=== PATIENT | female | born 1945 | race Caucasian/White ===

== ENCOUNTER 2017-02-17 15:33 | Inpatient (IN) | payer MEDICARE, BC ==
[2017-02-17 16:48] LABS: #Basophils 0.1 thou/uL (0.0-0.2); #Lymphocytes 1.2 thou/uL (1.20-3.40); #Monocytes 0.8 thou/uL (0.11-0.59); #Neutrophils 10.6 thou/uL (1.40-6.50); %Basophils 0.9 % (0.0-1.0); %Eosinophils 0.3 % (0.0-10.0); %Monocytes 6.4 % (0.0-10.0); %Neutrophils 83.4 % (42.0-75.0); Hemoglobin 13.5 g/dL (12.0-16.0); Mean Corpuscular Hemoglobin 29.1 pg (27.0-31.0); Mean Corpuscular Volume 85.5 fl (81.0-99.0); Mean Platelet Volume 7.3 fL (7.4-10.4); Platelet Count 263 thou/uL (130-400); RBC Distribution Width 12.1 % (11.5-14.5); Red Blood Cell (RBC) Count 4.65 mill/uL (4.20-5.40); White Blood Cell (WBC) Count 12.8 thou/uL (4.8-10.8)
[2017-02-17 16:54] LABS: PTT 23.7 SEC (22.9-36.1); Prothrombin Time 13.6 SEC (12.0-14.7)
[2017-02-17 17:04] LABS: AST (SGOT) 26 U/L (5-34); Albumin 3.7 g/dL (3.4-4.8); Anion Gap 17 mmol/L (10-20); Bilirubin, Total 0.6 mg/dL (0.2-1.2); Calc. Creatinine Clearance 0 mL/min (70-130); Calcium 8.8 mg/dL (7.8-10.44); Carbon Dioxide 19 mmol/L (23-31); Chloride 98 mmol/L (98-107); Estimated GFR-MDRD 75; Globulin 2.6 g/dL (2.4-3.5); Glucose 116 mg/dL (83-110); Magnesium 1.7 mg/dL (1.6-2.6); Protein, Total 6.3 g/dL (6.0-8.3); Sodium 132 mmol/L (136-145)
--- NOTE | 2017-02-17 17:13 | RAD ---
FRONTAL RADIOGRAPH CHEST 02/17/17 COMPARISON: 07/24/14 HISTORY: Failure to thrive, chronic generalized pain. FINDINGS: There is no pneumothorax or pleural fluid and no focal consolidation or alveolar edema. Heart and med iastinal contours are within normal limits. There are degenerative changes involving bilateral shoulders. IMPRESSION: Stable appearance of the chest - no acute findings. POS: [facility]
[2017-02-17 17:37] LABS: Bilirubin Negative (Negative); Blood, Urine Small (Negative); Glucose, Urine (Dipstick) Negative (Negative); Leukocyte Moderate (Negative); Nitrite Negative (Negative); Protein, Urine (Dipstick) 100 mg/dL (Neg-Trace); Specific Gravity, Urine 1.015 (1.005-1.030); Urobilinogen 0.2 mg/dL (0.2-1.0)
[2017-02-17 17:38] LABS: Clarity Hazy (Clear)
[2017-02-17 17:45] LABS: Bacteria/HPF 4+ HPF (None Seen)
[2017-02-17 18:04] LABS: CKMB 2.1 ng/mL (0-6.6); Troponin I 0.047 ng/mL (< 0.028)
[2017-02-17 18:05] LABS: ALT (SGPT) 29 U/L (8-55); Alkaline Phosphatase 75 U/L (40-150); BUN (Urea Nitrogen) 30 mg/dL (9.8-20.1); CK (CPK) 31 U/L (29-168)
[2017-02-17 18:07] LABS: Potassium 1.9 mmol/L (3.5-5.1)
[2017-02-17 18:23] LABS: Lipase 60 U/L (8-78)
[2017-02-17] MEDS ORDERED: NS 0.9% w/ 20 MEQ KCL 1,000 ML ONE (18:23)
[2017-02-17] MEDS ORDERED: Sodium Chloride 0.9% 100 ML ONE (19:05)
[2017-02-17] MEDS ORDERED: cefTRIAXone\\ROCEPHIN 1 GM VIAL ONE (19:05)
[2017-02-17] MEDS ORDERED: Magnesium Sulfate 2 GM/NS 0.9% 50 ML BAG ONE (19:44)
[2017-02-17 20:10] LABS: Troponin I 0.055 ng/mL (< 0.028)
[2017-02-17] MEDS ORDERED: Ondansetron ODT 4 MG TAB SL PRN (21:52)
[2017-02-17] MEDS ORDERED: Ondansetron HCl/PF 4 MG/2 ML Vial IVP PRN (21:52)
[2017-02-17] MEDS ORDERED: NS 0.9% w/ 20 MEQ KCL 1,000 ML IV SCH (21:52)
[2017-02-17] MEDS ORDERED: Potassium Chloride 40 MEQ in Sodium Chloride 0.9% 250 ML 250 ML IVPB SCH (22:30)
[2017-02-17 23:20] LABS: Troponin I 0.056 ng/mL (< 0.028)
[2017-02-18] MEDS ORDERED: Mag-Al 1200 mg/1200 mg/30 ML UDCUP PO PRN (00:55)
[2017-02-18] MEDS ORDERED: hydrALAZINE 20 MG/ML VIAL SLOW IVP PRN (00:55)
[2017-02-18] MEDS ORDERED: Ondansetron ODT 4 MG TAB PO PRN (00:55)
[2017-02-18] MEDS ORDERED: Acetaminophen 325 MG TAB PO PRN (00:55)
[2017-02-18] MEDS ORDERED: Ondansetron HCl/PF 4 MG/2 ML Vial IVP PRN (00:55)
[2017-02-18] MEDS: NS 0.9% w/ 40 MEQ KCL 1,000 ML IV SCH ×2 (01:57→15:21)
--- NOTE | 2017-02-18 02:02 | HP ---
PRIMARY CARE PHYSICIAN: Dr. Carlson CHIEF COMPLAINT: Altered mental status and failure to thrive. HISTORY OF PRESENT ILLNESS: Ms. Pastrana is a pleasant 71-year-old female who was brought to the hosp ital by her daughter. She says that she has not been eating well over the last few days. She has be en lethargic and in and out of being incoherent. She says she has been sleeping a lot. She says dequan t she has not been quite the same since being diagnosed with the flu back in January. She says that her mother has lost quite a bit of weight as well. She says that she typically gets this way when s he has a urinary tract infection. She was brought to the ER and evaluated and found to have urine wh ich is consistent with urinary tract infection with 4+ bacteria and moderate leukocytes. It was also found that she has potassium of 1.9 along with some EKG abnormalities which are consistent with hypo kalemia with prominent E waves in the lateral leads. The patient's daughter says that she is not kno wn to have any nausea or vomiting that her mother has experienced, no diarrhea. She did complain of some nausea in the car, but she attributes that to movement, otherwise no particular complaints. REVIEW OF SYSTEMS: Constitutional: There have been no fevers, no chills, no night sweats, no weight loss. HEENT: No h eadaches, no dizziness, no visual changes, no sore throat, rhinorrhea, neck pain, no adenopathy. Pul monary: No hemoptysis, no cough, no wheezing. Cardiovascular: She denies any chest pain, no shortn ess of breath, no PND, no orthopnea. Gastrointestinal: She has had some nausea, but no vomiting, no change in bowels. Genitourinary: No urinary frequency, hematuria, no hesitancy. Neurologic: No f ocal weakness, numbness, no seizures other than the lethargy. Skin/Integument: No skin changes. No rash. Psychiatric: No symptoms of anxiety or depression. PAST MEDICAL HISTORY: Significant for gastroesophageal reflux disease, systemic lupus, bursitis, fib romyalgia, osteoarthritis, osteoporosis, rheumatoid arthritis. PAST SURGICAL HISTORY: She has had esophageal surgery, surgery for peptic ulcer, hernia repair, hyst erectomy, and sinus surgery. ALLERGIES: To LYRICA which cause hallucinations and PLAQUENIL she had a very bad reaction to. SOCIAL HISTORY: She is . She is a nonsmoker, nondrinker. Her daughter is her medical power of workers compensation attorney and her code status is DNR. FAMILY HISTORY: Significant for arthritis and bursitis as well as heart disease. CURRENT MEDICATIONS: Include alprazolam 3 mg daily, Movantik 25 mg a day, Symbicort 80/4.5 two inhal ations twice a day, diltiazem extended release 30 mg daily, escitalopram 10 mg q.h.s., Lomotil p.r.n. , Flonase nasal spray as needed, methocarbamol 500 mg t.i.d., meclizine 25 mg q.i.d., ibuprofen 800 m g t.i.d., morphine immediate release 15 mg q.i.d., morphine extended release, MS Contin 60 mg t.i.d., pantoprazole 40 mg daily, and Keppra 750 mg twice a day. PHYSICAL EXAMINATION: GENERAL: She is alert and oriented. She appears somewhat lethargic and very sleepy. VITAL SIGNS: Blood pressure was 115/60, heart rate 57, respiratory rate of 16, temperature is 97.3. GENERAL: She does appear to be cachectic with some temporal muscle wasting. THROAT: She has got dry mucous membranes. NECK: There is no adenopathy, no bruits. LUNGS: Clear to auscultation. There is no wheezing, no rales. CARDIOVASCULAR: She has a normal S1, S2. I do not appreciate an S3 or S4. No murmurs, clicks or ru bs. ABDOMEN: Soft, it is nontender, nondistended. Positive for bowel sounds. No rebound or guarding. EXTREMITIES: The left leg is in a hard brace or cast. Right leg, there is no edema. She does have some bruising. NEUROLOGICALLY: The exam is nonfocal. SIGNIFICANT LABORATORY AND X-RAY FINDINGS: White blood cell count 12.8, hemoglobin 13.5, hematocrit is 39.8, platelet count is 263. INR is 1.0. Sodium 132, potassium 1.9, chloride is 98, CO2 is 19, B UN of 30, creatinine 0.76, glucose is 116. ASSESSMENT AND PLAN: 1. This is a 71-year-old female who presented to the emergency room with failure to thrive, poor margarita etite and severe hypokalemia. The potassium is likely due to decrease in oral intake. The decrease in oral intake and failure to thrive is likely from a urinary tract infection. She will be admitted to telemetry. The potassium will need to be replaced. Her magnesium was actually 1.7, is normal. 2. Urinary tract infection. She will be empirically started on Rocephin and Levaquin, pending cultu re results. She does have a history of ESBL Klebsiella in the past as well as ESBL Escherichia coli. Therefore, we will likely start her on meropenem, pending culture results. 3. She has a history of chronic pain from her diagnoses of rheumatoid arthritis and fibromyalgia and severe osteoporosis. She has been on chronic narcotic therapy for this and to avoid withdrawal, we will continue her home medications for this and place her on deep venous thrombosis as well as gastro intestinal prophylaxis.
[2017-02-18] MEDS: Meropenem 1 GM in Syringe 20 ML SLOW IVP SCH ×3 (05:18→21:54)
[2017-02-18] MEDS ORDERED: cefTRIAXone\\ROCEPHIN 1 GM in Syringe 10 ML SLOW IVP SCH (06:30)
[2017-02-18 06:36] LABS: #Eosinphils 0.1 thou/uL (0.0-0.7); #Lymphocytes 1.1 thou/uL (1.20-3.40); #Monocytes 0.6 thou/uL (0.11-0.59); #Neutrophils 5.1 thou/uL (1.40-6.50); %Basophils 0.1 % (0.0-1.0); %Eosinophils 0.8 % (0.0-10.0); %Lymphocytes 16.6 % (21.0-51.0); %Monocytes 8.2 % (0.0-10.0); %Neutrophils 74.4 % (42.0-75.0); Hemoglobin 12.3 g/dL (12.0-16.0); Mean Corpuscular HGB CONC 33.4 g/dL (32.0-36.0); Mean Corpuscular Hemoglobin 30.2 pg (27.0-31.0); Mean Corpuscular Volume 90.4 fl (81.0-99.0); Mean Platelet Volume 7.7 fL (7.4-10.4); Platelet Count 256 thou/uL (130-400); RBC Distribution Width 12.9 % (11.5-14.5); Red Blood Cell (RBC) Count 4.07 mill/uL (4.20-5.40); White Blood Cell (WBC) Count 6.9 thou/uL (4.8-10.8)
[2017-02-18 06:39] LABS: Anion Gap 14 mmol/L (10-20); BUN (Urea Nitrogen) 22 mg/dL (9.8-20.1); Calc. Creatinine Clearance 58 mL/min (70-130); Calcium 8.6 mg/dL (7.8-10.44); Carbon Dioxide 18 mmol/L (23-31); Chloride 107 mmol/L (98-107); Estimated GFR-MDRD 85; Glucose 104 mg/dL (83-110); Sodium 136 mmol/L (136-145)
[2017-02-18 06:43] LABS: Potassium 2.6 mmol/L (3.5-5.1)
[2017-02-18] MEDS ORDERED: Chloraseptic Spray 180 ml Bottle PO PRN (07:41)
[2017-02-18] MEDS ORDERED: Artificial Tears 18 DROP/0.9 ML EA EYE PRN (07:41)
[2017-02-18] MEDS ORDERED: Sodium Chloride 0.65% Nasal 44 ML BOT EA NARE PRN (07:41)
[2017-02-18] MEDS ORDERED: Diphenoxylate HCl/Atropine Tablet PO PRN (07:41)
[2017-02-18] MEDS ORDERED: Loratadine 10 MG TAB PO PRN (07:41)
[2017-02-18] MEDS ORDERED: Eucerin (Mineral Oil/Petrolatum,White) 30 gm Jar TOP PRN (07:41)
[2017-02-18] MEDS ORDERED: Milk Of Magnesia 30 ML UDCUP PO PRN (07:41)
[2017-02-18] MEDS ORDERED: Temazepam 15 MG CAP PO PRN (07:41)
[2017-02-18] MEDS ORDERED: Nitroglycerin 0.4 MG TAB (25 Tab Bottle) SL PRN (07:41)
[2017-02-18] MEDS ORDERED: Senokot 8.6 MG TAB PO PRN (07:41)
[2017-02-18] MEDS ORDERED: HYDROcodone/Acetaminophen 5/325 mg Tablet PO PRN (07:41)
[2017-02-18] MEDS ORDERED: Diabetic Tussin 200 MG/10 ML UDCUP PO PRN (07:41)
[2017-02-18] MEDS ORDERED: Meclizine HCl 25 MG TAB PO PRN (07:43)
[2017-02-18] MEDS ORDERED: Fluticasone Propionate Nasal Spray 16 gm Bottle NASAL PRN (08:00)
[2017-02-18] MEDS: Mometasone/Formoterol 120 PUFF INHALER INH SCH ×2 (08:35→20:00)
[2017-02-18] MEDS: Potassium Chloride 20 MEQ TAB PO SCH ×2 (08:47→18:19)
[2017-02-18] MEDS: Diltiazem HCl CD 300 mg Capsule PO SCH (08:54)
[2017-02-18] MEDS: Famotidine 20 MG TAB PO SCH ×2 (08:55→21:52)
[2017-02-18] MEDS: Enoxaparin Sodium 30 MG/0.3 ML SYRINGE SC SCH (08:55)
[2017-02-18] MEDS: levETIRAcetam 500 MG TAB PO SCH ×2 (08:55→21:49)
[2017-02-18] MEDS: Morphine IR Tab 15 MG TAB PO SCH ×5 (08:57→21:45)
[2017-02-18] MEDS: Methocarbamol 500 MG TAB PO SCH ×3 (08:57→21:49)
[2017-02-18] MEDS: Morphine ER 30 MG TAB PO SCH ×3 (08:58→21:50)
[2017-02-18] MEDS ORDERED: ALPRAZolam 1 MG TAB PO SCH ×3 (09:00→21:00)
[2017-02-18] MEDS ORDERED: BUDESONIDE FORMOTEROL INH SCH (09:00)
--- NOTE | 2017-02-18 11:11 | PQF ---
Date: 02-18-17 ATTN: DR. SHERRI DUMONT Please exercise your independent, professional judgment in responding to the clarification form. Clinical indicators are provided on the bottom of this form for your review Please check appropriate box(s): [ ] Protein Calorie Malnutrition: [ ] Mild [ ] Moderate [ ] Severe [ ] Other Malnutrition (please specify) __ [ ] Other diagnosis [ ] Unable to determine In addition, please specify: Present on Admission (POA): [ ] Yes [ ] No [ ] Unable to determine CLINICAL INDICATORS - SIGNS / SYMPTOMS / LABS BMI: 19.3 ER DOCUMENTATION: LOOKED REALLY SUNKEN AND EMACIATED CLINICAL LAB TECHNOLOGIST CONSULT 02-21-17: Prior to admit the pt was not eating well for a few days. Also noted to have had the flu in January and has lost a lot of wt. The pt took 75% breakfast today. H&P: HAS NOT BEEN EATING WELL OVER THE LAST FEW DAYS, SHE HAS BEEN LETHARGIC AND IN AND OUT OF BEING COHERENT. SHE SAYS THAT HER MOTHER HAS LOST QUITE A BIT FO WEIGHT WELL, 71 Y/O FEMALE WHO PRESENTED TO ER WITH FTT, POOR APPETITE AND SEVERE HYPOKALEMIA RISK FACTORS: ER DOCUMENTATION: HX OF FIBROMYALGIA, LUPUS, IN WITH FTT, HAS NOT BEEN EATING AND DRINKING DIETARY CONSULT 02-21-17: Stage 2 ulcer to sacrococcygeal area TREATMENT: DIETARY CONSULT 02-21-17: Ensure Enlive TID (This form is maintained as a part of the permanent medical record) 2014 [employer]. All Rights Reserved [email or web address] Office: [phone] [facility]
--- NOTE | 2017-02-18 11:16 | PDOC.PN ---
- Subjective Encounter Start Date: 02/18/17 Encounter Start Time: 07:10 -: old records requested/rev Patient seen and examined. No new complaints. No overnight events - Objective Resuscitation Status: Resuscitation Status DNR:Do Not Resuscitate MAR Reviewed: Yes Vital Signs & Weight: Vital Signs (12 hours) Temp Pulse Pulse Pulse Pulse Resp BP 02/18/17 09:05 66 69 02/18/17 08:54 69 133/59 L 02/18/17 08:35 69 14 02/18/17 08:00 98.9 F 69 20 02/18/17 07:47 67 66 65 02/18/17 03:55 98.6 F 62 16 02/17/17 23:45 97.3 F L 57 L 16 BP BP BP BP Pulse Ox 02/18/17 09:05 152/71 H 149/83 H 02/18/17 08:54 02/18/17 08:35 100 02/18/17 08:00 133/59 L 99 02/18/17 07:47 144/70 H 154/83 H 153/79 H 02/18/17 03:55 107/56 L 99 02/17/17 23:45 115/60 97 Weight Admit Weight 108 lb 11.2 oz Weight 108 lb 11.2 oz Result Diagrams: 02/18/17 04:31 02/18/17 04:31 EKG Reviewed by me: Yes Phys Exam - Physical Examination Constitutional: NAD HEENT: PERRLA, moist MMs, sclera anicteric Neck: no JVD, supple Respiratory: no wheezing, no rales, no rhonchi Cardiovascular: RRR, no significant murmur, no rub Gastrointestinal: soft, non-tender, no distention, positive bowel sounds right leg with brace Neurological: non-focal Lymphatic: no nodes Psychiatric: normal affect Skin: no rash, normal turgor Dx/Plan (1) Demand ischemia Code(s): I24.8 - OTHER FORMS OF ACUTE ISCHEMIC HEART DISEASE Status: Acute (2) Encephalopathy acute Code(s): G93.40 - ENCEPHALOPATHY, UNSPECIFIED Status: Acute (3) Failure to thrive in adult Status: Acute (4) Hypokalemia Code(s): E87.6 - HYPOKALEMIA Status: Acute (5) Protein-calorie malnutrition, moderate Code(s): E44.0 - MODERATE PROTEIN-CALORIE MALNUTRITION Status: Acute (6) UTI (urinary tract infection) Status: Acute (7) Weakness generalized Code(s): R53.1 - WEAKNESS Status: Acute (8) Anxiety and depression Code(s): F41.8 - OTHER SPECIFIED ANXIETY DISORDERS Status: Chronic (9) Chronic pain disorder Code(s): G89.4 - CHRONIC PAIN SYNDROME Status: Chronic (10) Fibromyalgia Status: Chronic (11) GERD (gastroesophageal reflux disease) Code(s): K21.9 - GASTRO-ESOPHAGEAL REFLUX DISEASE WITHOUT ESOPHAGITIS Status: Chronic (12) Osteoarthritis Code(s): M19.90 - UNSPECIFIED OSTEOARTHRITIS, UNSPECIFIED SITE Status: Chronic (13) Osteoporosis Code(s): M81.0 - AGE-RELATED OSTEOPOROSIS W/O CURRENT PATHOLOGICAL FRACTURE Status: Chronic - Plan cont current plan of care, plan discussed w/ family, continue antibiotics, PT/OT * follow urine culture * replace potassium * once K normal, will repeat EKG * medication reviewed as below * symptomatic treatment * continue meropenam * repeat labs tomorrow. Review of Systems - Review of Systems Eyes: negative: Pain, Vision Change, Conjunctivae Inflammation, Eyelid Inflammation, Redness, Other ENT: negative: Ear Pain, Ear Discharge, Nose Pain, Nose Discharge, Nose Congestion, Mouth Pain, Mouth Swelling, Throat Pain, Throat Swelling, Other Respiratory: negative: Cough, Dry, Shortness of Breath, Hemoptysis, SOB with Excertion, Pleuritic Pain, Sputum, Wheezing Cardiovascular: negative: chest pain, palpitations, orthopnea, paroxysmal nocturnal dyspnea, edema, light headedness, other Gastrointestinal: negative: Nausea, Vomiting, Abdominal Pain, Diarrhea, Constipation, Melena, Hematochezia, Other Genitourinary: negative: Dysuria, Frequency, Incontinence, Hematuria, Retention , Other Musculoskeletal: negative: Neck Pain, Shoulder Pain, Arm Pain, Back Pain, Hand Pain, Leg Pain, Foot Pain, Other - Medications/Allergies Allergies/Adverse Reactions: Allergies Allergy/AdvReac Type Severity Reaction Status Date / Time hydroxychloroquine Allergy Verified 08/26/15 23:34 [Hydroxychloroquine] hydroxychloroquine sulfate Allergy Verified 08/26/15 23:34 [From Plaquenil] pregabalin [From Lyrica] Allergy Verified 08/26/15 23:34 Medications: Current Medications Acetaminophen (Tylenol) 650 mg PO Q4H PRN PRN Reason: Headache/Fever or Pain Hydrocodone Bitart/Acetaminophen ([place] 5/325) 1 tab PO Q4H PRN PRN Reason: Moderate Pain (4-6) Al Hydroxide/Mg Hydroxide (Maalox) 30 ml PO Q6H PRN PRN Reason: Heartburn or Indigestion Alprazolam (Xanax) 3 mg PO HS [facility] Artificial Tears (Tears Naturale) 0 drop EA EYE PRN PRN PRN Reason: Dry Eyes Diltiazem HCl (Cardizem Cd) 300 mg PO DAILY [facility] Last Admin: 02/18/17 08:54 Dose: 300 mg Diphenoxylate HCl/Atropine (Lomotil) 1 tab PO QIDPRN PRN PRN Reason: Diarrhea/Loose Stools Enoxaparin Sodium (Lovenox) 30 mg SC 0900 [facility] Last Admin: 02/18/17 08:55 Dose: 30 mg Escitalopram Oxalate (Lexapro) 10 mg PO [facility] Famotidine (Pepcid) 20 mg PO BID [facility] Last Admin: 02/18/17 08:55 Dose: 20 mg Fluticasone Propionate (Flonase Nasal [place]) 0 gm NASAL DAILY PRN PRN Reason: Allergies Guaifenesin (Robitussin Sf) 200 mg PO Q4H PRN PRN Reason: Cough Hydralazine HCl (Apresoline) 10 mg SLOW IVP Q4H PRN PRN Reason: Systolic BP > 180 Meropenem 1 gm/ Syringe 20 mls @ 240 mls/hr SLOW IVP Q8HR [facility] Last Admin: 02/18/17 05:18 Dose: 20 mls Potassium Chloride/Sodium Chloride (Ns 0.9% W/ 40 Meq Kcl) 1,000 mls @ 100 mls/ hr IV .Q10H [facility] Last Admin: 02/18/17 01:57 Dose: 1,000 mls Levetiracetam (Keppra) 750 mg PO BID [facility] Last Admin: 02/18/17 08:55 Dose: 750 mg Loratadine (Claritin) 10 mg PO DAILYPRN PRN PRN Reason: Sinus Symptoms Magnesium Hydroxide (Milk Of Magnesium) 30 ml PO DAILYPRN PRN PRN Reason: Constipation Meclizine HCl (Antivert) 25 mg PO QID PRN PRN Reason: Dizziness Methocarbamol (Robaxin) 500 mg PO TID [facility] Last Admin: 02/18/17 08:57 Dose: 500 mg Mineral Oil/White Petrolatum (Eucerin Cream) 0 gm TOP BIDPRN PRN PRN Reason: Dry Skin Miscellaneous Medication (Movantik) 25 mg PO DAILY [facility] Last Admin: 02/18/17 11:06 Dose: 25 mg Mometasone Furoate/Formoterol Fumar (Dulera 100 Mcg/5 Mcg Inhaler) 2 puff INH BID-RT [facility] Last Admin: 02/18/17 08:35 Dose: 2 puff Morphine Sulfate (Ms Contin) 60 mg PO TID [facility] Last Admin: 02/18/17 08:58 Dose: 60 mg Morphine Sulfate (Morphine Ir Tab) 15 mg PO QID [facility] Last Admin: 02/18/17 08:57 Dose: 15 mg Nitroglycerin (Nitrostat) 0.4 mg SL Q5MIN PRN PRN Reason: Chest Pain Ondansetron HCl (Zofran Odt) 4 mg PO Q6H PRN PRN Reason: Nausea/Vomiting Ondansetron HCl (Zofran) 4 mg IVP Q6H PRN PRN Reason: Nausea/Vomiting Pantoprazole Sodium (Protonix) 40 mg PO DAILY [facility] Last Admin: 02/18/17 08:58 Dose: 40 mg Phenol (Chloraseptic [place] 180 Ml Bot) 0 ml PO PRN PRN PRN Reason: Sore Throat Potassium Chloride (K-Dur) 40 meq PO BID-WM [facility] Last Admin: 02/18/17 08:47 Dose: 40 meq Senna (Senokot) 2 tab PO HSPRN PRN PRN Reason: Constipation Sodium Chloride ([place] Nasal [place] 0.65%) 0 ml EA NARE QIDPRN PRN PRN Reason: Nasal Congestion Temazepam (Restoril) 15 mg PO HSPRN PRN PRN Reason: Insomnia
[2017-02-18] MEDS: Escitalopram Oxalate 10 mg Tablet PO SCH (21:49)
[2017-02-18] MEDS: ALPRAZolam 1 MG TAB PO PRN (21:52)
[2017-02-19] MEDS: NS 0.9% w/ 40 MEQ KCL 1,000 ML IV SCH ×3 (01:38→13:27)
[2017-02-19 05:30] LABS: #Eosinphils 0.1 thou/uL (0.0-0.7); #Lymphocytes 1.6 thou/uL (1.20-3.40); #Monocytes 0.6 thou/uL (0.11-0.59); #Neutrophils 3.8 thou/uL (1.40-6.50); %Basophils 0.8 % (0.0-1.0); %Eosinophils 1.7 % (0.0-10.0); %Lymphocytes 26.5 % (21.0-51.0); %Monocytes 9.3 % (0.0-10.0); %Neutrophils 61.8 % (42.0-75.0); Hemoglobin 10.9 g/dL (12.0-16.0); Mean Corpuscular Hemoglobin 30.1 pg (27.0-31.0); Mean Corpuscular Volume 91.4 fl (81.0-99.0); Mean Platelet Volume 7.1 fL (7.4-10.4); Platelet Count 228 thou/uL (130-400); RBC Distribution Width 13.1 % (11.5-14.5); Red Blood Cell (RBC) Count 3.61 mill/uL (4.20-5.40); White Blood Cell (WBC) Count 6.1 thou/uL (4.8-10.8)
[2017-02-19 05:45] LABS: ALT (SGPT) 17 U/L (8-55); AST (SGOT) 13 U/L (5-34); Albumin 2.7 g/dL (3.4-4.8); Alkaline Phosphatase 56 U/L (40-150); Anion Gap 11 mmol/L (10-20); BUN (Urea Nitrogen) 16 mg/dL (9.8-20.1); Bilirubin, Total 0.2 mg/dL (0.2-1.2); Calc. Creatinine Clearance 78 mL/min (70-130); Calcium 8.1 mg/dL (7.8-10.44); Carbon Dioxide 17 mmol/L (23-31); Chloride 114 mmol/L (98-107); Estimated GFR-MDRD Greater than 90; Globulin 1.8 g/dL (2.4-3.5); Glucose 87 mg/dL (83-110); Potassium 3.5 mmol/L (3.5-5.1); Protein, Total 4.5 g/dL (6.0-8.3); Sodium 138 mmol/L (136-145)
[2017-02-19] MEDS: Meropenem 1 GM in Syringe 20 ML SLOW IVP SCH ×3 (05:45→22:25)
[2017-02-19] MEDS ORDERED: K-Phos Neutral 250 MG TAB PO SCH (06:30)
[2017-02-19] MEDS: Potassium Chloride 20 MEQ TAB PO SCH ×2 (08:20→16:57)
[2017-02-19] MEDS: Morphine IR Tab 15 MG TAB PO SCH ×5 (08:22→21:26)
[2017-02-19] MEDS: Methocarbamol 500 MG TAB PO SCH ×3 (08:22→21:16)
[2017-02-19] MEDS: Enoxaparin Sodium 30 MG/0.3 ML SYRINGE SC SCH (08:22)
[2017-02-19] MEDS: Famotidine 20 MG TAB PO SCH ×2 (08:22→21:16)
[2017-02-19] MEDS: levETIRAcetam 500 MG TAB PO SCH ×2 (08:23→21:16)
[2017-02-19] MEDS: Morphine ER 30 MG TAB PO SCH ×3 (08:23→21:16)
[2017-02-19] MEDS: Mometasone/Formoterol 120 PUFF INHALER INH SCH ×2 (08:38→21:19)
[2017-02-19] MEDS: Diltiazem HCl CD 300 mg Capsule PO SCH (08:47)
--- NOTE | 2017-02-19 08:56 | PDOC.PN ---
- Subjective Encounter Start Date: 02/19/17 Encounter Start Time: 07:00 Patient seen and examined. No new complaints. No overnight events - Objective Resuscitation Status: Resuscitation Status DNR:Do Not Resuscitate MAR Reviewed: Yes Vital Signs & Weight: Vital Signs (12 hours) Temp Pulse Resp BP BP Pulse Ox 02/19/17 08:47 76 116/71 02/19/17 08:38 76 16 98 02/19/17 07:28 98.6 F 72 18 86/46 L 93 L 02/19/17 03:07 98.7 F 74 12 126/71 98 02/18/17 23:33 97.7 F 69 16 125/68 98 02/18/17 21:30 97.7 F 69 16 98 Weight Admit Weight 108 lb 11.2 oz Weight 124 lb 8 oz Result Diagrams: 02/19/17 04:56 02/19/17 04:56 EKG Reviewed by me: Yes Phys Exam - Physical Examination Constitutional: NAD HEENT: PERRLA, moist MMs, sclera anicteric, oral pharynx no lesions Neck: no JVD, supple Respiratory: no wheezing, no rales, no rhonchi Cardiovascular: RRR, no significant murmur, no rub Gastrointestinal: soft, non-tender, no distention, positive bowel sounds Musculoskeletal: no edema, pulses present Neurological: non-focal, normal sensation Lymphatic: no nodes Psychiatric: normal affect, A&O x 3 Skin: no rash, normal turgor Dx/Plan (1) Demand ischemia Code(s): I24.8 - OTHER FORMS OF ACUTE ISCHEMIC HEART DISEASE Status: Acute (2) Encephalopathy acute Code(s): G93.40 - ENCEPHALOPATHY, UNSPECIFIED Status: Acute (3) Failure to thrive in adult Status: Acute (4) Hypokalemia Code(s): E87.6 - HYPOKALEMIA Status: Acute (5) Protein-calorie malnutrition, moderate Code(s): E44.0 - MODERATE PROTEIN-CALORIE MALNUTRITION Status: Acute (6) UTI (urinary tract infection) Status: Acute (7) Weakness generalized Code(s): R53.1 - WEAKNESS Status: Acute (8) Anxiety and depression Code(s): F41.8 - OTHER SPECIFIED ANXIETY DISORDERS Status: Chronic (9) Chronic pain disorder Code(s): G89.4 - CHRONIC PAIN SYNDROME Status: Chronic (10) Fibromyalgia Status: Chronic (11) GERD (gastroesophageal reflux disease) Code(s): K21.9 - GASTRO-ESOPHAGEAL REFLUX DISEASE WITHOUT ESOPHAGITIS Status: Chronic (12) Osteoarthritis Code(s): M19.90 - UNSPECIFIED OSTEOARTHRITIS, UNSPECIFIED SITE Status: Chronic (13) Osteoporosis Code(s): M81.0 - AGE-RELATED OSTEOPOROSIS W/O CURRENT PATHOLOGICAL FRACTURE Status: Chronic - Plan cont current plan of care, plan discussed w/ family, continue antibiotics, PT/OT * medication reviewed as below * symptomatic treatment * will give KPhos * will repeat labs tomorrow * will get EKG today. Review of Systems - Review of Systems ENT: negative: Ear Pain, Ear Discharge, Nose Pain, Nose Discharge, Nose Congestion, Mouth Pain, Mouth Swelling, Throat Pain, Throat Swelling, Other Respiratory: negative: Cough, Dry, Shortness of Breath, Hemoptysis, SOB with Excertion, Pleuritic Pain, Sputum, Wheezing Cardiovascular: negative: chest pain, palpitations, orthopnea, paroxysmal nocturnal dyspnea, edema, light headedness, other Gastrointestinal: negative: Nausea, Vomiting, Abdominal Pain, Diarrhea, Constipation, Melena, Hematochezia, Other Genitourinary: negative: Dysuria, Frequency, Incontinence, Hematuria, Retention , Other Musculoskeletal: negative: Neck Pain, Shoulder Pain, Arm Pain, Back Pain, Hand Pain, Leg Pain, Foot Pain, Other Skin: negative: Rash, Lesions, Jaciel, Bruising, Other - Medications/Allergies Allergies/Adverse Reactions: Allergies Allergy/AdvReac Type Severity Reaction Status Date / Time hydroxychloroquine Allergy Verified 08/26/15 23:34 [Hydroxychloroquine] hydroxychloroquine sulfate Allergy Verified 08/26/15 23:34 [From Plaquenil] pregabalin [From Lyrica] Allergy Verified 08/26/15 23:34 Medications: Current Medications Acetaminophen (Tylenol) 650 mg PO Q4H PRN PRN Reason: Headache/Fever or Pain Hydrocodone Bitart/Acetaminophen ([place] 5/325) 1 tab PO Q4H PRN PRN Reason: Moderate Pain (4-6) Al Hydroxide/Mg Hydroxide (Maalox) 30 ml PO Q6H PRN PRN Reason: Heartburn or Indigestion Alprazolam (Xanax) 1 mg PO TIDPRN PRN PRN Reason: Anxiety Last Admin: 02/18/17 21:52 Dose: 1 mg Artificial Tears (Tears Naturale) 0 drop EA EYE PRN PRN PRN Reason: Dry Eyes Diltiazem HCl (Cardizem Cd) 300 mg PO DAILY [facility] Last Admin: 02/19/17 08:47 Dose: 300 mg Diphenoxylate HCl/Atropine (Lomotil) 1 tab PO QIDPRN PRN PRN Reason: Diarrhea/Loose Stools Enoxaparin Sodium (Lovenox) 30 mg SC 0900 [facility] Last Admin: 02/19/17 08:22 Dose: 30 mg Escitalopram Oxalate (Lexapro) 10 mg PO HS [facility] Last Admin: 02/18/17 21:49 Dose: 10 mg Famotidine (Pepcid) 20 mg PO BID [facility] Last Admin: 02/19/17 08:22 Dose: 20 mg Fluticasone Propionate (Flonase Nasal [place]) 0 gm NASAL DAILY PRN PRN Reason: Allergies Guaifenesin (Robitussin Sf) 200 mg PO Q4H PRN PRN Reason: Cough Hydralazine HCl (Apresoline) 10 mg SLOW IVP Q4H PRN PRN Reason: Systolic BP > 180 Meropenem 1 gm/ Syringe 20 mls @ 240 mls/hr SLOW IVP Q8HR [facility] Last Admin: 02/19/17 05:45 Dose: 20 mls Potassium Chloride/Sodium Chloride (Ns 0.9% W/ 40 Meq Kcl) 1,000 mls @ 100 mls/ hr IV .Q10H [facility] Last Admin: 02/19/17 01:38 Dose: 1,000 mls Levetiracetam (Keppra) 750 mg PO BID [facility] Last Admin: 02/19/17 08:23 Dose: 750 mg Loratadine (Claritin) 10 mg PO DAILYPRN PRN PRN Reason: Sinus Symptoms Magnesium Hydroxide (Milk Of Magnesium) 30 ml PO DAILYPRN PRN PRN Reason: Constipation Meclizine HCl (Antivert) 25 mg PO QID PRN PRN Reason: Dizziness Methocarbamol (Robaxin) 500 mg PO TID [facility] Last Admin: 02/19/17 08:22 Dose: 500 mg Mineral Oil/White Petrolatum (Eucerin Cream) 0 gm TOP BIDPRN PRN PRN Reason: Dry Skin Miscellaneous Medication (Movantik) 25 mg PO DAILY [facility] Last Admin: 02/18/17 11:06 Dose: 25 mg Mometasone Furoate/Formoterol Fumar (Dulera 100 Mcg/5 Mcg Inhaler) 2 puff INH BID-RT [facility] Last Admin: 02/19/17 08:38 Dose: 2 puff Morphine Sulfate (Ms Contin) 60 mg PO TID [facility] Last Admin: 02/19/17 08:23 Dose: 60 mg Morphine Sulfate (Morphine Ir Tab) 15 mg PO QID [facility] Last Admin: 02/19/17 08:45 Dose: Not Given Nitroglycerin (Nitrostat) 0.4 mg SL Q5MIN PRN PRN Reason: Chest Pain Ondansetron HCl (Zofran Odt) 4 mg PO Q6H PRN PRN Reason: Nausea/Vomiting Ondansetron HCl (Zofran) 4 mg IVP Q6H PRN PRN Reason: Nausea/Vomiting Pantoprazole Sodium (Protonix) 40 mg PO DAILY [facility] Last Admin: 02/19/17 08:24 Dose: 40 mg Phenol (Chloraseptic [place] 180 Ml Bot) 0 ml PO PRN PRN PRN Reason: Sore Throat Potassium Chloride (K-Dur) 40 meq PO BID-WM [facility] Last Admin: 02/19/17 08:20 Dose: 40 meq Senna (Senokot) 2 tab PO HSPRN PRN PRN Reason: Constipation Sodium Chloride ([place] Nasal [place] 0.65%) 0 ml EA NARE QIDPRN PRN PRN Reason: Nasal Congestion Sodium Chloride (Flush - Normal Saline) 10 ml IVF Q12HR [facility] Sodium Chloride (Flush - Normal Saline) 10 ml IVF PRN PRN PRN Reason: Saline Flush Temazepam (Restoril) 15 mg PO HSPRN PRN PRN Reason: Insomnia
[2017-02-19] MEDS: Escitalopram Oxalate 10 mg Tablet PO SCH (21:15)
[2017-02-19] MEDS: ALPRAZolam 1 MG TAB PO PRN (22:26)
[2017-02-20] MEDS: Meropenem 1 GM in Syringe 20 ML SLOW IVP SCH ×3 (05:32→22:44)
[2017-02-20 05:39] LABS: Anion Gap 8 mmol/L (10-20); BUN (Urea Nitrogen) 14 mg/dL (9.8-20.1); Calc. Creatinine Clearance 84 mL/min (70-130); Carbon Dioxide 19 mmol/L (23-31); Chloride 114 mmol/L (98-107); Estimated GFR-MDRD Greater than 90; Glucose 91 mg/dL (83-110); Phosphorus 3.4 mg/dL (2.3-4.7); Potassium 4.1 mmol/L (3.5-5.1); Sodium 137 mmol/L (136-145)
[2017-02-20] MEDS: Mometasone/Formoterol 120 PUFF INHALER INH SCH ×2 (08:17→19:58)
[2017-02-20] MEDS: Diltiazem HCl CD 300 mg Capsule PO SCH (10:38)
[2017-02-20] MEDS: Enoxaparin Sodium 30 MG/0.3 ML SYRINGE SC SCH (10:38)
[2017-02-20] MEDS: levETIRAcetam 500 MG TAB PO SCH ×2 (10:39→20:20)
[2017-02-20] MEDS: Famotidine 20 MG TAB PO SCH ×2 (10:39→20:19)
[2017-02-20] MEDS: Methocarbamol 500 MG TAB PO SCH ×3 (10:40→20:21)
[2017-02-20] MEDS: Morphine IR Tab 15 MG TAB PO SCH ×4 (10:41→20:17)
[2017-02-20] MEDS: Morphine ER 30 MG TAB PO SCH ×3 (10:41→20:19)
[2017-02-20] MEDS: Potassium Chloride 20 MEQ TAB PO SCH (10:50)
--- NOTE | 2017-02-20 11:19 | PDOC.PN ---
- Subjective Encounter Start Date: 02/20/17 Encounter Start Time: 11:15 Patient seen and examined, no new issues or complaints, all questions answered. - Objective Resuscitation Status: Resuscitation Status DNR:Do Not Resuscitate Vital Signs & Weight: Vital Signs (12 hours) Temp Pulse Resp BP BP BP Pulse Ox 02/20/17 10:38 65 100/59 L 02/20/17 08:17 65 16 95 02/20/17 07:35 97.7 F 58 L 18 100/59 L 99 02/20/17 04:30 97.6 F 61 18 126/72 94 L Weight Admit Weight 108 lb 11.2 oz Weight 124 lb 8 oz I&O: 02/19/17 02/20/17 02/21/17 06:59 06:59 06:59 Intake Total 2500 Balance 2500 Result Diagrams: 02/19/17 04:56 02/20/17 05:12 Phys Exam - Physical Examination Constitutional: NAD HEENT: PERRLA, moist MMs Neck: no nodes, no JVD Respiratory: no wheezing, no rales Cardiovascular: RRR, no significant murmur Gastrointestinal: soft, non-tender Musculoskeletal: pulses present, edema present (trace) Neurological: non-focal, normal sensation Psychiatric: normal affect, A&O x 3 Dx/Plan (1) Demand ischemia Code(s): I24.8 - OTHER FORMS OF ACUTE ISCHEMIC HEART DISEASE Status: Acute (2) Failure to thrive in adult Status: Acute (3) Protein-calorie malnutrition, moderate Code(s): E44.0 - MODERATE PROTEIN-CALORIE MALNUTRITION Status: Acute (4) Weakness generalized Code(s): R53.1 - WEAKNESS Status: Acute (5) Chronic pain disorder Code(s): G89.4 - CHRONIC PAIN SYNDROME Status: Chronic (6) Fibromyalgia Status: Chronic (7) GERD (gastroesophageal reflux disease) Code(s): K21.9 - GASTRO-ESOPHAGEAL REFLUX DISEASE WITHOUT ESOPHAGITIS Status: Chronic (8) Osteoarthritis Code(s): M19.90 - UNSPECIFIED OSTEOARTHRITIS, UNSPECIFIED SITE Status: Chronic - Plan * BP stable * Hypokalemia resolved * afebrile, tolerating diet * cont abx * continue current plan of care
[2017-02-20] MEDS: Escitalopram Oxalate 10 mg Tablet PO SCH (20:19)
[2017-02-20] MEDS: ALPRAZolam 1 MG TAB PO PRN (20:26)
[2017-02-21] MEDS: Meropenem 1 GM in Syringe 20 ML SLOW IVP SCH ×3 (05:25→21:59)
[2017-02-21] MEDS: Mometasone/Formoterol 120 PUFF INHALER INH SCH ×2 (06:03→19:20)
--- NOTE | 2017-02-21 08:33 | PDOC.PN ---
- Subjective Encounter Start Date: 02/21/17 Encounter Start Time: 09:30 Subjective: Patient feeling much better since admit. Energy level improved. More -: strength with moving to bedside commode. - Objective Resuscitation Status: Resuscitation Status DNR:Do Not Resuscitate MAR Reviewed: Yes Vital Signs & Weight: Vital Signs (12 hours) Temp Pulse Resp BP BP Pulse Ox 02/21/17 07:51 97.5 F L 62 16 112/67 99 02/21/17 06:03 63 14 96 02/21/17 04:00 97.2 F L 61 16 99/63 99 02/20/17 22:20 98.8 F 67 18 98/60 99 02/20/17 22:08 98.8 F 67 18 99 02/20/17 20:39 97.7 F 64 16 120/67 100 Weight Admit Weight 108 lb 11.2 oz Weight 124 lb 8 oz I&O: 02/20/17 02/21/17 02/22/17 06:59 06:59 06:59 Intake Total 2500 480 Balance 2500 480 Result Diagrams: 02/19/17 04:56 02/20/17 05:12 Phys Exam - Physical Examination Constitutional: NAD HEENT: moist MMs Respiratory: no wheezing, no rales, no rhonchi Cardiovascular: RRR, no significant murmur Gastrointestinal: soft, positive bowel sounds Neurological: non-focal Psychiatric: normal affect, A&O x 3 Dx/Plan (1) UTI (urinary tract infection) Status: Acute Comment: Multiresistant E.coli and K.pneumoniae. On Meropenem. Consult ID. (2) Failure to thrive in adult Status: Acute (3) Protein-calorie malnutrition, moderate Code(s): E44.0 - MODERATE PROTEIN-CALORIE MALNUTRITION Status: Chronic (4) Weakness generalized Code(s): R53.1 - WEAKNESS Status: Acute (5) Chronic pain disorder Code(s): G89.4 - CHRONIC PAIN SYNDROME Status: Chronic (6) Fibromyalgia Status: Chronic - Plan cont current plan of care, continue antibiotics, PT/OT, DVT proph w/lovenox, DVT proph w/SCDs * . - Discharge Day Encounter end time: 09:45
[2017-02-21] MEDS: Methocarbamol 500 MG TAB PO SCH ×3 (10:12→20:38)
[2017-02-21] MEDS: levETIRAcetam 500 MG TAB PO SCH ×2 (10:13→20:37)
[2017-02-21] MEDS: Enoxaparin Sodium 30 MG/0.3 ML SYRINGE SC SCH (10:14)
[2017-02-21] MEDS: ALPRAZolam 1 MG TAB PO PRN ×3 (10:14→21:58)
[2017-02-21] MEDS: Diltiazem HCl CD 300 mg Capsule PO SCH (10:14)
[2017-02-21] MEDS: Morphine ER 30 MG TAB PO SCH ×3 (10:14→20:35)
[2017-02-21] MEDS: Famotidine 20 MG TAB PO SCH ×2 (10:14→20:37)
[2017-02-21] MEDS: Morphine IR Tab 15 MG TAB PO SCH ×4 (10:16→20:38)
[2017-02-21] MEDS ORDERED: Aluminum & Magnesium Hydroxide 60 ML, diphenhydrAMINE 150 MG, Lidocaine 2% Viscous Solu... SSW PRN ×4 (11:34)
[2017-02-21 12:46] VITALS: BMI 22.0
--- NOTE | 2017-02-21 14:07 | CON ---
DATE OF CONSULTATION: 02/21/2017 REASON FOR CONSULTATION: Possible urinary tract infection with invasive features. HISTORY OF PRESENT ILLNESS: A 71-year-old known to us from prior visits, both in the hospital as wel l as in the clinic, who has a history of likely chronic rheumatoid arthritis, previously steroid depe ndent. The patient has been on corticosteroids for the past 3 years as well as chronic opioid depend ency syndrome associated with pain throughout her body and a nonunion fracture, left lower extremity which was managed with the splint. Patient has recently been started on peripheral opioid receptor a ntagonist, which is quite expensive and she cannot take it every day. She alternates with MiraLax. About two weeks ago, she was diagnosed with influenza, was not treated with antiviral compound becaus e it took a few days before she got to the doctor and was diagnosed. She developed quite prominent a norexia and never really got back to her baseline status. One day before admission, she became more disoriented and on last week about four days before this consultation, she was brought into the hospital with change in mental status. By that time, she had not reported any dysuria or fever o r abdominal pain. Had been no headaches, no cough or respiratory symptoms. No diarrhea. No change in her joint symptoms. Initial findings included patient was alert and oriented, although she was le thargic. BP 115/60, heart rate of 57, respiratory rate 16, temperature 97.3. There was some muscle wasting noted. Lungs were clear. Heart exam was normal. Abdomen, soft, nontender, distended. She had a brace in the left leg which is a chronic finding. Initial laboratory, urinalysis with 11-20 wb cs and white cell count 12.8, hemoglobin 13.5, platelets 263 with 82% neutrophils. INR 1.0. Sodium was 132, potassium was very low at 1.9 and creatinine 0.76. Liver profile normal. Troponin 0.047, a lbumin 3.7, globulin 2.6. Initial imaging studies included chest x-ray with stable appearance of neisha st with no acute findings. The patient has been given Tylenol, [place], Maalox, Cardizem, Lomotil, Diane enox, Pepcid, Flonase, Apresoline, Keppra, meropenem, Robaxin, mometasone, nitroglycerin, ondansetron . Currently, she is wide awake and oriented, fairly decent recollection. A 10-point review of keila lucas is as above. Again, no dysuria. No back pain. No fever before admission. No vomiting, no bleed ing. PAST MEDICAL HISTORY: Rheumatoid arthritis, prior episodes of invasive UTI, pyelonephritis at least once, although she has never been bacteremic, GERD, nonunion fracture, left leg, managed with a splin t, hypertension, and peptic ulcer disease. SOCIAL HISTORY: Lives with daughter in the area. ALLERGIES: PLAQUENIL and LYRICA. MEDICATION LIST: Has been reviewed above. PHYSICAL EXAMINATION: GENERAL: Appears chronically ill. VITAL SIGNS: T-max 98.8, blood pressure 123/79, pulse 62, respirations 18, O2 sat 99. SKIN: The patient has an area of stage I pressure damage to the skin in the presacral region. Perip heral IV access. No lymphadenopathy. HEENT: Ocular movements are conjugate. Oral cavity with still quite a few teeth in place with marke d decay and gum disease. The previously noted mouth ulcers have healed for the most part. NECK: Supple, no jugular venous distention. LUNGS: With symmetric clear breath sounds, a few scattered inspiratory crackles, no wheezing. S1, S 2, regular rate. No murmurs. ABDOMEN: Soft. Not distended or tender. No ascites. No bladder distention. EXTREMITIES: Quite a few deformities in the small joints of hands and feet. There is a valgus defor mity of the left knee and a splint. Cognitive function appears to be back to normal at this time, at least as I recall during her previous visits. LABORATORY AND X-RAY FINDINGS: Sodium is back to 137, potassium 4.1, creatinine 0.54 with normal rainer er profile, albumin 2.7. White cell count 6.1, hemoglobin 10.9, platelets 228 with normal differenti al. Microbiology with E. coli and Klebsiella pneumoniae in urine, the greater than 100,000 CFUs and E. coli with ESBL phenotype and Klebsiella pneumonia, also with ESBL phenotype. ASSESSMENT AND PLAN: 1. Rheumatoid arthritis with severe functional impairment. 2. Chronic nonunion fracture, left leg. 3. Prior urinary tract infections. 4. 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 5. Severe hypokalemia, change in mental status, volume depletion and recent episode of influenza. DISCUSSION: This time, it appears that the urinary tract findings are not the primary reason for the patient's clinical deterioration. I believe that we can stop the antimicrobials upon transfer to re habilitation and I do not think she needs protracted treatment, verify postvoid residual and we will repeat ultrasound to make sure she does not have any obstruction.
[2017-02-21] MEDS: Aluminum & Magnesium Hydroxide 60 ML, diphenhydrAMINE 150 MG, Lidocaine 2% Viscous Solu... SSP PRN ×8 (14:13→21:59)
--- NOTE | 2017-02-21 14:39 | ULT ---
BILATERAL RENAL SONOGRAM: Date: 02/21/17 HISTORY: Urinary tract infection. FINDINGS: The right kidney is 9.5 cm in length and the left is 9.8 cm. Each has a normal sonographic appearance without evidence of mass, stone, or hydronephrosis. Urinary bladder has a normal appearance with dav ateral ureteral jets visualized. IMPRESSION: Normal renal sonogram. POS: LISA
[2017-02-21] MEDS: Escitalopram Oxalate 10 mg Tablet PO SCH (20:38)
[2017-02-21] MEDS ORDERED: diphenhydrAMINE 25 MG CAP PO PRN (21:52)
[2017-02-22] MEDS: Meropenem 1 GM in Syringe 20 ML SLOW IVP SCH ×3 (05:23→22:55)
[2017-02-22] MEDS ORDERED: Morphine IR Tab 15 MG TAB PO PRN (05:36)
[2017-02-22] MEDS: Mometasone/Formoterol 120 PUFF INHALER INH SCH ×2 (05:53→18:46)
[2017-02-22 06:13] LABS: #Eosinphils 0.6 thou/uL (0.0-0.7); #Lymphocytes 1.6 thou/uL (1.20-3.40); #Monocytes 0.7 thou/uL (0.11-0.59); #Neutrophils 3.2 thou/uL (1.40-6.50); %Basophils 0.8 % (0.0-1.0); %Eosinophils 9.8 % (0.0-10.0); %Lymphocytes 26.8 % (21.0-51.0); %Monocytes 10.8 % (0.0-10.0); %Neutrophils 51.8 % (42.0-75.0); Hemoglobin 10.6 g/dL (12.0-16.0); Mean Corpuscular HGB CONC 32.2 g/dL (32.0-36.0); Mean Corpuscular Volume 93.1 fl (81.0-99.0); Mean Platelet Volume 6.4 fL (7.4-10.4); Platelet Count 206 thou/uL (130-400); RBC Distribution Width 13.4 % (11.5-14.5); Red Blood Cell (RBC) Count 3.53 mill/uL (4.20-5.40); White Blood Cell (WBC) Count 6.1 thou/uL (4.8-10.8)
[2017-02-22 06:32] LABS: ALT (SGPT) 15 U/L (8-55); AST (SGOT) 14 U/L (5-34); Albumin 2.6 g/dL (3.4-4.8); Alkaline Phosphatase 56 U/L (40-150); Anion Gap 9 mmol/L (10-20); BUN (Urea Nitrogen) 15 mg/dL (9.8-20.1); Bilirubin, Total 0.2 mg/dL (0.2-1.2); Calc. Creatinine Clearance 71 mL/min (70-130); Carbon Dioxide 22 mmol/L (23-31); Chloride 110 mmol/L (98-107); Estimated GFR-MDRD Greater than 90; Globulin 1.9 g/dL (2.4-3.5); Glucose 90 mg/dL (83-110); Magnesium 1.5 mg/dL (1.6-2.6); Phosphorus 2.9 mg/dL (2.3-4.7); Potassium 3.8 mmol/L (3.5-5.1); Protein, Total 4.5 g/dL (6.0-8.3); Sodium 137 mmol/L (136-145)
[2017-02-22] MEDS: Famotidine 20 MG TAB PO SCH ×2 (10:32→21:16)
[2017-02-22] MEDS: Morphine ER 30 MG TAB PO SCH ×3 (10:33→21:16)
[2017-02-22] MEDS: levETIRAcetam 500 MG TAB PO SCH ×2 (10:34→21:17)
[2017-02-22] MEDS: Enoxaparin Sodium 30 MG/0.3 ML SYRINGE SC SCH (10:40)
[2017-02-22] MEDS: Methocarbamol 500 MG TAB PO SCH ×3 (10:40→21:17)
[2017-02-22] MEDS: Diltiazem HCl CD 300 mg Capsule PO SCH (10:44)
[2017-02-22] MEDS ORDERED: Magnesium 2 GM/NS 0.9% 100 ML 2 GM in Premix Bag 1 BAG IVPB SCH (12:15)
--- NOTE | 2017-02-22 12:18 | PDOC.PN ---
- Subjective Encounter Start Date: 02/22/17 Encounter Start Time: 12:15 Patient seen and examined. No new complaints. No overnight events - Objective Resuscitation Status: Resuscitation Status DNR:Do Not Resuscitate MAR Reviewed: Yes Vital Signs & Weight: Vital Signs (12 hours) Temp Pulse Resp BP BP Pulse Ox 02/22/17 10:44 64 127/74 02/22/17 08:00 98.1 F 64 20 97/59 L 98 02/22/17 05:53 67 12 99 02/22/17 04:00 97.9 F 67 18 98/57 L 99 Weight Admit Weight 108 lb 11.2 oz Weight 124 lb 8 oz I&O: 02/21/17 02/22/17 02/23/17 06:59 06:59 06:59 Intake Total 480 800 Balance 480 800 Result Diagrams: 02/22/17 05:51 02/22/17 05:51 Phys Exam - Physical Examination Constitutional: NAD Respiratory: no wheezing, no rhonchi Cardiovascular: RRR, no rub Gastrointestinal: soft, non-tender, positive bowel sounds Musculoskeletal: no edema Neurological: non-focal, moves all 4 limbs Psychiatric: A&O x 3 Dx/Plan - Plan DVT proph w/lovenox, DVT proph w/SCDs IMPRESSION: 1. Generalized weakness/Toxic Metabolic Encephalopathy - improving 2. UTI - Ecoli/Klebsiella 3. Moderate PEM 4. Physical deconditioning 5. Electrolyte abn - hypokalemia/hypomagnesemia 6. RA/Chronic pain syndrome/SLE/Fibromyalgia/GERD/Oral ulcers PLAN: * Cont Meropenem * Await ID input * Replace Mg * AM labs * Cont current meds as below * Change Morphine IR to PRN * Cont PT * Await Inpt Rehab eval * Check Postvoid residuals * Change Magic Mouthwash to TID per patient request Review of Systems - Review of Systems Respiratory: negative: Cough, Dry, Shortness of Breath, Hemoptysis, SOB with Excertion, Pleuritic Pain, Sputum, Wheezing Cardiovascular: negative: chest pain, palpitations, orthopnea, paroxysmal nocturnal dyspnea, edema, light headedness - Medications/Allergies Allergies/Adverse Reactions: Allergies Allergy/AdvReac Type Severity Reaction Status Date / Time hydroxychloroquine Allergy Verified 08/26/15 23:34 [Hydroxychloroquine] hydroxychloroquine sulfate Allergy Verified 08/26/15 23:34 [From Plaquenil] pregabalin [From Lyrica] Allergy Verified 08/26/15 23:34 Medications: Current Medications Acetaminophen (Tylenol) 650 mg PO Q4H PRN PRN Reason: Headache/Fever or Pain Al Hydroxide/Mg Hydroxide (Maalox) 30 ml PO Q6H PRN PRN Reason: Heartburn or Indigestion Alprazolam (Xanax) 1 mg PO TIDPRN PRN PRN Reason: Anxiety Last Admin: 02/21/17 21:58 Dose: 1 mg Artificial Tears (Tears Naturale) 0 drop EA EYE PRN PRN PRN Reason: Dry Eyes Al Hydroxide/Mg Hydroxide 60 ml/ Diphenhydramine HCl 150 mg / Lidocaine HCl 60 ml/Nystatin 6,000,000 units 0 ml SSP BID PRN PRN Reason: MOUTH ULCERS Last Admin: 02/21/17 21:59 Dose: 10 ml Diltiazem HCl (Cardizem Cd) 300 mg PO DAILY [facility] Last Admin: 02/22/17 10:44 Dose: 300 mg Diphenhydramine HCl (Benadryl) 25 mg PO Q6H PRN PRN Reason: Itching Last Admin: 02/21/17 21:58 Dose: 25 mg Diphenoxylate HCl/Atropine (Lomotil) 1 tab PO QIDPRN PRN PRN Reason: Diarrhea/Loose Stools Enoxaparin Sodium (Lovenox) 30 mg SC 0900 [facility] Last Admin: 02/22/17 10:40 Dose: 30 mg Escitalopram Oxalate (Lexapro) 10 mg PO HS [facility] Last Admin: 02/21/17 20:38 Dose: 10 mg Famotidine (Pepcid) 20 mg PO BID [facility] Last Admin: 02/22/17 10:32 Dose: 20 mg Fluticasone Propionate (Flonase Nasal [place]) 0 gm NASAL DAILY PRN PRN Reason: Allergies Guaifenesin (Robitussin Sf) 200 mg PO Q4H PRN PRN Reason: Cough Hydralazine HCl (Apresoline) 10 mg SLOW IVP Q4H PRN PRN Reason: Systolic BP > 180 Meropenem 1 gm/ Syringe 20 mls @ 240 mls/hr SLOW IVP Q8HR [facility] Last Admin: 02/22/17 05:23 Dose: 20 mls Magnesium Sulfate 2 gm/ Sodium (Chloride) 104 mls @ 100 mls/hr IVPB ONE [facility] Levetiracetam (Keppra) 750 mg PO BID [facility] Last Admin: 02/22/17 10:34 Dose: 750 mg Loratadine (Claritin) 10 mg PO DAILYPRN PRN PRN Reason: Sinus Symptoms Magnesium Hydroxide (Milk Of Magnesium) 30 ml PO DAILYPRN PRN PRN Reason: Constipation Meclizine HCl (Antivert) 25 mg PO QID PRN PRN Reason: Dizziness Methocarbamol (Robaxin) 500 mg PO TID [facility] Last Admin: 02/22/17 10:40 Dose: Not Given Mineral Oil/White Petrolatum (Eucerin Cream) 0 gm TOP BIDPRN PRN PRN Reason: Dry Skin Miscellaneous Medication (Movantik) 25 mg PO DAILY [facility] Last Admin: 02/22/17 10:48 Dose: Not Given Mometasone Furoate/Formoterol Fumar (Dulera 100 Mcg/5 Mcg Inhaler) 2 puff INH BID-RT [facility] Last Admin: 02/22/17 05:53 Dose: 2 puff Morphine Sulfate (Ms Contin) 60 mg PO TID [facility] Last Admin: 02/22/17 10:33 Dose: 60 mg Morphine Sulfate (Morphine Ir Tab) 15 mg PO Q4H PRN PRN Reason: Severe Pain (7-10) Nitroglycerin (Nitrostat) 0.4 mg SL Q5MIN PRN PRN Reason: Chest Pain Ondansetron HCl (Zofran Odt) 4 mg PO Q6H PRN PRN Reason: Nausea/Vomiting Ondansetron HCl (Zofran) 4 mg IVP Q6H PRN PRN Reason: Nausea/Vomiting Pantoprazole Sodium (Protonix) 40 mg PO DAILY [facility] Last Admin: 02/22/17 10:39 Dose: 40 mg Phenol (Chloraseptic [place] 180 Ml Bot) 0 ml PO PRN PRN PRN Reason: Sore Throat Potassium Chloride (K-Dur) 20 meq PO BID-[facility] Senna (Senokot) 2 tab PO HSPRN PRN PRN Reason: Constipation Sodium Chloride ([place] Nasal [place] 0.65%) 0 ml EA NARE QIDPRN PRN PRN Reason: Nasal Congestion Sodium Chloride (Flush - Normal Saline) 10 ml IVF Q12HR [facility] Last Admin: 02/22/17 10:48 Dose: 10 ml Sodium Chloride (Flush - Normal Saline) 10 ml IVF PRN PRN PRN Reason: Saline Flush Last Admin: 02/21/17 14:33 Dose: 10 ml
[2017-02-22] MEDS: Aluminum & Magnesium Hydroxide 60 ML, diphenhydrAMINE 150 MG, Lidocaine 2% Viscous Solu... SSP PRN ×4 (14:15)
[2017-02-22] MEDS ORDERED: Potassium Chloride 20 MEQ TAB PO SCH ×2 (17:00)
[2017-02-22] MEDS: Aluminum & Magnesium Hydroxide 60 ML, diphenhydrAMINE 150 MG, Lidocaine 2% Viscous Solu... SSP SCH ×8 (17:43→21:18)
[2017-02-22] MEDS: Escitalopram Oxalate 10 mg Tablet PO SCH (21:16)
[2017-02-22] MEDS: ALPRAZolam 1 MG TAB PO PRN (21:56)
[2017-02-23 06:13] LABS: Albumin 2.9 g/dL (3.4-4.8); Anion Gap 9 mmol/L (10-20); BUN (Urea Nitrogen) 17 mg/dL (9.8-20.1); BUN/Creatinine Ratio 23.61; Calc. Creatinine Clearance 63 mL/min (70-130); Calcium 8.1 mg/dL (7.8-10.44); Carbon Dioxide 24 mmol/L (23-31); Chloride 109 mmol/L (98-107); Estimated GFR-MDRD 80; Glucose 106 mg/dL (83-110); Phosphorus 2.9 mg/dL (2.3-4.7); Potassium 4.2 mmol/L (3.5-5.1); Sodium 138 mmol/L (136-145)
[2017-02-23] MEDS: Mometasone/Formoterol 120 PUFF INHALER INH SCH (06:14)
[2017-02-23] MEDS: Meropenem 1 GM in Syringe 20 ML SLOW IVP SCH (06:31)
[2017-02-23] MEDS: Methocarbamol 500 MG TAB PO SCH ×2 (09:15→14:22)
[2017-02-23] MEDS: Enoxaparin Sodium 30 MG/0.3 ML SYRINGE SC SCH (09:17)
[2017-02-23] MEDS: Diltiazem HCl CD 300 mg Capsule PO SCH (09:17)
[2017-02-23] MEDS: Morphine ER 30 MG TAB PO SCH ×2 (09:36→15:21)
[2017-02-23] MEDS: Famotidine 20 MG TAB PO SCH (09:36)
[2017-02-23] MEDS: ALPRAZolam 1 MG TAB PO PRN (09:37)
[2017-02-23] MEDS: Aluminum & Magnesium Hydroxide 60 ML, diphenhydrAMINE 150 MG, Lidocaine 2% Viscous Solu... SSP SCH ×8 (09:37→15:21)
[2017-02-23] MEDS: levETIRAcetam 500 MG TAB PO SCH (11:34)
[2017-02-23] MEDS ORDERED: Meropenem 1 GM in Sodium Chloride 0.9% 100 ML IVPB SCH (14:45)
[2017-02-23] MEDS ORDERED: Meropenem 1 GM in Sterile Water 20 ML SLOW IVP SCH (14:45)
--- NOTE | 2017-02-23 15:25 | DIS ---
DATE OF DISCHARGE: 02/23/2017 DISCHARGE DISPOSITION: Inpatient Rehabilitation. Pending approval. The patient will be discharged later today or in a.m. depending on the bed availability. ALLERGIES: The patient is allergic to HYDROXYCHLOROQUINE and LYRICA. CODE STATUS: Do not resuscitate. The patient was seen and examined on the day of discharge. Denies any new complaints. No chest pain , shortness of breath, palpitations. Overall, feels much better. 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 Robles. DISCHARGE MEDICATIONS: 1. Symbicort 80/4.5 two spray inhalation b.i.d. 2. Cardizem extended release 300 mg daily. 3. Lomotil as needed. 4. Ibuprofen as needed. 5. Keppra 750 mg b.i.d. 6. MS Contin 60 mg 3 times a day. 7. Robaxin 500 mg 3 times a day. 8. Protonix 40 mg daily. 9. Potassium chloride 20 mEq b.i.d. 10. Xanax as needed. 11. Flonase as needed. 12. Meclizine as needed. 13. Morphine instant release as needed. BRIEF HOSPITAL COURSE: The patient is a 71-year-old female with chronic pain syndrome, rheumatoid ar thritis, systemic lupus erythematosus, fibromyalgia, and deconditioned, who presented to the emergenc y room with generalized weakness and confusion. Her workup was consistent with severe hypokalemia wi th potassium of 1.9 with UTI. Urinalysis showed 11-20 WBCs with 4+ bacteria, moderate leukocyte grant rase, nitrite negative. She was started on potassium supplementation. Blood cultures were negative. Urine culture showed E. coli and Klebsiella pneumoniae with multidrug resistant. She was treated w ith meropenem. The patient was seen by Infectious Disease, Dr. Robles. Renal ultrasound was performe d that was negative. A postvoid residual was 25 mL and [address] Robles, meropenem will be disc ontinued at discharge. Her potassium has normalized. It is 4.2 today. She will continue potassium supplementation. Repeat labs every 2-3 days is recommended. Primary care physician advised to ada orozco FINAL DIAGNOSES: 1. Generalized weakness with toxic metabolic encephalopathy multifactorial. 2. Urinary tract infection secondary to multidrug resistant E. coli and Klebsiella. Antibiotics neymar l be discontinued at discharge. 3. Leukocytosis secondary to urinary tract infection. 4. Moderate protein energy malnutrition. 5. Physical deconditioning. 6. Electrolyte abnormality with severe hypokalemia. The patient also had hypomagnesemia that has be en replaced. 7. Rheumatoid arthritis. 8. Chronic pain syndrome. 9. Systemic lupus erythematosus. 10. Fibromyalgia. 11. Gastroesophageal reflux disease. 12. Chronic oral ulcers. 13. Metabolic acidosis on admission, improved. 14. Indeterminate troponins, probably secondary to demand ischemia. 15. Hypophosphatemia, replaced. 16. Hyponatremia, corrected. 17. Dehydration on admission, improved. Plan of care was discussed with the patient and the family at the bedside. They stated understanding . Total time coordinating the discharge including several paper works for inpatient rehabilitation was 37 minutes.
[2017-02-23 15:45] VITALS: BP 101/59; TEMP 98.7
== END 2017-02-23 16:09 | DRG 640 ==
LOC: SCSER 15:33 → 2SE 18:45 → T4-A 02-20 22:07
PROVIDERS: ADMIT Internal Medicine; ATTEND Internal Medicine
DX: E87.6 Hypokalemia (principal); G92 Toxic encephalopathy; E86.0 Dehydration; E87.2 Acidosis; E44.0 Moderate protein-calorie malnutrition; I24.8 Other forms of acute ischemic heart disease; M32.9 Systemic lupus erythematosus, unspecified; N39.0 Urinary tract infection, site not specified; M84.4 Pathological fracture, not elsewhere classified; R41.82 Altered mental status, unspecified; E83.42 Hypomagnesemia; E83.39 Other disorders of phosphorus metabolism; E87.1 Hypo-osmolality and hyponatremia; M06.9 Rheumatoid arthritis, unspecified; R62.7 Adult failure to thrive; K21.9 Gastro-esophageal reflux disease without esophagitis; M71.9 Bursopathy, unspecified; M79.7 Fibromyalgia; M19.90 Unspecified osteoarthritis, unspecified site; M81.0 Age-related osteoporosis without current pathological fracture; Z88.8 Allergy status to other drugs, medicaments and biological substances; Z66 Do not resuscitate; Z79.891 Long term (current) use of opiate analgesic; B96.20 Unspecified Escherichia coli [E. coli] as the cause of diseases classified elsewhere; B96.1 Klebsiella pneumoniae [K. pneumoniae] as the cause of diseases classified elsewhere; Z16.35 Resistance to multiple antimicrobial drugs; Z68.22 Body mass index [BMI] 22.0-22.9, adult; G89.4 Chronic pain syndrome; Z79.52 Long term (current) use of systemic steroids; F41.9 Anxiety disorder, unspecified; F32.9 Major depressive disorder, single episode, unspecified
CPT/HCPCS: 36415; 51701; 71045; 76770; 80048; 80053; 80069; 81003; 81015; 82553; 83605; 83690; 83735; 84100; 84484; 85025; 85610; 85730; 87040; 87077; 87086; 87186; 93005; 93010; 96365; 96368; 96374; A4216; A4353; G8978-GP-CK; G8979-GP-CI; G8987-GO-CM; G8988-GO-CM; G8989-GO-CM; J0696; J1650; J2185; J3475; J3480; J7050

== ENCOUNTER 2017-06-27 15:15 | Outpatient (CLI) | payer MEDICARE, BC | END 2017-06-27 15:16 | disposition home or self-care (01) | LOC: BICMAMMO 15:15 | DX: M81.0 Age-related osteoporosis without current pathological fracture (principal); M20.11 Hallux valgus (acquired), right foot; Z87.81 Personal history of (healed) traumatic fracture ==

== ENCOUNTER 2017-11-22 06:04 | Day surgery (SDC) | payer MEDICARE, BC ==
[2017-11-21 13:00] VITALS: BMI 19.5
[2017-11-22] MEDS ORDERED: Fentanyl 100 MCG/2 ML VIAL ONE (06:31)
[2017-11-22] MEDS ORDERED: Lidocaine 2% PF Inj 2 ML VIAL ONE (07:00)
[2017-11-22] MEDS ORDERED: Bupivacaine HCl 0.5%/Epinephrine 1:200,000/PF 30 ml Vial ONE (07:00)
[2017-11-22] MEDS ORDERED: SUGAMMADEX SODIUM 500 MG/5 ML VIAL ONE (07:32)
--- NOTE | 2017-11-22 08:36 | OP ---
DATE OF PROCEDURE: 11/22/2017 PREOPERATIVE DIAGNOSIS: Soft tissue mass, left buttock greater than 4 cm. POSTOPERATIVE DIAGNOSIS: Soft tissue mass, left buttock greater than 4 cm. PROCEDURE: Excision of soft tissue mass left buttock greater than 4 cm. SURGEON: Stef Vera M.D. ANESTHESIA: General. ESTIMATED BLOOD LOSS: Minimal. COMPLICATIONS: None. SPECIMEN: None. FINDINGS: Soft tissue mass sent to path for final diagnosis. TECHNIQUE: The patient was taken to the operating room and placed supine on the table. After genera l anesthetic was obtained she was placed in right lateral decubitus position. Her buttock is prepped and draped in a sterile fashion. Transverse incision is made over the soft tissue mass, it is disse cted free from surrounding structures. It is removed. The subcutaneous tissues were irrigated. Loc al anesthetic was applied. The wound was closed using 3-0 Vicryl, 4-0 Monocryl, and Dermabond. The patient is en route to recovery in stable condition. All instrument counts, needle counts, lap count s are correct.
--- NOTE | 2017-11-22 09:43 | EKG ---
Test Reason : PREOP Blood Pressure : / mmHG Vent. Rate : 118 BPM Atrial Rate : 118 BPM P-R Int : 134 ms QRS Dur : 080 ms QT Int : 310 ms P-R-T Axes : 000 014 031 degrees QTc Int : 434 ms Sinus tachycardia Otherwise normal ECG When compared with ECG of 19-FEB-2017 09:14, (Unconfirmed) Vent. rate has increased BY [address] no longer depressed in Anterior leads T wave inversion no longer evident in Inferior leads T wave inversion no longer evident in Anterolateral leads Confirmed by BOAZ REEDER ([id number]) on 11/22/2017 9:42:50 AM Referred By: DEBORAH Confirmed By:BOAZ REEDER
[2017-11-22] MEDS ORDERED: PHENYLEPHRINE-NS 100 MCG/ML 10 ML SYRINGE ONE (16:54)
[2017-11-22] MEDS ORDERED: Lidocaine 1% PF 5 ML VIAL ONE (16:54)
[2017-11-22] MEDS ORDERED: Dexamethasone 20 MG/5 ML VIAL ONE (16:54)
[2017-11-22] MEDS ORDERED: Ondansetron HCl/PF 4 MG/2 ML Vial ONE (16:54)
[2017-11-22] MEDS ORDERED: PROPOFOL 200 MG/20 ML VIAL ONE (16:54)
== END 2017-11-22 09:40 | disposition home or self-care (01) ==
LOC: SDC 06:04
PROVIDERS: ATTEND Surgery
PROC: 0JB90ZZ Excision of Buttock Subcutaneous Tissue and Fascia, Open Approach (ICD-10-PCS; principal; 2017-11-22)
DX: M79.89 Other specified soft tissue disorders (principal); Z79.52 Long term (current) use of systemic steroids; Z79.891 Long term (current) use of opiate analgesic; Z79.899 Other long term (current) drug therapy; Z88.8 Allergy status to other drugs, medicaments and biological substances
CPT/HCPCS: 88304; 93005; 93010; J0670; J1100; J2001; J2405; J2704; J3010

== ENCOUNTER 2018-01-27 11:03 | Day surgery (SDC) | payer MEDICARE, BC ==
[2018-01-27] MEDS ORDERED: diphenhydrAMINE 25 MG CAP PO SCH (12:00)
[2018-01-27] MEDS ORDERED: Acetaminophen 500 MG TAB PO SCH (12:00)
[2018-01-27] MEDS ORDERED: Sodium Chloride 0.9% 40 ML ONE (12:06)
[2018-01-27 15:41] LABS: Hemoglobin 8.4 g/dL (12.0-16.0)
[2018-01-27 17:34] VITALS: BP 87/52; TEMP 98.3
== END 2018-01-27 17:40 | disposition home or self-care (01) ==
LOC: ONC/OP 11:03
PROVIDERS: ATTEND Nurse Practitioner Acute Care
PROC: 30233N1 Transfusion of Nonautologous Red Blood Cells into Peripheral Vein, Percutaneous Approach (ICD-10-PCS; principal; 2018-01-27)
DX: D64.9 Anemia, unspecified (principal); D69.6 Thrombocytopenia, unspecified
CPT/HCPCS: 36415; 36430; 82728; 85014; 85018; 85046; 86850; 86900; 86901; P9016

== ENCOUNTER 2018-02-04 16:24 | Inpatient (IN) | payer MEDICARE, BC ==
[2018-02-04 17:25] LABS: Hemoglobin 11.4 g/dL (12.0-16.0); Mean Corpuscular Hemoglobin 32.7 pg (27.0-31.0); Mean Corpuscular Volume 99.2 fL (78.0-98.0); Mean Platelet Volume 6.7 fL (7.4-10.4); Platelet Count 794 thou/uL (130-400); RBC Distribution Width 18.6 % (11.5-14.5); Red Blood Cell (RBC) Count 3.47 mill/uL (4.20-5.40)
[2018-02-04] MEDS ORDERED: Piperacillin/Tazobactam 4.5 GM VIAL ONE (17:36)
[2018-02-04] MEDS ORDERED: cefTRIAXone\\ROCEPHIN 2 GM VIAL ONE (17:36)
[2018-02-04 17:39] LABS: White Blood Cell (WBC) Count 26.4 thou/uL (4.8-10.8)
[2018-02-04 17:41] LABS: ALT (SGPT) 21 U/L (8-55); AST (SGOT) 46 U/L (5-34); Albumin 2.7 g/dL (3.4-4.8); Alkaline Phosphatase 100 U/L (40-150); Anion Gap 19 mmol/L (10-20); BUN (Urea Nitrogen) 63 mg/dL (9.8-20.1); Bilirubin, Total 0.4 mg/dL (0.2-1.2); Calc. Creatinine Clearance 0 mL/min (70-130); Calcium 7.9 mg/dL (7.8-10.44); Carbon Dioxide 22 mmol/L (23-31); Chloride 91 mmol/L (98-107); Estimated GFR-MDRD 17; Globulin 2.6 g/dL (2.4-3.5); Glucose 84 mg/dL (83-110); Magnesium 2.4 mg/dL (1.6-2.6); Potassium 6.4 mmol/L (3.5-5.1); Protein, Total 5.3 g/dL (6.0-8.3); Sodium 126 mmol/L (136-145)
[2018-02-04 17:42] LABS: Bilirubin Negative (Negative); Blood, Urine Negative (Negative); Clarity CLOUDY (Clear); Glucose, Urine (Dipstick) Negative (Negative); Leukocyte Large (Negative); Nitrite Negative (Negative); Protein, Urine (Dipstick) Trace mg/dL (Neg-Trace); Specific Gravity, Urine 1.017 (1.002-1.036); Urobilinogen 0.2 mg/dL (0.2-1.0); pH, Urine 5.5 (5.0-9.0)
[2018-02-04 17:44] LABS: Anisocytosis SLIGHT = 6-15 cells (100X) (0-5/hpf); Band 20 % (5-11); Burr Cells SLIGHT = 2-5 cells (100X) (0-1/hpf); Large Platelets SLIGHT; Lymphocytes 29 % (21-51); MDiff Complete? YES; Metamyelocyte 1 % (0-0); Monocytes 7 % (0-10); Myelocyte 1 % (0-0); Neutrophil 37 % (42-75); PLT Morphology Comment Appears Increased; Polychromasia MODERATE = 3-4 cells (100X) (0-2/hpf); Reactive Lymphocytes 4 % (0-10); Schistocytes SLIGHT = 2-5 cells (100X) (0-1/hpf); Tear Drops SLIGHT = 2-5 cells (100X) (0-1/hpf); Toxic Granulation SLIGHT; Vacuoles SLIGHT
[2018-02-04 17:45] LABS: RBC/HPF 0-3 HPF (0-3); Squamous Epithelial 0-3 HPF (0-3)
[2018-02-04 17:47] LABS: Pathc Cast-AUWi Flag 5.37 (0-2.49)
[2018-02-04] MEDS ORDERED: Sodium Bicarbonate 2.5 MEQ/5 ML VIAL ONE (17:50)
[2018-02-04] MEDS ORDERED: Calcium Chloride 1 GM/10 ML Abboject SYRINGE ONE (17:50)
[2018-02-04] MEDS ORDERED: Sodium Bicarb 50 MEQ/50 ML VIAL ONE ×2 (17:50→17:51)
[2018-02-04] MEDS ORDERED: Dextrose 50% Abboject 50 ML SYRINGE ONE (17:50)
[2018-02-04 18:01] LABS: Bacteria/HPF 4+ HPF (None Seen); Crystals/HPF 1+ CA OXALATE HPF (Negative); Hyaline Casts/LPF 0-3 HYALINE CAST LPF (0-3 Hyaline); Other Casts/LPF None Seen LPF (0-3 Hyaline)
[2018-02-04] MEDS ORDERED: Insulin Regular 300 UNITS/3 ML VIAL ONE (18:01)
[2018-02-04] MEDS ORDERED: Albuterol Sulfate 2.5 mg/3 ml Neb ONE (18:03)
[2018-02-04 18:07] LABS: CKMB 10.6 ng/mL (0-6.6)
--- NOTE | 2018-02-04 19:08 | RAD ---
CHEST ONE VIEW: 02/04/18 HISTORY: Altered mental status. COMPARISON: 02/17/17. FINDINGS: Normal cardiac silhouette. There are bilateral interstitial and alveolar infiltrates. Costophrenic an gles are clear. There is no pneumothorax. There are chronic changes in the right shoulder. Old right rib fracture is noted. IMPRESSION: Multilobar interstitial and alveolar infiltrates. POS: H
[2018-02-04] MEDS ORDERED: Ondansetron PF 4 MG/2 ML Vial IVP PRN (21:15)
[2018-02-04] MEDS ORDERED: Bisacodyl 5 MG TAB PO PRN (21:15)
[2018-02-04] MEDS ORDERED: Senokot S 8.6-50 MG TAB PO PRN (21:15)
[2018-02-04] MEDS ORDERED: Ondansetron ODT 4 MG TAB PO PRN (21:15)
[2018-02-04] MEDS ORDERED: Acetaminophen 325 MG TAB PO PRN (21:15)
--- NOTE | 2018-02-04 21:32 | RAD ---
ONE VIEW CHEST: 02/04/18 HISTORY: Status post line placement. COMPARISON: 02/04/18 at 5:54 p.m. FINDINGS: Redemonstration of bilateral multilobar interstitial and alveolar infiltrates. Interval placement of right sided internal jugular central venous catheter. No definite pneumothorax. IMPRESSION: No definite pneumothorax. POS: [facility]
[2018-02-04 21:40] LABS: Actual Bicarbonate (HCO3a) 22.1 mEq/L (22-28); Analyzer IN Cardio ER; Base Excess (BEa) -4.8 mEq/L (-2.0 to +3.0); CO2 Tension 48.8 mmHg (35.0-45.0); Calcium, Ionized 1.13 mmol/L (1.12-1.30); Carboxyhemoglobin (COHb) 1.6 gm% (0.0-3.0); Potassium - ABG Lab 5.07 mmol/L (3.70-5.30); pH, Arterial 7.27 (7.35-7.45)
[2018-02-04 21:48] LABS: O2 Tension (PaO2) 47.6 mmHg (> 70.0); Puncture Site RRA
--- NOTE | 2018-02-04 22:45 | CT ---
NONCONTRAST CT HEAD: 02/04/18 HISTORY: Weakness, lethargy, altered mental status. COMPARISON: 08/26/15. FINDINGS: Minimal scattered hypodensities are seen within the periventricular white matter likely related to mi ld chronic small vessel ischemic changes. Lacunar infarction at left lentiform nucleus is less percep tible on today's exam. There is no evidence of an acute cortical infarction, hemorrhage, mass effect or midline shift. Mild cerebral volume loss is present which has not progressed from the prior study. Ventricular system is normal in size, shape and position. The visualized paranasal sinuses and masto id air cells are clear. Calvarial structures are intact. IMPRESSION: No acute intracranial abnormality demonstrated. POS: [facility]
[2018-02-04 22:59] LABS: Anion Gap 18 mmol/L (10-20); BUN (Urea Nitrogen) 60 mg/dL (9.8-20.1); Calc. Creatinine Clearance 0 mL/min (70-130); Calcium 7.9 mg/dL (7.8-10.44); Carbon Dioxide 19 mmol/L (23-31); Chloride 97 mmol/L (98-107); Estimated GFR-MDRD 19; Glucose 64 mg/dL (83-110); Potassium 5.3 mmol/L (3.5-5.1); Sodium 129 mmol/L (136-145)
[2018-02-04] MEDS ORDERED: Meropenem 500 MG in Sodium Chloride 0.9% 100 ML IVPB SCH (23:59)
[2018-02-05] MEDS: Sodium Chloride 0.9% 1,000 ML IV SCH ×2 (01:10→08:43)
[2018-02-05 02:09] LABS: Osmolality, Urine 307 mOsm/kg (300-900)
[2018-02-05 02:18] LABS: Sodium, Urine Less than 20 mmol/L (Not Available)
[2018-02-05 02:19] LABS: Legionella Urinary Ag Negative (Negative); Strep pneumo Urine Ag NEGATIVE (NEGATIVE)
[2018-02-05] MEDS: Meropenem 500 MG in Sodium Chloride 0.9% 100 ML IVPB SCH ×2 (02:34→13:57)
[2018-02-05 05:57] LABS: Anion Gap 16 mmol/L (10-20); BUN (Urea Nitrogen) 64 mg/dL (9.8-20.1); Calc. Creatinine Clearance 17 mL/min (70-130); Calcium 7.6 mg/dL (7.8-10.44); Carbon Dioxide 22 mmol/L (23-31); Chloride 99 mmol/L (98-107); Estimated GFR-MDRD 18; Glucose 74 mg/dL (83-110); Potassium 5.6 mmol/L (3.5-5.1); Sodium 131 mmol/L (136-145)
[2018-02-05 06:22] LABS: Band 16 % (5-11); Elliptocytes SLIGHT = 2-5 cells (100X) (0-1/hpf); Eosinophils 1 % (0-10); Hemoglobin 9.6 g/dL (12.0-16.0); Hypochromia SLIGHT = 6-15 cells (100X) (0-5/hpf); Lymphocytes 40 % (21-51); MDiff Complete? YES; Mean Corpuscular HGB CONC 32.1 g/dL (32.0-36.0); Mean Corpuscular Hemoglobin 32.2 pg (27.0-31.0); Mean Platelet Volume 6.2 fL (7.4-10.4); Metamyelocyte 1 % (0-0); Monocytes 10 % (0-10); Myelocyte 2 % (0-0); Neutrophil 24 % (42-75); PLT Morphology Comment Appears Increased; Platelet Count 729 thou/uL (130-400); RBC Distribution Width 19.2 % (11.5-14.5); Reactive Lymphocytes 6 % (0-10); Red Blood Cell (RBC) Count 2.99 mill/uL (4.20-5.40); White Blood Cell (WBC) Count 22.7 thou/uL (4.8-10.8)
--- NOTE | 2018-02-05 07:25 | HP ---
CHIEF COMPLAINT: Confusion and alteration of awareness. HISTORY OF PRESENT ILLNESS: Ms. Pastrana is a 72-year-old female with past medical history of GERD, systemic lupus, bursitis, fibromyalgia, osteoarthritis, osteoporosis, and rheumatoid arthritis, presenting with alteration of awareness. Per patient's daughter, who knows the patient's history very well, the patient has been fatigued, confused, and has been having myalgias for the past 2 days. The patient has become increasingly confused, and she has not been at her baseline. This is very alarming to the patient; therefore, daughter decided to bring the patient in for further evaluation. At this point, the patient has been found to have fever, generalized weakness, and disoriented during conversations. The patient was recently seen in our hospital for left gluteal mass excision (lipoma removal in November 2017). In addition, the patient had similar symptoms of alteration of awareness in the past. On February 17, 2017, the patient came into the hospital with similar symptoms of alteration of awareness and at that time, the patient was found to have UTI. Urinalysis and culture showed E coli UTI. The patient was treated, and the patient got better and the patient was discharged from the hospital. REVIEW OF SYSTEMS: Unable to be obtained since the patient is altered. PAST MEDICAL HISTORY: GERD, systemic lupus, osteoarthritis, symptomatic anemia in the past, osteoporosis, fibromyalgia, and bursitis. FAMILY HISTORY: Reviewed and noncontributory to this visit. PAST SURGICAL HISTORY: The patient has a history of appendectomy, hernia repair, hysterectomy, and sinus reconstruction. PSYCHIATRIC HISTORY: Anxiety and depression. SOCIAL HISTORY: Denies alcohol. Denies any illicit drug use. Denies any smoking history. ALLERGIES: HYDROXYCHLOROQUINE AND PREGABALIN. CURRENT MEDICATIONS: The patient takes, 1. Buspirone . 2. Diphenoxylate 2.5 mg p.o. q.i.d. p.r.n. 3. Escitalopram 10 mg. 4. Famotidine 20 mg t.i.d. 5. Fluticasone propionate. 6. Folic acid 1 mg. 7. Gabapentin 300 mg t.i.d. 8. Ibuprofen 800 mg t.i.d. 9. Keppra 750 p.o. b.i.d. 10. Meclizine 25 mg q.i.d. 11. Methocarbamol 500 mg t.i.d. 12. Morphine 60 mg t.i.d. 13. Morphine IR mg p.o. t.i.d. 14. Naloxegol oxalate 25 mg p.o. daily. 15. Nitrofurantoin 100 p.o. daily. 16. Nystatin powder. 17. Pantoprazole 40 mg. 18. Potassium chloride. 19. Restasis. 20. Valacyclovir. PHYSICAL EXAMINATION: VITAL SIGNS: The patient's blood pressure is 106/39, pulse is 79, and respiratory rate of 16. GENERAL: The patient is currently lying in bed, does not appear to make any sense. The patient is alert and oriented x0. The patient is confused. HEENT: Normocephalic, atraumatic. Pupils are equally round and reactive to light. Extraocular movements are intact. No scleral icterus. No conjunctival pallor. Mucous membranes are dry. NECK: Trachea is midline. Full range of motion. No JVD is noted. Supple. LUNGS: Clear to auscultation bilaterally. No wheezing, no rales, no rhonchi appreciated. CARDIAC: Positive S1 and S2. Regular rate and rhythm. No murmurs, no gallops, no rubs appreciated. ABDOMEN: Soft, nontender, and nondistended. Positive bowel sounds in all quadrants. No masses. No peritoneal signs. EXTREMITIES: The patient has 5/5 upper extremity strength, and the patient is able to move her extremities spontaneously. For lower extremity; no edema. Left leg brace for old nonhealing tib-fib fracture, which daughter stated that occurred about 10 years ago. NEUROLOGIC: Cranial nerves 2 through 12 grossly intact. No neurologic deficits noted. The patient do have gait abnormalities due to left tib-fib fracture in the past. SKIN: The patient had left gluteal incision of approximately 4 cm with subcu undermining. No obvious cellulitis noted. No lesions noted. PSYCH: The patient is confused. DIAGNOSTIC DATA: EKG; sinus rhythm with a rate of 78. Chest film shows right upper lobe infiltrate. CT of the brain is negative for any acute intracranial pathology. Repeat chest x-ray showed re-demonstration of bilateral multilobar interstitial and alveolar infiltrates. Interval placement of right-sided internal jugular central venous catheter. No definite pneumothorax. LABORATORY DATA: WBC is 26.4, hemoglobin is 11.4, hematocrit is 34.4, MCV is 99.2, RDW is 18.6, and platelet count is 794. ABG showed pH of 7.27, pCO2 of 48.8, and pO2 of 76.5. Electrolytes; sodium is 126, potassium is 6.4, chloride is 91, carbon dioxide of 22, anion gap of 19, BUN is 63, creatinine is 2.76, glucose is 84, magnesium is 2.4, AST is 46, and ALT is 21. Troponin is 0.112. Urinalysis; large leukocyte esterase. Serologies negative for Legionella and Strep pneumonia. ASSESSMENT AND PLAN: This is a 72-year-old female being admitted for; 1. Hypercapnic and hypoxemic acute respiratory failure, likely due to multifocal pneumonia. At this point, we will start the patient on oxygenation. We will continue the patient on oxygenation. We will continue the patient on IV antibiotics. We give the patient DuoNeb treatments p.r.n. We will continue to monitor the patient closely. We would admit the patient to the [facility], and we will consult Pulmonology for further treatment. We will give the patient p.r.n. medications for fevers. 2. Sepsis secondary to multifocal pneumonia and urinary tract infection. At this point, the patient has a positive urinary tract infection, and the patient also has positive multifocal pneumonia confirmed on imaging. We are going to continue the patient on antibiotics. We will follow up morning labs. We will await for cultures, and we will tailor antibiotics to cultures and sensitivities. We will place a central line since the patient's blood pressure is currently running low in the 80 systolic. We will continue IV fluid, and we will complete the sepsis protocol. We will follow up on lactic acid. 3. Non-ST segment elevation myocardial infarction, likely due to demand. Currently, the patient's troponin is 0.112, which is indeterminate at this time. The patient's elevated troponin is likely due to demand ischemia due to sepsis. The patient's blood pressure has been running low. At this point, the patient is receiving fluids. We are going to treat the underlying cause. We will monitor the patient. 4. Hyponatremia, etiology unclear at this time, but most likely due to dehydration. The patient's sodium is currently 126. The patient do take medications that can decrease her sodium level and also the patient is currently severely dehydrated as well. So, we are most likely going to attribute the patient's hyponatremia to hypovolemia and medication. However, we are going to order serum osmolality and urine osmo including sodium in the urine to find out the cause of the patient's hyponatremia. 5. Hyperkalemia. The patient's potassium is 6.4 at this time. We will repeat labs to see if this is indeed accurate potassium levels. If the patient's potassium level continues to be elevated, we are going to give the patient Kayexalate, and we will follow up on labs. At this point, Nephrology has been consulted. We will follow up with Nephrology regarding any further treatment. 6. Acute kidney injury likely due to dehydration. We will rule out prerenal, intrinsic, or postrenal etiologies. At this point, the patient's creatinine is elevated at 2.76. We are going to insert a Ferreira at this time, and we have consulted Nephrology. We will follow up on further exams to find out the etiology of the patient's acute kidney injury. 7. Fibromyalgia. At this point, we are going to hold the patient's p.o. medications since the patient is very confused and lethargic. We will start the patient on her home medications of morphine to control her fibromyalgia appropriately when the patient is alert. 8. History of anxiety and depression. At this point, the patient's home medications are being held at this time since the patient is lethargic and confused. We will start the patient on her home medications once the patient is alert and can be able to tolerate p.o. medications. 9. Deep venous thrombosis/gastrointestinal prophylaxis. TIME SPENT: Critical Care time is greater than 70 minutes. Job ID: [id number]
[2018-02-05] MEDS: Famotidine/PF 20 mg/2ml Vial SLOW IVP SCH (08:43)
[2018-02-05] MEDS: Heparin 5,000 UNITS/ML VIAL SC SCH ×2 (08:43→21:07)
[2018-02-05] MEDS: Famotidine 20 MG TAB PO SCH (11:00)
[2018-02-05] MEDS: Sodium Bicarbonate 150 MEQ in Dextrose 5% in Water 1,000 ML IV SCH ×2 (13:23→23:46)
[2018-02-05] MEDS: Haloperidol Lactate 5 MG/ML VIAL IM PRN (13:23)
--- NOTE | 2018-02-05 16:23 | CON ---
DATE OF CONSULTATION: 02/05/2018 SERVICE: Pulmonary Medicine. REASON FOR CONSULTATION: ICU patient. HISTORY OF PRESENT ILLNESS: The patient is a 72-year-old white female with past medical history significant for rheumatoid arthritis, and severe osteoporosis with a chronic fracture in 1 of her legs that is nonoperable. She has very severe debility in her usual state of health. Whenever she gets sick, she tell us she develops increasing altered mentation. Her daughter brings her to the Emergency Department. She is currently obtunded, not able to provide any elements of the history. I am watching her sleep. She clearly has obstructive events. This has been suggested to her previously and under no circumstances that she previously want to pursue a polysomnogram. Either way, in the Emergency Department, she was discovered to have fevers, chills, and findings consistent with urinary tract infection. She was started on antibiotic therapy. Overnight, blood pressure is firmed up a little bit, but her mentation is still off. PAST MEDICAL HISTORY: 1. Gastroesophageal reflux disease. 2. Systemic lupus erythematosus. 3. Rheumatoid arthritis. 4. Fibromyalgia. 5. Osteoporosis. 6. Anemia. 7. Bursitis. 8. Recurrent urinary tract infection. 9. Cognitive impairment, likely. PAST SURGICAL HISTORY: 1. Appendectomy. 2. Herniorrhaphy. 3. Hysterectomy. 4. Sinus surgery. FAMILY HISTORY: Noncontributory. SOCIAL HISTORY: Negative for alcohol, tobacco, or illicit drug use. She has no exposure to chemicals, dust, asbestos, or tuberculosis. ALLERGIES: HYDROXYCHLOROQUINE AND PREGABALIN. MEDICATIONS: List of her inpatient medications was reviewed. No specific updates were made at this time. REVIEW OF SYSTEMS: General, head, ears, eyes, nose, throat, cardiovascular, respiratory, GI, , musculoskeletal, neurologic, and skin are negative except as mentioned is the HPI. PHYSICAL EXAMINATION: VITAL SIGNS: Afebrile, pulse 87, blood pressure 103/43, respirations 18, saturation 97% on 4 L nasal cannula. GENERAL: The patient is awake and alert, in no apparent distress. LUNGS: Decent air entry. Dependent crackles are minimal. No prolonged expiratory phase or wheezing is appreciated. HEART: Normal rate, regular. ABDOMEN: Soft, nontender, and nondistended. Bowel sounds are positive. MUSCULOSKELETAL: No cyanosis or clubbing. There is no pitting in the bilateral lower extremities. She actually has decent skin turgor. : Ferreira catheter in place. NEUROLOGIC: Grossly nonfocal. LABORATORY DATA: WBC downtrending to 22.7, hemoglobin 9.6, and platelets 729, 000. Neutrophil count is 24% on top of 16% bands, which are downtrending. A pH of 7.27, pCO2 of 48, and pO2 of 47. Creatinine 2.63 and roughly stable. Bicarb 22, potassium 5.6, and sodium 131. Liver function studies were previously unremarkable. Troponin is 0.11. Urinalysis is positive for significant amount of white blood cells and leukocyte esterase, but otherwise negative. Strep and Legionella urine antigens are unremarkable. Urine culture is growing Klebsiella/enterobacter. One of two blood cultures growing gram variable rods. Influenza A and B are negative. ASSESSMENT: 1. Severe sepsis. 2. Urinary tract infection. 3. Metabolic encephalopathy. 4. Acute kidney injury. 5. Systemic lupus erythematosus and rheumatoid arthritis, on immunosuppressive medications. 6. Obstructive sleep apnea, witnessed at bedside. DISCUSSION AND PLAN: I will give her a little bit a CPAP. This should help to get her a better night rest. We will continue on empiric antibiotics and bicarb drip. 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 As such, my suspicion is that she will clear the hyperkalemia, which we will follow through time. Pulmonary/Critical Care will continue to follow while she remains in this location. In the outpatient setting, she would be well served by undergoing a polysomnogram and getting her sleep apnea treated. That being said, we will have to leave this to a future discussion as the patient is currently obtunded. I will place a Palliative Care consultation to discuss end of life goals for this patient. 70 minutes have been devoted to this patient in various activities. I personally reviewed all imaging studies and laboratory data noted within this document. For fifty percent of this time, I was interacting with the patient at the bedside or coordinating care with the care team. For the remainder of the time I was immediately available to the patient in the hospital unit. Job ID: [id number] MTDD
[2018-02-05] MEDS: Vancomycin HCl 500 MG in Sodium Chloride 0.9% 100 ML IVPB SCH (18:22)
[2018-02-06] MEDS: Meropenem 500 MG in Sodium Chloride 0.9% 100 ML IVPB SCH ×2 (01:23→15:13)
[2018-02-06 04:53] LABS: Band 11 % (5-11); Eosinophils 6 % (0-10); Hemoglobin 9.7 g/dL (12.0-16.0); Lymphocytes 50 % (21-51); MDiff Complete? YES; Mean Corpuscular HGB CONC 32.9 g/dL (32.0-36.0); Monocytes 10 % (0-10); Neutrophil 20 % (42-75); PLT Morphology Comment Appears Increased; Platelet Count 644 thou/uL (130-400); Reactive Lymphocytes 3 % (0-10); Red Blood Cell (RBC) Count 2.93 mill/uL (4.20-5.40); White Blood Cell (WBC) Count 18.8 thou/uL (4.8-10.8)
[2018-02-06 05:07] LABS: Anion Gap 15 mmol/L (10-20); BUN (Urea Nitrogen) 63 mg/dL (9.8-20.1); BUN/Creatinine Ratio 24.32; Calc. Creatinine Clearance 17 mL/min (70-130); Calcium 6.9 mg/dL (7.8-10.44); Carbon Dioxide 26 mmol/L (23-31); Chloride 95 mmol/L (98-107); Estimated GFR-MDRD 18; Glucose 110 mg/dL (83-110); Iron 32 ug/dL (50-170); Iron Binding Capacity, Total 115 mcg/dL (265-497); Phosphorus 4.1 mg/dL (2.3-4.7); Potassium 4.5 mmol/L (3.5-5.1); Sodium 131 mmol/L (136-145)
[2018-02-06] MEDS: Heparin 5,000 UNITS/ML VIAL SC SCH ×2 (08:56→20:11)
[2018-02-06] MEDS: Famotidine/PF 20 mg/2ml Vial SLOW IVP SCH (08:56)
[2018-02-06] MEDS: Famotidine 20 MG TAB PO SCH (08:57)
--- NOTE | 2018-02-06 11:42 | PRG ---
DATE OF SERVICE: 02/06/2018 SUBJECTIVE: This patient is lethargic in bed. She has been intermittently using BiPAP. She will wake up, but is not very conversant. Her daughter and were at the bedside. OBJECTIVE: VITAL SIGNS: Temperature is 99.0, pulse 77, respirations 19, O2 saturation 94% on 4 L, and blood pressure 95/43. GENERAL: She appears to be chronically ill. HEENT: Remarkable for a beefy tongue. NECK: No JVD. LUNGS: Coarse breath sounds. CARDIAC: S1 and S2, regular. ABDOMEN: Soft and obese. EXTREMITIES: She has a brace over her left leg. LABORATORY DATA: Sodium 131, potassium 4.5, chloride 95, CO2 of 26, BUN 63, creatinine 2.6, glucose 110, and albumin 2.0. White blood cell count 18.8, hematocrit 29.4, and platelet count 644. Her cultures are growing out Klebsiella from the urine and also gram variable rods from blood culture. ASSESSMENT: 1. Urosepsis. 2. Encephalopathy. 3. Lupus. 4. Likely bilateral pneumonia. 5. Possible obstructive sleep apnea versus central sleep apnea. PLAN: The patient has a standing do not attempt resuscitation order in place. She is on a bicarbonate drip at the direction of Nephrology, that will probably either need to be reduced or stop today. She will continue broad-spectrum IV antibiotics. I will repeat her chest x-ray tomorrow. Her prognosis seems rather guarded at this point. Discussed with family at bedside. Job ID: [id number]
[2018-02-06] MEDS: Sodium Bicarbonate 150 MEQ in Dextrose 5% in Water 1,000 ML IV SCH (13:18)
[2018-02-06] MEDS: Dextrose 5 % And 0.9 % NaCl 1,000 ML IV SCH (13:20)
--- NOTE | 2018-02-06 13:28 | PRG ---
DATE OF SERVICE: 02/06/2018 SUBJECTIVE: The patient is seen and examined. OBJECTIVE: VITAL SIGNS: Noted with the following vital signs. Afebrile, temperature 99, pulse 77, respiratory rate of 19, O2 saturation of 94% on 4 L, blood pressure 95/43. HEENT: Remarkable for dry oral mucosa. NECK: Supple. CARDIOVASCULAR: First and second heart sounds were heard. RESPIRATORY: Revealed clear auscultatory findings anteriorly. DIGESTIVE: Revealed benign abdomen. EXTREMITIES: No significant peripheral edema. LABORATORY DATA: Showed hemoglobin 9.7. Chemistry showed a potassium of 4.5, BUN of 63, creatinine 2.59, and bicarb of 26. IMPRESSION: 1. Acute on chronic kidney disease, which seems to be improving in the context of sepsis. 2. Metabolic acidosis, resolved. 3. Hyperkalemia, resolved. 4. Sepsis in the context of bilateral pneumonia and urinary tract infection. PLAN: 1. Discontinue bicarb drip and de-escalate fluid resuscitation and switching this patient over to 5% dextrose saline. 2. Renally dose all medications avoid potentially nephrotoxic agents. 3. Further management will be dependent on the clinical course. Job ID: [id number]
--- NOTE | 2018-02-06 15:03 | CON ---
DATE OF CONSULTATION: REASON FOR CONSULTATION: IMPRESSION: 1. Acute kidney injury . 2. Combined metabolic respiratory acidosis. 3. Hyperkalemia secondary to renal dysfunction and continued potassium supplementation potassium in the context of acidosis. 4. Sepsis likely of urinary origin and pulmonary origin. PLAN: 1. Change current IV fluids to bicarb-based infusion. 2. Renally dose all medications and avoid potentially nephrotoxic agents. 3. There is no emergent indication for renal replacement therapy . HISTORY OF PRESENT ILLNESS: A 72-year-old female patient, who was brought with fever and chills urinary tract infection as well as possible multifocal pneumonitis. The patient noted with elevated potassium of 6.4 and elevated creatinine. The patient seems to be making a little bit more urine now, but not much. placed on IV fluids and due to the renal dysfunction PAST MEDICAL HISTORY: Gastroesophageal reflux disease, systemic lupus erythematosus, rheumatoid arthritis, fibromyalgia, osteoporosis, anemia, bursitis, and urinary tract infection. MEDICATIONS: Reviewed as documented on [place] which includes potassium supplementation FAMILY HISTORY: Not significantly related to present illness. SOCIAL HISTORY: Denies alcohol, tobacco, or illicit drug use. REVIEW OF SYSTEMS: PHYSICAL EXAMINATION: GENERAL: The patient is critically ill-looking. VITAL SIGNS: Noted with the following vital signs; afebrile HEENT: Remarkable for dry oral mucosa. NECK: Supple SUMMARY: A 72-year-old female patient who is possibly septic dysfunction as well as hyperkalemia. Thank you for this consultation. Job ID: [id number]
--- NOTE | 2018-02-06 17:16 | PDOC.PN ---
- Subjective Encounter Start Date: 02/06/18 Encounter Start Time: 12:15 She became a bit more awake when I was in the room with her. She is still confused a bit, but says she feels bad, although better than she did. No specific complaints. Says she feels a little hungry. - Objective Resuscitation Status - Order Detail: 02/05/18 00:32 Resuscitation Status Routine Resuscitation Status: DNAR: NO Resuscitation Discussed with: Patient's family Vital Signs & Weight: Vital Signs (12 hours) Temp Pulse Resp BP Pulse Ox 02/06/18 15:21 98.2 F 80 19 124/58 L 94 L 02/06/18 10:49 99.0 F 77 19 95/43 L 94 L 02/06/18 07:27 99.1 F 80 22 H 101/48 L 100 02/06/18 07:26 98 Weight Admit Weight 121 lb 9 oz Weight 121 lb 9 oz I&O: 02/05/18 02/06/18 02/07/18 06:59 06:59 06:59 Intake Total 617 2891 Output Total 310 525 Balance 307 2366 Result Diagrams: 02/06/18 04:31 02/06/18 04:31 Additional Labs: Accuchecks 02/06/18 02/06/18 02/06/18 16:26 10:22 05:32 POC Glucose 113 H 112 H 105 02/05/18 02/05/18 20:09 17:01 POC Glucose 126 H 123 H Phys Exam - Physical Examination Constitutional: NAD a little groggy. Taking sips of water without much trouble. Respiratory: no wheezing, no rales, no rhonchi, clear to auscultation bilateral Cardiovascular: RRR, no rub II/ M Gastrointestinal: soft, non-tender, no distention, positive bowel sounds Musculoskeletal: no edema Dx/Plan (1) Sepsis Code(s): A41.9 - SEPSIS, UNSPECIFIED ORGANISM Status: Acute (2) UTI due to Klebsiella species Code(s): N39.0 - URINARY TRACT INFECTION, SITE NOT SPECIFIED; B96.1 - KLEBSIELLA PNEUMONIAE THE CAUSE OF DISEASES CLASSD ELSWHR Status: Acute (3) Rheumatoid arthritis Code(s): M06.9 - RHEUMATOID ARTHRITIS, UNSPECIFIED Status: Acute (4) Encephalopathy acute Code(s): G93.40 - ENCEPHALOPATHY, UNSPECIFIED Status: Acute (5) Anxiety and depression Code(s): F41.8 - OTHER SPECIFIED ANXIETY DISORDERS Status: Chronic (6) Chronic pain disorder Code(s): G89.4 - CHRONIC PAIN SYNDROME Status: Chronic (7) Protein-calorie malnutrition, moderate Code(s): E44.0 - MODERATE PROTEIN-CALORIE MALNUTRITION Status: Chronic - Plan * Continue Vanc and Meropenem. Can likely stop the Vanc tomorrow. Looks like it is Klebsiella UTI causing bacteremia, sepsis and encephalopathy. * Continue fluids. * Eval swallow. * Diet when tolerated. * Resume home meds as soon as she can take po's. * Very concerned about the high dose of morphine she takes daily. Has been off for two days. Watch for signs of withdrawal. * Was taken off BZD's by her doctor earlier this year. Will try to stay away from those if possible. * BP will not tolerate much in the way of opioids right now.
[2018-02-06] MEDS: Vancomycin HCl 500 MG in Sodium Chloride 0.9% 100 ML IVPB SCH (17:50)
[2018-02-06 18:19] LABS: Vancomycin, Trough 13.6 ug/mL
[2018-02-06] MEDS ORDERED: Vancomycin HCl 250 MG in Sodium Chloride 0.9% 100 ML IVPB SCH (19:30)
[2018-02-07] MEDS: Meropenem 500 MG in Sodium Chloride 0.9% 100 ML IVPB SCH (01:34)
[2018-02-07] MEDS: Dextrose 5 % And 0.9 % NaCl 1,000 ML IV SCH ×2 (01:34→20:24)
[2018-02-07 05:25] LABS: Albumin 1.9 g/dL (3.4-4.8); Anion Gap 10 mmol/L (10-20); BUN (Urea Nitrogen) 60 mg/dL (9.8-20.1); BUN/Creatinine Ratio 26.79; Calc. Creatinine Clearance 19 mL/min (70-130); Calcium 6.6 mg/dL (7.8-10.44); Carbon Dioxide 27 mmol/L (23-31); Chloride 98 mmol/L (98-107); Estimated GFR-MDRD 21; Glucose 106 mg/dL (83-110); Phosphorus 4.4 mg/dL (2.3-4.7); Potassium 4.1 mmol/L (3.5-5.1); Sodium 131 mmol/L (136-145)
[2018-02-07] MEDS: Famotidine 20 MG TAB PO SCH (09:19)
[2018-02-07] MEDS: Heparin 5,000 UNITS/ML VIAL SC SCH ×2 (09:20→20:23)
[2018-02-07] MEDS: Famotidine/PF 20 mg/2ml Vial SLOW IVP SCH (09:25)
--- NOTE | 2018-02-07 10:22 | RAD ---
PORTABLE AP CHEST XRAY: DATE: 02/07/2018. History Pneumonia. COMPARISON: . FINDINGS: The right internal jugular vein central venous catheter has been withdrawn with tip now overlying the expected location of the SVC. Cardiac silhouette is magnified by projection but does appear mildly enlarged. There are increased perihilar interstitial opacities, much greater in the upper lung zones on the right, with alveolar opacities at the right hilar region probably at the left lung base. The re may be mild improvement in aeration within the left upper lung zone. Again noted is deformity and erosion of the medial aspect of the proximal right humerus. Bilateral glenohumeral osteoarthropathy is present. There is narrowing of the subacromial space on the left with superior displacement of t he humeral head likely related to chronic rotator cuff tear. A similar finding but to a lesser degre e is seen on the right. IMPRESSION: Persistent increased interstitial opacities bilaterally likely related to infectious process/pneumoni a. There is mild improvement in aeration on the left. Continued followup to resolution is recommend ed. POS: NOELLE
[2018-02-07] MEDS ORDERED: HYDROcodone/Acetaminophen 5/325 mg Tablet PO PRN (11:19)
--- NOTE | 2018-02-07 11:24 | PDOC.PN ---
- Subjective Encounter Start Date: 02/07/18 Encounter Start Time: 11:22 She indicates she does not feel well in general. Generalized aches and pains. She indicated she was not taking anything for her SLE, but and daughter confirmed that she was getting Symponi by her forensic dna analyst in [place]. She had been on MTX in past, but stopped for anemia. Had been on steroids in more distant past. Daughter indicates that Dr. Robles is familiar with her. - Objective Resuscitation Status - Order Detail: 02/05/18 00:32 Resuscitation Status Routine Resuscitation Status: DNAR: NO Resuscitation Discussed with: Patient's family Vital Signs & Weight: Vital Signs (12 hours) Temp Pulse Resp BP Pulse Ox 02/07/18 10:58 99.0 F 72 18 100/55 L 100 02/07/18 07:49 95 02/07/18 07:26 99.0 F 77 18 94/60 95 02/07/18 03:58 98.8 F 74 20 105/51 L 93 L 02/07/18 00:00 99.2 F 74 18 108/53 L 100 Weight Admit Weight 121 lb 9 oz Weight 121 lb 9 oz I&O: 02/06/18 02/07/18 02/08/18 06:59 06:59 06:59 Intake Total 2891 2200 Output Total 525 800 Balance 2366 1400 Result Diagrams: 02/06/18 04:31 02/07/18 04:59 Additional Labs: Accuchecks 02/07/18 02/07/18 02/06/18 10:29 05:34 20:00 POC Glucose 107 101 108 02/06/18 16:26 POC Glucose 113 H Radiology Reviewed by me: Yes Phys Exam - Physical Examination Constitutional: NAD More awake and conversant. Diffuse rales, more prominent than yesterday. Wet cough. Cardiovascular: RRR, no significant murmur, no rub Gastrointestinal: soft, non-tender, no distention, positive bowel sounds Musculoskeletal: no edema Rheumatoid arthropathy of hands. Still mildly encephalopathic. Skin: normal turgor Dx/Plan (1) Sepsis Code(s): A41.9 - SEPSIS, UNSPECIFIED ORGANISM Status: Acute Comment: Likely due to pneumonia and/or UTI. BP stabilizing. (2) Pneumonia Code(s): J18.9 - PNEUMONIA, UNSPECIFIED ORGANISM Status: Acute Comment: Bilateral. (3) UTI due to Klebsiella species Code(s): N39.0 - URINARY TRACT INFECTION, SITE NOT SPECIFIED; B96.1 - KLEBSIELLA PNEUMONIAE THE CAUSE OF DISEASES CLASSD ELSWHR Status: Acute (4) Rheumatoid arthritis Code(s): M06.9 - RHEUMATOID ARTHRITIS, UNSPECIFIED Status: Acute (5) Encephalopathy acute Code(s): G93.40 - ENCEPHALOPATHY, UNSPECIFIED Status: Acute (6) Anxiety and depression Code(s): F41.8 - OTHER SPECIFIED ANXIETY DISORDERS Status: Chronic Comment: Buspar, Escitalopram (7) Chronic pain disorder Code(s): G89.4 - CHRONIC PAIN SYNDROME Status: Chronic Comment: On MS Contin 60 mg tid and MSIR 15mg tid at home. Also on Gabapentin, Methocarbamol. (8) Protein-calorie malnutrition, moderate Code(s): E44.0 - MODERATE PROTEIN-CALORIE MALNUTRITION Status: Chronic (9) SLE (systemic lupus erythematosus) Code(s): M32.9 - SYSTEMIC LUPUS ERYTHEMATOSUS, UNSPECIFIED Status: Acute (10) Immunocompromised Code(s): D84.9 - IMMUNODEFICIENCY, UNSPECIFIED Status: Acute Comment: on Symponi for SLE. (11) Acute renal failure Status: Acute - Plan * Encephalopathy improving a little. Not at baseline yet. * Pneumonia not better on CXR. * Bacillus in BCx concerning as the potential source of pneumonia (likely cereus ) given her immunocompromised state. * Bacillus should be covered by Vanc. * Consult ID. * Continue meropenem for Klebsiella for now. Defer to ID. * Advance to clear liquid diet. * Start some low dose opioids (norco) as she is have some pain and she has been on large doses of opioids at home. * Resume other home meds as appropriate. * Renal function significantly worse than baseline. Very slightly better today. Nephrology following. * Remain in IMCU.
--- NOTE | 2018-02-07 12:16 | PRG ---
DATE OF SERVICE: SUBJECTIVE: This morning, she says she is better. She has had a cough, which is actually nonproductive. OBJECTIVE: VITAL SIGNS: Saturations are 100% on 4 L, respiratory rate 18, temperature 99, blood pressure 100/55. CHEST: Chest x-ray shows bibasilar infiltrates. She had no wheezing. CARDIAC: Normal S1 and S2. No gallops. ABDOMEN: No masses. LABORATORY DATA: Creatinine is 2, BUN is 60. Urine is growing Klebsiella, so far cultures are negative. IMPRESSION: 1. Bilateral bronchopneumonia. 2. Severe deconditioning. 3. Lupus. 4. Encephalopathy. Switched over to Maxipime. Started low-dose steroids. Neb treatments, supportive care. We will follow. Job ID: [id number]
[2018-02-07] MEDS: Gabapentin 300 MG CAP PO SCH ×2 (17:01→20:23)
[2018-02-07] MEDS ORDERED: Vancomycin HCl 750 MG in Sodium Chloride 0.9% 250 ML 250 ML IVPB SCH (18:00)
[2018-02-07] MEDS: levETIRAcetam 500 MG TAB PO SCH (20:22)
[2018-02-07] MEDS: Escitalopram Oxalate 10 mg Tablet PO SCH (20:23)
[2018-02-07] MEDS: Cefepime 1 GM in Sodium Chloride 0.9% 100 ML IVPB SCH (20:23)
[2018-02-07] MEDS ORDERED: LEVETIRACETAM 750 MG PO SCH (21:00)
[2018-02-07] MEDS: cycloSPORINE 0.05% Ophthalmic Droperette EA EYE SCH (22:06)
--- NOTE | 2018-02-07 22:55 | CON ---
DATE OF CONSULTATION: 02/07/2018 REASON FOR CONSULTATION: Pulmonary infiltrates, delirium, and urinary tract infection among other problems. HISTORY OF PRESENT ILLNESS: A 72-year-old, familiar to me from prior clinic and hospital visits, who has a history of systemic lupus erythematosus/rheumatoid arthritis with quite severe ankylosis of multiple joints and mobility impairment , was managed by solar sales assessor in [place] with Simponi, which is a TNF inhibitor , as well as previous treatment with methotrexate. Recently, methotrexate had to be discontinued because of detected anemia. She was evaluated by Dr. Conti for the anemia, it does not appear that she was having anemia secondary to blood loss, but it was probably due to multifactorial including chronic inflammatory process, some cofactor deficiency. She has a history of nonunion fracture of the left tibia, which persists with that status and I saw her for basically urinary tract infections with sepsis in the past. More recently, patient has been placed on nitrofurantoin I believe by her liquefaction supervisor and has been taking it for about a year. She also has a history of recurrent oral ulcers, which have not yet been properly explained. At this time, she developed worsening mental status. Since in the past, this has been associated with more aggressive episodes of urinary tract infection, the daughter decided to bring patient for evaluation. On arrival, she had a fever and was little disoriented. Initial BP 106/39, pulse 79, respirations are 16. She is totally completely disoriented, having hallucinations. She has some myoclonic movements or jerks in the appendicular structures. In the examination of the lungs, no abnormalities are reported and the heart evaluation was again not remarkable. Abdomen was not tender. The initial lab results, we had a white cell count of 26 ,000 with hemoglobin of 11, platelets 794 with 20% bands and chemistry with a sodium of 126 and creatinine of 2.76. AST 46, ALT 21, albumin 2.7. Her baseline creatinine was 0.56, August of 2017. Urinalysis on arrival showed greater than 50 wbc's, Legionella pneumophila, and Streptococcus pneumoniae antigen were negative. Microbiology showed Klebsiella pneumoniae retreat from urine culture, greater than 100,000 CFUs per mL. Susceptibility showed a mcgrath susceptibility. Currently, Ms. Pastrana has been transferred to the floor. She is completely awake and alert. She has intermittent headaches. No visual symptoms. She has noted a recurrence of the mouth ulcers. She denies any back pain. Mild dyspnea with coughing with no sputum production, the cough is mild to moderate. No abdominal pain, no vomiting, and she has an indwelling Ferreira catheter. PAST MEDICAL HISTORY: Includes rheumatoid arthritis/systemic lupus erythematosus; nonunion left tibia fracture, managed with a splint; hypertension; peptic ulcer disease with GI bleed in the past; recurrent UTIs with invasive features with Klebsiella pneumoniae with varying susceptibility profile. She had the ESBL organism in December 2013 and that was a very susceptible one. She never had positive blood cultures during those episodes of decompensation. SOCIAL HISTORY: She lives with daughter and a never smoker. FAMILY HISTORY: Diabetes. ALLERGIES: PLAQUENIL AND LYRICA. MEDICATIONS: Current medication list includes Simponi. She is also on hydrocodone, cefepime, cyclosporine, famotidine, gabapentin, Haldol, Keppra, Medrol. PHYSICAL EXAMINATION: VITAL SIGNS: Temperature 99.8, blood pressure 130/65, pulse 70, respirations are 16, and O2 saturation 100%. SKIN: With slit like about a 1.5 cm long incision from the recent surgery performed by Dr. Vera where a benign skin lesion was removed from the posterior thigh region, left side. She has a peripheral IV access in the left upper extremity, which has inflammatory changes surrounding the exit site suggestive of early IV site inflammatory process and she has a Ferreira catheter in place. There is a right internal jugular vein central venous catheter. The eye ocular movements are conjugate. Pupils are equal. Oral cavity, still quite a few teeth in place. I did not identify obvious mouth ulcers at this time. She might have a one that is healing at the mid lower lip. NECK: Supple without jugular venous distention. LUNGS: There are quite prominent inspiratory crackles in the right upper lung, particularly in the anterior segment. No wheezing. HEART: S1 and S2 with regular rate. No murmurs. No S3. ABDOMEN: Soft, not distended or tender. No ascites. No bladder distention. MUSCULOSKELETAL: She has multiple joint deformities with areas of ankylosis, particularly in hands and lower extremities and she has very limited mobility because of that. She is able to lift her hands and upper extremities from the bed, but has a lot of difficulty with lower extremities, probably from pain. Pulses are 1+ in dorsalis pedis. NEUROLOGIC: Her cognitive function is markedly improved. She is oriented, follows commands. She has a great sense of humor and memory improved markedly. LABORATORY DATA: White cell count is down to 18,000, hemoglobin 9.7, and platelets are 644, with 11% bands, 20% neutrophils. Lymphocyte percentage of 50 and sodium 131, creatinine 2.63, and the other findings as noted above. Repeat chest x-ray from today, which showed persistent increased interstitial opacities bilaterally. There is mild improvement in aeration on the left side. The previous x-ray for this admission was from February 2017 and it showed no infiltrates. ASSESSMENT: 1. Rheumatoid arthritis/Systemic lupus erythematosus, on Simponi. Previously on methotrexate. 2. Recurrent urinary tract infections in the past with invasive features. 3. Chronic suppression with nitrofurantoin. 4. Delirium associated with fever, neutrophilia with bandemia. 5. Pulmonary infiltrates. DISCUSSION: Differential diagnosis includes community-acquired pneumonia with usual pathogens versus invasive urinary tract infection recurrence with the lung findings resulting from this process. Nitrofurantoin induced interstitial pneumonitis is another possibility. Other possibilities would include an opportunistic infectious process which appears to be less likely since patient has responded to cefepime. At this point, we will repeat CT stone protocol in view of the recurrent UTIs and had a CT of chest in view of the possibility of nitrofurantoin induced interstitial pneumonitis and submit opportunistic infectious pathogen workup as well. Regarding the mouth ulcers, it would merit to do a sample when they are more overt to see if we can detect herpes simplex, the other possibility would be autoimmune mouth ulcers associated with lupus/rheumatoid arthritis. Job ID: [id number] [facility]
[2018-02-08] MEDS: Dextrose 5 % And 0.9 % NaCl 1,000 ML IV SCH (05:33)
[2018-02-08] MEDS: Cefepime 1 GM in Sodium Chloride 0.9% 100 ML IVPB SCH ×2 (08:37→20:18)
[2018-02-08] MEDS: Heparin 5,000 UNITS/ML VIAL SC SCH ×2 (08:38→20:19)
[2018-02-08] MEDS: Famotidine/PF 20 mg/2ml Vial SLOW IVP SCH (08:42)
[2018-02-08] MEDS: Haloperidol Lactate 5 MG/ML VIAL IM PRN (08:43)
[2018-02-08] MEDS: cycloSPORINE 0.05% Ophthalmic Droperette EA EYE SCH ×2 (08:48→22:28)
[2018-02-08 08:49] LABS: Hemoglobin 10.5 g/dL (12.0-16.0); Mean Corpuscular Hemoglobin 31.4 pg (27.0-31.0); Mean Corpuscular Volume 98.3 fL (78.0-98.0); Mean Platelet Volume 6.6 fL (7.4-10.4); Platelet Count 632 thou/uL (130-400); RBC Distribution Width 19.6 % (11.5-14.5); Red Blood Cell (RBC) Count 3.35 mill/uL (4.20-5.40)
[2018-02-08] MEDS: levETIRAcetam 500 MG TAB PO SCH ×2 (08:49→20:19)
[2018-02-08] MEDS: Gabapentin 300 MG CAP PO SCH ×3 (08:50→20:19)
[2018-02-08] MEDS: Folic Acid 1 MG TAB PO SCH (08:50)
[2018-02-08] MEDS: Escitalopram Oxalate 10 mg Tablet PO SCH ×2 (08:50→20:18)
[2018-02-08] MEDS: Famotidine 20 MG TAB PO SCH (08:50)
[2018-02-08 08:54] LABS: Albumin 1.8 g/dL (3.4-4.8); Anion Gap 14 mmol/L (10-20); BUN (Urea Nitrogen) 51 mg/dL (9.8-20.1); BUN/Creatinine Ratio 29.65; Calc. Creatinine Clearance 25 mL/min (70-130); Calcium 6.4 mg/dL (7.8-10.44); Carbon Dioxide 20 mmol/L (23-31); Chloride 98 mmol/L (98-107); Estimated GFR-MDRD 29; Glucose 171 mg/dL (83-110); Phosphorus 4.7 mg/dL (2.3-4.7); Potassium 4.5 mmol/L (3.5-5.1); Sodium 127 mmol/L (136-145)
[2018-02-08 08:55] LABS: Anion Gap 12 mmol/L (10-20); BUN (Urea Nitrogen) 51 mg/dL (9.8-20.1); Calc. Creatinine Clearance 26 mL/min (70-130); Calcium 6.3 mg/dL (7.8-10.44); Carbon Dioxide 23 mmol/L (23-31); Chloride 98 mmol/L (98-107); Estimated GFR-MDRD 30; Glucose 171 mg/dL (83-110); Potassium 4.5 mmol/L (3.5-5.1); Sodium 128 mmol/L (136-145)
[2018-02-08 09:23] LABS: Band 13 % (5-11); Lymphocytes 22 % (21-51); MDiff Complete? YES; Metamyelocyte 2 % (0-0); Monocytes 2 % (0-10); Neutrophil 61 % (42-75); PLT Morphology Comment Appears Increased; Polychromasia SLIGHT = 2-3 cells (100X) (0-2/hpf)
--- NOTE | 2018-02-08 10:59 | CT ---
NONCONTRAST ENHANCED CT IMAGES OF THE CHEST, ABDOMEN, AND PELVIS: History: Interstitial pneumonia, immunosuppressed, complaining of generalized abdominal pain. Technique: Multiple contiguous noncontrast CT axial images were obtained of the chest, abdomen, and p daniela obtained. FINDINGS: Images demonstrate a right jugular central line place. Small bilateral pleural effusions seen. Extensive upper lobe lung interstitial fibrotic and inflammatory changes seen. Old healed right sided rib fractures seen. No significant mediastinal abnormality seen. Coronary jose guadalupe ry calcifications seen. The liver and spleen are unremarkable. The gallbladder is distended. Some hyp erdense areas seen within the gallbladder lumen, compatible with likely gallstones. The small bowel and colon is difficult to assess due to lack of oral and IV contrast. A large amount of stool is seen in the colon. There is atrophy of the anterior abdominal wall musculature. Extensive lower thoracic and entire lumbar multilevel degenerative changes seen. The patient has a surgical staple seen in the sigmoid colon. Some edema is seen in the intraperitonea l and retroperitoneal fat as well as in the subcutaneous fat. IMPRESSION: 1. Bilateral pleural effusions and lung parenchymal scarring. 2. Extensively distended gallbladder with gallbladder numerous stones or sludge. 3. Extensive coronary artery calcifications. POS: H
[2018-02-08] MEDS ORDERED: Furosemide 20 MG TAB PO SCH (11:30)
--- NOTE | 2018-02-08 14:04 | PDOC.PN ---
- Subjective Encounter Start Date: 02/08/18 Encounter Start Time: 10:45 Doing better overall. Does not remember me from previous days. - Objective Resuscitation Status - Order Detail: 02/05/18 00:32 Resuscitation Status Routine Resuscitation Status: DNAR: NO Resuscitation Discussed with: Patient's family Vital Signs & Weight: Vital Signs (12 hours) Temp Pulse Resp BP Pulse Ox 02/08/18 11:33 97.6 F 74 18 146/71 H 97 02/08/18 07:36 100 02/08/18 07:32 98.2 F 72 16 136/75 100 02/08/18 04:00 97.5 F L 74 16 161/99 H 100 Weight Admit Weight 121 lb 9 oz Weight 121 lb 9 oz I&O: 02/07/18 02/08/18 02/09/18 06:59 06:59 06:59 Intake Total 2200 1413 Output Total 800 975 Balance 1400 438 Result Diagrams: 02/08/18 08:18 02/08/18 08:18 Additional Labs: Accuchecks 02/08/18 02/07/18 03:46 22:42 POC Glucose 166 H 202 H Radiology Reviewed by me: Yes Phys Exam - Physical Examination Constitutional: NAD Awake and alert. HEENT: PERRLA, oral pharynx no lesions Scattered rales. Cardiovascular: RRR, no significant murmur Gastrointestinal: soft, non-tender, no distention, positive bowel sounds Trace - 1+ edema extremities. Psychiatric: normal affect Dx/Plan (1) Sepsis Code(s): A41.9 - SEPSIS, UNSPECIFIED ORGANISM Status: Acute Comment: Likely due to pneumonia and/or UTI. BP stabilizing. (2) Pneumonia Code(s): J18.9 - PNEUMONIA, UNSPECIFIED ORGANISM Status: Acute Comment: Bilateral. (3) UTI due to Klebsiella species Code(s): N39.0 - URINARY TRACT INFECTION, SITE NOT SPECIFIED; B96.1 - KLEBSIELLA PNEUMONIAE THE CAUSE OF DISEASES CLASSD ELSWHR Status: Acute (4) Rheumatoid arthritis Code(s): M06.9 - RHEUMATOID ARTHRITIS, UNSPECIFIED Status: Acute (5) Encephalopathy acute Code(s): G93.40 - ENCEPHALOPATHY, UNSPECIFIED Status: Acute (6) Anxiety and depression Code(s): F41.8 - OTHER SPECIFIED ANXIETY DISORDERS Status: Chronic Comment: Buspar, Escitalopram (7) Chronic pain disorder Code(s): G89.4 - CHRONIC PAIN SYNDROME Status: Chronic Comment: On MS Contin 60 mg tid and MSIR 15mg tid at home. Also on Gabapentin, Methocarbamol. (8) Protein-calorie malnutrition, moderate Code(s): E44.0 - MODERATE PROTEIN-CALORIE MALNUTRITION Status: Chronic (9) SLE (systemic lupus erythematosus) Code(s): M32.9 - SYSTEMIC LUPUS ERYTHEMATOSUS, UNSPECIFIED Status: Acute (10) Immunocompromised Code(s): D84.9 - IMMUNODEFICIENCY, UNSPECIFIED Status: Acute Comment: on Symponi for SLE. (11) Acute renal failure Status: Acute (12) Pleural effusion Code(s): J90 - PLEURAL EFFUSION, NOT ELSEWHERE CLASSIFIED Status: Acute Comment: Bilateral - Plan * Continues to improve. More awake and alert. * Continue maxapime. * Can advance diet. * Patient has a hx of mouth ulcers. Unclear etiology. Plan was to consider biopsy at some point. She feels like she may be starting to develop some ulcers on the lower lip area. Discussed with Dr. Isaacs. He was recommending acyclovir. Would probably want to wait on the biopsy given her current medical condition. * Pulm following. * ID following. * Fluids stopped. Small dose of lasix given the edema and effusions.
[2018-02-08] MEDS ORDERED: valACYclovir 500 MG TAB PO SCH (16:45)
--- NOTE | 2018-02-08 16:48 | PRG ---
DATE OF SERVICE: 02/08/2018 SERVICE: Pulmonary Medicine. INTERVAL HISTORY: The patient is doing fine from respiratory standpoint. That being said, we are starting to have a little bit increasing puffiness in the bilateral upper and lower extremities. She did not have any shortness of breath. She is starting to cough a little bit and bringing up no sputum. She has complaints that she is about to have a mouth eruption of her fever blisters on the outside of her mouth. This happens from time to time whenever she is stressed out. She typically uses Magic Mouthwash at home and is requesting that. She is also hoping that we get real food. Otherwise, there has been no interval change to her condition. PHYSICAL EXAMINATION: VITAL SIGNS: Afebrile. Pulse 74, blood pressure 146/71, respirations 18, saturation 97% on 1 L nasal cannula. GENERAL: The patient is awake and alert, in no apparent distress. LUNGS: Decent air entry. Crackles are present in the bibasilar regions. HEART: Normal rate and regular. ABDOMEN: Soft, nontender, and nondistended. Bowel sounds are positive. MUSCULOSKELETAL: No cyanosis or clubbing. There is no pitting in the bilateral lower extremities. NEUROLOGIC: Grossly nonfocal. LABORATORY DATA: WBC 13.0, hemoglobin 10.5, platelets 632,000 and dropping. Creatinine 1.69 and stable. Sodium 128. Basic metabolic profile is otherwise unremarkable. Calcium 6.3, albumin 1.8. Urine culture is growing Klebsiella pneumoniae, which is a fairly sensitive organism. Blood culture is growing Bacillus cereus in 1/2. Influenza A and B are negative. IMAGING DATA: CT of the chest, abdomen, and pelvis demonstrates bilateral pleural effusions and lung parenchymal scarring. Extensively distended gallbladder with numerous stones and sludge present. Extensive coronary artery calcifications noted. ASSESSMENT: 1. Acute hypoxic respiratory failure. 2. Severe sepsis, improving. 3. Urinary tract infection secondary to Klebsiella pneumoniae. 4. Metabolic encephalopathy, resolved. 5. Acute kidney injury, improving. 6. Systemic lupus erythematosus and/or rheumatoid arthritis, on disease modifying immunosuppressive therapy. 7. Obstructive sleep apnea, severe. DISCUSSION AND PLAN: She previously did not tolerate the CPAP therapy and is not interested in pursuing a polysomnogram in the outpatient setting. We will continue supportive care including antibiotics. I will initiate acyclovir, and give her the Magic Mouthwash. We are going to interrupt IV fluids. If she has increasing work of breathing, dose of Lasix will be considered. We will also advance her diet. Pulmonary will continue to follow for the time being. Job ID: [id number]
--- NOTE | 2018-02-08 16:49 | PRG ---
DATE OF SERVICE: 02/08/2018 SUBJECTIVE: She is doing better today. No abdominal pain. No vomiting. No respiratory symptoms. OBJECTIVE: VITAL SIGNS: T-max 98.2, blood pressure 140/70, pulse 74, and respirations 18. GENERAL: Appears in no distress. Alert, not confused. LUNGS: Clear, previously noted inspiratory crackles in the right upper lung have resolved. HEART: S1 and S2. Regular rate. ABDOMEN: Not tender. LABORATORY DATA: White cell count is down to 13,000, hemoglobin 10.5, platelets 632. Sodium 128, creatinine 1.69 which is down from admission. Blood cultures with bacillus, which is likely contaminant of the sample. IMAGING STUDIES: CT of chest showed extensive upper lobe interstitial fibrosis and inflammatory changes. Liver and spleen unremarkable. Gallbladder distended. Some gallstones within the lumen. ASSESSMENT AND PLAN: 1. Rheumatoid arthritis, systemic lupus erythematosus, on Simponi. 2. Recurrent urinary tract infections with invasive features. 3. Chronic urinary tract infections, suppression with nitrofurantoin. 4. Delirium. 5. Pulmonary infiltrates. 6. Distended gallbladder. At this point, she does not have clinical evidence of acute cholecystitis, although she maybe at risk. I do not believe a HIDA scan is needed at this point. She does have pulmonary fibrosis, which could be related to her autoimmune syndrome or the effects of chronic nitrofurantoin. I would recommend discontinuing that agent. The more likely scenario is the invasive urinary tract infection with decompensation, which led to delirium. The patient has a quite susceptible strain of Klebsiella, and should be able to be transitioned to either quinolone or Bactrim. The duration of therapy will be around another 10 days approximately. After that, then consider suppressive therapy with single-strength Bactrim given at bedtime. Job ID: [id number] [facility]
--- NOTE | 2018-02-08 18:35 | PRG ---
DATE OF SERVICE: 02/08/2018 SUBJECTIVE: The patient is seen and examined, seems to be feeling better. Noted with the following vital signs. OBJECTIVE: VITAL SIGNS: Afebrile, temperature 97.4, pulse 74, respiratory rate of 18, O2 saturation 97% with blood pressure of 137/84. HEENT: Unremarkable. CARDIOVASCULAR SYSTEM: First and second heart sounds were heard. RESPIRATORY: Clear to auscultation. DIGESTIVE SYSTEM: Revealed a benign abdomen. Positive bowel sounds. EXTREMITIES: No peripheral edema. SKIN: No new gross rash. LYMPHATICS: No peripheral lymphadenopathy. LABORATORY INVESTIGATION: Showed a white count of 13,000, hemoglobin 10.5, and platelets of 632,000. Chemistry showed a creatinine down to 1.69 with BUN of 51 and sodium of 128. IMPRESSION: 1. Acute on chronic kidney disease, which seems to be improving. 2. Hyponatremia. 3. Urinary tract infection. 4. Sepsis in the context of urinary tract infection and pneumonitis. PLAN: 1. We will continue current renal supportive measures. 2. Renally dose all medications. 3. If the hyponatremia continues to worsen, we will likely evaluate this hyponatremia whether this being possibly SIADH. Job ID: [id number]
[2018-02-09 01:09] LABS: Mycoplasma pneumoniae IgG AB 1341 U/mL (0-99); Mycoplasma pneumoniae IgM AB Less than 770 U/mL (0-769)
[2018-02-09 06:09] LABS: Anion Gap 13 mmol/L (10-20); BUN (Urea Nitrogen) 51 mg/dL (9.8-20.1); Calc. Creatinine Clearance 29 mL/min (70-130); Calcium 6.8 mg/dL (7.8-10.44); Carbon Dioxide 23 mmol/L (23-31); Chloride 97 mmol/L (98-107); Estimated GFR-MDRD 34; Glucose 83 mg/dL (83-110); Potassium 3.8 mmol/L (3.5-5.1); Sodium 129 mmol/L (136-145)
[2018-02-09 06:19] LABS: Band 2 % (5-11); Hemoglobin 10.8 g/dL (12.0-16.0); Hypochromia SLIGHT = 6-15 cells (100X) (0-5/hpf); Lymphocytes 22 % (21-51); MDiff Complete? YES; Mean Corpuscular HGB CONC 32.5 g/dL (32.0-36.0); Mean Corpuscular Hemoglobin 31.8 pg (27.0-31.0); Mean Platelet Volume 6.2 fL (7.4-10.4); Monocytes 5 % (0-10); Neutrophil 63 % (42-75); PLT Morphology Comment Appears Increased; Platelet Count 557 thou/uL (130-400); RBC Distribution Width 19.5 % (11.5-14.5); Reactive Lymphocytes 8 % (0-10); Red Blood Cell (RBC) Count 3.39 mill/uL (4.20-5.40); White Blood Cell (WBC) Count 20.1 thou/uL (4.8-10.8)
[2018-02-09] MEDS: Cefepime 1 GM in Sodium Chloride 0.9% 100 ML IVPB SCH (08:29)
[2018-02-09] MEDS: Famotidine 20 MG TAB PO SCH (08:30)
[2018-02-09] MEDS: Gabapentin 300 MG CAP PO SCH ×3 (08:30→20:32)
[2018-02-09] MEDS: Escitalopram Oxalate 10 mg Tablet PO SCH ×2 (08:30→20:32)
[2018-02-09] MEDS: levETIRAcetam 500 MG TAB PO SCH ×2 (08:30→20:32)
[2018-02-09] MEDS: Heparin 5,000 UNITS/ML VIAL SC SCH ×2 (08:31→20:33)
[2018-02-09] MEDS: Folic Acid 1 MG TAB PO SCH (08:31)
[2018-02-09] MEDS: cycloSPORINE 0.05% Ophthalmic Droperette EA EYE SCH ×2 (08:31→20:37)
[2018-02-09] MEDS: valACYclovir 500 MG TAB PO SCH (08:47)
[2018-02-09] MEDS: Famotidine/PF 20 mg/2ml Vial SLOW IVP SCH (09:18)
[2018-02-09] MEDS ORDERED: Furosemide 20 MG TAB PO SCH (10:15)
[2018-02-09] MEDS: HYDROcodone/Acetaminophen 5/325 mg Tablet PO PRN ×2 (11:06→22:52)
[2018-02-09] MEDS: Aluminum & Magnesium Hydroxide 60 ML, diphenhydrAMINE 150 MG, Lidocaine 2% Viscous Solu... SSW PRN ×2 (12:15→22:51)
[2018-02-09] MEDS ORDERED: Furosemide 40 MG/4 ML VIAL SLOW IVP SCH (14:30)
[2018-02-09] MEDS ORDERED: Calcium Gluc 4.6 MEQ/10 ML (100 MG/ML) SLOW IVP SCH (14:30)
--- NOTE | 2018-02-09 14:58 | PRG ---
DATE OF SERVICE: 02/09/2018 SERVICE: Pulmonary Medicine. INTERVAL HISTORY: The patient is doing fine from respiratory standpoint. Denies any current chest pain, fevers, chills, nausea, vomiting, or diarrhea. She actually feels like her strength is improving, but she does not feel up for discharge from the hospital at this time. She is wondering whether or not she has interstitial lung disease. I told her that in CT of the chest that is so dramatically volume overloaded, that it is very difficult to clearly identify whether or not chronic interstitial lung changes are present. As such, we will have to re-evaluate in the outpatient setting when she is closer to euvolemia. Otherwise, there has been no interval change to her condition. PHYSICAL EXAMINATION: VITAL SIGNS: Afebrile, pulse 85 and regular interposed with tachycardia to 140 and regular. Blood pressure 145/99, respirations 18, and saturation 95% on room air. GENERAL: The patient is awake and alert, in no apparent distress. LUNGS: Excellent air entry. Crackles are present dependently. No prolonged expiratory phase or wheezing is appreciated. HEART: Normal rate and regular. ABDOMEN: Soft, nontender, and nondistended. Bowel sounds are positive. MUSCULOSKELETAL: No cyanosis or clubbing. There is trace 1+ pitting in the bilateral lower extremities. NEUROLOGIC: Grossly nonfocal. LABORATORY DATA: WBC 20.1, hemoglobin 10.8, platelets 63,000. Lymphocyte count is 22%, eosinophils are low. Creatinine continues to trend downward to 1.51 with a BUN is stable. Sodium 129. Basic metabolic profile is otherwise unremarkable. Calcium 6.8, albumin 1.8. Mycobacterial titers are abnormal, no antigens are also unremarkable. Urine culture is growing Klebsiella pneumoniae, which is pansensitive. Influenza A and B are unremarkable. Blood cultures x2 are negative. IMAGING STUDIES: CT of the chest demonstrates very large bilateral pleural effusions with atelectasis present. There are other extensive volume overload findings are also present. There are ground-glass opacification and interstitial fullness, limited to the right middle lobe, and lingula. This is not characteristic of typical inflammatory changes associated with Macrodantin. ASSESSMENT: 1. Acute hypoxic respiratory failure, resolved. 2. Severe sepsis, improving. 3. Urinary tract infection secondary to Klebsiella pneumoniae. 4. Acute kidney injury, resolving. 5. Obstructive sleep apnea, severe. 6. Systemic lupus erythematosus and rheumatoid arthritis, on disease modifying immunosuppressive therapy. 7. Metabolic encephalopathy, resolved. 8. Pleural effusions, bilateral in the setting of volume overloaded state. DISCUSSION AND PLAN: The interstitial fullness that we see, limited to the right middle lobe, and lingula is not characteristic of drug-induced interstitial lung disease. She has bilateral pleural effusions, which were noted. These other changes could be consistent with volume overload. She is actually significantly improved with nothing more than diuretics. We will continue diuresing the patient through time until she gets back to euvolemia. In the outpatient setting, we will have her undergo pulmonary function studies and repeat imaging to see whether or not these infiltrates persist. If they do, additional diagnostic studies like bronchoscopy and open lung biopsy will be entertained. I do not think the patient is strong enough to go directly home. As such, we will see whether or not there are any snf options for her for the next couple of weeks, so that she can regain some strength and transition home safely. Job ID: [id number] [facility]
[2018-02-09] MEDS ORDERED: Calcium Gluconate 4.6 MEQ in Sodium Chloride 0.9% 100 ML IVPB SCH (16:30)
--- NOTE | 2018-02-09 17:14 | PRG ---
DATE OF SERVICE: 02/09/2018 SUBJECTIVE: Ms. Pastrana is feeling better today, but little bit tachycardic, moderately tachycardic, having pain all over in her joints. No respiratory symptoms. Not much sore throat. No abdominal pain. No genitourinary symptoms. PHYSICAL EXAMINATION: VITAL SIGNS: T-max 98.1, blood pressure 140/70, pulse 85 to 124 appears regular. HEART: Showed S1, S2 with regular rate. Tachycardic. No murmurs. LUNGS: Symmetric. Clear breath sounds. ABDOMEN: Soft, not distended or tender, and she has an indwelling Ferreira catheter. LABORATORY DATA: Microbiology with bacillus, which is likely a contaminant. White cell count is up again to 20,000, hemoglobin 10, platelets 557. The CT again that showed bilateral pleural effusions, lung parenchymal scarring, extensively distended gallbladder with gallbladder stones and sludge. Gallbladder will have to continue to be monitored. She is at risk for developing cholecystitis. I think if she did, she probably would have to be managed with a cholecystostomy. We will have to continue monitoring this situation. Currently, she is being treated for the urinary tract infection with levofloxacin. Job ID: [id number]
--- NOTE | 2018-02-09 17:34 | PRG ---
DATE OF SERVICE: 02/09/2018 SUBJECTIVE: The patient is seen and examined, seems to be doing much better. Noted with the following vital signs. OBJECTIVE: VITAL SIGNS: Afebrile. Temperature 98.1, pulse 92, respiratory rate of 18, O2 saturation of 95%, and blood pressure 155/96. HEENT: Unremarkable. CARDIOVASCULAR: First and second heart sounds were heard. RESPIRATORY: Clear to auscultation. DIGESTIVE: Revealed a benign abdomen. EXTREMITIES: No peripheral edema. SKIN: No new gross rash. LYMPHATICS: No peripheral lymphadenopathy. IMPRESSION: 1. Acute on chronic kidney disease, which seems to be improving. 2. Sepsis. 3. Urinary tract infection as well as bilateral pneumonitis. PLAN: 1. We will continue with current renal supportive measures. 2. Renally dose all medications. 3. Further management to be dependent on the clinical course. Job ID: [id number]
--- NOTE | 2018-02-09 20:17 | PDOC.PN ---
- Subjective Encounter Start Date: 02/09/18 Encounter Start Time: 08:35 Reports that she continues to feel better. Ate well. Had a BM today for the first time since admission. - Objective Resuscitation Status - Order Detail: 02/05/18 00:32 Resuscitation Status Routine Resuscitation Status: DNAR: NO Resuscitation Discussed with: Patient's family Vital Signs & Weight: Vital Signs (12 hours) Temp Pulse Pulse Pulse Resp BP BP 02/09/18 16:00 98.1 F 92 18 02/09/18 11:42 124 H 134 H 144/78 H 142/82 H 02/09/18 11:18 124 H 02/09/18 08:27 85 BP Pulse Ox Pulse Ox 02/09/18 16:00 155/96 H 95 02/09/18 11:42 93 L 02/09/18 11:18 145/99 H 02/09/18 08:27 Weight Admit Weight 121 lb 9 oz Weight 121 lb 9 oz I&O: 02/08/18 02/09/18 02/10/18 06:59 06:59 06:59 Intake Total 1413 1500 970 Output Total 975 1775 2225 Balance 994 -860 -1439 Result Diagrams: 02/09/18 05:36 02/09/18 05:36 Phys Exam - Physical Examination Constitutional: NAD Fully awake and alert. Modest rales, but much improved overall. Cardiovascular: RRR II/ Gastrointestinal: soft, non-tender, no distention, positive bowel sounds 1+ edema. LLE with significant RA deformity. Psychiatric: normal affect, A&O x 3 Dx/Plan (1) Sepsis Code(s): A41.9 - SEPSIS, UNSPECIFIED ORGANISM Status: Resolved Comment: Likely due to UTI. BP stable. (2) Pneumonia Code(s): J18.9 - PNEUMONIA, UNSPECIFIED ORGANISM Status: Acute Comment: Difficult to ascertain if this is infectious or not. Could be related to auto- immune disease, possibly meds. (3) UTI due to Klebsiella species Code(s): N39.0 - URINARY TRACT INFECTION, SITE NOT SPECIFIED; B96.1 - KLEBSIELLA PNEUMONIAE THE CAUSE OF DISEASES CLASSD ELSWHR Status: Acute (4) Rheumatoid arthritis Code(s): M06.9 - RHEUMATOID ARTHRITIS, UNSPECIFIED Status: Acute (5) Encephalopathy acute Code(s): G93.40 - ENCEPHALOPATHY, UNSPECIFIED Status: Resolved (6) Anxiety and depression Code(s): F41.8 - OTHER SPECIFIED ANXIETY DISORDERS Status: Chronic Comment: Buspar, Escitalopram (7) Chronic pain disorder Code(s): G89.4 - CHRONIC PAIN SYNDROME Status: Chronic Comment: On MS Contin 60 mg tid and MSIR 15mg tid at home. Also on Gabapentin, Methocarbamol. (8) Protein-calorie malnutrition, moderate Code(s): E44.0 - MODERATE PROTEIN-CALORIE MALNUTRITION Status: Chronic (9) SLE (systemic lupus erythematosus) Code(s): M32.9 - SYSTEMIC LUPUS ERYTHEMATOSUS, UNSPECIFIED Status: Acute (10) Immunocompromised Code(s): D84.9 - IMMUNODEFICIENCY, UNSPECIFIED Status: Acute Comment: on Symponi for SLE. (11) Acute renal failure Status: Acute (12) Pleural effusion Code(s): J90 - PLEURAL EFFUSION, NOT ELSEWHERE CLASSIFIED Status: Acute Comment: Bilateral (13) Abnormal gall bladder diagnostic imaging Code(s): R93.2 - ABNORMAL FINDINGS ON DX IMAGING OF LIVER AND BILIARY TRACT Status: Acute Comment: Distended. Likely due to no po intake over several days. No evidence of active cholecystitis. - Plan * Long discussion with patient and her daughter. * Looks like the infiltrates may not be infectious. * The primary infection if the UTI with invasive features. * No findings on imaging to account for recurrent UTI's. * Needs to continue to diurese. * DC Ferreira after this dose of Lasix. * PT consult. * Patient cannot ambulate, but can tranfer herself from bed to bedside commode and to motorized chair. * Still very weak from this episode. * Will transition po Levaquin. * Will ultimately transition to oral Bactrim (SS). * Discussed possible amputation of LLE. It is not very helpful and makes it harder for her to transfer. * She understands the risk of that decision, but feels like she is close to that. * Not the time to consider that.
[2018-02-10] MEDS: HYDROcodone/Acetaminophen 5/325 mg Tablet PO PRN ×3 (06:27→22:03)
[2018-02-10] MEDS ORDERED: Furosemide 40 MG/4 ML VIAL SLOW IVP SCH (09:00)
[2018-02-10] MEDS: levETIRAcetam 500 MG TAB PO SCH ×2 (09:47→21:58)
[2018-02-10] MEDS: Famotidine 20 MG TAB PO SCH (09:47)
[2018-02-10] MEDS: valACYclovir 500 MG TAB PO SCH (09:48)
[2018-02-10] MEDS: Escitalopram Oxalate 10 mg Tablet PO SCH ×2 (09:48→22:02)
[2018-02-10] MEDS: Folic Acid 1 MG TAB PO SCH (09:48)
[2018-02-10] MEDS: predniSONE 20 MG TAB PO SCH (09:48)
[2018-02-10] MEDS: Gabapentin 300 MG CAP PO SCH ×3 (09:49→22:03)
[2018-02-10] MEDS: Heparin 5,000 UNITS/ML VIAL SC SCH ×2 (09:49→22:06)
[2018-02-10] MEDS: Famotidine/PF 20 mg/2ml Vial SLOW IVP SCH (09:49)
--- NOTE | 2018-02-10 09:50 | PRG ---
DATE OF SERVICE: 02/10/2018 SERVICE: Pulmonary Medicine. INTERVAL HISTORY: The patient is breathing very comfortably today. She has been weaned off oxygen. Her oxygen saturations continue to improve. She had a significant amount of urine output yesterday. She denies any current chest pain , fevers, chills, nausea, or vomiting. Otherwise, there has been no interval change to her condition. PHYSICAL EXAMINATION: VITAL SIGNS: Afebrile, pulse 97, blood pressure 144/96, respirations 18, and saturations 96% on room air. GENERAL: The patient is awake and alert, in no apparent distress. LUNGS: Excellent air entry. Dependent crackles are still present. HEART: Normal rate, regular. ABDOMEN: Soft, nontender, and nondistended. Bowel sounds are positive. MUSCULOSKELETAL: No cyanosis or clubbing. There is 1+ pitting in the bilateral lower extremities, which is dramatically improved. : No Ferreira today. NEUROLOGIC: Grossly nonfocal. LABORATORY DATA: WBC 20.1, hemoglobin 10.8, and platelets 557. That being said , the band count has dropped off very nicely. Creatinine 1.51. This was performed yesterday. Klebsiella pneumoniae is pansensitive. Influenza A and B, blood cultures are unremarkable in 1 out of 2. ASSESSMENT: 1. Acute hypoxic respiratory failure, resolved. 2. Severe sepsis, resolving. 3. Urinary tract infection secondary to Klebsiella pneumoniae. 4. Acute kidney injury, improving. 5. Obstructive sleep apnea, severe. 6. Systemic lupus erythematosus and rheumatoid arthritis, on disease modifying, immunosuppressive therapy. 7. Metabolic encephalopathy, resolved. 8. Intermittent sinus tachycardia. 9. Pleural effusions, bilateral, in the setting of a volume overloaded state. 10. Obstructive sleep apnea, suspected. DISCUSSION AND PLAN: I will escalate her diltiazem. We will switch her Lasix over to p.o. Because she had 5 L out yesterday, I will get a stat basic metabolic profile and magnesium to make certain there is nothing needs to be replaced. We will follow up her lab. She is being transition to the telemetry unit, which I think is reasonable. Cardiology consultation is also going to be obtained. Of note, she was previously on calcium channel maurizio a year ago, but this was interrupted because she had marginal blood pressures. She does not remember why she was originally put on it, but remembers having multiple hospital stays in which she had elevated heart rates that would come and go. Job ID: [id number] [facility]
[2018-02-10] MEDS: cycloSPORINE 0.05% Ophthalmic Droperette EA EYE SCH ×2 (09:56→21:54)
[2018-02-10 10:27] LABS: Anion Gap 15 mmol/L (10-20); BUN (Urea Nitrogen) 45 mg/dL (9.8-20.1); Calc. Creatinine Clearance 30 mL/min (70-130); Calcium 7.4 mg/dL (7.8-10.44); Carbon Dioxide 22 mmol/L (23-31); Chloride 94 mmol/L (98-107); Estimated GFR-MDRD 36; Glucose 120 mg/dL (83-110); Magnesium 1.5 mg/dL (1.6-2.6); Sodium 128 mmol/L (136-145)
[2018-02-10 10:40] LABS: Potassium 2.9 mmol/L (3.5-5.1)
--- NOTE | 2018-02-10 11:14 | PRG ---
DATE OF SERVICE: 02/10/2018 SUBJECTIVE: The patient is feeling better today. She is eating well. She tolerated having the Ferreira catheter out without much difficulty. She is voiding. She is doing well actually with the Barwick dosing and not being on the very large quantities of the morphine as she had been when she arrived. She continues to report that she feels anxious all the time. She was previously on benzodiazepines and her pain medicine physician took her off those "cold turkey." She has subsequently been on the escitalopram and BuSpar. She had the escitalopram resumed. She has not had the BuSpar resumed as of yet. PHYSICAL EXAMINATION: VITAL SIGNS: Temperature is 97.8, pulse 97 up to 135, BP 144/96, and O2 sat 96% on nasal cannula. GENERAL APPEARANCE: Age-appropriate female. She is in no distress. She is very frail. She has some temporalis muscle wasting. She is awake and alert, in no distress. HEART: Tachycardic, but variable. LUNGS: Clear to auscultation anteriorly. Decreased breath sounds at the bases, continuing improvement daily on exam. ABDOMEN: Soft, nontender, and nondistended. She had 1210 mL in and 5925 mL out for a combined loss of 4.7 L. EXTREMITIES: Continue to have some trace edema with severe changes related to the rheumatoid arthritis. LABORATORY DATA: Blood culture remains negative. IMPRESSION AND PLAN: 1. Sepsis seems to be resolved at this point, likely related to her urinary tract infection. 2. Urinary tract infection, growing a fairly pansensitive Klebsiella species. She is now on p.o. Levaquin, doing well. 3. Pneumonia. At this point, it is difficult to assess whether this is true infectious etiology or if it is related to her autoimmune disease or possibly nitrofurantoin, although that seems less likely now. She has significant pleural effusions and it is compromising the exam. She will have repeat imaging once the effusions have improved. 4. Rheumatoid arthritis/systemic lupus erythematosus. The patient is stable from this perspective. She has been on Simponi and methotrexate previously. 5. Encephalopathy, resolved, appears to be metabolic related to her sepsis. 6. Anxiety and depression. The patient was back on her escitalopram. We will resume her BuSpar dosing now. 7. Tachycardia. The patient has intermittent tachycardia. In the past, she was on diltiazem that was apparently discontinued while she was in rehab because she was having bradycardia and possibly hypotension as well that has been resumed. The patient will be transferred to the tele unit and will consult Cardiology. 8. Chronic pain syndrome. The patient reports she is doing well currently with the gabapentin and the Barwick that she is receiving. We will continue with that and hope not to have to put her back on the higher doses of morphine. I discussed this at length with the patient and her daughter and they certainly would prefer not to be on the morphine if possible. 9. Moderate protein-calorie nutrition. The patient seems to be eating relatively well now. 10. Immunocompromised state secondary to systemic lupus erythematosus, rheumatoid arthritis; Simponi, which she takes for these conditions. 11. Acute renal failure. Creatinine continues to improve. Further values are pending for today. 12. Bilateral pleural effusions, possibly related to fluid resuscitation that she received at her initial presentation for the sepsis. She has diuresed quite well over the last couple of days and her edema significantly improved. We will continue to monitor her exam. Her lung exam is certainly improving daily. 13. Distended gallbladder, on imaging. She has no evidence of cholecystitis. She likely had some distention simply from not eating for several days. No further aggressive intervention indicated at this time. 14. Disposition. We will transfer the patient to the telemetry floor. I anticipate will need a couple of days to workup, assess, and treat her intermittent tachycardia. Job ID: [id number]
[2018-02-10] MEDS ORDERED: Potassium Chloride 20 MEQ TAB PO SCH (11:15)
[2018-02-10] MEDS ORDERED: Potassium Chloride 40 MEQ in Premix Bag 1 BAG IVPB SCH (11:30)
[2018-02-10] MEDS ORDERED: Magnesium Sulfate 4 GM in Sodium Chloride 0.9% 250 ML 250 ML IVPB SCH (12:00)
[2018-02-10] MEDS ORDERED: busPIRone HCl 10 MG TAB PO SCH (15:00)
[2018-02-10] MEDS: Aluminum & Magnesium Hydroxide 60 ML, diphenhydrAMINE 150 MG, Lidocaine 2% Viscous Solu... SSW PRN (15:28)
[2018-02-10] MEDS: Potassium Chloride 20 MEQ TAB PO SCH ×2 (17:22→21:55)
--- NOTE | 2018-02-10 19:58 | PRG ---
DATE OF SERVICE: 02/10/2018 SUBJECTIVE: The patient is seen and examined. Noted with the following vital signs. OBJECTIVE: VITAL SIGNS: Afebrile. Temperature 97.9, pulse 99, respiratory rate of 18, O2 saturation 98%, and blood pressure 147/75. HEENT: Unremarkable. Moist oral mucosa. NECK: Supple. No conjunctival injection or icterus. CARDIOVASCULAR SYSTEM: First and second heart sounds were heard. RESPIRATORY SYSTEM: Clear to auscultation. DIGESTIVE SYSTEM: Revealed benign abdomen. EXTREMITIES: No peripheral edema. SKIN: No new gross rash. LABORATORY INVESTIGATION: Showed a sodium of 128, potassium 2.9, creatinine down to 1.44 with BUN of 45, calcium of 7.4, and magnesium 1.5. IMPRESSION: 1. Hyponatremia. 2. Acute on chronic kidney disease, which seems to be improving. 3. Hypomagnesemia. 4. Hypokalemia. PLAN: 1. Replete the potassium. 2. We will evaluate this hyponatremia to identify what kind of hyponatremia this patient does have. 3. Replete the magnesium. 4. Further management to be dependent on the clinical course. Job ID: [id number]
[2018-02-10] MEDS: Metoprolol Tartrate 25 MG TAB PO SCH (22:01)
[2018-02-10] MEDS: busPIRone HCl 10 MG TAB PO SCH (22:02)
[2018-02-11 05:45] LABS: Anion Gap 9 mmol/L (10-20); BUN (Urea Nitrogen) 45 mg/dL (9.8-20.1); Calc. Creatinine Clearance 31 mL/min (70-130); Calcium 7.7 mg/dL (7.8-10.44); Carbon Dioxide 30 mmol/L (23-31); Chloride 95 mmol/L (98-107); Estimated GFR-MDRD 37; Glucose 118 mg/dL (83-110); Sodium 129 mmol/L (136-145)
[2018-02-11 07:08] LABS: Osmolality, Urine 296 mOsm/kg (300-900)
[2018-02-11 07:13] LABS: Sodium, Urine 73 mmol/L (Not Available)
[2018-02-11 07:50] LABS: Band 10 % (5-11); Hemoglobin 10.6 g/dL (12.0-16.0); Lymphocytes 22 % (21-51); MDiff Complete? YES; Mean Corpuscular HGB CONC 32.5 g/dL (32.0-36.0); Mean Corpuscular Hemoglobin 31.6 pg (27.0-31.0); Mean Corpuscular Volume 97.2 fL (78.0-98.0); Mean Platelet Volume 6.6 fL (7.4-10.4); Metamyelocyte 4 % (0-0); Monocytes 4 % (0-10); Neutrophil 60 % (42-75); Platelet Count 369 thou/uL (130-400); RBC Distribution Width 20.3 % (11.5-14.5); Red Blood Cell (RBC) Count 3.36 mill/uL (4.20-5.40); White Blood Cell (WBC) Count 15.9 thou/uL (4.8-10.8)
[2018-02-11] MEDS: busPIRone HCl 10 MG TAB PO SCH ×4 (09:36→21:13)
[2018-02-11] MEDS: Metoprolol Tartrate 25 MG TAB PO SCH ×2 (09:38→21:15)
[2018-02-11] MEDS: Gabapentin 300 MG CAP PO SCH ×3 (09:38→21:12)
[2018-02-11] MEDS: Famotidine 20 MG TAB PO SCH (09:38)
[2018-02-11] MEDS: levETIRAcetam 500 MG TAB PO SCH ×2 (09:39→21:15)
[2018-02-11] MEDS: Folic Acid 1 MG TAB PO SCH (09:40)
[2018-02-11] MEDS: Escitalopram Oxalate 10 mg Tablet PO SCH ×2 (09:41→21:16)
[2018-02-11] MEDS: Furosemide 40 MG TAB PO SCH (09:41)
[2018-02-11] MEDS: predniSONE 20 MG TAB PO SCH (09:41)
[2018-02-11] MEDS: Famotidine/PF 20 mg/2ml Vial SLOW IVP SCH (09:42)
[2018-02-11] MEDS: Heparin 5,000 UNITS/ML VIAL SC SCH ×2 (09:49→21:08)
[2018-02-11] MEDS: HYDROcodone/Acetaminophen 5/325 mg Tablet PO PRN ×2 (11:11→21:12)
[2018-02-11] MEDS: Aluminum & Magnesium Hydroxide 60 ML, diphenhydrAMINE 150 MG, Lidocaine 2% Viscous Solu... SSW PRN ×2 (11:12→21:06)
[2018-02-11] MEDS: valACYclovir 500 MG TAB PO SCH (11:14)
[2018-02-11] MEDS: cycloSPORINE 0.05% Ophthalmic Droperette EA EYE SCH ×2 (11:15→21:06)
--- NOTE | 2018-02-11 13:19 | PDOC.PN ---
- Subjective Encounter Start Date: 02/11/18 Encounter Start Time: 09:05 Continues to improve daily. Eating very well today. No new complaints. Wants to consider IPR. - Objective Resuscitation Status - Order Detail: 02/05/18 00:32 Resuscitation Status Routine Resuscitation Status: DNAR: NO Resuscitation Discussed with: Patient's family Vital Signs & Weight: Vital Signs (12 hours) Temp Pulse Resp BP Pulse Ox 02/11/18 11:12 61 18 129/58 L 97 02/11/18 07:40 98.9 F 59 L 18 129/62 94 L 02/11/18 03:36 97.5 F L 67 18 137/67 96 02/11/18 03:28 97 Weight Admit Weight 121 lb 9 oz Weight 129 lb 4.8 oz I&O: 02/10/18 02/11/18 02/12/18 06:59 06:59 06:59 Intake Total 1210 1447 Output Total 5925 1200 Balance -4715 247 Result Diagrams: 02/11/18 05:15 02/11/18 05:15 Phys Exam - Physical Examination Constitutional: NAD Respiratory: no wheezing, no rales, no rhonchi, clear to auscultation bilateral Cardiovascular: RRR, no significant murmur Gastrointestinal: soft, non-tender, no distention, positive bowel sounds 1+ edema at ankles. Neurological: non-focal Psychiatric: normal affect, A&O x 3 Dx/Plan (1) Sepsis Code(s): A41.9 - SEPSIS, UNSPECIFIED ORGANISM Status: Resolved Comment: Likely due to UTI. BP stable. (2) Pneumonia Code(s): J18.9 - PNEUMONIA, UNSPECIFIED ORGANISM Status: Acute Comment: Difficult to ascertain if this is infectious or not. Could be related to auto- immune disease, possibly meds. (3) UTI due to Klebsiella species Code(s): N39.0 - URINARY TRACT INFECTION, SITE NOT SPECIFIED; B96.1 - KLEBSIELLA PNEUMONIAE THE CAUSE OF DISEASES CLASSD ELSWHR Status: Acute Comment: On po Levaquin. (4) Rheumatoid arthritis Code(s): M06.9 - RHEUMATOID ARTHRITIS, UNSPECIFIED Status: Acute (5) Encephalopathy acute Code(s): G93.40 - ENCEPHALOPATHY, UNSPECIFIED Status: Resolved (6) Anxiety and depression Code(s): F41.8 - OTHER SPECIFIED ANXIETY DISORDERS Status: Chronic Comment: Buspar, Escitalopram (7) Chronic pain disorder Code(s): G89.4 - CHRONIC PAIN SYNDROME Status: Chronic Comment: Doing well on Fletcher. Was on MS Contin 60 mg tid and MSIR 15mg tid at home. Also on Gabapentin, Methocarbamol. (8) Protein-calorie malnutrition, moderate Code(s): E44.0 - MODERATE PROTEIN-CALORIE MALNUTRITION Status: Chronic (9) SLE (systemic lupus erythematosus) Code(s): M32.9 - SYSTEMIC LUPUS ERYTHEMATOSUS, UNSPECIFIED Status: Acute (10) Immunocompromised Code(s): D84.9 - IMMUNODEFICIENCY, UNSPECIFIED Status: Acute Comment: on Symponi for SLE. (11) Acute renal failure Status: Acute Comment: Neph consult. Improving daily. (12) Pleural effusion Code(s): J90 - PLEURAL EFFUSION, NOT ELSEWHERE CLASSIFIED Status: Acute Comment: Bilateral. Diuresis. (13) Abnormal gall bladder diagnostic imaging Code(s): R93.2 - ABNORMAL FINDINGS ON DX IMAGING OF LIVER AND BILIARY TRACT Status: Acute Comment: Distended. Likely due to no po intake over several days. No evidence of active cholecystitis. (14) Tachycardia Code(s): R00.0 - TACHYCARDIA, UNSPECIFIED Status: Acute Comment: Card consult pending. Echo looks good. Has some diastolic dysfunction. Improved after CCB re-introduced. - Plan * Continuing to improve daily. * Cards to assess tachycardia. * Anticipate transition to rehab on Tuesday. * Diuresis as needed.
[2018-02-11] MEDS: Fluticasone Propionate Nasal Spray 16 gm Bottle NASAL SCH (13:47)
--- NOTE | 2018-02-11 14:55 | CON ---
DATE OF CONSULTATION: 02/10/2018 TYPE OF CONSULTATION: Cardiology INDICATION FOR CONSULTATION: A 72-year-old female with tachycardia. HISTORY OF PRESENT ILLNESS: This very unfortunate 72-year-old female, who has a long history of systemic lupus erythematosus and rheumatoid arthritis and also has severe ankylosis of multiple joints and impairment that is unable to walk. She is able to transfer from the bed to a wheelchair. She has been noted to have increased heart rate. She did tell me that she has had increased heart rates in the past and been on high doses of diltiazem. This was then discontinued sometime back when she went to rehab after some other problems and then had not been reinstated. At this time, she is back on diltiazem at a lower dose, but has been having episodes of heart rate up to the 120s to 140s and then at that times heart rates within the 80s and blood pressure has remained relatively stable. She denied any chest pain. She does have some shortness of breath and wheezing over the last several weeks. She has noticed lower extremity edema. Her cardiac enzymes were indeterminate. She had a CPK MB of 10.6 with a troponin I of 0.112 on admission. This has not been repeated. She had an echocardiogram which was performed today and has still not been read; however, we will evaluate that in the near future. Otherwise, she appears to be comfortable at this time from a cardiac standpoint except she has lower extremity edema still. She has been having significant diuresis after she was given IV Lasix. Today, she had a urinary output of over 4 L. Her daughter says she does drink a significant amount of fluid during the day and also during the night and she has water by the bedside. She did have stress test many years ago and was told that it was okay, but she does not remember exactly when that was and she has not had any other workup since that time. She also had a recent urinary tract infection and fevers and also believes she became disoriented, this was one of the reason that she was admitted to the hospital. She may have also had some pneumonias due to some coughing and some dyspnea, but this seems to have improved. She has been on IV antibiotics. PAST MEDICAL HISTORY: Significant for lupus as noted above as well as she has had a left tibia-fibula fracture and she wears a brace at this time. She is unable to put weight on it very much. She has history of hypertension. She has had a history of GI bleed in the past due to peptic ulcers. She has had chronic urinary tract infections. She has chronic anemia. She recently required a blood transfusion. SOCIAL HISTORY: She lives with a daughter and has no alcohol or tobacco abuse. FAMILY HISTORY: Positive for diabetes. ALLERGIES: SHE IS ALLERGIC TO LYRICA AND PLAQUENIL. MEDICATIONS: She is on BuSpar and diltiazem 60 mg q.p.m. She is on escitalopram, Pepcid, folic acid, Lasix 40 mg a day, Neurontin, heparin subcu b.i.d. 5000 units, Keppra, Levaquin, potassium replacement, prednisone, Restasis, Valtrex, other p.r.n. medications, as well as hydrocodone. REVIEW OF SYSTEMS: Essentially, 12-point review of systems is relatively unremarkable. It was noted in the history of present illness. She had no significant GI or complaints. She does have musculoskeletal complaints due to her rheumatoid arthritis and has lower extremity edema and had a recent cough and has had some confusion according to the daughter, but she appears to be intact today. PHYSICAL EXAMINATION: GENERAL: Reveals an elderly female, who is in no acute distress at this time. VITAL SIGNS: Her blood pressure is 147/75, heart rate is 99 to 130s, respiratory rate is 18, O2 saturation 98%, blood pressure 147/75, temperature was 98.8. HEENT: Reveals head to be normocephalic and atraumatic. I did not hear any bruits at this time. CHEST: Actually appears to be clear to auscultation. I did not hear any significant rales, rhonchi, or wheezing. CARDIOVASCULAR: Exam at this time reveals a regular rate and rhythm. There were no significant murmurs, heaves, thrills, bruits, or rubs. ABDOMEN: Soft and nontender. Positive bowel sounds are present. EXTREMITIES: Significant deformities of the hands, feet, and legs due to her rheumatoid arthritis. She has overall generalized weakness. Lower extremity showed 1 to 2+ lower extremity edema. NEUROLOGIC: She appears to be intact. She is very pleasant. She is oriented to time, place, and person. LABORATORY DATA: Laboratory data shows sodium of 131, potassium was 5.6, chloride was 99, carbon dioxide is 22, CK-MB was 10.6 on admission with a troponin I of 0.112 . Potassium most recently checked was 2.9. Sodium was 128 and creatinine is 1.44. She had 4+ bacteria in the urine. WBC was 20.1 yesterday, hemoglobin was 10.8, and her platelet count was 557, 000. IMAGING STUDIES: EKG shows what appears to be in atrial tachycardia at times that does not appear to be atrial fibrillation. IMPRESSION: 1. Tachycardia, which most likely is atrial tachycardia. We will start her on low-dose of beta blockers if she is able to tolerate in addition to the diltiazem. We may eventually stop the diltiazem as this may actually lead to some of her lower extremity edema. We will follow up after further recommendations after we reviewed the echocardiogram. 2. Hypokalemia. She may need potassium replacements, the potassium is very low today. We will also just volume restrict her or fluid restrict her with sodium of 128. She has had significant output and has lost electrolytes in addition to the fluid. We will fluid restrict to 12 to 1500 mL a day and hopefully the sodium will improve. 3. Rheumatoid arthritis. This will be dealt with by the bicycle i assembler or primary care service for her other medical problems with her neuropathy and chronic pain. This will be dealt with also by the primary care service. We will be more than happy to continue to follow the patient with you. Further recommendations will depend on the echocardiogram. If this is abnormal, she may need to undergo stress testing. No evidence of underlying coronary artery disease. It would appear that the edema is due to volume overload for whatever reason, which may be cardiomyopathy or other etiologies such as reactions to medications. Job ID: [id number] MTDD
--- NOTE | 2018-02-11 15:39 | PRG ---
DATE OF SERVICE: SUBJECTIVE: Feeling better, ate breakfast and lunch. Less shortness of breath. No abdominal pain. Sometimes, she has a sensation that she is retaining urine, which is a chronic old problem. Ferreira catheter has been removed. OBJECTIVE: VITAL SIGNS: Showed a T-max of 99. Other vital signs were not particularly remarkable. GENERAL: Awake, alert, oriented, in no distress. LUNGS: Clear. HEART: S1, S2. Regular rate. ABDOMEN: Soft. Question of bladder distention. LABORATORY DATA: White cell count is at 15.9, hemoglobin 10.6, platelets 369, which is improved. Creatinine is at 1.39. Mycoplasma antibody titers to IgG which probably reflect older process, not related to current clinical presentation. Strep pneumoniae and Legionella antigens negative. We have the Klebsiella from the original urine culture on admission. ASSESSMENT AND DISCUSSION: 1. Rheumatoid arthritis/systemic lupus erythematosus, on Simponi. 2. Recurrent urinary tract infections with previous reported urinary retention, recent one year completion of nitrofurantoin suppressive therapy. 3. Delirium. 4. Pulmonary infiltrates. 5. Distended gallbladder. Again, it is possible that the urinary tract findings were not the precipitating event that led to the clinical symptoms on admission. The pulmonary findings, volume overload, possible role of interstitial pneumonitis are to be also taken into account. We will re-evaluate her postvoid residual and the duration of antimicrobial therapy will be the usual for complicated cystitis not more than 10 to 14 days. We will have to continue keeping an eye on her gallbladder since she is at risk for future complications. Job ID: [id number]
--- NOTE | 2018-02-11 23:38 | PDOC.CTH ---
Cardiology Progress Note - Subjective The pt seen and examined. No overnight events. No cardiac complaints. - Objective Vital Signs Temp 02/11/18 13:45 99.0 F Admit Weight 121 lb 9 oz Weight 129 lb 4.8 oz 02/10/18 02/11/18 02/12/18 06:59 06:59 06:59 Intake Total 1210 1447 Output Total 5925 1200 Balance -4715 247 - Physical Examination General/Neuro: alert & oriented x3 Neck: no JVD present Lungs: CTA (dimainished at bases) Heart: RRR Abdomen: soft Extremities: other: (2-3+ pitting BLE with dressing) - Telemetry Telemetry Rhythm: SR 60s - Labs Result Diagrams: 02/11/18 05:15 02/11/18 05:15 Troponin/CKMB CK-MB (CK-2) 10.6 ng/mL (0-6.6) H* 02/04/18 17:04 Troponin I 0.112 ng/mL (< 0.028) H 02/04/18 17:04 - Assessment/Plan 1. Tachycardia - HR well controlled with current medication. 2. UTI 2/2 klebsiella - on IV abx 3. PNA - on IV abx 4. PENELOPE - improving 5. Pleural effusion - stable 6. SLE - stable 7. Hyponatremia - slightly improving. MAR reviewed Review of Systems - Review of Systems Constitutional: reports: no symptoms reported EENTM: reports: no symptoms reported Respiratory: reports: no symptoms reported Cardiac (ROS): reports: no symptoms reported ABD/GI: reports: no symptoms reported : reports: no symptoms reported Musculoskeletal: reports: no symptoms reported
[2018-02-12] MEDS: HYDROcodone/Acetaminophen 5/325 mg Tablet PO PRN ×3 (03:49→21:53)
[2018-02-12 07:04] LABS: Anion Gap 11 mmol/L (10-20); BUN (Urea Nitrogen) 49 mg/dL (9.8-20.1); Calc. Creatinine Clearance 37 mL/min (70-130); Calcium 7.6 mg/dL (7.8-10.44); Carbon Dioxide 26 mmol/L (23-31); Chloride 94 mmol/L (98-107); Estimated GFR-MDRD 43; Glucose 107 mg/dL (83-110); Magnesium 1.7 mg/dL (1.6-2.6); Potassium 4.2 mmol/L (3.5-5.1); Sodium 127 mmol/L (136-145)
[2018-02-12 08:26] LABS: Band 1 % (5-11); Hemoglobin 9.1 g/dL (12.0-16.0); Lymphocytes 34 % (21-51); MDiff Complete? YES; Mean Corpuscular HGB CONC 32.6 g/dL (32.0-36.0); Mean Corpuscular Hemoglobin 31.3 pg (27.0-31.0); Mean Corpuscular Volume 96.2 fL (78.0-98.0); Mean Platelet Volume 7.5 fL (7.4-10.4); Metamyelocyte 1 % (0-0); Monocytes 9 % (0-10); Neutrophil 55 % (42-75); Platelet Count 321 thou/uL (130-400); RBC Distribution Width 20.2 % (11.5-14.5); Red Blood Cell (RBC) Count 2.92 mill/uL (4.20-5.40); White Blood Cell (WBC) Count 24.9 thou/uL (4.8-10.8)
[2018-02-12] MEDS: Metoprolol Tartrate 25 MG TAB PO SCH ×2 (09:13→21:39)
[2018-02-12] MEDS: Furosemide 40 MG TAB PO SCH (09:21)
[2018-02-12] MEDS: predniSONE 20 MG TAB PO SCH (09:21)
[2018-02-12] MEDS: busPIRone HCl 10 MG TAB PO SCH ×4 (09:21→21:38)
[2018-02-12] MEDS: Fluticasone Propionate Nasal Spray 16 gm Bottle NASAL SCH (09:23)
[2018-02-12] MEDS: Famotidine 20 MG TAB PO SCH (09:23)
[2018-02-12] MEDS: Escitalopram Oxalate 10 mg Tablet PO SCH ×2 (09:23→21:39)
[2018-02-12] MEDS: Famotidine/PF 20 mg/2ml Vial SLOW IVP SCH (09:23)
[2018-02-12] MEDS: Folic Acid 1 MG TAB PO SCH ×3 (09:24→21:40)
[2018-02-12] MEDS: levETIRAcetam 500 MG TAB PO SCH ×2 (09:24→21:39)
[2018-02-12] MEDS: Gabapentin 300 MG CAP PO SCH ×3 (09:24→21:38)
[2018-02-12] MEDS: Heparin 5,000 UNITS/ML VIAL SC SCH ×2 (09:24→21:41)
[2018-02-12] MEDS: cycloSPORINE 0.05% Ophthalmic Droperette EA EYE SCH ×2 (09:25→21:40)
[2018-02-12] MEDS ORDERED: predniSONE 20 MG TAB PO SCH ×2 (10:44→11:15)
[2018-02-12] MEDS ORDERED: Meclizine HCl 25 MG TAB PO PRN (10:51)
[2018-02-12] MEDS: valACYclovir 500 MG TAB PO SCH (11:59)
[2018-02-12] MEDS ORDERED: Metoprolol Tartrate 25 MG TAB PO SCH (12:15)
--- NOTE | 2018-02-12 15:56 | PDOC.CTH ---
Cardiology Progress Note - Subjective The pt seen and examined. No overnight events. No cardiac complaints. - Objective Vital Signs Temp Pulse Resp BP Pulse Ox 02/12/18 11:55 97.9 F 58 L 16 143/64 H 99 02/12/18 07:48 97.9 F 51 L 16 137/65 97 Admit Weight 121 lb 9 oz Weight 126 lb 02/11/18 02/12/18 02/13/18 06:59 06:59 06:59 Intake Total 1447 450 Output Total 1200 2200 Balance 247 -1750 - Physical Examination General/Neuro: alert & oriented x3 Neck: no JVD present Lungs: CTA Heart: RRR Abdomen: soft Extremities: other: (1-2+ pitting BLE edema) - Telemetry Telemetry Rhythm: SR 50-60s - Labs Result Diagrams: 02/13/18 06:45 02/13/18 06:45 Troponin/CKMB CK-MB (CK-2) 10.6 ng/mL (0-6.6) H* 02/04/18 17:04 Troponin I 0.112 ng/mL (< 0.028) H 02/04/18 17:04 - Assessment/Plan 1. Tachycardia - HR well controlled with current medication. 2. UTI 2/2 klebsiella - on IV abx 3. PNA - on IV abx 4. PENELOPE - improving 5. Pleural effusion - stable 6. SLE - stable 7. Hyponatremia - slightly improving. MAR reviewed * The pt will tx to rehab tomorrow Pt. seen and eval. by me. I agree with the A/P by the POT TENDER. Chest clear. RRR, No edema. Review of Systems - Review of Systems Constitutional: reports: no symptoms reported EENTM: reports: no symptoms reported Respiratory: reports: no symptoms reported Cardiac (ROS): reports: no symptoms reported ABD/GI: reports: no symptoms reported : reports: no symptoms reported Musculoskeletal: reports: no symptoms reported
[2018-02-12] MEDS: Aluminum & Magnesium Hydroxide 60 ML, diphenhydrAMINE 150 MG, Lidocaine 2% Viscous Solu... SSW PRN (15:57)
--- NOTE | 2018-02-12 16:30 | PRG ---
DATE OF SERVICE: 02/12/2018 SUBJECTIVE: The patient continues to feel better daily today. She feels like her legs feel a bit heavy like she may have some additional edema, although she cannot necessarily see that she has any additional edema and states she just feels this way symptoms. She also had several questions regarding her medications in her home regimen and getting back on some of the usual doses of her medicines. Otherwise, she is generally feeling well. OBJECTIVE: VITAL SIGNS: Temperature 97.9, pulse 58, respirations 16, O2 saturation 99% on room air, and BP 143/64. GENERAL APPEARANCE: Age-appropriate female. She is awake, alert, pleasant, and interactive. HEENT: PERRL. No open lesions. NECK: Supple and symmetric. HEART: Regular rate and rhythm without murmurs. LUNGS: Clear bilaterally. All rales have resolved. She appears to have some significant resolution of the pleural effusions based on her exam as well. She has pretty good air exchange throughout. ABDOMEN: Soft, nontender, and nondistended. Positive bowel sounds. No masses. No organomegaly. EXTREMITIES: Severe rheumatoid osteoarthropathy throughout her left lower leg has significant lateral rotation below the knee. She has some trace edema around the ankle on the right. NEUROLOGIC: The patient is intact, appropriate, has no deficits. PSYCH: She has normal affect and normal behavior. LABORATORY DATA: White count is 24.9, hemoglobin 9.1, and platelets 321. Sodium 127, potassium 4.2, chloride 94, CO2 of 26, BUN 49, and creatinine 1.22. IMPRESSION AND PLAN: 1. Sepsis likely secondary to urinary tract infection, appears to be resolved fully. 2. Pneumonia. Again, the patient is initially thought to have some pneumonia, although she now appears to have some localized areas of some more chronic type issues within the lungs. Pulmonology following. Recommends repeat CT scan at some point in the future once her pleural effusions have resolved. 3. Urinary tract infection secondary to Klebsiella. Continue with a full course of Levaquin, likely a minimum of 10 days and maximum of 14 days. 4. Recurrent urinary tract infections, was previously on nitrofurantoin. There was some concern that could be contributing to her pulmonary findings. Therefore, the recommendation will be that she will be on single-strength Bactrim once she is off the therapeutic regimen of the Levaquin. 5. Rheumatoid arthritis. The patient is on Simponi and methotrexate, although the methotrexate is currently being held because of anemia. The patient was on folic acid t.i.d. We will go ahead and increase her dose back to that amount, although it is not clear that she really needs it now that the methotrexate is being held. 6. Lupus. Again treated with the Simponi and methotrexate. 7. Acute encephalopathy secondary to sepsis and infection, resolved. 8. History of anxiety and depression. The patient had previously been on benzodiazepines, but her pain physician discontinued those. She is now on BuSpar and escitalopram. We will continue those. 9. Chronic pain syndrome. The patient was on massive doses of morphine previously with MS Contin 60 t.i.d., MS-IR t.i.d. The patient is currently on Atkins and states she is doing well with that. There is no intention of trying to go back up on those if we can avoid it and she is very happy with that plan. 10. Protein calorie malnutrition. Currently, the patient is eating really well. I do not believe there is any specific intervention we can do other than continue with that for the time being. 11. Immunocompromised state. 12. Acute renal failure. The patient's creatinine continues to improve. She is followed by Nephrology. She is starting to get a little bit prerenal with the diuresis and may need to start backing off on some of her daily Lasix doses. 13. Pleural effusions partly complication of aggressive hydration that on initial admission due to the sepsis and possibly due to some diastolic dysfunction. She is diuresing well, appears to be much improved. 14. Distended gallbladder on imaging. The patient has had no symptoms of cholecystitis that needs to be continually monitored. 15. Tachycardia. The patient had atrial tachycardia with heart rate up to 140. She was placed on Cardizem by Dr. Isaacs and she was seen in consultation by Cardiology, who started metoprolol. This morning, her heart rate was down to upper 40s and low 50s. Both Cardizem and metoprolol were held. I did subsequently give a single dose of 12.5 of metoprolol. Discontinue the Cardizem as was the plan as that may be contributing to some of her peripheral edema. Going forward, we will plan on using the metoprolol 25 mg p.o. b.i.d. 16. Diastolic dysfunction on echocardiogram. The patient has a preserved ejection fraction, but does have the diastolic dysfunction, should improve with the beta maurizio and regular diuresis. 17. Disposition. The patient apparently has been accepted into rehab if we can make sure that she does well with the metoprolol alone regarding her heart rate, she should be able to discharge to the rehab as early as tomorrow. I am going to go ahead and resume her oral pantoprazole on her regular dose of meclizine. Her daughter also will need a work to justify her being out of work through Tuesday. Job ID: [id number]
[2018-02-13] MEDS: HYDROcodone/Acetaminophen 5/325 mg Tablet PO PRN ×4 (01:35→20:43)
[2018-02-13] MEDS ORDERED: Diltiazem HCl 125 MG, Admixture Fee 1 EACH in Sodium Chloride 0.9% 100 ML IVPB SCH (04:15)
[2018-02-13 06:54] LABS: Hemoglobin 8.3 g/dL (12.0-16.0); Mean Corpuscular HGB CONC 32.5 g/dL (32.0-36.0); Mean Corpuscular Volume 95.5 fL (78.0-98.0); Mean Platelet Volume 7.1 fL (7.4-10.4); Platelet Count 281 thou/uL (130-400); RBC Distribution Width 20.2 % (11.5-14.5); Red Blood Cell (RBC) Count 2.67 mill/uL (4.20-5.40); White Blood Cell (WBC) Count 26.5 thou/uL (4.8-10.8)
[2018-02-13 07:10] LABS: Anion Gap 10 mmol/L (10-20); BUN (Urea Nitrogen) 47 mg/dL (9.8-20.1); Calc. Creatinine Clearance 43 mL/min (70-130); Calcium 7.1 mg/dL (7.8-10.44); Carbon Dioxide 26 mmol/L (23-31); Chloride 98 mmol/L (98-107); Estimated GFR-MDRD 51; Glucose 88 mg/dL (83-110); Potassium 3.3 mmol/L (3.5-5.1); Sodium 131 mmol/L (136-145)
[2018-02-13] MEDS: busPIRone HCl 10 MG TAB PO SCH ×4 (08:32→20:31)
[2018-02-13] MEDS: Gabapentin 300 MG CAP PO SCH ×3 (08:33→20:31)
[2018-02-13] MEDS: levETIRAcetam 500 MG TAB PO SCH ×2 (08:36→20:32)
[2018-02-13] MEDS: predniSONE 20 MG TAB PO SCH (08:36)
[2018-02-13] MEDS: Furosemide 40 MG TAB PO SCH (08:37)
[2018-02-13] MEDS: Metoprolol Tartrate 25 MG TAB PO SCH ×2 (08:37→20:32)
[2018-02-13] MEDS: Escitalopram Oxalate 10 mg Tablet PO SCH ×2 (08:37→20:32)
[2018-02-13] MEDS: Heparin 5,000 UNITS/ML VIAL SC SCH ×2 (08:37→20:33)
[2018-02-13] MEDS: Folic Acid 1 MG TAB PO SCH ×3 (08:37→20:32)
[2018-02-13] MEDS: Fluticasone Propionate Nasal Spray 16 gm Bottle NASAL SCH (08:38)
[2018-02-13] MEDS: valACYclovir 500 MG TAB PO SCH (08:38)
[2018-02-13] MEDS: cycloSPORINE 0.05% Ophthalmic Droperette EA EYE SCH ×2 (08:40→20:41)
[2018-02-13 08:48] LABS: Anisocytosis MODERATE=16-30 cells (100X) (0-5/hpf); Band 5 % (5-11); Hypochromia SLIGHT = 6-15 cells (100X) (0-5/hpf); Lymphocytes 30 % (21-51); MDiff Complete? YES; Metamyelocyte 2 % (0-0); Monocytes 13 % (0-10); Myelocyte 1 % (0-0); Neutrophil 47 % (42-75); PLT Morphology Comment Appears Adequate; Polychromasia SLIGHT = 2-3 cells (100X) (0-2/hpf); Reactive Lymphocytes 2 % (0-10)
--- NOTE | 2018-02-13 08:53 | PDOC.PN ---
- Subjective Encounter Start Date: 02/13/18 Encounter Start Time: 08:51 Subjective: no chest pain, palpatations , etc - Objective Resuscitation Status - Order Detail: 02/05/18 00:32 Resuscitation Status Routine Resuscitation Status: DNAR: NO Resuscitation Discussed with: Patient's family Vital Signs & Weight: Vital Signs (12 hours) Temp Pulse Resp BP BP Pulse Ox 02/13/18 08:00 96.3 F L 73 18 169/81 H 97 02/13/18 03:26 97.9 F 80 16 165/90 H 96 Weight Admit Weight 121 lb 9 oz Weight 126 lb 4.8 oz I&O: 02/12/18 02/13/18 02/14/18 06:59 06:59 06:59 Intake Total 450 900 Output Total 2200 800 Balance -1750 100 Result Diagrams: 02/13/18 06:45 02/13/18 06:45 Phys Exam - Physical Examination Neck: no JVD Respiratory: clear to auscultation bilateral Cardiovascular: RRR, no significant murmur Gastrointestinal: soft, positive bowel sounds Musculoskeletal: no edema Dx/Plan (1) Atrial fibrillation and flutter Code(s): I48.91 - UNSPECIFIED ATRIAL FIBRILLATION; I48.92 - UNSPECIFIED ATRIAL FLUTTER Status: Acute (2) Abnormal gall bladder diagnostic imaging Code(s): R93.2 - ABNORMAL FINDINGS ON DX IMAGING OF LIVER AND BILIARY TRACT Status: Chronic Comment: Distended. Likely due to no po intake over several days. No evidence of active cholecystitis. (3) Immunocompromised Code(s): D84.9 - IMMUNODEFICIENCY, UNSPECIFIED Status: Chronic Comment: on Symponi for SLE. (4) Pleural effusion Code(s): J90 - PLEURAL EFFUSION, NOT ELSEWHERE CLASSIFIED Status: Acute Comment: Bilateral. Diuresis. (5) Pneumonia Code(s): J18.9 - PNEUMONIA, UNSPECIFIED ORGANISM Status: Acute Comment: Difficult to ascertain if this is infectious or not. Could be related to auto- immune disease, possibly meds. (6) Rheumatoid arthritis Code(s): M06.9 - RHEUMATOID ARTHRITIS, UNSPECIFIED Status: Chronic Qualifiers: Rheumatoid arthritis location: unspecified site (7) SLE (systemic lupus erythematosus) Code(s): M32.9 - SYSTEMIC LUPUS ERYTHEMATOSUS, UNSPECIFIED Status: Chronic Qualifiers: Systemic lupus erythematosus type: unspecified Systemic lupus erythematosus organ involvement: unspecified Qualified Code(s): M32.9 - Systemic lupus erythematosus, unspecified (8) Tachycardia Code(s): R00.0 - TACHYCARDIA, UNSPECIFIED Status: Acute Comment: Card consult pending. Echo looks good. Has some diastolic dysfunction. Improved after CCB re-introduced. (9) Anxiety and depression Code(s): F41.8 - OTHER SPECIFIED ANXIETY DISORDERS Status: Chronic Comment: Buspar, Escitalopram (10) Chronic pain disorder Code(s): G89.4 - CHRONIC PAIN SYNDROME Status: Chronic Comment: Doing well on [place]. Was on MS Contin 60 mg tid and MSIR 15mg tid at home. Also on Gabapentin, Methocarbamol. (11) GERD (gastroesophageal reflux disease) Code(s): K21.9 - GASTRO-ESOPHAGEAL REFLUX DISEASE WITHOUT ESOPHAGITIS Status: Chronic (12) Protein-calorie malnutrition, moderate Code(s): E44.0 - MODERATE PROTEIN-CALORIE MALNUTRITION Status: Chronic - Plan episode of atrial fib/flutter overnite, asymptomatic- on iv diltiazem -: discuss with Cardiology -: other issues appear to be stable, cont metoprolol, prednisone, levaquin * .
--- NOTE | 2018-02-13 17:09 | EKG ---
Test Reason : RHYTHM CHANGE Blood Pressure : / mmHG Vent. Rate : 076 BPM Atrial Rate : 076 BPM P-R Int : 154 ms QRS Dur : 090 ms QT Int : 362 ms P-R-T Axes : 048 011 -08 degrees QTc Int : 407 ms Poor data quality, interpretation may be adversely affected Normal sinus rhythm T wave abnormality, consider anterior ischemia Abnormal ECG When compared with ECG of 08-FEB-2018 21:18, (Unconfirmed) Vent. rate has decreased BY 58 BPM T wave inversion now evident in Anterior leads Nonspecific T wave abnormality no longer evident in Lateral leads Confirmed by DR. Arianna CEBALLOS ([id number]) on 02/13/2018 5:08:33 PM Referred By: ANMOL Confirmed By:DR. Arianna CEBALLOS
--- NOTE | 2018-02-13 17:44 | PDOC.CTH ---
Cardiology Progress Note - Subjective The pt seen and examined. No overnight events. No cardiac complaints. - Objective Vital Signs Temp Pulse Resp BP Pulse Ox 02/13/18 16:00 99.5 F 65 17 131/63 98 02/13/18 12:00 98.2 F 63 17 140/64 97 02/13/18 08:00 96.3 F L 73 18 169/81 H 97 Admit Weight 121 lb 9 oz Weight 126 lb 4.8 oz 02/12/18 02/13/18 02/14/18 06:59 06:59 06:59 Intake Total 450 900 660 Output Total 2200 800 2100 Balance -1750 100 -1440 - Physical Examination General/Neuro: alert & oriented x3 Neck: no JVD present Lungs: CTA (diminished at bases) Heart: other: (intermittent irregular) Abdomen: soft Extremities: other: (no edema) - Telemetry Telemetry Rhythm: SR and AFib - Labs Result Diagrams: 02/13/18 06:45 02/13/18 06:45 Troponin/CKMB CK-MB (CK-2) 10.6 ng/mL (0-6.6) H* 02/04/18 17:04 Troponin I 0.112 ng/mL (< 0.028) H 02/04/18 17:04 - Assessment/Plan 1. Afib/Aflutter with RVR - intermittent Afib with Cardizem 5mg/h; Start Digoxin IV. Stress test tomorrow 2. Hx of NSVTs - Stress test tomorrow 2. UTI 2/2 klebsiella - on IV abx 3. PNA - on IV abx 4. PENELOPE - improving 5. Pleural effusion - stable 6. SLE - stable 7. Hyponatremia - slightly improving. 8. Possible SA - she stopped breathing at least 15 sec during sleep. LIZABETH reviewed Pt. seen and eval. by me. I agree with the A/P by the ARCHITECTURAL RENDERER. I will ask the EP to see the pt. regarding her intermittent Afib. If the stress test is abnormal this may need further eval. Decr. BS at the bases. RRR at this time. Review of Systems - Review of Systems Constitutional: reports: no symptoms reported EENTM: reports: no symptoms reported Respiratory: reports: no symptoms reported Cardiac (ROS): reports: no symptoms reported ABD/GI: reports: no symptoms reported : reports: no symptoms reported Musculoskeletal: reports: no symptoms reported
[2018-02-13] MEDS: Aluminum & Magnesium Hydroxide 60 ML, diphenhydrAMINE 150 MG, Lidocaine 2% Viscous Solu... SSW PRN (20:39)
[2018-02-13] MEDS ORDERED: Potassium Chloride 20 MEQ TAB PO SCH (21:00)
--- NOTE | 2018-02-14 00:23 | PRG ---
DATE OF SERVICE: 02/13/2018 SUBJECTIVE: The patient is seen and examined. Noted with the following vital signs. OBJECTIVE: VITAL SIGNS: Afebrile. Temperature 99.5, pulse 65, respiratory rate of 17, O2 saturation of 98% with blood pressure 131/63. HEENT: Unremarkable. Moist oral mucosa. NECK: Supple. CARDIOVASCULAR SYSTEM: First and second heart sounds were heard. RESPIRATORY SYSTEM: Clear to auscultation. DIGESTIVE SYSTEM: Revealed a benign abdomen. Positive bowel sounds. EXTREMITIES: No peripheral edema. SKIN: No new gross rash. LABORATORY INVESTIGATION: [place] [address], hemoglobin 8.3. Chemistry showed a potassium of 3.3, sodium improved to 131. IMPRESSION: 1. Hyponatremia, improving. 2. Mild hypokalemia. 3. Acute on chronic kidney disease, which seems to have improved. PLAN: 1. We will continue current renal supportive measures. 2. Further management to be dependent on the clinical course. Job ID: [id number]
[2018-02-14] MEDS: HYDROcodone/Acetaminophen 5/325 mg Tablet PO PRN ×5 (00:30→21:28)
[2018-02-14] MEDS: busPIRone HCl 10 MG TAB PO SCH ×4 (05:33→21:26)
[2018-02-14] MEDS: predniSONE 20 MG TAB PO SCH (05:34)
[2018-02-14] MEDS: valACYclovir 500 MG TAB PO SCH (05:34)
[2018-02-14] MEDS: Folic Acid 1 MG TAB PO SCH ×3 (05:34→21:28)
[2018-02-14] MEDS: Gabapentin 300 MG CAP PO SCH ×3 (05:34→21:28)
[2018-02-14] MEDS: levETIRAcetam 500 MG TAB PO SCH ×2 (05:35→21:27)
[2018-02-14] MEDS: Furosemide 40 MG TAB PO SCH (05:36)
[2018-02-14] MEDS: Escitalopram Oxalate 10 mg Tablet PO SCH ×2 (05:36→21:28)
[2018-02-14] MEDS: cycloSPORINE 0.05% Ophthalmic Droperette EA EYE SCH ×2 (05:36→21:29)
[2018-02-14] MEDS: Fluticasone Propionate Nasal Spray 16 gm Bottle NASAL SCH (05:37)
[2018-02-14] MEDS: Heparin 5,000 UNITS/ML VIAL SC SCH ×2 (05:37→21:30)
[2018-02-14 06:23] LABS: Hemoglobin 8.7 g/dL (12.0-16.0); Lymphocytes 42 % (21-51); MDiff Complete? YES; Mean Corpuscular HGB CONC 31.8 g/dL (32.0-36.0); Mean Corpuscular Hemoglobin 30.5 pg (27.0-31.0); Mean Corpuscular Volume 96.1 fL (78.0-98.0); Mean Platelet Volume 7.2 fL (7.4-10.4); Metamyelocyte 1 % (0-0); Monocytes 11 % (0-10); Myelocyte 1 % (0-0); Neutrophil 44 % (42-75); Platelet Count 305 thou/uL (130-400); RBC Distribution Width 20.3 % (11.5-14.5); Reactive Lymphocytes 1 % (0-10); Red Blood Cell (RBC) Count 2.84 mill/uL (4.20-5.40); White Blood Cell (WBC) Count 26.8 thou/uL (4.8-10.8)
[2018-02-14 06:25] LABS: Anion Gap 10 mmol/L (10-20); BUN (Urea Nitrogen) 48 mg/dL (9.8-20.1); Calc. Creatinine Clearance 39 mL/min (70-130); Calcium 7.7 mg/dL (7.8-10.44); Carbon Dioxide 28 mmol/L (23-31); Chloride 97 mmol/L (98-107); Estimated GFR-MDRD 46; Glucose 85 mg/dL (83-110); Magnesium 1.1 mg/dL (1.6-2.6); Potassium 3.8 mmol/L (3.5-5.1); Sodium 131 mmol/L (136-145)
[2018-02-14] MEDS: Aluminum & Magnesium Hydroxide 60 ML, diphenhydrAMINE 150 MG, Lidocaine 2% Viscous Solu... SSW PRN ×2 (09:05→21:29)
[2018-02-14] MEDS ORDERED: ADENOSINE 60 MG/20 ML VIAL ONE (09:53)
--- NOTE | 2018-02-14 09:53 | PDOC.PN ---
- Subjective Encounter Start Date: 02/14/18 Encounter Start Time: 09:50 Subjective: no fever, chest pain, etc - Objective Resuscitation Status - Order Detail: 02/05/18 00:32 Resuscitation Status Routine Resuscitation Status: DNAR: NO Resuscitation Discussed with: Patient's family MAR Reviewed: Yes Vital Signs & Weight: Vital Signs (12 hours) Temp Pulse Resp BP BP Pulse Ox 02/14/18 08:06 67 18 149/70 H 96 02/14/18 04:00 98 F 66 16 142/67 H 96 02/14/18 00:15 66 20 134/63 Weight Admit Weight 121 lb 9 oz Weight 121 lb 9.6 oz I&O: 02/13/18 02/14/18 02/15/18 06:59 06:59 06:59 Intake Total 900 750 Output Total 800 2225 Balance 100 -1475 Result Diagrams: 02/14/18 05:55 02/14/18 05:55 Phys Exam - Physical Examination Neck: no JVD Respiratory: clear to auscultation bilateral Cardiovascular: RRR, no significant murmur Gastrointestinal: soft, positive bowel sounds Musculoskeletal: no edema Dx/Plan (1) Atrial fibrillation and flutter Code(s): I48.91 - UNSPECIFIED ATRIAL FIBRILLATION; I48.92 - UNSPECIFIED ATRIAL FLUTTER Status: Acute (2) Abnormal gall bladder diagnostic imaging Code(s): R93.2 - ABNORMAL FINDINGS ON DX IMAGING OF LIVER AND BILIARY TRACT Status: Chronic Comment: Distended. Likely due to no po intake over several days. No evidence of active cholecystitis. (3) Immunocompromised Code(s): D84.9 - IMMUNODEFICIENCY, UNSPECIFIED Status: Chronic Comment: on Symponi for SLE. (4) Pleural effusion Code(s): J90 - PLEURAL EFFUSION, NOT ELSEWHERE CLASSIFIED Status: Acute Comment: Bilateral. Diuresis. (5) Pneumonia Code(s): J18.9 - PNEUMONIA, UNSPECIFIED ORGANISM Status: Acute Comment: Difficult to ascertain if this is infectious or not. Could be related to auto- immune disease, possibly meds. (6) Rheumatoid arthritis Code(s): M06.9 - RHEUMATOID ARTHRITIS, UNSPECIFIED Status: Chronic Qualifiers: Rheumatoid arthritis location: unspecified site (7) SLE (systemic lupus erythematosus) Code(s): M32.9 - SYSTEMIC LUPUS ERYTHEMATOSUS, UNSPECIFIED Status: Chronic Qualifiers: Systemic lupus erythematosus type: unspecified Systemic lupus erythematosus organ involvement: unspecified Qualified Code(s): M32.9 - Systemic lupus erythematosus, unspecified (8) Tachycardia Code(s): R00.0 - TACHYCARDIA, UNSPECIFIED Status: Acute Comment: Card consult pending. Echo looks good. Has some diastolic dysfunction. Improved after CCB re-introduced. (9) Anxiety and depression Code(s): F41.8 - OTHER SPECIFIED ANXIETY DISORDERS Status: Chronic Comment: Buspar, Escitalopram (10) Chronic pain disorder Code(s): G89.4 - CHRONIC PAIN SYNDROME Status: Chronic Comment: Doing well on [place]. Was on MS Contin 60 mg tid and MSIR 15mg tid at home. Also on Gabapentin, Methocarbamol. (11) GERD (gastroesophageal reflux disease) Code(s): K21.9 - GASTRO-ESOPHAGEAL REFLUX DISEASE WITHOUT ESOPHAGITIS Status: Chronic (12) Protein-calorie malnutrition, moderate Code(s): E44.0 - MODERATE PROTEIN-CALORIE MALNUTRITION Status: Chronic - Plan cont current plan of care stress test today- then discuss with cardiology -: cont leukocytosis is confusing- no fever, etc- 10mg prednisone not likely -: to cause this elevation * .
[2018-02-14] MEDS ORDERED: Diltiazem HCl 125 MG, Admixture Fee 1 EACH in Sodium Chloride 0.9% 100 ML IVPB SCH (13:45)
--- NOTE | 2018-02-14 13:48 | PDOC.CTH ---
Cardiology Progress Note - Subjective The pt seen and examined. No overnight events. No cardiac complaints. - Objective Vital Signs Temp Pulse Resp BP BP Pulse Ox 02/14/18 11:27 98.1 F 62 18 150/63 H 96 02/14/18 08:30 96 02/14/18 08:06 67 18 149/70 H 96 02/14/18 04:00 98 F 66 16 142/67 H 96 Admit Weight 121 lb 9 oz Weight 121 lb 9.6 oz 02/13/18 02/14/18 02/15/18 06:59 06:59 06:59 Intake Total 900 750 Output Total 800 2225 Balance 100 -1475 - Physical Examination General/Neuro: alert & oriented x3 Neck: no JVD present Lungs: CTA Heart: RRR Abdomen: soft Extremities: other: (1+ pitting BLE edema) - Telemetry Telemetry Rhythm: SR - Labs Result Diagrams: 02/14/18 05:55 02/14/18 05:55 Troponin/CKMB CK-MB (CK-2) 10.6 ng/mL (0-6.6) H* 02/04/18 17:04 Troponin I 0.112 ng/mL (< 0.028) H 02/04/18 17:04 - Assessment/Plan . 1. Afib/Aflutter with RVR - Converted back to SR last night with Cardizem 5mg/h ; Start Digoxin IV. Stress test today. Cardizem will be changed to 240mg qd. EP consult. 2. Hx of NSVTs - Stress test tomorrow 2. UTI 2/2 klebsiella - on IV abx 3. PNA - on IV abx 4. PENELOPE - improving 5. Pleural effusion - stable 6. SLE - stable 7. Hyponatremia - slightly improving. 8. Possible SA - she stopped breathing at least 15 sec during sleep. MAR reviewed * If the stress test is abnormal this may need further eval. Decr. BS at the bases. RRR at this time. Review of Systems - Review of Systems Constitutional: reports: no symptoms reported EENTM: reports: no symptoms reported Respiratory: reports: no symptoms reported Cardiac (ROS): reports: no symptoms reported ABD/GI: reports: no symptoms reported : reports: no symptoms reported
[2018-02-14] MEDS ORDERED: Potassium Chloride 20 MEQ TAB PO SCH (14:45)
[2018-02-14] MEDS ORDERED: Magnesium Sulfate 4 GM in Sodium Chloride 0.9% 250 ML 250 ML IVPB SCH (15:00)
[2018-02-14] MEDS: Metoprolol Tartrate 25 MG TAB PO SCH ×2 (15:07→21:28)
--- NOTE | 2018-02-14 19:24 | NM ---
MYOCARDIAL PERFUSION SCAN: 02/14/18 PROVIDED CLINICAL HISTORY: Chest pain. RADIOPHARMACEUTICAL: 28.8 millicuries technetium 99m labeled Sestamibi IV stress. 9 millicuries technetium 99m labeled Sestamibi IV rest. FINDINGS: There is normal, homogeneous distribution of the radiotracer throughout the left ventricular myocardi um at both stress and rest. Gated data demonstrates impaired wall motion and thickening at the inferi or wall. Calculated LVEF is 54%. IMPRESSION: 1. No scintigraphic evidence for ischemia. 2. Inferior wall hypokinesis with LVEF of 54%. POS: LISA
--- NOTE | 2018-02-14 19:54 | PRG ---
DATE OF SERVICE: 02/14/2018 SUBJECTIVE: The patient noted with the following vital signs. OBJECTIVE: VITAL SIGNS: Afebrile, temperature 98.1, pulse is 62, respiratory rate of 18, blood pressure 149/70, and O2 saturation of 96%. HEENT: Unremarkable. CARDIOVASCULAR SYSTEM: First and second heart sounds were heard. RESPIRATORY SYSTEM: Clear to auscultation. DIGESTIVE SYSTEM: Revealed a benign abdomen. EXTREMITIES: No peripheral edema. SKIN: No new gross rash. LYMPHATICS: No peripheral lymphadenopathy. LABORATORY INVESTIGATION: Showed a creatinine of 1.15. IMPRESSION: Acute on chronic kidney disease, which is much improved. PLAN: 1. Continue renal supportive measures. 2. Further management to be dependent on the clinical course. Job ID: [id number]
[2018-02-15] MEDS: HYDROcodone/Acetaminophen 5/325 mg Tablet PO PRN ×4 (02:55→21:27)
[2018-02-15 07:06] LABS: Hemoglobin 7.7 g/dL (12.0-16.0); Mean Corpuscular HGB CONC 32.4 g/dL (32.0-36.0); Mean Corpuscular Hemoglobin 31.1 pg (27.0-31.0); Mean Corpuscular Volume 95.9 fL (78.0-98.0); Mean Platelet Volume 7.3 fL (7.4-10.4); Platelet Count 339 thou/uL (130-400); RBC Distribution Width 20.8 % (11.5-14.5); Red Blood Cell (RBC) Count 2.48 mill/uL (4.20-5.40); White Blood Cell (WBC) Count 27.5 thou/uL (4.8-10.8)
[2018-02-15 07:45] LABS: Anisocytosis SLIGHT = 6-15 cells (100X) (0-5/hpf); Band 1 % (5-11); Lymphocytes 37 % (21-51); MDiff Complete? YES; Monocytes 9 % (0-10); Neutrophil 47 % (42-75); PLT Morphology Comment Appears Adequate; Polychromasia MODERATE = 3-4 cells (100X) (0-2/hpf); Reactive Lymphocytes 6 % (0-10); Stomatocytes SLIGHT = 2-5 cells (100X) (0-1/hpf)
[2018-02-15] MEDS: Furosemide 40 MG TAB PO SCH (09:00)
[2018-02-15] MEDS: predniSONE 20 MG TAB PO SCH (09:01)
[2018-02-15] MEDS: busPIRone HCl 10 MG TAB PO SCH ×4 (09:01→21:21)
[2018-02-15] MEDS: Escitalopram Oxalate 10 mg Tablet PO SCH ×2 (09:02→21:19)
[2018-02-15] MEDS: valACYclovir 500 MG TAB PO SCH (09:02)
[2018-02-15] MEDS: Metoprolol Tartrate 25 MG TAB PO SCH ×2 (09:02→21:22)
[2018-02-15] MEDS: levETIRAcetam 500 MG TAB PO SCH ×2 (09:02→21:19)
[2018-02-15] MEDS: Gabapentin 300 MG CAP PO SCH ×3 (09:03→21:20)
[2018-02-15] MEDS: Folic Acid 1 MG TAB PO SCH ×3 (09:03→21:19)
[2018-02-15] MEDS: Fluticasone Propionate Nasal Spray 16 gm Bottle NASAL SCH ×2 (09:03→21:25)
[2018-02-15] MEDS: Heparin 5,000 UNITS/ML VIAL SC SCH ×2 (09:11→21:23)
[2018-02-15 09:40] VITALS: BMI 22.1
--- NOTE | 2018-02-15 10:10 | PDOC.PN ---
- Subjective Encounter Start Date: 02/15/18 Encounter Start Time: 10:10 Subjective: no specific complaints, doing well - Objective Resuscitation Status - Order Detail: 02/05/18 00:32 Resuscitation Status Routine Resuscitation Status: DNAR: NO Resuscitation Discussed with: Patient's family MAR Reviewed: Yes Vital Signs & Weight: Vital Signs (12 hours) Temp Pulse Resp BP Pulse Ox 02/15/18 09:02 63 02/15/18 08:56 98.1 F 63 18 153/65 H 100 02/15/18 08:22 99 02/15/18 04:00 98.1 F 68 18 120/58 L 99 Weight Admit Weight 121 lb 9 oz Weight 124 lb 11.2 oz I&O: 02/14/18 02/15/18 02/16/18 06:59 06:59 06:59 Intake Total 750 1560 Output Total 2225 2900 Balance -1475 -1340 Result Diagrams: 02/15/18 05:00 02/14/18 05:55 Phys Exam - Physical Examination Neck: no JVD Respiratory: clear to auscultation bilateral Cardiovascular: RRR, no significant murmur Gastrointestinal: soft, positive bowel sounds Musculoskeletal: no edema Dx/Plan (1) Atrial fibrillation and flutter Code(s): I48.91 - UNSPECIFIED ATRIAL FIBRILLATION; I48.92 - UNSPECIFIED ATRIAL FLUTTER Status: Acute (2) Abnormal gall bladder diagnostic imaging Code(s): R93.2 - ABNORMAL FINDINGS ON DX IMAGING OF LIVER AND BILIARY TRACT Status: Chronic Comment: Distended. Likely due to no po intake over several days. No evidence of active cholecystitis. (3) Immunocompromised Code(s): D84.9 - IMMUNODEFICIENCY, UNSPECIFIED Status: Chronic Comment: on Symponi for SLE. (4) Pleural effusion Code(s): J90 - PLEURAL EFFUSION, NOT ELSEWHERE CLASSIFIED Status: Acute Comment: Bilateral. Diuresis. (5) Pneumonia Code(s): J18.9 - PNEUMONIA, UNSPECIFIED ORGANISM Status: Acute Comment: Difficult to ascertain if this is infectious or not. Could be related to auto- immune disease, possibly meds. (6) Rheumatoid arthritis Code(s): M06.9 - RHEUMATOID ARTHRITIS, UNSPECIFIED Status: Chronic Qualifiers: Rheumatoid arthritis location: unspecified site (7) SLE (systemic lupus erythematosus) Code(s): M32.9 - SYSTEMIC LUPUS ERYTHEMATOSUS, UNSPECIFIED Status: Chronic Qualifiers: Systemic lupus erythematosus type: unspecified Systemic lupus erythematosus organ involvement: unspecified Qualified Code(s): M32.9 - Systemic lupus erythematosus, unspecified (8) Tachycardia Code(s): R00.0 - TACHYCARDIA, UNSPECIFIED Status: Acute Comment: Card consult pending. Echo looks good. Has some diastolic dysfunction. Improved after CCB re-introduced. (9) Anxiety and depression Code(s): F41.8 - OTHER SPECIFIED ANXIETY DISORDERS Status: Chronic Comment: Buspar, Escitalopram (10) Chronic pain disorder Code(s): G89.4 - CHRONIC PAIN SYNDROME Status: Chronic Comment: Doing well on [place]. Was on MS Contin 60 mg tid and MSIR 15mg tid at home. Also on Gabapentin, Methocarbamol. (11) GERD (gastroesophageal reflux disease) Code(s): K21.9 - GASTRO-ESOPHAGEAL REFLUX DISEASE WITHOUT ESOPHAGITIS Status: Chronic (12) Protein-calorie malnutrition, moderate Code(s): E44.0 - MODERATE PROTEIN-CALORIE MALNUTRITION Status: Chronic (13) Leukocytosis Code(s): D72.829 - ELEVATED WHITE BLOOD CELL COUNT, UNSPECIFIED Status: Acute Qualifiers: Leukocytosis type: unspecified Qualified Code(s): D72.829 - Elevated white blood cell count, unspecified (14) Anemia Code(s): D64.9 - ANEMIA, UNSPECIFIED Status: Acute Qualifiers: Anemia type: unspecified type Qualified Code(s): D64.9 - Anemia, unspecified - Plan waiting card recommendations -: unexplained, anemia- RAYA- Consult Heme * .
--- NOTE | 2018-02-15 10:40 | CON ---
DATE OF CONSULTATION: 02/14/2018 ELECTROPHYSIOLOGY CONSULTATION REFERRING PHYSICIAN: Dr. Hester. REASON FOR CONSULTATION: Atrial arrhythmias. HISTORY OF PRESENT ILLNESS: Ms. Pastrana is a 72-year-old woman with a history of lupus and rheumatoid arthritis and also severe ankylosis of multiple joints, leaving her unable to walk and bound to bed and wheelchair. She had been noticing some increased heart rates and some heart racing, and was previously on diltiazem. She reports not tolerating higher doses of diltiazem, which was eventually discontinued and unfortunately cannot be more specific on what she did not tolerate well about this medication. She is since back on diltiazem at lower doses, but occasionally having heart racing episodes with ventricular rates between 120 and 140 beats per minute. She does have shortness of breath and wheezing that have been present over the past couple of weeks with some lower extremity edema. She presented to the emergency room for further evaluation. Cardiac enzymes were indeterminate. She had an echocardiogram performed on 02/11/2018, revealing ejection fraction that is preserved at 55% to 60% with only mild valvular disease. On telemetry, she was noticed to have a brief episode of atrial tachycardia. There was some concern for atrial fibrillation or atrial flutter as well, prompting the EP consultation. Since being admitted to the hospital, she has been diagnosed with pneumonia and also recently had a urinary tract infection with fevers, which also resulted in disorientation prompting her presenting to the hospital. REVIEW OF SYSTEMS: Denies heart racing, palpitations, chest pain, pressure, syncope, near syncope, stroke, or stroke-like symptoms. Otherwise, a 12-point review of systems is conducted, it is negative except that listed above in the HPI. PAST MEDICAL HISTORY: 1. Systemic lupus erythematosus. 2. Rheumatoid arthritis. 3. Severe ankylosis of multiple joints. 4. Hypertension. 5. GI bleed secondary to peptic ulcers. 6. Chronic urinary tract infections. 7. Chronic anemia. SOCIAL HISTORY: Lives with the daughter. Negative for alcohol, tobacco, or illicit drug use. FAMILY HISTORY: Positive for diabetes. Negative for sudden cardiac or early-onset coronary artery disease. ALLERGIES: LYRICA AND PLAQUENIL. HOME MEDICATIONS: Include: 1. Buspirone 15 mg p.o. q.i.d. 2. Valacyclovir 1 tablet p.o. daily. 3. Levetiracetam 750 mg p.o. b.i.d. 4. Restasis 1 drop per eye b.i.d. 5. Potassium chloride 20 mEq b.i.d. 6. Pantoprazole 40 mg daily. 7. Nystatin 5 mg p.o. daily. 8. Nitrofurantoin 100 mg p.o. daily. 9. Naloxegol oxalate 25 mg p.o. daily. 10. Morphine IR 15 mg t.i.d. 11. Morphine ER 60 mg p.o. t.i.d. 12. Methocarbamol 500 mg p.o. t.i.d. 13. Meclizine 25 mg p.o. q.i.d. 14. Motrin 800 mg as needed. 15. Gabapentin 300 mg p.o. t.i.d. 16. Folic acid daily. 17. Flonase 2 sprays as needed. 18. Famotidine 20 mg p.o. t.i.d. 19. Escitalopram 10 mg p.o. b.i.d. 20. Lomotil as needed. PHYSICAL EXAMINATION: VITAL SIGNS: Most recent vital signs; temperature 99.5, pulse 65, blood pressure 131/63, and oxygen is 98% on 2 L via nasal cannula. GENERAL: This is an elderly woman, who appears much older than her stated age. She recently returned from cardiac stress test. She is normocephalic and atraumatic. She is alert and oriented. Her affect is appropriate. Her speech is clear. NECK: Supple without jugular venous distention. Thyroid is nonpalpable. PULMONARY: Clear to auscultation bilaterally. CARDIOVASCULAR: Heart rate is with crisp S1 and S2. No significant murmurs, rubs, or gallops appreciated. ABDOMEN: Soft and nontender without palpable masses. Positive bowel sounds throughout. EXTREMITIES: Warm and dry to touch without clubbing or cyanosis. Bilateral lower extremities exhibit 1+ lower extremity edema. Positive for significant deformities due to her extensive rheumatoid arthritis. NEUROLOGIC: Grossly intact and nonfocal. DATABASE: WBC 26.5, hemoglobin 8.3, platelet count is 281. Chemistry; potassium 3.3 and creatinine 1.05. IMAGING STUDIES: Echocardiogram on 02/11/2018; EF 55% to 60%, mild valvular disease. Telemetry and EKG were all personally reviewed, which largely reflect sinus rhythm. Brief episodes of atrial tachycardia with ventricular rate of approximately 110 to 120 beats per minute, but does not appear to be atrial fibrillation. Cannot rule out atrial flutter, but appears to be atrial tachycardia. IMPRESSION: 1. Paroxysmal atrial tachycardia. 2. Hypokalemia. 3. Rheumatoid arthritis. RECOMMENDATIONS: At this point, she appears to just have focal atrial tachycardia that will occasionally cause her heart to race between 110 and 120 beats per minute. For this, we recommend the rate control with AV lidia blocking agents with either metoprolol or diltiazem as tolerated. If this is ineffective or the patient becomes symptomatic with her paroxysmal atrial tachycardia, then Multaq is recommended for arrhythmia suppression. The atrial tachycardia is slightly concerning for an atrial flutter, but this cannot be ruled out, but it does appear to just be in atrial tachycardia at this time. For now, we would hold off on any novel oral anticoagulation. Thank you for allowing us to participate in the care of this patient. Job ID: [id number]
[2018-02-15] MEDS: cycloSPORINE 0.05% Ophthalmic Droperette EA EYE SCH ×2 (10:58→21:19)
[2018-02-15] MEDS: Aluminum & Magnesium Hydroxide 60 ML, diphenhydrAMINE 150 MG, Lidocaine 2% Viscous Solu... SSW PRN ×2 (11:00→21:22)
--- NOTE | 2018-02-15 12:03 | PDOC.CTH ---
Cardiology Progress Note - Subjective EP PROGRESS NOTE:02/15/18 Seen as follow up for atrial tachycardia. No new cardiac concerns or complaints overnight. - Objective Vital Signs Temp Pulse Resp BP Pulse Ox 02/15/18 09:02 63 02/15/18 08:56 98.1 F 63 18 153/65 H 100 02/15/18 08:55 100 02/15/18 08:22 99 02/15/18 04:00 98.1 F 68 18 120/58 L 99 Admit Weight 121 lb 9 oz Weight 124 lb 11.2 oz 02/14/18 02/15/18 02/16/18 06:59 06:59 06:59 Intake Total 750 1560 Output Total 2225 2900 Balance -1475 -1340 - Physical Examination General/Neuro: alert & oriented x3, NAD Neck: carotid US brisk, no JVD present Lungs: CTA, unlabored respirations Heart: PMI normal, RRR Abdomen: NT/ND, soft - Telemetry Telemetry Rhythm: SR - Labs Result Diagrams: 02/15/18 05:00 02/14/18 05:55 Troponin/CKMB CK-MB (CK-2) 10.6 ng/mL (0-6.6) H* 02/04/18 17:04 Troponin I 0.112 ng/mL (< 0.028) H 02/04/18 17:04 - Assessment/Plan 1. Paroxysmal atrial tachycardia - rate control with diltiazem 240mg QD and metoprolol succinate 25mg QD - no additional episodes overnight - cannot rule out atrial flutter but more likely ATach. - no need for anticoagulation at this time - if becomes symptomatic or does not tolerate rate control agents, recommend trying multaq for arrythmia suppression 2. Pneumonia 3. SLE 4. Rheumatoid arthritis 5. Anemia -etiology unknown
--- NOTE | 2018-02-15 13:45 | PDOC.CTH ---
Cardiology Progress Note - Subjective The pt seen and examined. No overnight events. No cardiac complaints. - Objective Vital Signs Temp Pulse Resp BP Pulse Ox 02/15/18 11:45 98.2 F 63 18 120/55 L 100 02/15/18 09:02 63 02/15/18 08:56 98.1 F 63 18 153/65 H 100 02/15/18 08:55 100 02/15/18 08:22 99 02/15/18 04:00 98.1 F 68 18 120/58 L 99 Admit Weight 121 lb 9 oz Weight 124 lb 11.2 oz 02/14/18 02/15/18 02/16/18 06:59 06:59 06:59 Intake Total 750 1560 Output Total 2225 2900 Balance -1475 -1340 - Physical Examination General/Neuro: alert & oriented x3 Neck: no JVD present Lungs: CTA Heart: RRR Abdomen: soft Extremities: other: (no edema) - Telemetry Telemetry Rhythm: SR - Labs Result Diagrams: 02/15/18 05:00 02/14/18 05:55 Troponin/CKMB CK-MB (CK-2) 10.6 ng/mL (0-6.6) H* 02/04/18 17:04 Troponin I 0.112 ng/mL (< 0.028) H 02/04/18 17:04 - Assessment/Plan 1. Afib/Aflutter with RVR - Remains in SR with Digoxin and Cardizem 240mg qd. Appreciate EP input. 2. Hx of NSVTs - Stress test on 02/14/2018 showed no ischemia with inferior wall hypokinesis with EF 54%. 2. UTI 2/2 klebsiella - on IV abx 3. PNA - on IV abx 4. PENELOPE - improving 5. Pleural effusion - stable 6. SLE - stable 7. Hyponatremia - slightly improving. 8. Possible SA - she stopped breathing at least 15 sec during sleep. 5. Anemia? - etiology unknown; occult stool. MAR reviewed Pt. seen and eval. by me. I agree with the A/P by the HEALTH PHYSICS TECHNICIAN.H/H decreased today. No obvious source but likely GI. Stress test -no ischemia.Maintaining NSR. Review of Systems - Review of Systems Constitutional: reports: no symptoms reported EENTM: reports: no symptoms reported Respiratory: reports: no symptoms reported Cardiac (ROS): reports: no symptoms reported ABD/GI: reports: no symptoms reported : reports: no symptoms reported Musculoskeletal: reports: no symptoms reported
--- NOTE | 2018-02-15 15:00 | PDOC.EVN ---
Event Note - Event Note Event Note: Hg dropped from 11.4 to 7.8. transfuse 1 unit PRBC
[2018-02-15] MEDS ORDERED: Sterile Water 10 ML VIAL IVP SCH (16:05)
[2018-02-15] MEDS ORDERED: Activase 2 MG VIAL CATH SCH (16:05)
--- NOTE | 2018-02-15 17:19 | CON ---
DATE OF CONSULTATION: REASON FOR CONSULTATION: Anemia and leukocytosis. HISTORY OF PRESENT ILLNESS: Ms. Pastrana is a 72-year-old female with a complicated medical history including rheumatoid arthritis and lupus, chronic immunosuppression with recurrent UTIs, anemia of chronic disease, and fibromyalgia. She presented to the emergency room on the with altered mental status. She was diagnosed with pneumonia, UTI, pleural effusion, and atrial fibrillation. On admission; her WBC was 26.4, hemoglobin was 11.4, and platelet count was 794,000. Over the course of the next 4 days; her white count improved to 13,000 with 61% neutrophils and 13% bands. She was started on prednisone with recurrence of leukocytosis to a current value of 27.5. Her hemoglobin has trended downward during this hospitalization from 11.4 to current 7.7. She denies any bleeding, although she does have a history of ulcers and hemicolectomy in 2007. She had chest, abdomen and pelvis CT, which demonstrated upper lobe lung, interstitial fibrotic and inflammatory changes. There are bilateral pleural effusions. There was an extensively distended gallbladder. No lymphadenopathy noted. The patient denies any fever or chills. She does have occasional night sweats. No rash or pruritus. Denies chest pain or shortness of breath. PAST MEDICAL HISTORY: 1. Anemia of chronic disease. 2. Autoimmune disease including lupus and rheumatoid arthritis. 3. Anxiety and depression. 4. Acid reflex. 5. History of peptic ulcers. 6. History of oral ulcers. 7. History of recurrent urinary tract infection. PAST SURGICAL HISTORY: 1. Appendectomy. 2. Hysterectomy. 3. Sinus surgery. 4. Cataract surgery. 5. Surgery for small bowel obstruction in 2013. 6. Prolapsed colon in 2003. 7. Tib-fib fracture in 2008. 8. Last colonoscopy in 2003. ALLERGIES: LYRICA AND PLAQUENIL. HOME MEDICATIONS: Extensive list noted in the [facility]. FAMILY HISTORY: Noncontributory. SOCIAL HISTORY: , has 2 children. Lives with her daughter. No alcohol, tobacco, or illicit drug use. REVIEW OF SYSTEMS: Ten-point review of systems is negative except for noted in HPI. PHYSICAL EXAMINATION: VITAL SIGNS: Temperature 98.1, pulse 63, respiratory rate 18, blood pressure is 153/65, and she is 100% on room air. GENERAL: Chronically ill-appearing female, in no acute distress. HEENT: Normocephalic and atraumatic. Pupils equal and reactive to light. NECK: Supple. CV: rate and rhythm. LUNGS: Clear throughout. ABDOMEN: Soft, nontender. No splenomegaly. EXTREMITIES: Left lower extremity misaligned related to fractures. SKIN: There is no rash. HEMATOLOGIC: There are no petechiae or purpura. NEUROLOGIC: Nonfocal. PSYCH: The patient is alert, oriented, and appropriate. PERTINENT LABORATORY DATA AND X-RAYS: Current WBC is 27.5, hemoglobin 7.7, hematocrit 23.8, platelet count is 339, 47% neutrophils, 1% bands, 37% lymphocytes, 6% reactive lymphocytes, 1% metamyelocytes and myelocytes. Sodium 131, potassium 3.8, chloride 97, CO2 is 28, BUN is 48, creatinine 1.15, calcium 7.7, magnesium 1.1. Iron is 32, TIBC is 115, iron saturation 28. Urine had 4+ bacteria on admission. ASSESSMENT: 1. Anemia of chronic disease. 2. Leukocytosis with myelocytes and metamyelocytes. 3. Autoimmune disease with rheumatoid arthritis and lupus. 4. Chronic immunosuppression. 5. Recurrent urinary tract infection. 6. Pneumonia. DISCUSSION: The patient's white blood cells decreased from admission count of 26.4 to 13 after treatment with antibiotics. At that time, the prednisone was then started. Her white count may be reactive to the prednisone. However, she does have immature cells in her circulating blood. We will check a flow cytometry to rule out lymphoma. Recommend she stop steroids. Her hemoglobin is likely trending downward due to hospitalization, blood draws, and hemodilution. She does have a history of bleeding ulcers. Recommend checking a guaiac of her stool x3. This was all discussed with the patient and the family. There is no indication for a bone marrow at this time. She is going to rehab in the next day or so, and she will follow up in the outpatient setting for results of the flow cytometry. We will monitor her CBC and transfuse if her platelets are less than 7. Thank you for the consult. Job ID: [id number]
[2018-02-15 18:36] LABS: CRP (Inflammatory) 1.11 mg/dL (= or < 0.5)
--- NOTE | 2018-02-15 19:44 | PRG ---
DATE OF SERVICE: 02/15/2018 SUBJECTIVE: The patient is seen and examined, seems to be doing much better. Noted with the following vital signs. OBJECTIVE: VITAL SIGNS: Afebrile. Temperature 97.9, pulse 63, respiratory rate of 18, O2 saturation are 99% with blood pressure of 115/56. HEENT: Unremarkable. Moist oral mucosa. NECK: Supple. No conjunctival injection or icterus. CARDIOVASCULAR SYSTEM: First and second heart sounds were heard. RESPIRATORY SYSTEM: Clear to auscultation. DIGESTIVE SYSTEM: Revealed a benign abdomen with positive bowel sounds. EXTREMITIES: No peripheral edema. SKIN: No new gross rash. LYMPHATICS: No peripheral lymphadenopathy. LABORATORY INVESTIGATION: Creatinine down to 1.15. IMPRESSION: Acute on chronic kidney disease, which is much improved. PLAN: 1. Continue renal supportive measures. 2. Further management to be dependent on the clinical course. Job ID: [id number]
[2018-02-16] MEDS: HYDROcodone/Acetaminophen 5/325 mg Tablet PO PRN ×3 (01:13→09:15)
[2018-02-16 06:17] LABS: Eosinophils 1 % (0-10); Hemoglobin 9.8 g/dL (12.0-16.0); Lymphocytes 36 % (21-51); MDiff Complete? YES; Mean Corpuscular HGB CONC 32.6 g/dL (32.0-36.0); Mean Corpuscular Hemoglobin 31.5 pg (27.0-31.0); Mean Corpuscular Volume 96.7 fL (78.0-98.0); Monocytes 10 % (0-10); Neutrophil 52 % (42-75); Platelet Count 361 thou/uL (130-400); RBC Distribution Width 18.9 % (11.5-14.5); Reactive Lymphocytes 1 % (0-10); White Blood Cell (WBC) Count 22.1 thou/uL (4.8-10.8)
[2018-02-16] MEDS: Gabapentin 300 MG CAP PO SCH (08:44)
[2018-02-16] MEDS: Folic Acid 1 MG TAB PO SCH (08:44)
[2018-02-16] MEDS: Escitalopram Oxalate 10 mg Tablet PO SCH (08:44)
[2018-02-16] MEDS: Heparin 5,000 UNITS/ML VIAL SC SCH (08:44)
[2018-02-16] MEDS: levETIRAcetam 500 MG TAB PO SCH (08:44)
[2018-02-16] MEDS: busPIRone HCl 10 MG TAB PO SCH ×2 (08:44→12:54)
[2018-02-16] MEDS: Furosemide 40 MG TAB PO SCH (08:44)
[2018-02-16] MEDS: Metoprolol Tartrate 25 MG TAB PO SCH (08:45)
[2018-02-16] MEDS: valACYclovir 500 MG TAB PO SCH (08:45)
[2018-02-16] MEDS: Fluticasone Propionate Nasal Spray 16 gm Bottle NASAL SCH (08:46)
[2018-02-16] MEDS: Aluminum & Magnesium Hydroxide 60 ML, diphenhydrAMINE 150 MG, Lidocaine 2% Viscous Solu... SSW PRN (08:55)
--- NOTE | 2018-02-16 10:47 | PDOC.CTH ---
Cardiology Progress Note - Subjective The pt seen and examined. No overnight events. No cardiac complaints. - Objective Vital Signs Temp Pulse Resp BP Pulse Ox 02/16/18 07:56 97 02/16/18 07:54 98.1 F 83 18 175/74 H 97 02/16/18 07:33 98 02/16/18 03:45 98.1 F 80 16 165/68 H 98 Admit Weight 121 lb 9 oz Weight 124 lb 11.2 oz 02/15/18 02/16/18 02/17/18 06:59 06:59 06:59 Intake Total 1560 940 Output Total 2900 1600 Balance -1340 -660 - Physical Examination Neck: no JVD present Lungs: CTA Heart: RRR Abdomen: soft Extremities: other: (2+ pitting to RLE.) - Telemetry Telemetry Rhythm: SR - Labs Result Diagrams: 02/16/18 05:12 02/14/18 05:55 Troponin/CKMB CK-MB (CK-2) 10.6 ng/mL (0-6.6) H* 02/04/18 17:04 Troponin I 0.112 ng/mL (< 0.028) H 02/04/18 17:04 - Assessment/Plan 1. Afib/Aflutter with RVR - Remains in SR with Digoxin and Cardizem 240mg qd. Appreciate EP input. 2. Hx of NSVTs - Stress test on 02/14/2018 showed no ischemia with inferior wall hypokinesis with EF 54%. 2. UTI 2/2 klebsiella - on IV abx 3. PNA - on IV abx 4. PENELOPE - improving 5. Pleural effusion - stable 6. SLE - stable 7. Hyponatremia - slightly improving. 8. Possible SA - she stopped breathing at least 15 sec during sleep. 5. Anemia - s/p 1 unit PRBC tx last night. Negative occult stool. MAR reviewed * Stress test -no ischemia.Maintaining NSR. * From Cardiac standpoint, the pt is table to tx to rehab. Review of Systems - Review of Systems Constitutional: reports: no symptoms reported EENTM: reports: no symptoms reported Respiratory: reports: no symptoms reported Cardiac (ROS): reports: no symptoms reported ABD/GI: reports: no symptoms reported : reports: no symptoms reported Musculoskeletal: reports: no symptoms reported Skin: reports: no symptoms reported
--- NOTE | 2018-02-16 12:18 | DIS ---
DATE OF ADMISSION: 02/04/2018 DATE OF DISCHARGE: 02/16/2018 TRANSFER OF CARE: PRIMARY CARE PROVIDER: Dariel Carlson MD FINAL DIAGNOSES: 1. Sepsis syndrome. 2. Pneumonia. 3. Urinary tract infection. 4. Systemic lupus erythematosus. 5. Immunodeficiency state. 6. Cholelithiasis. 7. Pleural effusion. 8. Rheumatoid arthritis. 9. Gastroesophageal reflux disease. 10. Persistent leukocytosis. 11. Anemia. 12. Nonsustained ventricular tachycardia. 13. Atrial fibrillation. 14. Acute combined respiratory failure. DISCHARGE MEDICATIONS: 1. BuSpar 15 mg q.i.d. 2. Valacyclovir one tablet daily. 3. Levetiracetam 750 mg twice a day. 4. Meclizine 25 mg p.o. q.i.d. p.r.n. 5. Gabapentin 300 mg p.o. t.i.d. 6. Folic acid 1 mg a day. 7. Lexapro 10 mg twice a day. 8. Protonix 40 mg a day. 9. Zofran oral dissolving tablet, 4 mg q.6 hours p.r.n. 10. Metoprolol 25 mg p.o. b.i.d. 11. . 12. Hydrocodone 5/325 one every 4 hours as needed for pain. 13. Lasix 40 mg a day. 14. Cardizem CD 240 one a day. ALLERGIES: LYRICA AND PLAQUENIL. DIET: Heart healthy. PENDING AT THE TIME OF DISCHARGE: Nothing. CODE STATUS: Do not resuscitate. DISPOSITION: The patient is being discharged to rehab. HOSPITAL COURSE: This patient initially admitted to the hospital to [facility] Emergency Department with diagnosis of pneumonia, treated with IV antibiotics, DuoNebs, and O2. The patient was found considered septic due to pneumonia and urinary tract infection. The patient was noted to have elevated troponins consistent with demand ischemia. PERTINENT LAB ON ADMISSION: White count 26.4, hemoglobin 11.4, and platelet count 794,000. Admitting chemistries; sodium 126, potassium 6.4, creatinine 2.76, and CO2 of 22. Troponin was elevated at 0.112. The patient was also noted to have acute renal failure at the time of admission. CONSULTATIONS OBTAINED: 1. Pulmonology, Dr. Srikanth Isaacs. 2. Nephrology, Dr. Dafne Ortiz. 3. Dr. Jeremiah Robles, Infectious Disease. 4. Subsequently, Dr. Balta Hester, Cardiology. Chest x-ray on admission consistent with right upper lobe pneumonia. Cultures; urine culture grew Klebsiella species, pansensitive except for nitrofurantoin. Blood cultures one grew a Bacillus species that was considered a contaminant. The patient improved steadily. First few days of her hospital status, her white count came down. She was treated with IV fluids. Her creatinine eventually came down to 1.05. Sodium remained in the 130+/- range. On 02/06/2018, the patient was improved. At that time, the patient was on vancomycin and meropenem. The patient had been on oral morphine as an outpatient that was stopped. She showed no signs of withdrawal. On 2018, the patient was doing well. Renal function was slowly improving. Urine output was adequate. On IV antibiotics, IV fluids. On 02/11/2018, an echocardiogram was done, EF of 55% to 60% with some suggestion of diastolic dysfunction. On 02/08/2018, a CT abdomen and pelvis was done. The patient had a distended gallbladder with stones. She was seen by Cardiology, started on low-dose beta-maurizio. On 02/13/2018, she had been taken off Cardizem, had developed atrial fibrillation with rapid ventricular response during the night, placed on IV diltiazem. This was changed to oral. She was subsequently seen by Dr. Chris Hampton, EP. The patient had had episodes of SVT and atrial fibrillation. Eventually, the patient had a nuclear medicine cardiac stress test which revealed no evidence of ischemia. Dr. Hester and Dr. Hampton decided no further evaluation or change in therapy was required. The patient has now been in sinus rhythm for several days. She is actually doing quite well, alert, bright. Chest, clear. Heart, regular rate and rhythm. Her blood counts did remain abnormal. Alona Fierro for Hematology/ Oncology saw her. On 02/15, her hemoglobin was 7.8. She required a transfusion. Hemoglobin came up to 9.8. Hematology recommended a flow cytometry which will be available in several days. She is being discharged to rehab for PT and OT. She will need a followup CBC at least once a week. Followup Chem profile once a week. She has had adequate antibiotics for both her pneumonia and her urinary tract infection. She is no longer be on antibiotics. No procedures were done during her hospital stay. She will need to follow up with Dr. Carlson post rehab. 40 minutes spent preparing this discharge. Job ID: [id number] SHADE
--- NOTE | 2018-02-16 12:25 | PDOC.CTH ---
Cardiology Progress Note - Subjective She seem to be doing better. No new arrhythmia symptoms. - Objective Vital Signs Temp Pulse Resp BP Pulse Ox 02/16/18 07:56 97 02/16/18 07:54 98.1 F 83 18 175/74 H 97 02/16/18 07:33 98 02/16/18 03:45 98.1 F 80 16 165/68 H 98 Admit Weight 121 lb 9 oz Weight 124 lb 11.2 oz 02/15/18 02/16/18 02/17/18 06:59 06:59 06:59 Intake Total 1560 940 Output Total 2900 1600 Balance -1340 -660 - Physical Examination General/Neuro: alert & oriented x3 Neck: no JVD present Lungs: CTA Heart: RRR Abdomen: no HSM - Telemetry Telemetry Rhythm: SR., NO SVT/afib - Labs Result Diagrams: 02/16/18 05:12 02/14/18 05:55 Troponin/CKMB CK-MB (CK-2) 10.6 ng/mL (0-6.6) H* 02/04/18 17:04 Troponin I 0.112 ng/mL (< 0.028) H 02/04/18 17:04 - Assessment/Plan - Assessment/Plan 1. Paroxysmal atrial tachycardia - rate control with diltiazem 240mg QD and metoprolol succinate 25mg QD - no additional episodes overnight - cannot rule out atrial flutter but more likely ATach. - no need for anticoagulation at this time - if becomes symptomatic or does not tolerate rate control agents, recommend trying multaq for arrythmia suppression 2. Pneumonia 3. SLE 4. Rheumatoid arthritis 5. Anemia -etiology unknown
[2018-02-16 12:54] VITALS: BP 131/85; TEMP 98.3
[2018-02-16] MEDS: cycloSPORINE 0.05% Ophthalmic Droperette EA EYE SCH (12:58)
--- NOTE | 2018-02-16 18:58 | EKG ---
Test Reason : STAT Blood Pressure : / mmHG Vent. Rate : 134 BPM Atrial Rate : 134 BPM P-R Int : 000 ms QRS Dur : 078 ms QT Int : 250 ms P-R-T Axes : 000 016 222 degrees QTc Int : 373 ms Supraventricular tachycardia Low voltage QRS Nonspecific ST and T wave abnormality Abnormal ECG Confirmed by YON DOMINIQUE ([id number]) on 02/16/2018 6:57:45 PM Referred By: ANMOL Confirmed By:YON DOMINIQUE
== END 2018-02-16 13:55 | DRG 871 ==
LOC: ERS 16:24 → IMCU/EMU 19:42 → T4-B 02-07 14:01 → 2NO 02-10 12:46
PROVIDERS: ADMIT Internal Medicine; ATTEND Internal Medicine
PROC: 30233N1 Transfusion of Nonautologous Red Blood Cells into Peripheral Vein, Percutaneous Approach (ICD-10-PCS; principal; 2018-02-15)
DX: A41.9 Sepsis, unspecified organism (principal); J18.9 Pneumonia, unspecified organism; J96.01 Acute respiratory failure with hypoxia; J96.02 Acute respiratory failure with hypercapnia; G93.41 Metabolic encephalopathy; N39.0 Urinary tract infection, site not specified; I24.8 Other forms of acute ischemic heart disease; E87.1 Hypo-osmolality and hyponatremia; N17.9 Acute kidney failure, unspecified; E44.0 Moderate protein-calorie malnutrition; D84.9 Immunodeficiency, unspecified; J90 Pleural effusion, not elsewhere classified; I48.92 Unspecified atrial flutter; E87.2 Acidosis; K21.9 Gastro-esophageal reflux disease without esophagitis; M32.9 Systemic lupus erythematosus, unspecified; M79.7 Fibromyalgia; M19.90 Unspecified osteoarthritis, unspecified site; M81.0 Age-related osteoporosis without current pathological fracture; M06.9 Rheumatoid arthritis, unspecified; F41.9 Anxiety disorder, unspecified; F32.9 Major depressive disorder, single episode, unspecified; E86.0 Dehydration; E87.5 Hyperkalemia; B96.1 Klebsiella pneumoniae [K. pneumoniae] as the cause of diseases classified elsewhere; G89.4 Chronic pain syndrome; Z68.22 Body mass index [BMI] 22.0-22.9, adult; R93.2 Abnormal findings on diagnostic imaging of liver and biliary tract; R00.0 Tachycardia, unspecified; Z66 Do not resuscitate; I48.91 Unspecified atrial fibrillation; R65.20 Severe sepsis without septic shock; G47.33 Obstructive sleep apnea (adult) (pediatric); D63.8 Anemia in other chronic diseases classified elsewhere; N18.9 Chronic kidney disease, unspecified; Z87.11 Personal history of peptic ulcer disease
CPT/HCPCS: 36415; 36416; 36430; 36556; 51701; 70450; 71045; 71250; 74177; 78452; 80048; 80053; 80069; 80202; 81003; 81015; 82274; 82533; 82553; 82728; 82805; 83540; 83550; 83735; 83930; 83935; 84300; 84484; 85025; 85652; 86140; 86850; 86900; 86901; 87040; 87077; 87086; 87186; 87804; 87899; 88184; 93005; 93010; 93017; 93306; 94640; 94660; 96365; 96366; 96375; A4353; A9500; J0153; J0692; J0696; J1630; J1644; J1815; J1940; J2185; J2543; J2920; J2997; J3370; J3475; J3480; J7050; J7070; J7506; J7611; P9016; S0028

== ENCOUNTER 2018-03-30 14:54 | Outpatient (CLI) | payer MEDICARE, BC ==
--- NOTE | 2018-03-30 15:28 | RAD ---
2 VIEWS CHEST: Date: 03/30/18 COMPARISON: 02/04/18. HISTORY: Dyspnea. FINDINGS: Two views of the chest show normal sized cardiomediastinal silhouette. There is no evidence of consol idation, mass, or pleural effusion. Degenerative changes are seen in the spine. IMPRESSION: No evidence of acute cardiopulmonary disease. POS: [facility]
== END 2018-03-30 14:55 | disposition home or self-care (01) ==
LOC: RAD 14:54
PROVIDERS: ATTEND Internal Medicine
DX: R06.00 Dyspnea, unspecified (principal)
CPT/HCPCS: 71046

== ENCOUNTER 2018-04-20 08:51 | Inpatient (IN) | payer MEDICARE, BC ==
[2018-04-20] MEDS ORDERED: Naloxone HCl 0.4 mg/ml Vial ONE ×4 (08:55→20:13)
[2018-04-20 09:25] LABS: #Eosinphils 0.1 thou/uL (0.0-0.7); #Lymphocytes 0.8 thou/uL (1.20-3.40); #Monocytes 0.6 thou/uL (0.11-0.59); #Neutrophils 6.1 thou/uL (1.40-6.50); %Basophils 0.5 % (0.0-1.0); %Eosinophils 0.7 % (0.0-10.0); %Lymphocytes 10.5 % (21.0-51.0); %Monocytes 8.4 % (0.0-10.0); %Neutrophils 79.9 % (42.0-75.0); Hemoglobin 8.3 g/dL (12.0-16.0); Mean Corpuscular HGB CONC 32.4 g/dL (32.0-36.0); Mean Corpuscular Volume 98.7 fL (78.0-98.0); Mean Platelet Volume 7.8 fL (7.4-10.4); Platelet Count 144 thou/uL (130-400); RBC Distribution Width 14.3 % (11.5-14.5); Red Blood Cell (RBC) Count 2.59 mill/uL (4.20-5.40); White Blood Cell (WBC) Count 7.7 thou/uL (4.8-10.8)
[2018-04-20 09:30] LABS: Bilirubin Negative (Negative); Blood, Urine Small (Negative); Clarity TURBID (Clear); Glucose, Urine (Dipstick) Negative (Negative); Leukocyte Large (Negative); Nitrite Negative (Negative); Protein, Urine (Dipstick) 100 mg/dL (Neg-Trace); Specific Gravity, Urine 1.019 (1.002-1.036); Urobilinogen 0.2 mg/dL (0.2-1.0); pH, Urine 5.5 (5.0-9.0)
[2018-04-20 09:33] LABS: Bacteria/HPF 4+ HPF (None Seen); Hyaline Casts/LPF 7-10 HYALINE CAST LPF (0-3 Hyaline); Pathc Cast-AUWi Flag 2.47 (0-2.49); Squamous Epithelial None Seen HPF (0-3)
[2018-04-20 09:44] LABS: ALT (SGPT) 9 U/L (8-55); AST (SGOT) 12 U/L (5-34); Acetaminophen Less than 6.0 mcg/mL (10.0-30.0); Albumin 2.7 g/dL (3.4-4.8); Alcohol Less than 10 mg/dL (Less than 10); Alkaline Phosphatase 79 U/L (40-150); Anion Gap 15 mmol/L (10-20); BUN (Urea Nitrogen) 46 mg/dL (9.8-20.1); Bilirubin, Total 0.2 mg/dL (0.2-1.2); CK (CPK) 159 U/L (29-168); Calc. Creatinine Clearance 0 mL/min (70-130); Calcium 7.1 mg/dL (7.8-10.44); Carbon Dioxide 14 mmol/L (23-31); Chloride 113 mmol/L (98-107); Estimated GFR-MDRD 35; Glucose 114 mg/dL (83-110); Potassium 3.8 mmol/L (3.5-5.1); Protein, Total 4.7 g/dL (6.0-8.3); Salicylate Less than 8.0 mg/dL (15.0-30.0); Sodium 138 mmol/L (136-145)
[2018-04-20 09:47] LABS: Medtox Reader # READER 4
[2018-04-20 09:48] LABS: Amphetamine Not Detected (NotDetected); Barbiturates Screen Not Detected (NotDetected); Benzodiazepine Screen Not Detected (NotDetected); Cocaine Metabolite Screen Not Detected (NotDetected); Medtox Control Line Valid? VALID (VALID); Methadone Not Detected (NotDetected); Methamphetamine Not Detected (NotDetected); Opiate Screen Detected (NotDetected); Oxycodone Screen Detected (NotDetected); Phencyclidine (PCP) Not Detected (NotDetected); THC/Cannabinoid Screen Not Detected (NotDetected); Tricyclic Screen Not Detected (NotDetected)
[2018-04-20] MEDS ORDERED: cefTRIAXone\\ROCEPHIN 2 GM VIAL ONE ×2 (09:51→17:27)
--- NOTE | 2018-04-20 10:07 | RAD ---
PORTABLE CHEST: Date: 04/20/18 HISTORY: Dyspnea. COMPARISON: 02/07/18. FINDINGS: Heart size is enlarged. There are atherosclerotic changes of aorta. Lungs are clear of infiltrates. T here are no signs of failure. There is elevation to the right hemidiaphragm. IMPRESSION: Cardiomegaly. No acute process. POS: [facility]
--- NOTE | 2018-04-20 10:12 | CT ---
HEAD CT NONCONTRAST: INDICATION: Emergency exam for sepsis, altered consciousness. FINDINGS: There is parenchymal volume loss with mild compensatory dilatation of the ventricular system. Mild c hronic ischemic disease is present within the cerebral white matter. No intracranial hemorrhage, mas s effect, or midline shift. There is mild scattered paranasal mucosal thickening. IMPRESSION: No acute intracranial hemorrhage or mass effect. POS: [facility]
--- NOTE | 2018-04-20 10:15 | CT ---
CT ABDOMEN AND PELVIS WITH CONTRAST: HISTORY: Patient with sepsis. History of recurrent UTIs. Also, history of stomach surgery, appendectomy, and umbilical hernia repair, as well as hysterectomy. COMPARISON: Exam from 02/08/2018. FINDINGS: ABDOMEN: The lung bases show atelectatic change. The liver and spleen are within normal limits in size. The pancreas is atrophic. The gallbladder is distended, similar to the prior study. There is some increased attenuation within the fundus region , which could represent sludge or possibly small stones. Ultrasound would be helpful in assessment. There is no intrahepatic ductal dilatation. The extrahepatic duct is mildly prominent. The right and left adrenal glands are normal in appearance. There is a small hypodensity involving t he upper pole of the right kidney, statistically most likely a small cyst, and a small mid pole hypod ensity on the left, also statistically most likely a cyst. There is no significant periaortic adenop athy. There is a moderate amount of stool present within the colon. Surgical clips are seen in the region of the GE junction. PELVIS: There is an anastomotic suture line involving the rectosigmoid colon region. There is a mod erate amount of stool present. There is no significant adenopathy or mass. There is a fat-containin g left inguinal hernia and actually a small portion of the bladder protrudes into the inguinal canal. The bladder itself is mildly distended. There are arthritic changes of the spine and hips. IMPRESSION: 1. Moderate gallbladder distention. There is some increased attenuation within the gallbladder fund us region. This could represent small stones or sludge. Further evaluation with ultrasound would be suggested. 2. Moderate amount of stool within the colon, suggesting constipation. 3. Postoperative changes of the rectosigmoid colon. 4. Other incidental findings as noted above. POS: [facility]
--- NOTE | 2018-04-20 11:19 | ULT ---
GALLBLADDER ULTRASOUND: Date; 04/20/18 HISTORY: Abdominal pain, possible stones noted on recent CT. COMPARISON: CT examination done earlier today. FINDINGS: Real-time imaging of the right upper quadrant shows a distended gallbladder. There is some echogenic nonshadowing density seen in the fundus region, which has the appearance of sludge. Gallbladder wall appears in the 3-4 mm range with some questionable edema change in the fundus region. The visualized liver parenchyma is heterogeneous, but shows no focal abnormalities. Liver measures 14.0 cm. Technolo gist reports a negative ultrasound Barajas's sign. Right kidney is normal in size and not obstructed. Pancreas is completely obscured. IMPRESSION: 1. Distended gallbladder with nonshadowing echogenic density within the lumen suggestive of sludge. No definite stones are seen. Common duct is in the 6.0 mm range. The gallbladder wall shows slightly unusual bilaminar appearance. It could indicate edema, although slightly more uniform than typically seen with edema. The technologist reports that there is a negative ultrasound Barajas's sign present. 2. Incidental note is made of a small, subcentimeter, right renal cyst. POS: [facility]
[2018-04-20] MEDS ORDERED: ISOVUE-370 76%-LOCM 1 ML ONE (12:02)
--- NOTE | 2018-04-20 14:56 | HP ---
PRIMARY CARE PROVIDER: Dariel Carlson MD. CHIEF COMPLAINT: Altered mental status. HISTORY OF PRESENT ILLNESS: This is a 72-year-old female, who presents to [facility] Emergency Department after family members and home health staff noted the patient with altered mental status and confusion. The patient with a long-standing complicated medical history with recent admission to [facility] in February 2018 for sepsis syndrome due to pneumonia and suspected urinary tract infection. The patient was placed on antibiotic therapy for discharge and went to inpatient rehabilitation due to severe deconditioning. The patient has been compliant with her chronic medication regimen according to the patient's , but does receive ongoing care at home through home health services through [facility]. The patient was apparently noted with waxing and waning consciousness in the ordnance engineer hours by her who notified EMS personnel. EMS evaluation showed hypotension with initial blood pressure note of 76/38. The patient received IV normal saline x1 L with mild improvement. The patient was also given oxygen supplementation and initially noted to be alert, oriented x2. The patient with a minimal mobility status due to chronic left lower extremity fracture requiring long-term bracing. denies any recent change to her chronic medication regimen, travel history, or new exposures. In the emergency room, the patient underwent general evaluation including metabolic survey showing evidence of suspected urinary tract infection. The patient was also noted with mild acute kidney injury. The patient received IV fluids as stated previously in addition to IV Rocephin, gentamicin, and vancomycin. The patient underwent general sepsis protocol and received IV fluid resuscitation per clinical guidelines. PAST MEDICAL HISTORY: 1. History of sepsis secondary to pneumonia and urinary tract infection. 2. Recurrent urinary tract infections. 3. Systemic lupus erythematosus. 4. Chronic immunodeficiency state. 5. Rheumatoid arthritis. 6. Gastroesophageal reflux disease. 7. Chronic macrocytic anemia. 8. History of atrial fibrillation. 9. History of respiratory failure. 10. Deconditioning. 11. Chronic kidney disease stage 3. 12. Chronic narcotic therapy. PAST SURGICAL HISTORY: 1. Status post esophageal repair. 2. Status post hernia repair. 3. Status post hysterectomy. 4. Status post sinus surgery. CURRENT MEDICATIONS: Based on recent admission in February 2018: 1. BuSpar 15 mg p.o. q.i.d. 2. Lexapro 10 mg p.o. b.i.d. 3. Folic acid 1 mg p.o. daily. 4. Gabapentin 300 mg p.o. t.i.d. 5. Keppra 750 mg p.o. b.i.d. 6. Meclizine 25 mg p.o. q.6 hours p.r.n. 7. Valacyclovir 500 mg 1 tablet p.o. daily. 8. Diltiazem CD 240 mg p.o. daily. 9. Fluticasone one spray in each naris daily. 10. Lasix 40 mg p.o. daily. 11. Harvest 5/325 mg 1 tablet p.o. q.4 hours p.r.n. pain. 12. Metoprolol tartrate 25 mg p.o. b.i.d. 13. Protonix 40 mg p.o. daily. ALLERGIES: TO PREGABALIN AND HYDROXYCHLOROQUINE. FAMILY HISTORY: Positive for arthritis and bursitis. SOCIAL HISTORY: The patient is , accompanied by her in the emergency room. Receives care through [facility]. No alcohol, tobacco, or illicit drug use. CODE STATUS: Do not attempt resuscitation. REVIEW OF SYSTEMS: CONSTITUTIONAL: Negative for weight loss or gain, ability to conduct usual activities. SKIN: Negative for rash, itching. EYES: Negative for double vision, pain. ENT/MOUTH: Negative for nose bleeding, neck stiffness, pain, tenderness. CARDIOVASCULAR: Negative for palpitations, dyspnea on exertion, orthopnea. RESPIRATORY: Negative for shortness of breath, wheezing, cough, hemoptysis, fever or night sweats. GASTROINTESTINAL: Negative for poor appetite, abdominal pain, heartburn, nausea, vomiting, constipation, or diarrhea. GENITOURINARY: Negative for urgency, frequency, dysuria, nocturia. MUSCULOSKELETAL: Negative for pain, swelling. NEUROLOGIC/PSYCHIATRIC: Negative for anxiety, depression. ALLERGY/IMMUNOLOGIC: Negative for skin rash, bleeding tendency. Otherwise, negative except as stated per HPI. PHYSICAL EXAMINATION: VITAL SIGNS: Currently, blood pressure 105/50, pulse 108, respiratory rate 21, temperature 99.2 degrees Fahrenheit, O2 saturation 99% on 3 L/minute by nasal cannula. GENERAL APPEARANCE: This is a 72-year-old female, mumbling, agitated, disoriented, in mild to moderate distress. HEENT: Pupils are equal, round, reactive to light and accommodation. Extraocular muscles are intact. No scleral icterus. No conjunctival injection. Nares patent. OP is clear. Oral mucosa dry appearing. NECK: Supple. No cervical adenopathy. No thyromegaly. No carotid bruits. No JVD appreciated. Cervical spine with full active and passive range of motion. No meningeal signs noted. CHEST: Diminished breath sounds in the bases bilaterally. CARDIOVASCULAR: S1 and S2 with tachycardia, 1 to 2/6 systolic ejection murmur in the left upper sternal border. ABDOMEN: Rounded, soft with mild tenderness to palpation. No rebound or guarding noted. Bowel sounds are positive in all 4 quadrants. EXTREMITIES: Global muscular atrophy noted. Left lower extremity brace from the proximal thigh to the ankle. Deformity of the lower extremity and foot noted. Pulses palpable distally at the dorsalis pedis and posterior tibial arteries. NEUROLOGIC: Alert and oriented x1 to person. Agitated. Mumbles words incoherently. Does not track. Moves upper extremities spontaneously. Spontaneous respirations noted. PERTINENT LABORATORY AND X-RAY FINDINGS: Sodium 138, potassium 3.8, chloride 113, CO2 of 14, anion gap of 15, BUN 46, creatinine 1.48, estimated GFR 35, glucose 114, lactic acid level 0.6. LFTs within normal limits. Albumin 2.7. CBC showed a white blood cell count of 7.7, hemoglobin 8.3, hematocrit 26, MCV 99, platelet count 144 with 80% neutrophilia. Urinalysis positive for large leukocyte esterase with 7-10 rbc's per high-power field and greater than 50 to [id number] wbc's per high-power field. Urine drug screen dated 04/20/2018, positive for opiates. Plasma alcohol level less than 10. Influenza A and B antigen dated 04/20/2018, negative. Portable chest x-ray dated 04/20/2018 showed cardiomegaly without an acute process. CT of the abdomen and pelvis dated 04/20/2018 showed moderate gallbladder distention without identified cholelithiasis. Moderate stool in the colon. Chronic changes noted. CT of the brain dated 04/20/2018 showed no acute intracranial process. Abdominal ultrasound dated 04/20/2018 showed distended gallbladder with non-shadowing echogenic density suggestive of sludge. Common bile duct 6 mm. ASSESSMENT AND PLAN: 1. Sepsis secondary to urinary tract infection. The patient will be admitted to the telemetry unit. We will continue therapy directed at a suspected urinary source. Continue vancomycin 1 g IV q.12 hours with additional Rocephin 2 g IV q.24 hours. Blood and urine cultures pending. Continue general sepsis protocol. Continue IV fluids with normal saline at 100 mL/hr. 2. Hypotension. Improved after fluid resuscitation. We will continue IV fluids, then hold all antihypertensive medications. Serial blood pressure monitoring. 3. Acute kidney injury. Suspect secondary to volume depletion and sepsis. We will continue IV fluids as outlined previously. Avoid nephrotoxic agents and limit contrast exposure. Repeat creatinine in the a.m. 4. Acute metabolic encephalopathy. Suspect secondary to urinary tract infection. We will continue general supportive management. Sitter for one-on-one if family not present. 5. Chronic macrocytic anemia. We will continue serial hemoglobin monitoring. No current evidence to suggest acute blood loss. Repeat CBC in the a.m. 6. Chronic narcotic therapy. We will hold home regimen pending improvement and overall encephalopathy. 7. Prophylaxis. SCDs while in bed. Pepcid 20 mg p.o. b.i.d. 8. Code status. Do not attempt resuscitation, confirmed with family members. Medical power of qa manager is the patient's . Job ID: [id number]
[2018-04-20] MEDS ORDERED: Acetaminophen 325 MG TAB ONE (15:35)
[2018-04-20] MEDS ORDERED: Acetaminophen 500 MG TAB PO PRN (17:07)
[2018-04-20] MEDS ORDERED: Ondansetron ODT 4 MG TAB PO PRN (17:07)
[2018-04-20] MEDS ORDERED: Sodium Chloride 0.9% 100 ML ONE (17:27)
[2018-04-20] MEDS ORDERED: Vancomycin HCl 1 GM in Premix Bag 1 BAG IVPB SCH (21:00)
[2018-04-20] MEDS: Famotidine 20 MG TAB PO SCH (22:02)
[2018-04-20] MEDS: Sodium Chloride 0.9% 1,000 ML IV SCH (22:02)
[2018-04-21] MEDS: Sodium Chloride 0.9% 1,000 ML IV SCH (05:29)
[2018-04-21 05:45] LABS: ALT (SGPT) 8 U/L (8-55); AST (SGOT) 11 U/L (5-34); Albumin 2.7 g/dL (3.4-4.8); Alkaline Phosphatase 73 U/L (40-150); Anion Gap 10 mmol/L (10-20); BUN (Urea Nitrogen) 41 mg/dL (9.8-20.1); Bilirubin, Total Less than 0.2 mg/dL (0.2-1.2); Calc. Creatinine Clearance 31 mL/min (70-130); Calcium 7.2 mg/dL (7.8-10.44); Carbon Dioxide 16 mmol/L (23-31); Chloride 111 mmol/L (98-107); Estimated GFR-MDRD 40; Globulin 2.2 g/dL (2.4-3.5); Glucose 91 mg/dL (83-110); Protein, Total 4.9 g/dL (6.0-8.3); Sodium 134 mmol/L (136-145)
[2018-04-21 05:58] LABS: Band 9 % (5-11); Eosinophils 2 % (0-10); Hemoglobin 8.2 g/dL (12.0-16.0); Lymphocytes 12 % (21-51); MDiff Complete? YES; Mean Corpuscular HGB CONC 32.8 g/dL (32.0-36.0); Mean Corpuscular Hemoglobin 32.6 pg (27.0-31.0); Mean Corpuscular Volume 99.5 fL (78.0-98.0); Mean Platelet Volume 7.6 fL (7.4-10.4); Monocytes 8 % (0-10); Myelocyte 1 % (0-0); Neutrophil 68 % (42-75); Platelet Count 145 thou/uL (130-400); RBC Distribution Width 14.3 % (11.5-14.5); Red Blood Cell (RBC) Count 2.51 mill/uL (4.20-5.40); White Blood Cell (WBC) Count 7.3 thou/uL (4.8-10.8)
[2018-04-21] MEDS ORDERED: Acetaminophen 325 MG TAB PO PRN (07:47)
[2018-04-21] MEDS ORDERED: Meclizine HCl 25 MG TAB PO PRN (07:47)
[2018-04-21] MEDS ORDERED: Ondansetron ODT 4 MG TAB PO PRN (07:47)
[2018-04-21] MEDS ORDERED: Bisacodyl 5 MG TAB PO PRN (07:47)
[2018-04-21] MEDS: Fluticasone Propionate Nasal Spray 16 gm Bottle NASAL SCH (08:54)
[2018-04-21] MEDS: Escitalopram Oxalate 10 mg Tablet PO SCH ×2 (08:54→20:45)
[2018-04-21] MEDS: cycloSPORINE 0.05% Ophthalmic Droperette EA EYE SCH ×2 (08:54→20:45)
[2018-04-21] MEDS: levETIRAcetam 500 mg/5 ml Oral Solution PO SCH ×2 (08:55→20:44)
[2018-04-21] MEDS: Cyanocobalamin (Vitamin B-12) 1,000 MCG TAB PO SCH (08:55)
[2018-04-21] MEDS: Multivitamin W/ Minerals 1 TAB PO SCH (08:55)
[2018-04-21] MEDS: Folic Acid 1 MG TAB PO SCH ×3 (08:56→20:45)
[2018-04-21] MEDS: Famotidine 20 MG TAB PO SCH ×2 (08:56→20:45)
[2018-04-21] MEDS: Gabapentin 300 MG CAP PO SCH ×3 (08:56→20:45)
[2018-04-21] MEDS: busPIRone HCl 5 MG TAB PO SCH ×4 (09:07→20:45)
[2018-04-21] MEDS: valACYclovir 500 MG TAB PO SCH (09:07)
[2018-04-21] MEDS: 1/2 NS w/KCL 20 mEq 1,000 ML IV SCH ×2 (09:51→19:15)
[2018-04-21] MEDS ORDERED: Vancomycin HCl 500 MG in Sodium Chloride 0.9% 100 ML IVPB SCH (10:00)
[2018-04-21] MEDS: cefTRIAXone\\ROCEPHIN 2 GM in Sodium Chloride 0.9% 100 ML IVPB SCH (11:59)
[2018-04-21] MEDS: HYDROcodone/Acetaminophen 5/325 mg Tablet PO PRN ×2 (12:00→23:05)
--- NOTE | 2018-04-21 14:18 | PDOC.PN ---
- Subjective Encounter Start Date: 04/21/18 Encounter Start Time: 07:45 -: old records requested/rev Patient seen and examined. No new complaints. No overnight events - Objective Resuscitation Status - Order Detail: 04/20/18 22:23 Resuscitation Status Routine Co-Sign Provider: Resuscitation Status: FULL: Full Resuscitation Additional comments: Patient's nurse, Porfirio, called to say patient changed her mind about DNAR status. MAR Reviewed: Yes Vital Signs & Weight: Vital Signs (12 hours) Temp Pulse Resp BP Pulse Ox 04/21/18 12:04 91 18 110/51 L 96 04/21/18 09:03 95 04/21/18 07:27 97.5 F L 92 14 90/45 L 95 04/21/18 05:25 107/53 L 04/21/18 03:01 96.7 F L 86 16 98 Weight Admit Weight 112 lb Weight 112 lb I&O: 04/20/18 04/21/18 04/22/18 06:59 06:59 06:59 Intake Total 800 Output Total 1000 Balance -200 Result Diagrams: 04/21/18 04:35 04/21/18 04:35 EKG Reviewed by me: Yes Phys Exam - Physical Examination Constitutional: NAD HEENT: PERRLA, moist MMs, sclera anicteric Neck: no JVD, supple Respiratory: no wheezing, no rales, no rhonchi Cardiovascular: RRR, no significant murmur, no rub Gastrointestinal: soft, non-tender, no distention, positive bowel sounds left leg in cast Neurological: non-focal Lymphatic: no nodes Psychiatric: normal affect, A&O x 3 Skin: no rash, normal turgor Dx/Plan (1) Acute metabolic encephalopathy Code(s): G93.41 - METABOLIC ENCEPHALOPATHY Status: Acute (2) Acute renal failure Status: Acute Comment: (3) Acute urinary retention Code(s): R33.8 - OTHER RETENTION OF URINE Status: Acute (4) Hypokalemia Code(s): E87.6 - HYPOKALEMIA Status: Acute (5) Sepsis with acute organ dysfunction Code(s): A41.9 - SEPSIS, UNSPECIFIED ORGANISM; R65.20 - SEVERE SEPSIS WITHOUT SEPTIC SHOCK Status: Acute (6) UTI (urinary tract infection) Status: Acute Comment: (7) Anxiety and depression Code(s): F41.8 - OTHER SPECIFIED ANXIETY DISORDERS Status: Chronic Comment: (8) Atrial fibrillation and flutter Code(s): I48.91 - UNSPECIFIED ATRIAL FIBRILLATION; I48.92 - UNSPECIFIED ATRIAL FLUTTER Status: Chronic (9) Chronic pain disorder Code(s): G89.4 - CHRONIC PAIN SYNDROME Status: Chronic Comment: (10) Fibromyalgia Status: Chronic (11) GERD (gastroesophageal reflux disease) Code(s): K21.9 - GASTRO-ESOPHAGEAL REFLUX DISEASE WITHOUT ESOPHAGITIS Status: Chronic (12) Immunocompromised Code(s): D84.9 - IMMUNODEFICIENCY, UNSPECIFIED Status: Chronic Comment: on Symponi for SLE. (13) Osteoarthritis Code(s): M19.90 - UNSPECIFIED OSTEOARTHRITIS, UNSPECIFIED SITE Status: Chronic (14) Osteoporosis Code(s): M81.0 - AGE-RELATED OSTEOPOROSIS W/O CURRENT PATHOLOGICAL FRACTURE Status: Chronic (15) Protein-calorie malnutrition, moderate Code(s): E44.0 - MODERATE PROTEIN-CALORIE MALNUTRITION Status: Chronic (16) Rheumatoid arthritis Code(s): M06.9 - RHEUMATOID ARTHRITIS, UNSPECIFIED Status: Chronic (17) SLE (systemic lupus erythematosus) Code(s): M32.9 - SYSTEMIC LUPUS ERYTHEMATOSUS, UNSPECIFIED Status: Chronic Qualifiers: (18) Seizure disorder Code(s): G40.909 - EPILEPSY, UNSP, NOT INTRACTABLE, WITHOUT STATUS EPILEPTICUS Status: Chronic - Plan cont current plan of care, plan discussed w/ family, continue antibiotics * continue IVF * replace potassium with IVF * transfer to medical * medication reviewed as below * symptomatic treatment * discussed with son * continue rocephin * follow culture. Review of Systems - Review of Systems ENT: negative: Ear Pain, Ear Discharge, Nose Pain, Nose Discharge, Nose Congestion, Mouth Pain, Mouth Swelling, Throat Pain, Throat Swelling, Other Respiratory: negative: Cough, Dry, Shortness of Breath, Hemoptysis, SOB with Excertion, Pleuritic Pain, Sputum, Wheezing Cardiovascular: negative: chest pain, palpitations, orthopnea, paroxysmal nocturnal dyspnea, edema, light headedness, other Gastrointestinal: negative: Nausea, Vomiting, Abdominal Pain, Diarrhea, Constipation, Melena, Hematochezia, Other Genitourinary: negative: Dysuria, Frequency, Incontinence, Hematuria, Retention , Other Musculoskeletal: Hand Pain, Leg Pain. negative: Neck Pain, Shoulder Pain, Arm Pain, Back Pain, Foot Pain, Other - Medications/Allergies Allergies/Adverse Reactions: Allergies Allergy/AdvReac Type Severity Reaction Status Date / Time pregabalin [From Lyrica] Allergy Intermediate Verified 02/05/18 01:37 hydroxychloroquine Allergy Verified 02/05/18 01:37 [Hydroxychloroquine] hydroxychloroquine sulfate Allergy Verified 02/05/18 01:37 [From Plaquenil] Medications: Current Medications Acetaminophen (Tylenol) 650 mg PO Q4H PRN PRN Reason: Headache/Fever/Mild Pain (1-3) Hydrocodone Bitart/Acetaminophen ([place] 5/325) 1 tab PO Q4H PRN PRN Reason: Mild-Moderate Pain (1-5) Last Admin: 04/21/18 12:00 Dose: 1 tab Bisacodyl (Dulcolax) 10 mg PO DAILYPRN PRN PRN Reason: Constipation Buspirone HCl (Buspar) 15 mg PO QID [facility] Last Admin: 04/21/18 12:00 Dose: 15 mg Cyanocobalamin (Vitamin B-12) 1,000 mcg PO DAILY [facility] Last Admin: 04/21/18 08:55 Dose: 1,000 mcg Cyclosporine (Restasis) 0 ml EA EYE BID [facility] Last Admin: 04/21/18 08:54 Dose: 0.4 ml Escitalopram Oxalate (Lexapro) 10 mg PO BID [facility] Last Admin: 04/21/18 08:54 Dose: 10 mg Famotidine (Pepcid) 20 mg PO BID [facility] Last Admin: 04/21/18 08:56 Dose: 20 mg Fluticasone Propionate (Flonase Nasal [place]) 0 gm NASAL DAILY [facility] Last Admin: 04/21/18 08:54 Dose: 2 spr Folic Acid (Folvite) 1 mg PO TID [facility] Last Admin: 04/21/18 08:56 Dose: 1 mg Gabapentin (Neurontin) 300 mg PO TID [facility] Last Admin: 04/21/18 08:56 Dose: 300 mg Ceftriaxone Sodium 2 gm/ (Sodium Chloride) 100 mls @ 200 mls/hr IVPB Q24HR [facility] Last Admin: 04/21/18 11:59 Dose: 100 mls Vancomycin HCl 500 mg/ Sodium (Chloride) 100 mls @ 100 mls/hr IVPB 1000 [facility] Last Admin: 04/21/18 09:51 Dose: 100 mls Potassium Chloride/Sodium Chloride (1/2 Ns W/Kcl 20 Meq) 1,000 mls @ 100 mls/ hr IV .Q10H [facility] Last Admin: 04/21/18 09:51 Dose: 1,000 mls Iron/Minerals/Multivitamins (Theragran M) 1 tab PO DAILY [facility] Last Admin: 04/21/18 08:55 Dose: 1 tab Levetiracetam (Keppra Oral Solution) 750 mg PO BID [facility] Last Admin: 04/21/18 08:55 Dose: 750 mg Meclizine HCl (Antivert) 25 mg PO QID PRN PRN Reason: Dizziness Miscellaneous Medication (Pharmacy To Dose) 1 each IVPB ONE PRN PRN Reason: DOSING Stop: 05/20/18 21:39 Ondansetron HCl (Zofran) 4 mg IVP Q6H PRN PRN Reason: Nausea/Vomiting Ondansetron HCl (Zofran Odt) 4 mg PO Q6H PRN PRN Reason: Nausea/Vomiting Pantoprazole Sodium (Protonix) 40 mg PO DAILY [facility] Last Admin: 04/21/18 08:55 Dose: 40 mg Trazodone HCl (Desyrel) 50 mg PO PRN PRN PRN Reason: Insomnia Valacyclovir HCl (Valtrex) 500 mg PO DAILY [facility] Last Admin: 04/21/18 09:07 Dose: 500 mg
[2018-04-21] MEDS: Ondansetron PF 4 MG/2 ML Vial IVP PRN (23:06)
[2018-04-21] MEDS ORDERED: Heparin 5,000 UNITS/ML VIAL SC SCH (23:59)
[2018-04-22] MEDS ORDERED: Metoprolol Tartrate 5 MG/5 ML VIAL IVP SCH (01:15)
[2018-04-22] MEDS: 1/2 NS w/KCL 20 mEq 1,000 ML IV SCH ×2 (04:03→16:32)
[2018-04-22 05:12] LABS: #Eosinphils 0.1 thou/uL (0.0-0.7); #Lymphocytes 1.4 thou/uL (1.20-3.40); #Monocytes 0.8 thou/uL (0.11-0.59); #Neutrophils 7.1 thou/uL (1.40-6.50); %Basophils 0.4 % (0.0-1.0); %Eosinophils 0.8 % (0.0-10.0); %Lymphocytes 15.1 % (21.0-51.0); %Monocytes 8.4 % (0.0-10.0); %Neutrophils 75.3 % (42.0-75.0); Hemoglobin 9.6 g/dL (12.0-16.0); Mean Corpuscular HGB CONC 33.6 g/dL (32.0-36.0); Mean Corpuscular Hemoglobin 32.7 pg (27.0-31.0); Mean Corpuscular Volume 97.4 fL (78.0-98.0); Mean Platelet Volume 7.6 fL (7.4-10.4); Platelet Count 182 thou/uL (130-400); RBC Distribution Width 14.2 % (11.5-14.5); Red Blood Cell (RBC) Count 2.93 mill/uL (4.20-5.40); White Blood Cell (WBC) Count 9.4 thou/uL (4.8-10.8)
[2018-04-22 05:34] LABS: ALT (SGPT) 9 U/L (8-55); AST (SGOT) 13 U/L (5-34); Albumin 2.9 g/dL (3.4-4.8); Alkaline Phosphatase 84 U/L (40-150); Anion Gap 10 mmol/L (10-20); BUN (Urea Nitrogen) 33 mg/dL (9.8-20.1); Bilirubin, Total Less than 0.2 mg/dL (0.2-1.2); Calc. Creatinine Clearance 40 mL/min (70-130); Calcium 7.8 mg/dL (7.8-10.44); Carbon Dioxide 14 mmol/L (23-31); Chloride 111 mmol/L (98-107); Estimated GFR-MDRD 54; Globulin 2.6 g/dL (2.4-3.5); Glucose 91 mg/dL (83-110); Potassium 3.1 mmol/L (3.5-5.1); Protein, Total 5.5 g/dL (6.0-8.3); Sodium 132 mmol/L (136-145)
[2018-04-22] MEDS ORDERED: Potassium Chloride 20 MEQ TAB PO SCH (07:00)
[2018-04-22 07:32] LABS: Magnesium 1.2 mg/dL (1.6-2.6)
[2018-04-22] MEDS ORDERED: Magnesium Sulfate 4 GM in Sodium Chloride 0.9% 250 ML 250 ML IVPB SCH (08:30)
[2018-04-22] MEDS: Ferrous Sulfate 325 MG TAB PO SCH (08:52)
[2018-04-22] MEDS: Cyanocobalamin (Vitamin B-12) 1,000 MCG TAB PO SCH (08:53)
[2018-04-22] MEDS: Escitalopram Oxalate 10 mg Tablet PO SCH ×2 (08:53→21:16)
[2018-04-22] MEDS: Famotidine 20 MG TAB PO SCH ×2 (08:53→21:17)
[2018-04-22] MEDS: Fluticasone Propionate Nasal Spray 16 gm Bottle NASAL SCH (08:54)
[2018-04-22] MEDS: Multivitamin W/ Minerals 1 TAB PO SCH (08:54)
[2018-04-22] MEDS: Folic Acid 1 MG TAB PO SCH ×3 (08:54→21:16)
[2018-04-22] MEDS: Gabapentin 300 MG CAP PO SCH ×3 (08:54→21:16)
[2018-04-22] MEDS: Saccharomyces boulardii 250 MG CAP PO SCH (08:55)
[2018-04-22] MEDS: busPIRone HCl 5 MG TAB PO SCH ×4 (08:55→21:16)
[2018-04-22] MEDS: cycloSPORINE 0.05% Ophthalmic Droperette EA EYE SCH ×2 (08:55→21:16)
[2018-04-22] MEDS: levETIRAcetam 500 mg/5 ml Oral Solution PO SCH ×2 (08:56→21:16)
[2018-04-22] MEDS: valACYclovir 500 MG TAB PO SCH (08:58)
[2018-04-22] MEDS: Ondansetron PF 4 MG/2 ML Vial IVP PRN (09:16)
--- NOTE | 2018-04-22 09:54 | PDOC.PN ---
- Subjective Encounter Start Date: 04/22/18 Encounter Start Time: 07:10 pt is weak, she had vomiting one time last night, no fever - Objective Resuscitation Status - Order Detail: 04/20/18 22:23 Resuscitation Status Routine Co-Sign Provider: Resuscitation Status: FULL: Full Resuscitation Additional comments: Patient's nurse, Porfirio, called to say patient changed her mind about DNAR status. MAR Reviewed: Yes Vital Signs & Weight: Vital Signs (12 hours) Temp Pulse Resp BP Pulse Ox 04/22/18 07:31 98.1 F 76 14 144/67 H 96 04/22/18 03:25 97 F L 76 20 109/61 95 04/21/18 22:59 122 H Weight Admit Weight 112 lb Weight 114 lb I&O: 04/21/18 04/22/18 04/23/18 06:59 06:59 06:59 Intake Total 800 1400 Output Total 1000 1400 Balance -200 0 Result Diagrams: 04/22/18 03:58 04/22/18 03:58 EKG Reviewed by me: Yes Phys Exam - Physical Examination Constitutional: NAD HEENT: PERRLA, moist MMs, sclera anicteric Neck: no JVD, supple Respiratory: no wheezing, no rales, no rhonchi Cardiovascular: RRR, no significant murmur, no rub Gastrointestinal: soft, non-tender, no distention, positive bowel sounds Musculoskeletal: no edema, pulses present left leg with brace Neurological: non-focal, normal sensation Lymphatic: no nodes Psychiatric: normal affect, A&O x 3 Skin: no rash, normal turgor Dx/Plan (1) Acute metabolic encephalopathy Code(s): G93.41 - METABOLIC ENCEPHALOPATHY Status: Resolved (2) Acute renal failure Status: Resolved Comment: (3) Acute urinary retention Code(s): R33.8 - OTHER RETENTION OF URINE Status: Resolved (4) Hypokalemia Code(s): E87.6 - HYPOKALEMIA Status: Acute (5) Sepsis with acute organ dysfunction Code(s): A41.9 - SEPSIS, UNSPECIFIED ORGANISM; R65.20 - SEVERE SEPSIS WITHOUT SEPTIC SHOCK Status: Acute (6) UTI (urinary tract infection) Status: Acute Comment: (7) Anxiety and depression Code(s): F41.8 - OTHER SPECIFIED ANXIETY DISORDERS Status: Chronic Comment: (8) Atrial fibrillation and flutter Code(s): I48.91 - UNSPECIFIED ATRIAL FIBRILLATION; I48.92 - UNSPECIFIED ATRIAL FLUTTER Status: Chronic (9) Chronic pain disorder Code(s): G89.4 - CHRONIC PAIN SYNDROME Status: Chronic Comment: (10) Fibromyalgia Status: Chronic (11) GERD (gastroesophageal reflux disease) Code(s): K21.9 - GASTRO-ESOPHAGEAL REFLUX DISEASE WITHOUT ESOPHAGITIS Status: Chronic (12) Immunocompromised Code(s): D84.9 - IMMUNODEFICIENCY, UNSPECIFIED Status: Chronic Comment: (13) Osteoarthritis Code(s): M19.90 - UNSPECIFIED OSTEOARTHRITIS, UNSPECIFIED SITE Status: Chronic (14) Osteoporosis Code(s): M81.0 - AGE-RELATED OSTEOPOROSIS W/O CURRENT PATHOLOGICAL FRACTURE Status: Chronic (15) Protein-calorie malnutrition, moderate Code(s): E44.0 - MODERATE PROTEIN-CALORIE MALNUTRITION Status: Chronic (16) Rheumatoid arthritis Code(s): M06.9 - RHEUMATOID ARTHRITIS, UNSPECIFIED Status: Chronic (17) SLE (systemic lupus erythematosus) Code(s): M32.9 - SYSTEMIC LUPUS ERYTHEMATOSUS, UNSPECIFIED Status: Chronic Qualifiers: (18) Seizure disorder Code(s): G40.909 - EPILEPSY, UNSP, NOT INTRACTABLE, WITHOUT STATUS EPILEPTICUS Status: Chronic - Plan cont current plan of care, plan discussed w/ family, continue antibiotics * DC vancomcyin * continue rocephin * continue IVF * replace potassium and magnesium * medication reviewed as below * symptomatic treatment * discussed with son bedside. Review of Systems - Review of Systems ENT: negative: Ear Pain, Ear Discharge, Nose Pain, Nose Discharge, Nose Congestion, Mouth Pain, Mouth Swelling, Throat Pain, Throat Swelling, Other Respiratory: negative: Cough, Dry, Shortness of Breath, Hemoptysis, SOB with Excertion, Pleuritic Pain, Sputum, Wheezing Cardiovascular: negative: chest pain, palpitations, orthopnea, paroxysmal nocturnal dyspnea, edema, light headedness, other Gastrointestinal: negative: Nausea, Vomiting, Abdominal Pain, Diarrhea, Constipation, Melena, Hematochezia, Other Genitourinary: negative: Dysuria, Frequency, Incontinence, Hematuria, Retention , Other Musculoskeletal: negative: Neck Pain, Shoulder Pain, Arm Pain, Back Pain, Hand Pain, Leg Pain, Foot Pain, Other - Medications/Allergies Allergies/Adverse Reactions: Allergies Allergy/AdvReac Type Severity Reaction Status Date / Time pregabalin [From Lyrica] Allergy Intermediate Verified 02/05/18 01:37 hydroxychloroquine Allergy Verified 02/05/18 01:37 [Hydroxychloroquine] hydroxychloroquine sulfate Allergy Verified 02/05/18 01:37 [From Plaquenil] Medications: Current Medications Acetaminophen (Tylenol) 650 mg PO Q4H PRN PRN Reason: Headache/Fever/Mild Pain (1-3) Hydrocodone Bitart/Acetaminophen ([place] 5/325) 1 tab PO Q4H PRN PRN Reason: Mild-Moderate Pain (1-5) Last Admin: 04/21/18 23:05 Dose: 1 tab Bisacodyl (Dulcolax) 10 mg PO DAILYPRN PRN PRN Reason: Constipation Buspirone HCl (Buspar) 15 mg PO QID [facility] Last Admin: 04/22/18 08:55 Dose: 15 mg Cyanocobalamin (Vitamin B-12) 1,000 mcg PO DAILY [facility] Last Admin: 04/22/18 08:53 Dose: 1,000 mcg Cyclosporine (Restasis) 0 ml EA EYE BID [facility] Last Admin: 04/22/18 08:55 Dose: 0.4 ml Escitalopram Oxalate (Lexapro) 10 mg PO BID [facility] Last Admin: 04/22/18 08:53 Dose: 10 mg Famotidine (Pepcid) 20 mg PO BID [facility] Last Admin: 04/22/18 08:53 Dose: 20 mg Ferrous Sulfate (Feosol) 325 mg PO QAM[facility] Last Admin: 04/22/18 08:52 Dose: 325 mg Fluticasone Propionate (Flonase Nasal [place]) 0 gm NASAL DAILY [facility] Last Admin: 04/22/18 08:54 Dose: 2 spr Folic Acid (Folvite) 1 mg PO TID [facility] Last Admin: 04/22/18 08:54 Dose: 1 mg Gabapentin (Neurontin) 300 mg PO TID [facility] Last Admin: 04/22/18 08:54 Dose: 300 mg Ceftriaxone Sodium 2 gm/ (Sodium Chloride) 100 mls @ 200 mls/hr IVPB Q24HR [facility] Last Admin: 04/21/18 11:59 Dose: 100 mls Potassium Chloride/Sodium Chloride (1/2 Ns W/Kcl 20 Meq) 1,000 mls @ 100 mls/ hr IV .Q10H [facility] Last Admin: 04/22/18 04:03 Dose: 1,000 mls Magnesium Sulfate 4 gm/ Sodium (Chloride) 258 mls @ 86 mls/hr IVPB NOW [facility] Stop: 04/22/18 11:29 Last Admin: 04/22/18 08:53 Dose: 258 mls Iron/Minerals/Multivitamins (Theragran M) 1 tab PO DAILY [facility] Last Admin: 04/22/18 08:54 Dose: 1 tab Levetiracetam (Keppra Oral Solution) 750 mg PO BID [facility] Last Admin: 04/22/18 08:56 Dose: 750 mg Meclizine HCl (Antivert) 25 mg PO QID PRN PRN Reason: Dizziness Ondansetron HCl (Zofran) 4 mg IVP Q6H PRN PRN Reason: Nausea/Vomiting Last Admin: 04/22/18 09:16 Dose: 4 mg Ondansetron HCl (Zofran Odt) 4 mg PO Q6H PRN PRN Reason: Nausea/Vomiting Pantoprazole Sodium (Protonix) 40 mg PO DAILY [facility] Last Admin: 04/22/18 08:54 Dose: 40 mg Saccharomyces Boulardii (Florastor) 250 mg PO DAILY [facility] Last Admin: 04/22/18 08:55 Dose: 250 mg Trazodone HCl (Desyrel) 50 mg PO PRN PRN PRN Reason: Insomnia Valacyclovir HCl (Valtrex) 500 mg PO DAILY [facility] Last Admin: 04/22/18 08:58 Dose: 500 mg
[2018-04-22] MEDS: cefTRIAXone\\ROCEPHIN 2 GM in Sodium Chloride 0.9% 100 ML IVPB SCH (12:35)
--- NOTE | 2018-04-22 16:35 | EKG ---
Test Reason : Blood Pressure : / mmHG Vent. Rate : 090 BPM Atrial Rate : 090 BPM P-R Int : 166 ms QRS Dur : 092 ms QT Int : 358 ms P-R-T Axes : 063 -02 064 degrees QTc Int : 437 ms Normal sinus rhythm Low voltage QRS Cannot rule out Anterior infarct , age undetermined Abnormal ECG Confirmed by RADHA SOLARES DO ([id number]), editorial clerk SHAKIRA SANCHEZ ([id number]) on 04/22/2018 4:34:31 PM Referred By: Confirmed By:ARDHA SOLARES DO
[2018-04-23] MEDS: 1/2 NS w/KCL 20 mEq 1,000 ML IV SCH (01:40)
[2018-04-23 05:26] LABS: #Basophils 0.1 thou/uL (0.0-0.2); #Eosinphils 0.3 thou/uL (0.0-0.7); #Monocytes 0.9 thou/uL (0.11-0.59); #Neutrophils 4.4 thou/uL (1.40-6.50); %Eosinophils 3.7 % (0.0-10.0); %Lymphocytes 26.2 % (21.0-51.0); %Neutrophils 57.1 % (42.0-75.0); Hemoglobin 9.2 g/dL (12.0-16.0); Mean Corpuscular HGB CONC 33.7 g/dL (32.0-36.0); Mean Corpuscular Hemoglobin 33.2 pg (27.0-31.0); Mean Corpuscular Volume 98.4 fL (78.0-98.0); Mean Platelet Volume 7.1 fL (7.4-10.4); Platelet Count 215 thou/uL (130-400); RBC Distribution Width 14.2 % (11.5-14.5); Red Blood Cell (RBC) Count 2.77 mill/uL (4.20-5.40); White Blood Cell (WBC) Count 7.7 thou/uL (4.8-10.8)
[2018-04-23 05:54] LABS: Anion Gap 11 mmol/L (10-20); BUN (Urea Nitrogen) 29 mg/dL (9.8-20.1); Calc. Creatinine Clearance 43 mL/min (70-130); Calcium 8.3 mg/dL (7.8-10.44); Carbon Dioxide 14 mmol/L (23-31); Chloride 114 mmol/L (98-107); Estimated GFR-MDRD 58; Glucose 96 mg/dL (83-110); Potassium 3.2 mmol/L (3.5-5.1); Sodium 136 mmol/L (136-145)
[2018-04-23] MEDS ORDERED: Potassium Chloride 20 MEQ TAB PO SCH (07:30)
[2018-04-23] MEDS: Fluticasone Propionate Nasal Spray 16 gm Bottle NASAL SCH (08:47)
[2018-04-23] MEDS: Famotidine 20 MG TAB PO SCH ×2 (08:48→20:00)
[2018-04-23] MEDS: Ferrous Sulfate 325 MG TAB PO SCH (08:48)
[2018-04-23] MEDS: Escitalopram Oxalate 10 mg Tablet PO SCH ×2 (08:48→19:59)
[2018-04-23] MEDS: Cyanocobalamin (Vitamin B-12) 1,000 MCG TAB PO SCH (08:48)
[2018-04-23] MEDS: Multivitamin W/ Minerals 1 TAB PO SCH (08:49)
[2018-04-23] MEDS: Folic Acid 1 MG TAB PO SCH ×3 (08:49→19:58)
[2018-04-23] MEDS: levETIRAcetam 500 mg/5 ml Oral Solution PO SCH (08:49)
[2018-04-23] MEDS: Gabapentin 300 MG CAP PO SCH ×3 (08:49→19:59)
[2018-04-23] MEDS: Saccharomyces boulardii 250 MG CAP PO SCH (08:49)
[2018-04-23] MEDS: busPIRone HCl 5 MG TAB PO SCH ×4 (08:49→19:58)
[2018-04-23] MEDS: cycloSPORINE 0.05% Ophthalmic Droperette EA EYE SCH ×2 (08:50→20:16)
[2018-04-23] MEDS: valACYclovir 500 MG TAB PO SCH (08:51)
[2018-04-23] MEDS: Metoprolol Tartrate 25 MG TAB PO SCH ×2 (09:13→19:59)
--- NOTE | 2018-04-23 09:53 | PDOC.PN ---
- Subjective Encounter Start Date: 04/23/18 Encounter Start Time: 08:50 Patient seen and examined. No new complaints. No overnight events - Objective Resuscitation Status - Order Detail: 04/20/18 22:23 Resuscitation Status Routine Co-Sign Provider: Resuscitation Status: FULL: Full Resuscitation Additional comments: Patient's nurse, Porfirio, called to say patient changed her mind about DNAR status. MAR Reviewed: Yes Vital Signs & Weight: Vital Signs (12 hours) Temp Pulse Resp BP Pulse Ox 04/23/18 08:45 73 158/70 H 04/23/18 08:18 97.6 F 75 13 178/84 H 98 04/23/18 03:30 98.4 F 73 20 132/61 99 Weight Admit Weight 112 lb Weight 114 lb 3 oz I&O: 04/22/18 04/23/18 04/24/18 06:59 06:59 06:59 Intake Total 1400 3480 Output Total 1400 4721 Balance 0 -1241 Result Diagrams: 04/23/18 04:35 04/23/18 04:35 EKG Reviewed by me: Yes Phys Exam - Physical Examination Constitutional: NAD HEENT: PERRLA, moist MMs, sclera anicteric Neck: no JVD, supple Respiratory: no wheezing, no rales, no rhonchi Cardiovascular: RRR, no significant murmur, no rub Gastrointestinal: soft, non-tender, no distention, positive bowel sounds Musculoskeletal: no edema cast in left leg Neurological: non-focal, normal sensation Lymphatic: no nodes Psychiatric: normal affect Skin: no rash, normal turgor Dx/Plan (1) Acute metabolic encephalopathy Code(s): G93.41 - METABOLIC ENCEPHALOPATHY Status: Resolved (2) Acute renal failure Status: Resolved Comment: (3) Acute urinary retention Code(s): R33.8 - OTHER RETENTION OF URINE Status: Resolved (4) Hypokalemia Code(s): E87.6 - HYPOKALEMIA Status: Acute (5) Sepsis with acute organ dysfunction Code(s): A41.9 - SEPSIS, UNSPECIFIED ORGANISM; R65.20 - SEVERE SEPSIS WITHOUT SEPTIC SHOCK Status: Acute (6) UTI (urinary tract infection) Status: Acute Comment: (7) Anxiety and depression Code(s): F41.8 - OTHER SPECIFIED ANXIETY DISORDERS Status: Chronic Comment: (8) Atrial fibrillation and flutter Code(s): I48.91 - UNSPECIFIED ATRIAL FIBRILLATION; I48.92 - UNSPECIFIED ATRIAL FLUTTER Status: Chronic (9) Chronic pain disorder Code(s): G89.4 - CHRONIC PAIN SYNDROME Status: Chronic Comment: (10) Fibromyalgia Status: Chronic (11) GERD (gastroesophageal reflux disease) Code(s): K21.9 - GASTRO-ESOPHAGEAL REFLUX DISEASE WITHOUT ESOPHAGITIS Status: Chronic (12) Immunocompromised Code(s): D84.9 - IMMUNODEFICIENCY, UNSPECIFIED Status: Chronic Comment: (13) Osteoarthritis Code(s): M19.90 - UNSPECIFIED OSTEOARTHRITIS, UNSPECIFIED SITE Status: Chronic (14) Osteoporosis Code(s): M81.0 - AGE-RELATED OSTEOPOROSIS W/O CURRENT PATHOLOGICAL FRACTURE Status: Chronic (15) Protein-calorie malnutrition, moderate Code(s): E44.0 - MODERATE PROTEIN-CALORIE MALNUTRITION Status: Chronic (16) Rheumatoid arthritis Code(s): M06.9 - RHEUMATOID ARTHRITIS, UNSPECIFIED Status: Chronic (17) SLE (systemic lupus erythematosus) Code(s): M32.9 - SYSTEMIC LUPUS ERYTHEMATOSUS, UNSPECIFIED Status: Chronic Qualifiers: (18) Seizure disorder Code(s): G40.909 - EPILEPSY, UNSP, NOT INTRACTABLE, WITHOUT STATUS EPILEPTICUS Status: Chronic - Plan cont current plan of care, plan discussed w/ family, continue antibiotics * DC IVF * replace potassium * transfer to medical * will restart her ho me BP meds * continue rocephin * will plan for discharge tomorrow * medication reviewed as below * symptomatic treatment. Review of Systems - Review of Systems ENT: negative: Ear Pain, Ear Discharge, Nose Pain, Nose Discharge, Nose Congestion, Mouth Pain, Mouth Swelling, Throat Pain, Throat Swelling, Other Respiratory: negative: Cough, Dry, Shortness of Breath, Hemoptysis, SOB with Excertion, Pleuritic Pain, Sputum, Wheezing Cardiovascular: negative: chest pain, palpitations, orthopnea, paroxysmal nocturnal dyspnea, edema, light headedness, other Gastrointestinal: negative: Nausea, Vomiting, Abdominal Pain, Diarrhea, Constipation, Melena, Hematochezia, Other Genitourinary: negative: Dysuria, Frequency, Incontinence, Hematuria, Retention , Other Musculoskeletal: negative: Neck Pain, Shoulder Pain, Arm Pain, Back Pain, Hand Pain, Leg Pain, Foot Pain, Other - Medications/Allergies Allergies/Adverse Reactions: Allergies Allergy/AdvReac Type Severity Reaction Status Date / Time pregabalin [From Lyrica] Allergy Intermediate Verified 02/05/18 01:37 hydroxychloroquine Allergy Verified 02/05/18 01:37 [Hydroxychloroquine] hydroxychloroquine sulfate Allergy Verified 02/05/18 01:37 [From Plaquenil] Medications: Current Medications Acetaminophen (Tylenol) 650 mg PO Q4H PRN PRN Reason: Headache/Fever/Mild Pain (1-3) Hydrocodone Bitart/Acetaminophen ([place] 5/325) 1 tab PO Q4H PRN PRN Reason: Mild-Moderate Pain (1-5) Last Admin: 04/21/18 23:05 Dose: 1 tab Bisacodyl (Dulcolax) 10 mg PO DAILYPRN PRN PRN Reason: Constipation Buspirone HCl (Buspar) 15 mg PO QID [facility] Last Admin: 04/23/18 08:49 Dose: 15 mg Cyanocobalamin (Vitamin B-12) 1,000 mcg PO DAILY [facility] Last Admin: 04/23/18 08:48 Dose: 1,000 mcg Cyclosporine (Restasis) 0 ml EA EYE BID [facility] Last Admin: 04/23/18 08:50 Dose: 0.4 ml Diltiazem HCl (Cardizem Cd) 240 mg PO DAILY [facility] Last Admin: 04/23/18 09:14 Dose: 240 mg Escitalopram Oxalate (Lexapro) 10 mg PO BID [facility] Last Admin: 04/23/18 08:48 Dose: 10 mg Famotidine (Pepcid) 20 mg PO BID [facility] Last Admin: 04/23/18 08:48 Dose: 20 mg Ferrous Sulfate (Feosol) 325 mg PO QAM[facility] Last Admin: 04/23/18 08:48 Dose: 325 mg Fluticasone Propionate (Flonase Nasal [place]) 0 gm NASAL DAILY [facility] Last Admin: 04/23/18 08:47 Dose: 2 spr Folic Acid (Folvite) 1 mg PO TID [facility] Last Admin: 04/23/18 08:49 Dose: 1 mg Furosemide (Lasix) 40 mg PO DAILY[facility] Gabapentin (Neurontin) 300 mg PO TID [facility] Last Admin: 04/23/18 08:49 Dose: 300 mg Ceftriaxone Sodium 2 gm/ (Sodium Chloride) 100 mls @ 200 mls/hr IVPB Q24HR [facility] Last Admin: 04/22/18 12:35 Dose: 100 mls Iron/Minerals/Multivitamins (Theragran M) 1 tab PO DAILY [facility] Last Admin: 04/23/18 08:49 Dose: 1 tab Levetiracetam (Keppra Oral Solution) 750 mg PO BID [facility] Last Admin: 04/23/18 08:49 Dose: 750 mg Meclizine HCl (Antivert) 25 mg PO QID PRN PRN Reason: Dizziness Metoprolol Tartrate (Lopressor) 12.5 mg PO BID [facility] Last Admin: 04/23/18 09:13 Dose: 12.5 mg Ondansetron HCl (Zofran) 4 mg IVP Q6H PRN PRN Reason: Nausea/Vomiting Last Admin: 04/22/18 09:16 Dose: 4 mg Ondansetron HCl (Zofran Odt) 4 mg PO Q6H PRN PRN Reason: Nausea/Vomiting Pantoprazole Sodium (Protonix) 40 mg PO DAILY [facility] Last Admin: 04/23/18 08:49 Dose: 40 mg Saccharomyces Boulardii (Florastor) 250 mg PO DAILY [facility] Last Admin: 04/23/18 08:49 Dose: 250 mg Trazodone HCl (Desyrel) 50 mg PO PRN PRN PRN Reason: Insomnia Valacyclovir HCl (Valtrex) 500 mg PO DAILY [facility] Last Admin: 04/23/18 08:51 Dose: 500 mg
[2018-04-23] MEDS: cefTRIAXone\\ROCEPHIN 2 GM in Sodium Chloride 0.9% 100 ML IVPB SCH (12:24)
[2018-04-23] MEDS: HYDROcodone/Acetaminophen 5/325 mg Tablet PO PRN (19:59)
[2018-04-23] MEDS: levETIRAcetam 500 MG TAB PO SCH (20:16)
[2018-04-24] MEDS: HYDROcodone/Acetaminophen 5/325 mg Tablet PO PRN ×6 (00:22→21:46)
[2018-04-24] MEDS: Furosemide 40 MG TAB PO SCH (07:34)
[2018-04-24] MEDS: Ferrous Sulfate 325 MG TAB PO SCH (07:35)
[2018-04-24] MEDS: busPIRone HCl 5 MG TAB PO SCH ×4 (09:23→21:22)
[2018-04-24] MEDS: Cyanocobalamin (Vitamin B-12) 1,000 MCG TAB PO SCH (09:23)
[2018-04-24] MEDS: Metoprolol Tartrate 25 MG TAB PO SCH ×2 (09:24→21:22)
[2018-04-24] MEDS: Escitalopram Oxalate 10 mg Tablet PO SCH ×2 (09:25→21:22)
[2018-04-24] MEDS: Folic Acid 1 MG TAB PO SCH ×3 (09:29→21:22)
[2018-04-24] MEDS: levETIRAcetam 500 MG TAB PO SCH ×2 (09:29→21:21)
[2018-04-24] MEDS: Gabapentin 300 MG CAP PO SCH ×3 (09:29→21:22)
[2018-04-24] MEDS: Multivitamin W/ Minerals 1 TAB PO SCH (09:30)
[2018-04-24] MEDS: valACYclovir 500 MG TAB PO SCH (09:31)
[2018-04-24] MEDS: Saccharomyces boulardii 250 MG CAP PO SCH (09:31)
[2018-04-24] MEDS: Fluticasone Propionate Nasal Spray 16 gm Bottle NASAL SCH (09:34)
[2018-04-24] MEDS: Famotidine 20 MG TAB PO SCH ×2 (09:34→21:23)
[2018-04-24] MEDS: cycloSPORINE 0.05% Ophthalmic Droperette EA EYE SCH ×2 (09:35→21:24)
[2018-04-24] MEDS ORDERED: hydrALAZINE 20 MG/ML VIAL SLOW IVP PRN (10:55)
--- NOTE | 2018-04-24 10:58 | PDOC.PN ---
- Subjective Encounter Start Date: 04/24/18 Encounter Start Time: 07:40 Patient seen and examined. No new complaints. No overnight events - Objective Resuscitation Status - Order Detail: 04/20/18 22:23 Resuscitation Status Routine Co-Sign Provider: Resuscitation Status: FULL: Full Resuscitation Additional comments: Patient's nurse, Porfirio, called to say patient changed her mind about DNAR status. MAR Reviewed: Yes Vital Signs & Weight: Vital Signs (12 hours) Temp Pulse Resp BP BP Pulse Ox 04/24/18 10:14 153/66 H 04/24/18 09:24 62 203/93 H 04/24/18 08:00 97.7 F 62 18 203/93 H 94 L 04/24/18 04:12 98 04/24/18 03:31 97.3 F L 56 L 16 151/57 H 98 04/24/18 00:00 97.7 F 59 L 16 149/65 H 99 Weight Admit Weight 112 lb Weight 114 lb 3 oz I&O: 04/23/18 04/24/18 04/25/18 06:59 06:59 06:59 Intake Total 3480 840 Output Total 4721 Balance -1241 840 Result Diagrams: 04/23/18 04:35 04/23/18 04:35 Phys Exam - Physical Examination Constitutional: NAD HEENT: PERRLA, moist MMs, sclera anicteric Neck: no JVD, supple Respiratory: no wheezing, no rales, no rhonchi Cardiovascular: RRR, no significant murmur, no rub Gastrointestinal: soft, non-tender, no distention, positive bowel sounds Musculoskeletal: no edema, pulses present left leg with brace Neurological: non-focal, normal sensation Lymphatic: no nodes Psychiatric: normal affect Skin: no rash, normal turgor Dx/Plan (1) Acute metabolic encephalopathy Code(s): G93.41 - METABOLIC ENCEPHALOPATHY Status: Resolved (2) Acute renal failure Status: Resolved Comment: (3) Acute urinary retention Code(s): R33.8 - OTHER RETENTION OF URINE Status: Resolved (4) Hypokalemia Code(s): E87.6 - HYPOKALEMIA Status: Acute (5) Sepsis with acute organ dysfunction Code(s): A41.9 - SEPSIS, UNSPECIFIED ORGANISM; R65.20 - SEVERE SEPSIS WITHOUT SEPTIC SHOCK Status: Acute (6) UTI (urinary tract infection) Status: Acute Comment: (7) Anxiety and depression Code(s): F41.8 - OTHER SPECIFIED ANXIETY DISORDERS Status: Chronic Comment: (8) Atrial fibrillation and flutter Code(s): I48.91 - UNSPECIFIED ATRIAL FIBRILLATION; I48.92 - UNSPECIFIED ATRIAL FLUTTER Status: Chronic (9) Chronic pain disorder Code(s): G89.4 - CHRONIC PAIN SYNDROME Status: Chronic Comment: (10) Fibromyalgia Status: Chronic (11) GERD (gastroesophageal reflux disease) Code(s): K21.9 - GASTRO-ESOPHAGEAL REFLUX DISEASE WITHOUT ESOPHAGITIS Status: Chronic (12) Immunocompromised Code(s): D84.9 - IMMUNODEFICIENCY, UNSPECIFIED Status: Chronic Comment: (13) Osteoarthritis Code(s): M19.90 - UNSPECIFIED OSTEOARTHRITIS, UNSPECIFIED SITE Status: Chronic (14) Osteoporosis Code(s): M81.0 - AGE-RELATED OSTEOPOROSIS W/O CURRENT PATHOLOGICAL FRACTURE Status: Chronic (15) Protein-calorie malnutrition, moderate Code(s): E44.0 - MODERATE PROTEIN-CALORIE MALNUTRITION Status: Chronic (16) Rheumatoid arthritis Code(s): M06.9 - RHEUMATOID ARTHRITIS, UNSPECIFIED Status: Chronic (17) SLE (systemic lupus erythematosus) Code(s): M32.9 - SYSTEMIC LUPUS ERYTHEMATOSUS, UNSPECIFIED Status: Chronic Qualifiers: (18) Seizure disorder Code(s): G40.909 - EPILEPSY, UNSP, NOT INTRACTABLE, WITHOUT STATUS EPILEPTICUS Status: Chronic - Plan cont current plan of care, plan discussed w/ family, continue antibiotics, PT/OT , medical social worker * today family to decide about SNU vs home with home health, based on my discussion they incline towards snu placement * medication reviewed as below * symptomatic treatment * correctional counselor/case manager notified * medically stable otherwise. Review of Systems - Review of Systems ENT: negative: Ear Pain, Ear Discharge, Nose Pain, Nose Discharge, Nose Congestion, Mouth Pain, Mouth Swelling, Throat Pain, Throat Swelling, Other Respiratory: negative: Cough, Dry, Shortness of Breath, Hemoptysis, SOB with Excertion, Pleuritic Pain, Sputum, Wheezing Cardiovascular: negative: chest pain, palpitations, orthopnea, paroxysmal nocturnal dyspnea, edema, light headedness, other Gastrointestinal: negative: Nausea, Vomiting, Abdominal Pain, Diarrhea, Constipation, Melena, Hematochezia, Other Genitourinary: negative: Dysuria, Frequency, Incontinence, Hematuria, Retention , Other Musculoskeletal: negative: Neck Pain, Shoulder Pain, Arm Pain, Back Pain, Hand Pain, Leg Pain, Foot Pain, Other - Medications/Allergies Allergies/Adverse Reactions: Allergies Allergy/AdvReac Type Severity Reaction Status Date / Time pregabalin [From Lyrica] Allergy Intermediate Verified 02/05/18 01:37 hydroxychloroquine Allergy Verified 02/05/18 01:37 [Hydroxychloroquine] hydroxychloroquine sulfate Allergy Verified 02/05/18 01:37 [From Plaquenil] Medications: Current Medications Acetaminophen (Tylenol) 650 mg PO Q4H PRN PRN Reason: Headache/Fever/Mild Pain (1-3) Hydrocodone Bitart/Acetaminophen ([place] 5/325) 1 tab PO Q4H PRN PRN Reason: Mild-Moderate Pain (1-5) Last Admin: 04/24/18 09:33 Dose: 1 tab Bisacodyl (Dulcolax) 10 mg PO DAILYPRN PRN PRN Reason: Constipation Buspirone HCl (Buspar) 15 mg PO QID [facility] Last Admin: 04/24/18 09:23 Dose: 15 mg Cyanocobalamin (Vitamin B-12) 1,000 mcg PO DAILY [facility] Last Admin: 04/24/18 09:23 Dose: 1,000 mcg Cyclosporine (Restasis) 0 ml EA EYE BID [facility] Last Admin: 04/24/18 09:35 Dose: 0.4 ml Diltiazem HCl (Cardizem Cd) 240 mg PO DAILY [facility] Last Admin: 04/24/18 09:24 Dose: 240 mg Escitalopram Oxalate (Lexapro) 10 mg PO BID [facility] Last Admin: 04/24/18 09:25 Dose: 10 mg Famotidine (Pepcid) 20 mg PO BID [facility] Last Admin: 04/24/18 09:34 Dose: 20 mg Ferrous Sulfate (Feosol) 325 mg PO QA-[facility] Last Admin: 04/24/18 07:35 Dose: 325 mg Fluticasone Propionate (Flonase Nasal [place]) 0 gm NASAL DAILY [facility] Last Admin: 04/24/18 09:34 Dose: 2 spr Folic Acid (Folvite) 1 mg PO TID [facility] Last Admin: 04/24/18 09:29 Dose: 1 mg Furosemide (Lasix) 40 mg PO DAILY-AC [facility] Last Admin: 04/24/18 07:34 Dose: 40 mg Gabapentin (Neurontin) 300 mg PO TID [facility] Last Admin: 04/24/18 09:29 Dose: 300 mg Hydralazine HCl (Apresoline) 10 mg SLOW IVP Q4H PRN PRN Reason: SBP GREATER THAN 160 Ceftriaxone Sodium 2 gm/ (Sodium Chloride) 100 mls @ 200 mls/hr IVPB Q24HR [facility] Last Admin: 04/23/18 12:24 Dose: 100 mls Iron/Minerals/Multivitamins (Theragran M) 1 tab PO DAILY [facility] Last Admin: 04/24/18 09:30 Dose: 1 tab Levetiracetam (Keppra) 750 mg PO BID [facility] Last Admin: 04/24/18 09:29 Dose: 750 mg Meclizine HCl (Antivert) 25 mg PO QID PRN PRN Reason: Dizziness Metoprolol Tartrate (Lopressor) 12.5 mg PO BID [facility] Last Admin: 04/24/18 09:24 Dose: 12.5 mg Ondansetron HCl (Zofran) 4 mg IVP Q6H PRN PRN Reason: Nausea/Vomiting Last Admin: 04/22/18 09:16 Dose: 4 mg Ondansetron HCl (Zofran Odt) 4 mg PO Q6H PRN PRN Reason: Nausea/Vomiting Pantoprazole Sodium (Protonix) 40 mg PO DAILY [facility] Last Admin: 04/24/18 09:29 Dose: 40 mg Saccharomyces Boulardii (Florastor) 250 mg PO DAILY [facility] Last Admin: 04/24/18 09:31 Dose: 250 mg Trazodone HCl (Desyrel) 50 mg PO PRN PRN PRN Reason: Insomnia Valacyclovir HCl (Valtrex) 500 mg PO DAILY [facility] Last Admin: 04/24/18 09:31 Dose: 500 mg
[2018-04-24] MEDS: cefTRIAXone\\ROCEPHIN 2 GM in Sodium Chloride 0.9% 100 ML IVPB SCH (11:07)
[2018-04-24 12:47] VITALS: BMI 20.2
--- NOTE | 2018-04-24 15:30 | PQF ---
KEVIN TEAGUE, LIBBY MAGAÑA MD [id number] [facility]251 [id number] CLINICAL DOCUMENTATION IMPROVEMENT CLARIFICATION FORM: ICD-10 Updated PLEASE DO AN ADDENDUM TO THE PROGRESS NOTE WITH ANY DOCUMENTATION UPDATES OR ADDITIONS AND CARRY THROUGH TO DC SUMMARY. THANK YOU. DATE: 04/24/2018 ATTN: DR. ROTHMAN Please exercise your independent, professional judgment in responding to the clarification form. Clinical indicators are provided on the bottom of this form for your review Please check appropriate box(s): [ ] Acute Respiratory Failure: [ ] with Hypoxia[ ] with Hypercapnia [ ] Acute On Chronic Respiratory Failure: [ ] with Hypoxia [ ] with Hypercapnia [ x ] Other diagnosis __no respi failure detected [ ] Unable to determine In addition, please specify: Present on Admission (POA): [ ] Yes [ x ] No [ ] Unable to determine For continuity of documentation, please document condition throughout progress notes and discharge summary. Thank You. CLINICAL INDICATORS - SIGNS / SYMPTOMS / LABS: 04/20-ER-RN: DESAT TO 88% ON 2L. MAINTAINING ABOVE 92% ON 3L. BREATH SOUNDS DIMINISHED TO BILATERAL LOWER LOBES. PER VS RECORD, WAS ABLE TO WEAN TO ROOM AIR WITH SATS >92. 04/20-ER: GOING IN AND OUT OF CONSCIOUSNESS SINCE THIS AM. NO MENTION OF HOME O2 USE ON NURSING ASSESSMENTS RISK FACTORS: Sepsis Cast on left lower extremity Multiple wounds on sacrum and buttocks Hx SLE, RA, Fibromyalgia Hx multiple lower extremity fractures TREATMENTS: Oxygen Monitoring of oxygenation status Respiratory treatments Antibiotics IV Thank you, Daria (This form is maintained as a part of the permanent medical record) 2014 [employer]. All Rights Reserved Daria Ward RN, CDIS [email or web address] [phone] [facility]
--- NOTE | 2018-04-24 15:47 | PQF ---
KEVIN TEAGUE SALIM NOORJIBHAI MD [id number] [facility]-251 [id number] CLINICAL DOCUMENTATION IMPROVEMENT CLARIFICATION FORM: ICD-10 Updated PLEASE DO AN ADDENDUM TO THE PROGRESS NOTE WITH ANY DOCUMENTATION UPDATES OR ADDITIONS AND CARRY THROUGH TO DC SUMMARY. THANK YOU. DATE: 04/24/2018 ATTN: DR. ROTHMAN Please exercise your independent, professional judgment in responding to the clarification form. Clinical indicators are provided on the bottom of this form for your review Please check appropriate box(s): [ x ] I (concur) with the Wound Care findings as stated below..... [ ] Pressure Ulcer; Sacrum. Treating likely deep tissue injury. AND [ ] Pressure Ulcer; Left Ischium, Stage III. --- OR --- [ ] No pressure ulcer diagnosis [ ] Other diagnosis [ ] Unable to determine IMPORTANT In addition, please specify: Present on Admission (POA): [ x ] Yes [ ] No [ ] Unable to determine For continuity of documentation, please document condition throughout progress notes and discharge summary. Thank You. CLINICAL INDICATORS - SIGNS / SYMPTOMS / LABS: 04/20-ER-RN: SKIN EXAM: PRESSURE ULCER TO THE SACRUM. MULTIPLE (3) UNSTAGEABLE WOUNDS ON SACRUM AND BUTTOCKS. 04/21--ASMT: 1. SACRUM PRESSURE ULCER-SUSPECTED DEEP TISSUE INJURY. DARK PURPLE AREA OVER SACRUM CONSISTENT WITH DTI WITH SUPERFICIAL LAYER 1X1X0.1cm TO CENTER OF SITE PEELING. 2. LEFT ISCHIUM-HELING STAGE III, FULL-THICKNESS. RISK FACTORS: LEFT LOWER EXTREMITY CAST PRESSURE ULCERS/WOUNDS HX OF SLE, RA, FIBROMYALGIA HX MANY LOWER EXTREMITY FRACTURES TREATMENTS: Wound care consult and daily therapy Specialty mattress (Stage I: Erythema; Stage II: Partial thickness; Stage III: Full thickness; Stage IV: Necrosis to muscle/bone) (Stage 1) Pre-ulcer skin changes limited to persistent focal edema (Stage 2) Abrasion, blister, partial thickness skin loss involving epidermis and/or dermis (Stage 3) Full thickness skin loss involving damage or necrosis of SQ tissue. (Stage 4) Necrosis of soft tissue through to underlying muscle, tendon, or bone. Purple or maroon discolored skin or blood filled blister Thank you, Daria (This form is maintained as a part of the permanent medical record) 2015 [employer] All Rights Reserved Daria Ward RN, CDIS [email or web address] [phone] [email or web address]
[2018-04-25] MEDS: HYDROcodone/Acetaminophen 5/325 mg Tablet PO PRN ×5 (06:42→23:00)
[2018-04-25] MEDS: levETIRAcetam 500 MG TAB PO SCH ×2 (08:40→21:23)
[2018-04-25] MEDS: Gabapentin 300 MG CAP PO SCH ×3 (08:42→21:22)
[2018-04-25] MEDS: Furosemide 40 MG TAB PO SCH (08:42)
[2018-04-25] MEDS: Cyanocobalamin (Vitamin B-12) 1,000 MCG TAB PO SCH (08:42)
[2018-04-25] MEDS: Folic Acid 1 MG TAB PO SCH ×3 (08:45→21:22)
[2018-04-25] MEDS: Saccharomyces boulardii 250 MG CAP PO SCH (08:45)
[2018-04-25] MEDS: Multivitamin W/ Minerals 1 TAB PO SCH (08:45)
[2018-04-25] MEDS: Ferrous Sulfate 325 MG TAB PO SCH (08:45)
[2018-04-25] MEDS: busPIRone HCl 5 MG TAB PO SCH ×4 (08:45→21:21)
[2018-04-25] MEDS: Metoprolol Tartrate 25 MG TAB PO SCH ×2 (08:46→21:23)
[2018-04-25] MEDS: valACYclovir 500 MG TAB PO SCH (08:46)
[2018-04-25] MEDS: Fluticasone Propionate Nasal Spray 16 gm Bottle NASAL SCH (08:47)
[2018-04-25] MEDS: Escitalopram Oxalate 10 mg Tablet PO SCH ×2 (08:47→21:22)
[2018-04-25] MEDS: cycloSPORINE 0.05% Ophthalmic Droperette EA EYE SCH ×2 (09:26→21:25)
[2018-04-25] MEDS: Famotidine 20 MG TAB PO SCH ×2 (09:26→21:22)
[2018-04-25] MEDS: cefTRIAXone\\ROCEPHIN 2 GM in Sodium Chloride 0.9% 100 ML IVPB SCH (10:43)
--- NOTE | 2018-04-25 11:54 | PDOC.PN ---
- Subjective Encounter Start Date: 04/25/18 Encounter Start Time: 07:20 Patient seen and examined. No new complaints. No overnight events - Objective Resuscitation Status - Order Detail: 04/20/18 22:23 Resuscitation Status Routine Co-Sign Provider: Resuscitation Status: FULL: Full Resuscitation Additional comments: Patient's nurse, Porfirio, called to say patient changed her mind about DNAR status. MAR Reviewed: Yes Vital Signs & Weight: Vital Signs (12 hours) Temp Pulse Resp BP BP Pulse Ox 04/25/18 08:42 62 167/74 H 04/25/18 08:00 97.4 F L 62 16 167/74 H 98 Weight Admit Weight 112 lb Weight 114 lb 3 oz I&O: 04/24/18 04/25/18 04/26/18 06:59 06:59 06:59 Intake Total 840 1330 480 Balance 840 1330 480 Result Diagrams: 04/23/18 04:35 04/23/18 04:35 Phys Exam - Physical Examination Constitutional: NAD HEENT: PERRLA, moist MMs, sclera anicteric Neck: no JVD, supple Respiratory: no wheezing, no rales, no rhonchi Cardiovascular: RRR, no significant murmur, no rub Gastrointestinal: soft, non-tender, no distention, positive bowel sounds Musculoskeletal: no edema, pulses present left leg with brace Neurological: non-focal, normal sensation Lymphatic: no nodes Psychiatric: normal affect, A&O x 3 Skin: no rash, normal turgor Dx/Plan (1) Acute metabolic encephalopathy Code(s): G93.41 - METABOLIC ENCEPHALOPATHY Status: Resolved (2) Acute renal failure Status: Resolved Comment: (3) Acute urinary retention Code(s): R33.8 - OTHER RETENTION OF URINE Status: Resolved (4) Hypokalemia Code(s): E87.6 - HYPOKALEMIA Status: Acute (5) Sepsis with acute organ dysfunction Code(s): A41.9 - SEPSIS, UNSPECIFIED ORGANISM; R65.20 - SEVERE SEPSIS WITHOUT SEPTIC SHOCK Status: Acute (6) UTI (urinary tract infection) Status: Acute Comment: (7) Anxiety and depression Code(s): F41.8 - OTHER SPECIFIED ANXIETY DISORDERS Status: Chronic Comment: (8) Atrial fibrillation and flutter Code(s): I48.91 - UNSPECIFIED ATRIAL FIBRILLATION; I48.92 - UNSPECIFIED ATRIAL FLUTTER Status: Chronic (9) Chronic pain disorder Code(s): G89.4 - CHRONIC PAIN SYNDROME Status: Chronic Comment: (10) Fibromyalgia Status: Chronic (11) GERD (gastroesophageal reflux disease) Code(s): K21.9 - GASTRO-ESOPHAGEAL REFLUX DISEASE WITHOUT ESOPHAGITIS Status: Chronic (12) Immunocompromised Code(s): D84.9 - IMMUNODEFICIENCY, UNSPECIFIED Status: Chronic Comment: (13) Osteoarthritis Code(s): M19.90 - UNSPECIFIED OSTEOARTHRITIS, UNSPECIFIED SITE Status: Chronic (14) Osteoporosis Code(s): M81.0 - AGE-RELATED OSTEOPOROSIS W/O CURRENT PATHOLOGICAL FRACTURE Status: Chronic (15) Protein-calorie malnutrition, moderate Code(s): E44.0 - MODERATE PROTEIN-CALORIE MALNUTRITION Status: Chronic (16) Rheumatoid arthritis Code(s): M06.9 - RHEUMATOID ARTHRITIS, UNSPECIFIED Status: Chronic (17) SLE (systemic lupus erythematosus) Code(s): M32.9 - SYSTEMIC LUPUS ERYTHEMATOSUS, UNSPECIFIED Status: Chronic Qualifiers: (18) Seizure disorder Code(s): G40.909 - EPILEPSY, UNSP, NOT INTRACTABLE, WITHOUT STATUS EPILEPTICUS Status: Chronic - Plan cont current plan of care, continue antibiotics, PT/OT, social worker * continue rocephin * await rehab decision and placement * medication reviewed as below * symptomatic treatment. Review of Systems - Review of Systems ENT: negative: Ear Pain, Ear Discharge, Nose Pain, Nose Discharge, Nose Congestion, Mouth Pain, Mouth Swelling, Throat Pain, Throat Swelling, Other Respiratory: negative: Cough, Dry, Shortness of Breath, Hemoptysis, SOB with Excertion, Pleuritic Pain, Sputum, Wheezing Cardiovascular: negative: chest pain, palpitations, orthopnea, paroxysmal nocturnal dyspnea, edema, light headedness, other Gastrointestinal: negative: Nausea, Vomiting, Abdominal Pain, Diarrhea, Constipation, Melena, Hematochezia, Other Genitourinary: negative: Dysuria, Frequency, Incontinence, Hematuria, Retention , Other Musculoskeletal: negative: Neck Pain, Shoulder Pain, Arm Pain, Back Pain, Hand Pain, Leg Pain, Foot Pain, Other - Medications/Allergies Allergies/Adverse Reactions: Allergies Allergy/AdvReac Type Severity Reaction Status Date / Time pregabalin [From Lyrica] Allergy Intermediate Verified 02/05/18 01:37 hydroxychloroquine Allergy Verified 02/05/18 01:37 [Hydroxychloroquine] hydroxychloroquine sulfate Allergy Verified 02/05/18 01:37 [From Plaquenil] Medications: Current Medications Acetaminophen (Tylenol) 650 mg PO Q4H PRN PRN Reason: Headache/Fever/Mild Pain (1-3) Hydrocodone Bitart/Acetaminophen ([place] 5/325) 1 tab PO Q4H PRN PRN Reason: Mild-Moderate Pain (1-5) Last Admin: 04/25/18 10:43 Dose: 1 tab Bisacodyl (Dulcolax) 10 mg PO DAILYPRN PRN PRN Reason: Constipation Buspirone HCl (Buspar) 15 mg PO QID [facility] Last Admin: 04/25/18 08:45 Dose: 15 mg Cyanocobalamin (Vitamin B-12) 1,000 mcg PO DAILY [facility] Last Admin: 04/25/18 08:42 Dose: 1,000 mcg Cyclosporine (Restasis) 0 ml EA EYE BID [facility] Last Admin: 04/25/18 09:26 Dose: 0.4 ml Diltiazem HCl (Cardizem Cd) 240 mg PO DAILY [facility] Last Admin: 04/25/18 08:42 Dose: 240 mg Escitalopram Oxalate (Lexapro) 10 mg PO BID [facility] Last Admin: 04/25/18 08:47 Dose: 10 mg Famotidine (Pepcid) 20 mg PO BID [facility] Last Admin: 04/25/18 09:26 Dose: 20 mg Ferrous Sulfate (Feosol) 325 mg PO QAM-WM [facility] Last Admin: 04/25/18 08:45 Dose: 325 mg Fluticasone Propionate (Flonase Nasal [place]) 0 gm NASAL DAILY [facility] Last Admin: 04/25/18 08:47 Dose: 2 spr Folic Acid (Folvite) 1 mg PO TID [facility] Last Admin: 04/25/18 08:45 Dose: 1 mg Furosemide (Lasix) 40 mg PO DAILY-AC [facility] Last Admin: 04/25/18 08:42 Dose: 40 mg Gabapentin (Neurontin) 300 mg PO TID [facility] Last Admin: 04/25/18 08:42 Dose: 300 mg Hydralazine HCl (Apresoline) 10 mg SLOW IVP Q4H PRN PRN Reason: SBP GREATER THAN 160 Ceftriaxone Sodium 2 gm/ (Sodium Chloride) 100 mls @ 200 mls/hr IVPB Q24HR [facility] Last Admin: 04/25/18 10:43 Dose: 100 mls Iron/Minerals/Multivitamins (Theragran M) 1 tab PO DAILY [facility] Last Admin: 04/25/18 08:45 Dose: 1 tab Levetiracetam (Keppra) 750 mg PO BID [facility] Last Admin: 04/25/18 08:40 Dose: 750 mg Meclizine HCl (Antivert) 25 mg PO QID PRN PRN Reason: Dizziness Metoprolol Tartrate (Lopressor) 12.5 mg PO BID [facility] Last Admin: 04/25/18 08:46 Dose: 12.5 mg Ondansetron HCl (Zofran) 4 mg IVP Q6H PRN PRN Reason: Nausea/Vomiting Last Admin: 04/22/18 09:16 Dose: 4 mg Ondansetron HCl (Zofran Odt) 4 mg PO Q6H PRN PRN Reason: Nausea/Vomiting Pantoprazole Sodium (Protonix) 40 mg PO DAILY [facility] Last Admin: 04/25/18 08:46 Dose: 40 mg Saccharomyces Boulardii (Florastor) 250 mg PO DAILY [facility] Last Admin: 04/25/18 08:45 Dose: 250 mg Trazodone HCl (Desyrel) 50 mg PO PRN PRN PRN Reason: Insomnia Valacyclovir HCl (Valtrex) 500 mg PO DAILY [facility] Last Admin: 04/25/18 08:46 Dose: 500 mg
[2018-04-25] MEDS: traZODone HCl 50 MG TAB PO PRN (23:00)
[2018-04-26] MEDS: HYDROcodone/Acetaminophen 5/325 mg Tablet PO PRN ×5 (02:57→23:18)
[2018-04-26] MEDS: busPIRone HCl 5 MG TAB PO SCH ×4 (10:12→20:28)
[2018-04-26] MEDS: Ferrous Sulfate 325 MG TAB PO SCH (10:12)
[2018-04-26] MEDS: Multivitamin W/ Minerals 1 TAB PO SCH (10:12)
[2018-04-26] MEDS: valACYclovir 500 MG TAB PO SCH (10:13)
[2018-04-26] MEDS: Saccharomyces boulardii 250 MG CAP PO SCH (10:13)
[2018-04-26] MEDS: Cyanocobalamin (Vitamin B-12) 1,000 MCG TAB PO SCH (10:13)
[2018-04-26] MEDS: Furosemide 40 MG TAB PO SCH (10:13)
[2018-04-26] MEDS: levETIRAcetam 500 MG TAB PO SCH ×2 (10:13→20:30)
[2018-04-26] MEDS: Famotidine 20 MG TAB PO SCH ×2 (10:14→20:29)
[2018-04-26] MEDS: Metoprolol Tartrate 25 MG TAB PO SCH ×2 (10:14→20:31)
[2018-04-26] MEDS: Escitalopram Oxalate 10 mg Tablet PO SCH ×2 (10:14→20:29)
[2018-04-26] MEDS: Gabapentin 300 MG CAP PO SCH ×3 (10:14→20:30)
[2018-04-26] MEDS: Folic Acid 1 MG TAB PO SCH ×3 (10:14→20:29)
[2018-04-26] MEDS: Fluticasone Propionate Nasal Spray 16 gm Bottle NASAL SCH (10:19)
[2018-04-26] MEDS: cefTRIAXone\\ROCEPHIN 2 GM in Sodium Chloride 0.9% 100 ML IVPB SCH (10:19)
--- NOTE | 2018-04-26 10:47 | PDOC.PN ---
- Subjective Encounter Start Date: 04/26/18 Encounter Start Time: 07:40 Patient seen and examined. No new complaints. No overnight events - Objective Resuscitation Status - Order Detail: 04/20/18 22:23 Resuscitation Status Routine Co-Sign Provider: Resuscitation Status: FULL: Full Resuscitation Additional comments: Patient's nurse, Porfirio, called to say patient changed her mind about DNAR status. MAR Reviewed: Yes Vital Signs & Weight: Vital Signs (12 hours) Temp Pulse Resp BP Pulse Ox 04/26/18 10:12 72 04/26/18 08:00 98.7 F 72 18 159/82 H 97 04/25/18 23:14 98 Weight Admit Weight 112 lb Weight 114 lb 3 oz I&O: 04/25/18 04/26/18 04/27/18 06:59 06:59 06:59 Intake Total 1330 2560 Output Total 1 Balance 1330 2559 Result Diagrams: 04/23/18 04:35 04/23/18 04:35 Phys Exam - Physical Examination Constitutional: NAD HEENT: PERRLA, moist MMs, sclera anicteric Neck: no JVD, supple Respiratory: no wheezing, no rales, no rhonchi Cardiovascular: RRR, no significant murmur, no rub Gastrointestinal: soft, non-tender, no distention, positive bowel sounds Musculoskeletal: no edema, pulses present Neurological: non-focal, normal sensation Lymphatic: no nodes Psychiatric: normal affect, A&O x 3 Skin: no rash, normal turgor Dx/Plan (1) Acute metabolic encephalopathy Code(s): G93.41 - METABOLIC ENCEPHALOPATHY Status: Resolved (2) Acute renal failure Status: Resolved Comment: (3) Acute urinary retention Code(s): R33.8 - OTHER RETENTION OF URINE Status: Resolved (4) Hypokalemia Code(s): E87.6 - HYPOKALEMIA Status: Acute (5) Sepsis with acute organ dysfunction Code(s): A41.9 - SEPSIS, UNSPECIFIED ORGANISM; R65.20 - SEVERE SEPSIS WITHOUT SEPTIC SHOCK Status: Acute (6) UTI (urinary tract infection) Status: Acute Comment: (7) Anxiety and depression Code(s): F41.8 - OTHER SPECIFIED ANXIETY DISORDERS Status: Chronic Comment: (8) Atrial fibrillation and flutter Code(s): I48.91 - UNSPECIFIED ATRIAL FIBRILLATION; I48.92 - UNSPECIFIED ATRIAL FLUTTER Status: Chronic (9) Chronic pain disorder Code(s): G89.4 - CHRONIC PAIN SYNDROME Status: Chronic Comment: (10) Fibromyalgia Status: Chronic (11) GERD (gastroesophageal reflux disease) Code(s): K21.9 - GASTRO-ESOPHAGEAL REFLUX DISEASE WITHOUT ESOPHAGITIS Status: Chronic (12) Immunocompromised Code(s): D84.9 - IMMUNODEFICIENCY, UNSPECIFIED Status: Chronic Comment: (13) Osteoarthritis Code(s): M19.90 - UNSPECIFIED OSTEOARTHRITIS, UNSPECIFIED SITE Status: Chronic (14) Osteoporosis Code(s): M81.0 - AGE-RELATED OSTEOPOROSIS W/O CURRENT PATHOLOGICAL FRACTURE Status: Chronic (15) Protein-calorie malnutrition, moderate Code(s): E44.0 - MODERATE PROTEIN-CALORIE MALNUTRITION Status: Chronic (16) Rheumatoid arthritis Code(s): M06.9 - RHEUMATOID ARTHRITIS, UNSPECIFIED Status: Chronic (17) SLE (systemic lupus erythematosus) Code(s): M32.9 - SYSTEMIC LUPUS ERYTHEMATOSUS, UNSPECIFIED Status: Chronic Qualifiers: (18) Seizure disorder Code(s): G40.909 - EPILEPSY, UNSP, NOT INTRACTABLE, WITHOUT STATUS EPILEPTICUS Status: Chronic - Plan cont current plan of care, PT/OT * medication reviewed as below * symptomatic treatment * change rocephin to po cipro * await rehab placement. Review of Systems - Review of Systems ENT: negative: Ear Pain, Ear Discharge, Nose Pain, Nose Discharge, Nose Congestion, Mouth Pain, Mouth Swelling, Throat Pain, Throat Swelling, Other Respiratory: negative: Cough, Dry, Shortness of Breath, Hemoptysis, SOB with Excertion, Pleuritic Pain, Sputum, Wheezing Cardiovascular: negative: chest pain, palpitations, orthopnea, paroxysmal nocturnal dyspnea, edema, light headedness, other Gastrointestinal: negative: Nausea, Vomiting, Abdominal Pain, Diarrhea, Constipation, Melena, Hematochezia, Other Genitourinary: negative: Dysuria, Frequency, Incontinence, Hematuria, Retention , Other Musculoskeletal: negative: Neck Pain, Shoulder Pain, Arm Pain, Back Pain, Hand Pain, Leg Pain, Foot Pain, Other - Medications/Allergies Allergies/Adverse Reactions: Allergies Allergy/AdvReac Type Severity Reaction Status Date / Time pregabalin [From Lyrica] Allergy Intermediate Verified 02/05/18 01:37 hydroxychloroquine Allergy Verified 02/05/18 01:37 [Hydroxychloroquine] hydroxychloroquine sulfate Allergy Verified 02/05/18 01:37 [From Plaquenil] Medications: Current Medications Acetaminophen (Tylenol) 650 mg PO Q4H PRN PRN Reason: Headache/Fever/Mild Pain (1-3) Hydrocodone Bitart/Acetaminophen ([place] 5/325) 1 tab PO Q4H PRN PRN Reason: Mild-Moderate Pain (1-5) Last Admin: 04/26/18 10:22 Dose: 1 tab Bisacodyl (Dulcolax) 10 mg PO DAILYPRN PRN PRN Reason: Constipation Buspirone HCl (Buspar) 15 mg PO QID [facility] Last Admin: 04/26/18 10:12 Dose: 15 mg Ciprofloxacin (Cipro) 500 mg PO BID@0600,2000 [facility] Cyanocobalamin (Vitamin B-12) 1,000 mcg PO DAILY [facility] Last Admin: 04/26/18 10:13 Dose: 1,000 mcg Cyclosporine (Restasis) 0 ml EA EYE BID [facility] Last Admin: 04/25/18 21:25 Dose: 0.4 ml Diltiazem HCl (Cardizem Cd) 240 mg PO DAILY [facility] Last Admin: 04/26/18 10:12 Dose: 240 mg Escitalopram Oxalate (Lexapro) 10 mg PO BID [facility] Last Admin: 04/26/18 10:14 Dose: 10 mg Famotidine (Pepcid) 20 mg PO BID [facility] Last Admin: 04/26/18 10:14 Dose: 20 mg Ferrous Sulfate (Feosol) 325 mg PO QAM-WM [facility] Last Admin: 04/26/18 10:12 Dose: 325 mg Fluticasone Propionate (Flonase Nasal [place]) 0 gm NASAL DAILY [facility] Last Admin: 04/26/18 10:19 Dose: 2 spr Folic Acid (Folvite) 1 mg PO TID [facility] Last Admin: 04/26/18 10:14 Dose: 1 mg Furosemide (Lasix) 40 mg PO DAILY-AC [facility] Last Admin: 04/26/18 10:13 Dose: 40 mg Gabapentin (Neurontin) 300 mg PO TID [facility] Last Admin: 04/26/18 10:14 Dose: 300 mg Hydralazine HCl (Apresoline) 10 mg SLOW IVP Q4H PRN PRN Reason: SBP GREATER THAN 160 Iron/Minerals/Multivitamins (Theragran M) 1 tab PO DAILY [facility] Last Admin: 04/26/18 10:12 Dose: 1 tab Levetiracetam (Keppra) 750 mg PO BID [facility] Last Admin: 04/26/18 10:13 Dose: 750 mg Meclizine HCl (Antivert) 25 mg PO QID PRN PRN Reason: Dizziness Metoprolol Tartrate (Lopressor) 12.5 mg PO BID [facility] Last Admin: 04/26/18 10:14 Dose: 12.5 mg Ondansetron HCl (Zofran) 4 mg IVP Q6H PRN PRN Reason: Nausea/Vomiting Last Admin: 04/22/18 09:16 Dose: 4 mg Ondansetron HCl (Zofran Odt) 4 mg PO Q6H PRN PRN Reason: Nausea/Vomiting Pantoprazole Sodium (Protonix) 40 mg PO DAILY [facility] Last Admin: 04/26/18 10:14 Dose: 40 mg Saccharomyces Boulardii (Florastor) 250 mg PO DAILY [facility] Last Admin: 04/26/18 10:13 Dose: 250 mg Trazodone HCl (Desyrel) 50 mg PO PRN PRN PRN Reason: Insomnia Last Admin: 04/25/18 23:00 Dose: 50 mg Valacyclovir HCl (Valtrex) 500 mg PO DAILY [facility] Last Admin: 04/26/18 10:13 Dose: 500 mg
[2018-04-26] MEDS: cycloSPORINE 0.05% Ophthalmic Droperette EA EYE SCH ×2 (12:42→20:33)
[2018-04-26] MEDS: Ciprofloxacin 500 MG TAB PO SCH (19:36)
[2018-04-26] MEDS: traZODone HCl 50 MG TAB PO PRN (23:18)
[2018-04-27] MEDS: Ciprofloxacin 500 MG TAB PO SCH ×2 (05:55→20:04)
[2018-04-27] MEDS: HYDROcodone/Acetaminophen 5/325 mg Tablet PO PRN ×4 (05:55→20:04)
[2018-04-27] MEDS: levETIRAcetam 500 MG TAB PO SCH ×2 (08:32→20:03)
[2018-04-27] MEDS: Cyanocobalamin (Vitamin B-12) 1,000 MCG TAB PO SCH (08:32)
[2018-04-27] MEDS: Escitalopram Oxalate 10 mg Tablet PO SCH ×2 (08:32→20:03)
[2018-04-27] MEDS: valACYclovir 500 MG TAB PO SCH (08:33)
[2018-04-27] MEDS: Saccharomyces boulardii 250 MG CAP PO SCH (08:33)
[2018-04-27] MEDS: Metoprolol Tartrate 25 MG TAB PO SCH ×2 (08:34→20:05)
[2018-04-27] MEDS: Ferrous Sulfate 325 MG TAB PO SCH (08:34)
[2018-04-27] MEDS: Gabapentin 300 MG CAP PO SCH ×3 (08:34→20:04)
[2018-04-27] MEDS: Multivitamin W/ Minerals 1 TAB PO SCH (08:34)
[2018-04-27] MEDS: Folic Acid 1 MG TAB PO SCH ×3 (08:36→20:04)
[2018-04-27] MEDS: busPIRone HCl 5 MG TAB PO SCH ×4 (08:36→20:03)
[2018-04-27] MEDS: Famotidine 20 MG TAB PO SCH ×2 (08:36→20:03)
[2018-04-27] MEDS: Furosemide 40 MG TAB PO SCH (08:37)
[2018-04-27] MEDS: Fluticasone Propionate Nasal Spray 16 gm Bottle NASAL SCH (08:38)
--- NOTE | 2018-04-27 09:45 | PDOC.PN ---
- Subjective Encounter Start Date: 04/27/18 Encounter Start Time: 07:40 Patient seen and examined. No new complaints. No overnight events - Objective Resuscitation Status - Order Detail: 04/20/18 22:23 Resuscitation Status Routine Co-Sign Provider: Resuscitation Status: FULL: Full Resuscitation Additional comments: Patient's nurse, Porfirio, called to say patient changed her mind about DNAR status. MAR Reviewed: Yes Vital Signs & Weight: Vital Signs (12 hours) Pulse Resp BP 04/27/18 08:32 57 L 04/26/18 23:40 57 L 16 134/63 Weight Admit Weight 112 lb Weight 114 lb 3 oz I&O: 04/26/18 04/27/18 04/28/18 06:59 06:59 06:59 Intake Total 2560 1500 Output Total 1 Balance 2559 1500 Result Diagrams: 04/23/18 04:35 04/23/18 04:35 Phys Exam - Physical Examination Constitutional: NAD HEENT: PERRLA, moist MMs, sclera anicteric Neck: no JVD, supple Respiratory: no wheezing, no rales, no rhonchi Cardiovascular: RRR, no significant murmur, no rub Gastrointestinal: soft, non-tender, no distention, positive bowel sounds Musculoskeletal: no edema, pulses present Neurological: non-focal Lymphatic: no nodes Psychiatric: normal affect Skin: no rash, normal turgor Dx/Plan (1) Acute metabolic encephalopathy Code(s): G93.41 - METABOLIC ENCEPHALOPATHY Status: Resolved (2) Acute renal failure Status: Resolved Comment: (3) Acute urinary retention Code(s): R33.8 - OTHER RETENTION OF URINE Status: Resolved (4) Hypokalemia Code(s): E87.6 - HYPOKALEMIA Status: Acute (5) Sepsis with acute organ dysfunction Code(s): A41.9 - SEPSIS, UNSPECIFIED ORGANISM; R65.20 - SEVERE SEPSIS WITHOUT SEPTIC SHOCK Status: Acute (6) UTI (urinary tract infection) Status: Acute Comment: (7) Anxiety and depression Code(s): F41.8 - OTHER SPECIFIED ANXIETY DISORDERS Status: Chronic Comment: (8) Atrial fibrillation and flutter Code(s): I48.91 - UNSPECIFIED ATRIAL FIBRILLATION; I48.92 - UNSPECIFIED ATRIAL FLUTTER Status: Chronic (9) Chronic pain disorder Code(s): G89.4 - CHRONIC PAIN SYNDROME Status: Chronic Comment: (10) Fibromyalgia Status: Chronic (11) GERD (gastroesophageal reflux disease) Code(s): K21.9 - GASTRO-ESOPHAGEAL REFLUX DISEASE WITHOUT ESOPHAGITIS Status: Chronic (12) Immunocompromised Code(s): D84.9 - IMMUNODEFICIENCY, UNSPECIFIED Status: Chronic Comment: (13) Osteoarthritis Code(s): M19.90 - UNSPECIFIED OSTEOARTHRITIS, UNSPECIFIED SITE Status: Chronic (14) Osteoporosis Code(s): M81.0 - AGE-RELATED OSTEOPOROSIS W/O CURRENT PATHOLOGICAL FRACTURE Status: Chronic (15) Protein-calorie malnutrition, moderate Code(s): E44.0 - MODERATE PROTEIN-CALORIE MALNUTRITION Status: Chronic (16) Rheumatoid arthritis Code(s): M06.9 - RHEUMATOID ARTHRITIS, UNSPECIFIED Status: Chronic (17) SLE (systemic lupus erythematosus) Code(s): M32.9 - SYSTEMIC LUPUS ERYTHEMATOSUS, UNSPECIFIED Status: Chronic Qualifiers: (18) Seizure disorder Code(s): G40.909 - EPILEPSY, UNSP, NOT INTRACTABLE, WITHOUT STATUS EPILEPTICUS Status: Chronic - Plan cont current plan of care, continue antibiotics, 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 Review of Systems - Review of Systems ENT: negative: Ear Pain, Ear Discharge, Nose Pain, Nose Discharge, Nose Congestion, Mouth Pain, Mouth Swelling, Throat Pain, Throat Swelling, Other Respiratory: negative: Cough, Dry, Shortness of Breath, Hemoptysis, SOB with Excertion, Pleuritic Pain, Sputum, Wheezing Cardiovascular: negative: chest pain, palpitations, orthopnea, paroxysmal nocturnal dyspnea, edema, light headedness, other Gastrointestinal: negative: Nausea, Vomiting, Abdominal Pain, Diarrhea, Constipation, Melena, Hematochezia, Other Genitourinary: negative: Dysuria, Frequency, Incontinence, Hematuria, Retention , Other Musculoskeletal: negative: Neck Pain, Shoulder Pain, Arm Pain, Back Pain, Hand Pain, Leg Pain, Foot Pain, Other - Medications/Allergies Allergies/Adverse Reactions: Allergies Allergy/AdvReac Type Severity Reaction Status Date / Time pregabalin [From Lyrica] Allergy Intermediate Verified 02/05/18 01:37 hydroxychloroquine Allergy Verified 02/05/18 01:37 [Hydroxychloroquine] hydroxychloroquine sulfate Allergy Verified 02/05/18 01:37 [From Plaquenil] Medications: Current Medications Acetaminophen (Tylenol) 650 mg PO Q4H PRN PRN Reason: Headache/Fever/Mild Pain (1-3) Hydrocodone Bitart/Acetaminophen ([place] 5/325) 1 tab PO Q4H PRN PRN Reason: Mild-Moderate Pain (1-5) Last Admin: 04/27/18 05:55 Dose: 1 tab Bisacodyl (Dulcolax) 10 mg PO DAILYPRN PRN PRN Reason: Constipation Buspirone HCl (Buspar) 15 mg PO QID [facility] Last Admin: 04/27/18 08:36 Dose: 15 mg Ciprofloxacin (Cipro) 500 mg PO 599,1999 [facility] Last Admin: 04/27/18 05:55 Dose: 500 mg Cyanocobalamin (Vitamin B-12) 1,000 mcg PO DAILY [facility] Last Admin: 04/27/18 08:32 Dose: 1,000 mcg Cyclosporine (Restasis) 0 ml EA EYE BID [facility] Last Admin: 04/26/18 20:33 Dose: 0.4 ml Diltiazem HCl (Cardizem Cd) 240 mg PO DAILY [facility] Last Admin: 04/27/18 08:32 Dose: 240 mg Escitalopram Oxalate (Lexapro) 10 mg PO BID [facility] Last Admin: 04/27/18 08:32 Dose: 10 mg Famotidine (Pepcid) 20 mg PO BID [facility] Last Admin: 04/27/18 08:36 Dose: 20 mg Ferrous Sulfate (Feosol) 325 mg PO QAM-WM [facility] Last Admin: 04/27/18 08:34 Dose: 325 mg Fluticasone Propionate (Flonase Nasal [place]) 0 gm NASAL DAILY [facility] Last Admin: 04/27/18 08:38 Dose: 1 spr Folic Acid (Folvite) 1 mg PO TID [facility] Last Admin: 04/27/18 08:36 Dose: 1 mg Furosemide (Lasix) 40 mg PO DAILY-AC [facility] Last Admin: 04/27/18 08:37 Dose: 40 mg Gabapentin (Neurontin) 300 mg PO TID [facility] Last Admin: 04/27/18 08:34 Dose: 300 mg Hydralazine HCl (Apresoline) 10 mg SLOW IVP Q4H PRN PRN Reason: SBP GREATER THAN 160 Iron/Minerals/Multivitamins (Theragran M) 1 tab PO DAILY [facility] Last Admin: 04/27/18 08:34 Dose: 1 tab Levetiracetam (Keppra) 750 mg PO BID [facility] Last Admin: 04/27/18 08:32 Dose: 750 mg Meclizine HCl (Antivert) 25 mg PO QID PRN PRN Reason: Dizziness Metoprolol Tartrate (Lopressor) 12.5 mg PO BID [facility] Last Admin: 04/27/18 08:34 Dose: 12.5 mg Ondansetron HCl (Zofran) 4 mg IVP Q6H PRN PRN Reason: Nausea/Vomiting Last Admin: 04/22/18 09:16 Dose: 4 mg Ondansetron HCl (Zofran Odt) 4 mg PO Q6H PRN PRN Reason: Nausea/Vomiting Pantoprazole Sodium (Protonix) 40 mg PO DAILY [facility] Last Admin: 04/27/18 08:36 Dose: 40 mg Saccharomyces Boulardii (Florastor) 250 mg PO DAILY [facility] Last Admin: 04/27/18 08:33 Dose: 250 mg Sodium Chloride (Flush - Normal Saline) 10 ml IVF Q12HR [facility] Last Admin: 04/27/18 08:40 Dose: 10 ml Sodium Chloride (Flush - Normal Saline) 10 ml IVF PRN PRN PRN Reason: Saline Flush Trazodone HCl (Desyrel) 50 mg PO PRN PRN PRN Reason: Insomnia Last Admin: 04/26/18 23:18 Dose: 50 mg Valacyclovir HCl (Valtrex) 500 mg PO DAILY [facility] Last Admin: 04/27/18 08:33 Dose: 500 mg
[2018-04-27] MEDS ORDERED: Sodium Chloride 0.9% 500 ML IV SCH (11:45)
[2018-04-27] MEDS: cycloSPORINE 0.05% Ophthalmic Droperette EA EYE SCH ×2 (12:00→21:00)
[2018-04-27] MEDS: Sodium Chloride 0.9% 1,000 ML IV SCH ×2 (13:24→16:30)
[2018-04-28] MEDS: traZODone HCl 50 MG TAB PO PRN (00:05)
[2018-04-28] MEDS: HYDROcodone/Acetaminophen 5/325 mg Tablet PO PRN ×4 (00:05→16:26)
[2018-04-28] MEDS: Sodium Chloride 0.9% 1,000 ML IV SCH (01:34)
[2018-04-28] MEDS: Ciprofloxacin 500 MG TAB PO SCH (06:58)
[2018-04-28 08:23] VITALS: TEMP 97.9
--- NOTE | 2018-04-28 09:52 | PDOC.PN ---
- Subjective Encounter Start Date: 04/28/18 Encounter Start Time: 07:00 Patient seen and examined. No new complaints. No overnight events - Objective Resuscitation Status - Order Detail: 04/20/18 22:23 Resuscitation Status Routine Co-Sign Provider: Resuscitation Status: FULL: Full Resuscitation Additional comments: Patient's nurse, Porfirio, called to say patient changed her mind about DNAR status. MAR Reviewed: Yes Vital Signs & Weight: Vital Signs (12 hours) Temp Pulse Resp BP Pulse Ox 04/28/18 08:00 97.9 F 71 16 128/58 L 99 04/28/18 04:41 99.2 F 79 16 98/49 L 98 04/28/18 00:35 98.9 F 68 18 136/65 99 Weight Admit Weight 112 lb Weight 114 lb 3 oz I&O: 04/27/18 04/28/18 04/29/18 06:59 06:59 06:59 Intake Total 1500 3520 Balance 1500 3520 Result Diagrams: 04/23/18 04:35 04/23/18 04:35 Phys Exam - Physical Examination Constitutional: NAD HEENT: PERRLA, moist MMs, sclera anicteric Neck: no JVD, supple Respiratory: no wheezing, no rales, no rhonchi Cardiovascular: RRR, no significant murmur, no rub Gastrointestinal: soft, non-tender, no distention, positive bowel sounds Musculoskeletal: no edema, pulses present Neurological: non-focal, normal sensation Lymphatic: no nodes Psychiatric: normal affect, A&O x 3 Skin: no rash, normal turgor Dx/Plan (1) Acute metabolic encephalopathy Code(s): G93.41 - METABOLIC ENCEPHALOPATHY Status: Resolved (2) Acute renal failure Status: Resolved Comment: (3) Acute urinary retention Code(s): R33.8 - OTHER RETENTION OF URINE Status: Resolved (4) Hypokalemia Code(s): E87.6 - HYPOKALEMIA Status: Acute (5) Sepsis with acute organ dysfunction Code(s): A41.9 - SEPSIS, UNSPECIFIED ORGANISM; R65.20 - SEVERE SEPSIS WITHOUT SEPTIC SHOCK Status: Acute (6) UTI (urinary tract infection) Status: Acute Comment: (7) Anxiety and depression Code(s): F41.8 - OTHER SPECIFIED ANXIETY DISORDERS Status: Chronic Comment: (8) Atrial fibrillation and flutter Code(s): I48.91 - UNSPECIFIED ATRIAL FIBRILLATION; I48.92 - UNSPECIFIED ATRIAL FLUTTER Status: Chronic (9) Chronic pain disorder Code(s): G89.4 - CHRONIC PAIN SYNDROME Status: Chronic Comment: (10) Fibromyalgia Status: Chronic (11) GERD (gastroesophageal reflux disease) Code(s): K21.9 - GASTRO-ESOPHAGEAL REFLUX DISEASE WITHOUT ESOPHAGITIS Status: Chronic (12) Immunocompromised Code(s): D84.9 - IMMUNODEFICIENCY, UNSPECIFIED Status: Chronic Comment: (13) Osteoarthritis Code(s): M19.90 - UNSPECIFIED OSTEOARTHRITIS, UNSPECIFIED SITE Status: Chronic (14) Osteoporosis Code(s): M81.0 - AGE-RELATED OSTEOPOROSIS W/O CURRENT PATHOLOGICAL FRACTURE Status: Chronic (15) Protein-calorie malnutrition, moderate Code(s): E44.0 - MODERATE PROTEIN-CALORIE MALNUTRITION Status: Chronic (16) Rheumatoid arthritis Code(s): M06.9 - RHEUMATOID ARTHRITIS, UNSPECIFIED Status: Chronic (17) SLE (systemic lupus erythematosus) Code(s): M32.9 - SYSTEMIC LUPUS ERYTHEMATOSUS, UNSPECIFIED Status: Chronic Qualifiers: (18) Seizure disorder Code(s): G40.909 - EPILEPSY, UNSP, NOT INTRACTABLE, WITHOUT STATUS EPILEPTICUS Status: Chronic - Plan cont 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 * see discharge summery Review of Systems - Review of Systems ENT: negative: Ear Pain, Ear Discharge, Nose Pain, Nose Discharge, Nose Congestion, Mouth Pain, Mouth Swelling, Throat Pain, Throat Swelling, Other Respiratory: negative: Cough, Dry, Shortness of Breath, Hemoptysis, SOB with Excertion, Pleuritic Pain, Sputum, Wheezing Cardiovascular: negative: chest pain, palpitations, orthopnea, paroxysmal nocturnal dyspnea, edema, light headedness, other Gastrointestinal: negative: Nausea, Vomiting, Abdominal Pain, Diarrhea, Constipation, Melena, Hematochezia, Other Genitourinary: negative: Dysuria, Frequency, Incontinence, Hematuria, Retention , Other Musculoskeletal: negative: Neck Pain, Shoulder Pain, Arm Pain, Back Pain, Hand Pain, Leg Pain, Foot Pain, Other - Medications/Allergies Allergies/Adverse Reactions: Allergies Allergy/AdvReac Type Severity Reaction Status Date / Time pregabalin [From Lyrica] Allergy Intermediate Verified 02/05/18 01:37 hydroxychloroquine Allergy Verified 02/05/18 01:37 [Hydroxychloroquine] hydroxychloroquine sulfate Allergy Verified 02/05/18 01:37 [From Plaquenil] Medications: Current Medications Acetaminophen (Tylenol) 650 mg PO Q4H PRN PRN Reason: Headache/Fever/Mild Pain (1-3) Hydrocodone Bitart/Acetaminophen ([place] 5/325) 1 tab PO Q4H PRN PRN Reason: Mild-Moderate Pain (1-5) Last Admin: 04/28/18 07:20 Dose: 1 tab Bisacodyl (Dulcolax) 10 mg PO DAILYPRN PRN PRN Reason: Constipation Buspirone HCl (Buspar) 15 mg PO QID [facility] Last Admin: 04/27/18 20:03 Dose: 15 mg Ciprofloxacin (Cipro) 500 mg PO 0600,1999 [facility] Last Admin: 04/28/18 06:58 Dose: 500 mg Cyanocobalamin (Vitamin B-12) 1,000 mcg PO DAILY [facility] Last Admin: 04/27/18 08:32 Dose: 1,000 mcg Cyclosporine (Restasis) 0 ml EA EYE BID [facility] Last Admin: 04/27/18 21:00 Dose: Not Given Diltiazem HCl (Cardizem Cd) 240 mg PO DAILY [facility] Last Admin: 04/27/18 08:32 Dose: 240 mg Escitalopram Oxalate (Lexapro) 10 mg PO BID [facility] Last Admin: 04/27/18 20:03 Dose: 10 mg Famotidine (Pepcid) 20 mg PO BID [facility] Last Admin: 04/27/18 20:03 Dose: 20 mg Ferrous Sulfate (Feosol) 325 mg PO QAM-WM [facility] Last Admin: 04/27/18 08:34 Dose: 325 mg Fluticasone Propionate (Flonase Nasal [place]) 0 gm NASAL DAILY [facility] Last Admin: 04/27/18 08:38 Dose: 1 spr Folic Acid (Folvite) 1 mg PO TID [facility] Last Admin: 04/27/18 20:04 Dose: 1 mg Furosemide (Lasix) 40 mg PO DAILY-AC [facility] Last Admin: 04/27/18 08:37 Dose: 40 mg Gabapentin (Neurontin) 300 mg PO TID [facility] Last Admin: 03/21/19 20:04 Dose: 300 mg Hydralazine HCl (Apresoline) 10 mg SLOW IVP Q4H PRN PRN Reason: SBP GREATER THAN 160 Sodium Chloride (Normal Saline 0.9%) 1,000 mls @ 100 mls/hr IV .Q10H [facility] Last Admin: 04/28/18 01:34 Dose: 1,000 mls Iron/Minerals/Multivitamins (Theragran M) 1 tab PO DAILY [facility] Last Admin: 04/27/18 08:34 Dose: 1 tab Levetiracetam (Keppra) 750 mg PO BID [facility] Last Admin: 04/27/18 20:03 Dose: 750 mg Meclizine HCl (Antivert) 25 mg PO QID PRN PRN Reason: Dizziness Metoprolol Tartrate (Lopressor) 12.5 mg PO BID [facility] Last Admin: 04/27/18 20:05 Dose: Not Given Ondansetron HCl (Zofran) 4 mg IVP Q6H PRN PRN Reason: Nausea/Vomiting Last Admin: 04/22/18 09:16 Dose: 4 mg Ondansetron HCl (Zofran Odt) 4 mg PO Q6H PRN PRN Reason: Nausea/Vomiting Pantoprazole Sodium (Protonix) 40 mg PO DAILY [facility] Last Admin: 04/27/18 08:36 Dose: 40 mg Saccharomyces Boulardii (Florastor) 250 mg PO DAILY [facility] Last Admin: 04/27/18 08:33 Dose: 250 mg Sodium Chloride (Flush - Normal Saline) 10 ml IVF Q12HR [facility] Last Admin: 04/27/18 20:03 Dose: 10 ml Sodium Chloride (Flush - Normal Saline) 10 ml IVF PRN PRN PRN Reason: Saline Flush Trazodone HCl (Desyrel) 50 mg PO PRN PRN PRN Reason: Insomnia Last Admin: 04/28/18 00:05 Dose: 50 mg Valacyclovir HCl (Valtrex) 500 mg PO DAILY [facility] Last Admin: 04/27/18 08:33 Dose: 500 mg
[2018-04-28] MEDS: Furosemide 40 MG TAB PO SCH (10:11)
[2018-04-28] MEDS: busPIRone HCl 5 MG TAB PO SCH ×3 (10:12→16:26)
[2018-04-28] MEDS: Multivitamin W/ Minerals 1 TAB PO SCH (10:12)
[2018-04-28] MEDS: Escitalopram Oxalate 10 mg Tablet PO SCH (10:12)
[2018-04-28] MEDS: levETIRAcetam 500 MG TAB PO SCH (10:13)
[2018-04-28] MEDS: Gabapentin 300 MG CAP PO SCH ×2 (10:14→15:23)
[2018-04-28] MEDS: Saccharomyces boulardii 250 MG CAP PO SCH (10:14)
[2018-04-28] MEDS: valACYclovir 500 MG TAB PO SCH (10:14)
[2018-04-28] MEDS: Famotidine 20 MG TAB PO SCH (10:14)
[2018-04-28] MEDS: Folic Acid 1 MG TAB PO SCH ×2 (10:14→15:23)
[2018-04-28] MEDS: Cyanocobalamin (Vitamin B-12) 1,000 MCG TAB PO SCH (10:15)
[2018-04-28] MEDS: Metoprolol Tartrate 25 MG TAB PO SCH ×2 (10:15→12:40)
[2018-04-28] MEDS: Ferrous Sulfate 325 MG TAB PO SCH (10:16)
[2018-04-28] MEDS: Fluticasone Propionate Nasal Spray 16 gm Bottle NASAL SCH (10:25)
[2018-04-28] MEDS: cycloSPORINE 0.05% Ophthalmic Droperette EA EYE SCH (10:34)
--- NOTE | 2018-04-28 10:53 | DIS ---
DATE OF ADMISSION: 04/20/2018 DATE OF DISCHARGE: 04/28/2018 PRIMARY CARE PHYSICIAN: Dariel Carlson MD. DISCHARGE DISPOSITION: Rehab. PRIMARY DISCHARGE DIAGNOSES: 1. Sepsis with acute organ dysfunction. 2. Hypokalemia. 3. Hypomagnesemia. 4. Urinary tract infection. 5. Acute kidney failure. 6. Acute urinary retention. 7. Acute metabolic encephalopathy. SECONDARY DISCHARGE DIAGNOSES: 1. Systemic lupus erythematosus. 2. Seizure disorder. 3. Rheumatoid arthritis. 4. Protein-calorie malnutrition. 5. Moderate osteoporosis. 6. Osteoarthritis. 7. Immunosuppression. 8. Atrial fibrillation. 9. Chronic pain disorder. 10. Anxiety and depression. 11. Fibromyalgia. 12. Gastroesophageal reflux disease. PRIMARY PROCEDURE/OPERATION: None. RADIOLOGICAL INVESTIGATION: Abdomen and pelvis CT scan, chest x-ray, CT brain, and abdomen ultrasound. SIGNIFICANT LABORATORY DATA: WBC 7.7, hemoglobin 9.2, and platelet 215. Sodium 136, creatinine 0.95. Urinalysis suggestive of UTI. Urine culture grew Klebsiella. Blood culture negative. Influenza negative. DISCHARGE MEDICATIONS: 1. Buspirone 15 mg p.o. q.i.d. p.r.n. 2. Lexapro 10 mg b.i.d. 3. Flonase nasal spray daily. 4. Folic acid 1 mg t.i.d. 5. Gabapentin 300 mg t.i.d. 6. Keppra 750 mg b.i.d. 7. Antivert 25 mg q.i.d. p.r.n. 8. Trazodone 50 mg p.o. at bedtime p.r.n. 9. Valacyclovir 500 mg daily. 10. Cipro 500 mg b.i.d. for 5 days. 11. Tylenol 650 mg q.4 hourly p.r.n. 12. Dulcolax 10 mg daily p.r.n. 13. Cardizem CD 240 mg p.o. daily. 14. [place] 5 one tablet q.4 hourly p.r.n. 15. Zofran 4 mg q.6 hourly p.r.n. 16. Protonix 40 mg p.o. daily. CONTRAINDICATION: None. CODE STATUS: Full code. INPATIENT NET FISHER: None. LABORATORY DATA: Lyrica, hydroxychloroquine. DISCHARGE PLAN: Posthospital, the patient is planned for discharge to rehab. Subsequently, the patient will follow up with primary care physician. HOSPITAL COURSE: A 72-year-old female with above-mentioned medical problem, who was admitted by Dr. Valencia on April 20, 2018. Please see his H and P for further details. The patient was brought to emergency room for altered mental status. The patient was having acute kidney failure. She was found with urinary tract infection. She was meeting sepsis criteria. The patient's altered mental status was attributed to be due to metabolic as well as septic etiology. Her CT brain was negative. Her CT abdomen and pelvis were unremarkable. She was relatively hypotensive and that is why she required IV fluid. Her blood pressure improved and the patient was admitted to telemetry floor. Subsequently, she was transferred to medical floor. Her urine culture grew Klebsiella. The patient was empirically treated with broad-spectrum antibiotic therapy. Based on culture and sensitivity result, the patient was given Cipro upon discharge. This patient has physical deconditioning and that is why family member and patient wanted to go to rehab facility. With help of case preparer and liner, we arranged rehab for this patient. At this point, the patient is medically stable for discharge. The patient is seen and examined at the bedside today. Please see my progress note from today for further detail. Paperwork for discharge done and discharge medication reconciliation done. TIME SPENT: Total time spent on discharge day, 31 minutes. Job ID: [id number]
[2018-04-28 12:42] VITALS: BP 132/62
== END 2018-04-28 17:00 | DRG 871 ==
LOC: ERS 08:51 → ERHOLD 10:48 → 2NO 21:03 → ONC 04-23 07:25
PROVIDERS: ADMIT Family Medicine; ATTEND Family Medicine
DX: A41.9 Sepsis, unspecified organism (principal); G93.41 Metabolic encephalopathy; N17.9 Acute kidney failure, unspecified; D84.9 Immunodeficiency, unspecified; N39.0 Urinary tract infection, site not specified; I48.92 Unspecified atrial flutter; E44.0 Moderate protein-calorie malnutrition; R65.20 Severe sepsis without septic shock; Z66 Do not resuscitate; Z86.19 Personal history of other infectious and parasitic diseases; M32.9 Systemic lupus erythematosus, unspecified; M06.9 Rheumatoid arthritis, unspecified; K21.9 Gastro-esophageal reflux disease without esophagitis; D50.9 Iron deficiency anemia, unspecified; I48.91 Unspecified atrial fibrillation; Z79.891 Long term (current) use of opiate analgesic; Z79.899 Other long term (current) drug therapy; Z90.710 Acquired absence of both cervix and uterus; N18.3 Chronic kidney disease, stage 3 (moderate); Z79.51 Long term (current) use of inhaled steroids; R33.8 Other retention of urine; E87.6 Hypokalemia; F41.9 Anxiety disorder, unspecified; F32.9 Major depressive disorder, single episode, unspecified; G89.29 Other chronic pain; M79.7 Fibromyalgia; M81.0 Age-related osteoporosis without current pathological fracture; G40.909 Epilepsy, unspecified, not intractable, without status epilepticus; Z68.20 Body mass index [BMI] 20.0-20.9, adult; E83.42 Hypomagnesemia; B96.1 Klebsiella pneumoniae [K. pneumoniae] as the cause of diseases classified elsewhere
CPT/HCPCS: 36415; 36416; 51701; 70450; 71045; 74177; 76705; 80048; 80053; 80306; 80307; 81003; 81015; 82550; 83605; 83735; 84100; 84484; 85007; 85025; 85027; 87040; 87077; 87086; 87186; 87804; 93005; 96361; 96365; 96367; 96375; 96376; A4353; J0696; J1580; J1644; J2310; J2405; J3370; J3475; J3480; J7050; Q9966

== ENCOUNTER 2018-06-21 15:54 | Emergency (ER) | payer MEDICARE, BC ==
[2018-06-21] MEDS ORDERED: Ondansetron PF 4 MG/2 ML Vial ONE (15:59)
--- NOTE | 2018-06-21 16:44 | RAD ---
EXAM: CHEST ONE VIEW HISTORY: Dyspnea COMPARISON: 04/20/2018 FINDINGS: Cardiac silhouette remains enlarged. The pulmonary vasculature is within normal limits. A calcified g ranuloma is again seen overlying the left upper lung zone. No consolidation or pleural fluid is seen. There is mild nonspecific prominence of interstitial markings in the left perihilar region prob ably within normal limits for the portable technique. Degenerative changes are again seen in the spine with bilateral glenohumeral osteoarthropathy and suggestion of high riding humeral heads bilate rally likely attributable to chronic rotator cuff tears. Osteopenia is present. Chest is overall stable compared to prior study. IMPRESSION: 1. Stable cardiomegaly without overt CHF. 2. Mild nonspecific interstitial densities left perihilar region probably within normal limits for th e portable technique. No consolidation is seen.
[2018-06-21 16:48] LABS: #Eosinphils 0.2 thou/uL (0.0-0.7); #Lymphocytes 1.2 thou/uL (1.20-3.40); #Monocytes 0.8 thou/uL (0.11-0.59); #Neutrophils 5.2 thou/uL (1.40-6.50); %Basophils 0.3 % (0.0-1.0); %Eosinophils 2.6 % (0.0-10.0); %Lymphocytes 16.1 % (21.0-51.0); %Monocytes 11.2 % (0.0-10.0); %Neutrophils 69.8 % (42.0-75.0); Hemoglobin 9.1 g/dL (12.0-16.0); Mean Corpuscular HGB CONC 33.5 g/dL (32.0-36.0); Mean Corpuscular Hemoglobin 32.8 pg (27.0-31.0); Mean Corpuscular Volume 97.8 fL (78.0-98.0); Mean Platelet Volume 7.1 fL (7.4-10.4); Platelet Count 224 thou/uL (130-400); Red Blood Cell (RBC) Count 2.78 mill/uL (4.20-5.40); White Blood Cell (WBC) Count 7.4 thou/uL (4.8-10.8)
[2018-06-21 17:17] LABS: ALT (SGPT) 11 U/L (8-55); AST (SGOT) 15 U/L (5-34); Albumin 3.5 g/dL (3.4-4.8); Alkaline Phosphatase 96 U/L (40-150); Anion Gap 15 mmol/L (10-20); BUN (Urea Nitrogen) 47 mg/dL (9.8-20.1); Bilirubin, Total 0.2 mg/dL (0.2-1.2); CK (CPK) 45 U/L (29-168); Calc. Creatinine Clearance 0 mL/min (70-130); Carbon Dioxide 14 mmol/L (23-31); Chloride 111 mmol/L (98-107); Estimated GFR-MDRD 29; Globulin 2.6 g/dL (2.4-3.5); Glucose 93 mg/dL (83-110); Potassium 4.8 mmol/L (3.5-5.1); Protein, Total 6.1 g/dL (6.0-8.3); Sodium 135 mmol/L (136-145)
[2018-06-21 17:54] LABS: Clarity CLEAR (Clear); Specific Gravity, Urine 1.015 (1.005-1.030)
[2018-06-21 17:55] LABS: Bilirubin Negative (Negative); Blood, Urine Negative (Negative); Glucose, Urine (Dipstick) Negative (Negative); Leukocyte Moderate (Negative); Nitrite Negative (Negative); Protein, Urine (Dipstick) 100 mg/dL (Neg-Trace); Urobilinogen 0.2 mg/dL (0.2-1.0)
[2018-06-21 18:04] LABS: Bacteria/HPF None Seen HPF (None Seen); Hyaline Casts/LPF NONE SEEN LPF (0-3 Hyaline); RBC/HPF None Seen HPF (0-3); Renal Epithelial None Seen HPF (0-3); Squamous Epithelial 0-3 HPF (0-3)
--- NOTE | 2018-06-24 15:11 | EKG ---
Test Reason : BRADYCARDIA Blood Pressure : / mmHG Vent. Rate : 070 BPM Atrial Rate : 070 BPM P-R Int : 166 ms QRS Dur : 096 ms QT Int : 370 ms P-R-T Axes : 028 -12 022 degrees QTc Int : 399 ms Normal sinus rhythm Normal ECG Confirmed by HUBER DALTON, JAGDISH Moura ([id number]), mapping editor SHAKIRA SANCHEZ ([id number]) on 06/24/2018 3:11:26 PM Referred By: Confirmed By:JAGDISH NGO MD
== END 2018-06-21 19:34 | disposition home or self-care (01) ==
LOC: ERS 15:54
DX: T40.601A Poisoning by unspecified narcotics, accidental (unintentional), initial encounter (principal); D64.9 Anemia, unspecified; M81.0 Age-related osteoporosis without current pathological fracture; K21.9 Gastro-esophageal reflux disease without esophagitis; I48.91 Unspecified atrial fibrillation; F41.9 Anxiety disorder, unspecified; F32.9 Major depressive disorder, single episode, unspecified; Z79.899 Other long term (current) drug therapy
CPT/HCPCS: 36415; 71045; 80053; 81003; 81015; 82550; 83605; 83880; 84484; 85025; 87040; 87086; 93005; 96361; 96374; J2405

== ENCOUNTER 2018-07-26 20:30 | Outpatient (CLI) | payer MEDICARE, BC | END 2018-07-26 20:31 | disposition home or self-care (01) | LOC: SLEEPLAB 20:30 | PROVIDERS: ATTEND Internal Medicine | DX: G47.33 Obstructive sleep apnea (adult) (pediatric) (principal); K21.9 Gastro-esophageal reflux disease without esophagitis; I10 Essential (primary) hypertension; R09.89 Other specified symptoms and signs involving the circulatory and respiratory systems; R35.1 Nocturia; R51 Headache; R06.83 Snoring | CPT/HCPCS: 95811 ==

== ENCOUNTER 2018-10-16 06:51 | Observation (INO) | payer MEDICARE, BC ==
[2018-10-16 08:14] LABS: #Basophils 0.1 thou/uL (0.0-0.2); #Eosinphils 0.2 thou/uL (0.0-0.7); #Lymphocytes 1.4 thou/uL (1.20-3.40); #Monocytes 0.5 thou/uL (0.11-0.59); #Neutrophils 3.7 thou/uL (1.40-6.50); %Eosinophils 3.9 % (0.0-10.0); %Lymphocytes 23.4 % (21.0-51.0); %Monocytes 7.8 % (0.0-10.0); %Neutrophils 63.9 % (42.0-75.0); Hemoglobin 9.5 g/dL (12.0-16.0); Mean Corpuscular HGB CONC 34.8 g/dL (32.0-36.0); Mean Corpuscular Hemoglobin 35.7 pg (27.0-31.0); Mean Platelet Volume 7.5 fL (7.4-10.4); Platelet Count 174 thou/uL (130-400); RBC Distribution Width 12.7 % (11.5-14.5); Red Blood Cell (RBC) Count 2.65 mill/uL (4.20-5.40); White Blood Cell (WBC) Count 5.8 thou/uL (4.8-10.8)
[2018-10-16 08:34] LABS: ALT (SGPT) 19 U/L (8-55); AST (SGOT) 19 U/L (5-34); Alkaline Phosphatase 57 U/L (40-150); Anion Gap 15 mmol/L (10-20); BUN (Urea Nitrogen) 43 mg/dL (9.8-20.1); Bilirubin, Total 0.3 mg/dL (0.2-1.2); Calc. Creatinine Clearance 0 mL/min (70-130); Calcium 9.6 mg/dL (7.8-10.44); Carbon Dioxide 18 mmol/L (23-31); Chloride 107 mmol/L (98-107); Estimated GFR-MDRD 21; Globulin 2.9 g/dL (2.4-3.5); Glucose 121 mg/dL (83-110); Potassium 4.5 mmol/L (3.5-5.1); Protein, Total 6.9 g/dL (6.0-8.3); Sodium 135 mmol/L (136-145)
[2018-10-16 08:50] LABS: Bilirubin Negative (Negative); Blood, Urine Negative (Negative); Clarity Turbid (Clear); Glucose, Urine (Dipstick) Normal (Negative); Leukocyte 500 Leu/uL (Negative); Nitrite Negative (Negative); Protein, Urine (Dipstick) Negative (Neg-Trace); RBC/HPF 0-3 HPF (0-3); Squamous Epithelial None Seen HPF (0-3); Urobilinogen Normal mg/dL (Less than 2); WBC/HPF 21-50 HPF (0-3)
[2018-10-16 08:59] LABS: Bacteria/HPF 4+ HPF (None Seen)
[2018-10-16] MEDS ORDERED: cefTRIAXone\\ROCEPHIN 2 GM VIAL ONE (09:28)
[2018-10-16] MEDS ORDERED: Senokot S 8.6-50 MG TAB PO PRN (11:47)
[2018-10-16] MEDS ORDERED: Acetaminophen 325 MG TAB PO PRN (11:47)
[2018-10-16] MEDS: Sodium Chloride 0.9% 1,000 ML IV SCH (13:21)
[2018-10-16] MEDS ORDERED: Ondansetron ODT 4 MG TAB PO PRN (13:51)
[2018-10-16] MEDS ORDERED: Ondansetron PF 4 MG/2 ML Vial IVP PRN (13:51)
[2018-10-16 15:13] VITALS: BMI 19.8
[2018-10-16] MEDS ORDERED: Furosemide 20 MG TAB PO PRN (15:22)
[2018-10-16] MEDS ORDERED: Fluticasone Propionate Nasal Spray 16 gm Bottle NASAL PRN (15:22)
[2018-10-16] MEDS ORDERED: traZODone HCl 50 MG TAB PO PRN (15:22)
[2018-10-16] MEDS ORDERED: tiZANidine HCl 4 MG TAB PO PRN (15:22)
[2018-10-16] MEDS ORDERED: Meclizine HCl 25 MG TAB PO PRN (15:22)
[2018-10-16] MEDS ORDERED: Famotidine 20 MG TAB PO PRN (15:22)
[2018-10-16] MEDS ORDERED: Metoprolol Tartrate 25 MG TAB PO SCH (17:00)
[2018-10-16] MEDS ORDERED: Calcitriol 0.25 MCG CAP PO SCH (17:00)
--- NOTE | 2018-10-16 17:04 | HP ---
PRIMARY CARE PHYSICIAN: Dr. Carlson. CHIEF COMPLAINT: Weakness, nausea, fatigue, and tremor. HISTORY OF PRESENT ILLNESS: Ms. Pastrana is a 72-year-old female with a pertinent past medical history of anemia, lupus, bursitis, fibromyalgia, osteoarthritis, osteoporosis, rheumatoid arthritis, Raynaud, multiple ankle fractures, diverticulitis, frequent UTIs, recurrent electrolyte imbalances, atrial fibrillation, atrial flutter, has had a GI bleed in the past, aspiration pneumonia requiring intubation, generalized seizure disorder. The patient was brought to the emergency room after daughter noticed that she has been a little more somnolent. Reports that early this morning, she woke her up and told her that she was not feeling well, was having trouble finding her words and having nausea when she ate. Daughter reports that she has had recurrent UTIs and sepsis and early symptoms are reminiscent of the ones that she is complaining of today. The patient has chronic anemia and has had iron transfusion within the last 2 weeks and had a recent diagnosis of sleep apnea and just had the CPAP delivered on Tuesday, but has not started it yet. The patient was found today to have a bump in her creatinine. The last time it was checked in our system was 09/07/2018 and it was 1.58 and today it was 2.25. GFR has gone from 32 to 21 and BUN has actually decreased, it was 52 on 09/07/2018 and today, it is 43. Hemoglobin today is 9.5, which appears stable and glucose at 121. Urine positive for leukocyte esterase, white blood cells, and 4+ bacteria, this has been sent off for culture. The patient was given 2 g of Rocephin, 1 L of fluid, and the patient reports that she feels a little bit better and then was admitted to the hospitalist service for further management. PAST MEDICAL HISTORY: As above. Chronic anemia, multiple fractures, lupus, bursitis, fibromyalgia, osteoarthritis, osteoporosis, rheumatoid arthritis, GERD, Raynaud, multiple ankle fractures to both legs, wears a left custom brace for fractures, spastic colon, hernias, diverticulitis, frequent UTIs, recurring electrolyte imbalances, atrial fibrillation, atrial flutter, GI bleeds in the past, aspiration pneumonia in the past requiring intubation, psoriasis, generalized seizures, PUD, and chronic kidney disease stage 3. PAST SURGICAL HISTORY: Appendectomy, hernia repair, surgical history of hysterectomy, and sinus surgery. PSYCHIATRIC HISTORY: Includes anxiety and depression. SOCIAL HISTORY: No smoking history. Denies any alcohol or drug use. The patient is a full code. Daughter is surrogate decision maker. FAMILY HISTORY: Positive for arthritis and bursitis. REVIEW OF SYSTEMS: The patient reports fatigue. Reports weakness. Reports some nausea. Denies any vomiting. Denies any constipation or diarrhea. Reports tremors. Reports altered mental status. Reports trouble word finding. Generally feeling unwell. All other systems reviewed and are negative unless mentioned in the HPI. PHYSICAL EXAMINATION: VITAL SIGNS: Blood pressure 172/79, pulse is 71, respirations are 14, temperature is 98.6, and pO2 sats are 97% on room air. CONSTITUTIONAL: She is alert and oriented to person, place, and time. She appears generally weak, chronically ill, and tremulous. HEENT: Head is atraumatic and normocephalic. Eyes; eyelids are normal to inspection. Pupils are equally round and reactive to light. Extraocular muscles are intact. ENT, mouth exam is normal. Mucous membranes are dry. NECK: Normal range of motion. Trachea is midline. RESPIRATORY AND CHEST: Breath sounds are clear. Chest expansion is equal. CARDIOVASCULAR: Regular rate and rhythm. Heart sounds are normal. ABDOMEN: No tenderness. No peritoneal signs. Bowel sounds are heard. BACK: Normal range of motion. No CVA tenderness. EXTREMITIES: Upper extremity, normal inspection, normal range of motion. Radial pulses are equal bilaterally. Lower extremities, normal inspection. Braces on bilateral legs with muscle atrophy. Pedal pulses are equal bilaterally. NEUROLOGIC: The patient is alert and oriented to person, place, and time. Speech is normal. There is no focal motor or sensory deficits. SKIN: Warm, dry, normal in color. PSYCH: The patient has a normal affect. DIAGNOSTIC DATA: EKG in the ER shows normal sinus rhythm, beats per minute 72, no ectopics, T-waves, ST segments normal, axis is normal. PLAN AND ASSESSMENT: 1. Dehydration, acute kidney injury, urinary tract infection. We will continue the Rocephin. Normal saline at 70 mL/h. We will ask OT/PT to evaluate. Recheck kidney function in a.m. 2. Chronic macrocytic anemia, which appears stable. 3. Hypertension. We will trend. Restart home medications. 4. Seizure disorder, appears stable. We will continue home medications. 5. Depression. We will restart home medications. 6. Gastroesophageal reflux disease. We will restart home medications. 7. Chronic pain. We will restart home medications once verified. 8. The patient is already on gastrointestinal prophylaxis, so we will continue this. Deep venous thrombosis prophylaxis with SCDs. The patient discussed with Dr. Galvan who agrees to plan. 9. Hospital course is dependent on clinical findings. Job ID: [id number]
--- NOTE | 2018-10-16 17:49 | HP ---
PRIMARY CARE PHYSICIAN: Dr. Carlson. Referred to [facility] by [place] [facility] department. OTHER PHYSICIANS: 1. Dr. Conti for anemia. 2. Dr. Leos for chronic kidney disease. 3. Dr. Hester for Cardiology. 4. Dr. Isaacs for obstructive sleep apnea. HISTORY OF PRESENT ILLNESS: The patient states she was told in the ER she had a urinary tract infection. She came in for some poor memory, difficult mentation, and sleepiness. She denies any fever or chills. PAST MEDICAL HISTORY: Pertinent for systemic lupus erythematosus, rheumatoid arthritis, and immunodeficiency state among other things. Her history is pertinent for recurrent urinary tract infections. REVIEW OF SYSTEMS: GENERAL: She has occasional dizziness. No fainting. CARDIAC: No chest pain, orthopnea, or paroxysmal nocturnal dyspnea. RESPIRATORY: No cough, wheezing, or asthma. GASTROINTESTINAL: No nausea, vomiting, diarrhea, or constipation. GENITOURINARY: No dysuria or hematuria. PHYSICAL EXAMINATION: GENERAL: She is an alert woman. Conversation is without any difficulties. VITAL SIGNS: Blood pressure 177/80, pulse 80, temperature 97.9, respirations 17 to 18. HEENT: Sclerae are white. Tympanic membranes are clear. Mouth is clear. NECK: No jugular venous distention. CHEST: Clear to auscultation and percussion. HEART: Had a regular rate and rhythm. No murmurs or gallops. ABDOMEN: Soft. Bowel sounds are normal. No hepatosplenomegaly, masses, or rebound. EXTREMITIES: No cyanosis, clubbing, or edema. LABORATORY DATA: UA; pyuria, positive esterase, white count 135. Potassium 4.5, BUN 43, creatinine 2.25, calcium 9.6. White cell count 5.8 without left shift, hemoglobin 9.5, platelet count 174,000. ADMITTING DIAGNOSES: Altered mental status, urinary tract infection, systemic lupus erythematosus, rheumatoid arthritis, immunocompromised state, hypertension on present study, and history of atrial fibrillation. PLAN: Cultures have been obtained. She has been put on IV antibiotics pending urine culture and sensitivities. Having reviewed her medicines in detail, she is taking multiple psychotropic medicines including Dilaudid, buspirone, Lexapro, gabapentin, levetiracetam, meclizine, and trazodone, which I suspect can be part of the problem of her intermittent confusion and memory problems. Job ID: [id number]
[2018-10-16] MEDS ORDERED: Gabapentin 300 MG CAP PO SCH (21:00)
[2018-10-16] MEDS: busPIRone HCl 10 MG TAB PO SCH (21:42)
[2018-10-16] MEDS: Famotidine 20 MG TAB PO SCH (21:43)
[2018-10-16] MEDS: Fluticasone Propionate Nasal Spray 16 gm Bottle NASAL SCH (21:43)
[2018-10-16] MEDS: Gabapentin 300 MG CAP PO SCH (21:43)
[2018-10-16] MEDS: levETIRAcetam 500 MG TAB PO SCH (21:44)
[2018-10-16] MEDS: cycloSPORINE 0.05% Ophthalmic Droperette EA EYE SCH (21:45)
[2018-10-16] MEDS: Escitalopram Oxalate 10 mg Tablet PO SCH (22:15)
[2018-10-17] MEDS: Sodium Chloride 0.9% 1,000 ML IV SCH ×2 (05:13→17:16)
[2018-10-17 05:28] LABS: Anion Gap 12 mmol/L (10-20); BUN (Urea Nitrogen) 43 mg/dL (9.8-20.1); Calc. Creatinine Clearance 21 mL/min (70-130); Calcium 8.4 mg/dL (7.8-10.44); Carbon Dioxide 16 mmol/L (23-31); Chloride 112 mmol/L (98-107); Estimated GFR-MDRD 25; Glucose 96 mg/dL (83-110); Potassium 4.6 mmol/L (3.5-5.1); Sodium 135 mmol/L (136-145)
[2018-10-17 06:33] LABS: #Basophils 0.1 thou/uL (0.0-0.2); #Eosinphils 0.3 thou/uL (0.0-0.7); #Lymphocytes 1.2 thou/uL (1.20-3.40); #Monocytes 0.7 thou/uL (0.11-0.59); #Neutrophils 3.8 thou/uL (1.40-6.50); %Basophils 1.2 % (0.0-1.0); %Eosinophils 4.9 % (0.0-10.0); %Monocytes 11.5 % (0.0-10.0); %Neutrophils 62.4 % (42.0-75.0); Hemoglobin 7.4 g/dL (12.0-16.0); Mean Corpuscular HGB CONC 34.3 g/dL (32.0-36.0); Mean Corpuscular Hemoglobin 35.6 pg (27.0-31.0); Platelet Count 146 thou/uL (130-400); RBC Distribution Width 12.8 % (11.5-14.5); Red Blood Cell (RBC) Count 2.07 mill/uL (4.20-5.40); White Blood Cell (WBC) Count 6.1 thou/uL (4.8-10.8)
[2018-10-17] MEDS ORDERED: Calcitriol 0.25 MCG CAP PO SCH ×2 (09:00→17:00)
[2018-10-17] MEDS ORDERED: valACYclovir 500 MG TAB PO SCH ×2 (09:00→21:00)
[2018-10-17] MEDS ORDERED: cefTRIAXone\\ROCEPHIN 1 GM in Sodium Chloride 0.9% 100 ML IVPB SCH ×2 (09:00→13:00)
[2018-10-17] MEDS: busPIRone HCl 10 MG TAB PO SCH ×2 (10:21→20:29)
[2018-10-17] MEDS: Gabapentin 300 MG CAP PO SCH ×3 (10:23→20:30)
[2018-10-17] MEDS: levETIRAcetam 500 MG TAB PO SCH ×2 (10:24→20:29)
[2018-10-17] MEDS: Ferrous Sulfate 325 MG TAB PO SCH (10:25)
[2018-10-17] MEDS: Cyanocobalamin (Vitamin B-12) 1,000 MCG TAB PO SCH (10:25)
[2018-10-17] MEDS: Multivitamin W/ Minerals 1 TAB PO SCH (10:25)
[2018-10-17] MEDS: Famotidine 20 MG TAB PO SCH (10:26)
[2018-10-17] MEDS: Metoprolol Tartrate 25 MG TAB PO SCH (10:26)
[2018-10-17] MEDS: Escitalopram Oxalate 10 mg Tablet PO SCH ×2 (10:26→20:30)
--- NOTE | 2018-10-17 10:58 | PDOC.HOSPP ---
- Subjective Encounter Date: 10/17/18 Encounter Time: 10:56 Subjective: feels better, mental status improved - Objective Vital Signs & Weight: Vital Signs (12 hours) Temp Pulse Resp BP BP Pulse Ox 10/17/18 10:22 57 L 136/89 10/17/18 07:38 97.5 F L 57 L 17 136/89 95 10/17/18 04:36 160/78 H 10/17/18 04:00 98.3 F 68 18 172/82 H 99 10/17/18 00:00 99.5 F 64 16 144/79 H 95 Weight Weight 112 lb 5 oz I&O: 10/16/18 10/17/18 10/18/18 06:59 06:59 06:59 Intake Total 1440 Balance 1440 Result Diagrams: 10/17/18 06:02 10/17/18 04:33 Hospitalist ROS - Medication Medications: Active Medications Generic Name Dose Route Start Last Admin Trade Name Freq PRN Reason Stop Dose Admin Buspirone HCl 30 mg 10/16/18 21:00 10/17/18 10:21 Buspar PO 30 mg BID JOSE Administration Cyanocobalamin 1,000 mcg 10/17/18 09:00 10/17/18 10:25 Vitamin B-12 PO 1,000 mcg DAILY JOSE Administration Cyclosporine 0 ml 10/16/18 21:00 10/16/18 21:45 Restasis EA EYE 0.4 ml BID JOSE Administration Diltiazem HCl 240 mg 10/17/18 09:00 10/17/18 10:22 Cardizem Cd PO 240 mg DAILY JOSE Administration Escitalopram Oxalate 10 mg 10/16/18 21:00 10/17/18 10:26 Lexapro PO 10 mg BID JOSE Administration Famotidine 20 mg 10/16/18 21:00 10/17/18 10:26 Pepcid PO 20 mg BID JOSE Administration Ferrous Sulfate 325 mg 10/17/18 09:00 10/17/18 10:25 Feosol PO 325 mg DAILY JOSE Administration Fluticasone Propionate 0 gm 10/16/18 21:00 10/16/18 21:43 Flonase Nasal [place] NASAL 2 spr QPM JOSE Administration Gabapentin 600 mg 10/16/18 21:00 10/16/18 21:43 Neurontin PO 600 mg HS JOSE Administration Gabapentin 300 mg 10/17/18 09:00 10/17/18 10:23 Neurontin PO 300 mg 0900,1500 JOSE Administration Sodium Chloride 1,000 mls @ 70 mls/hr 10/16/18 12:00 10/17/18 05:13 Normal Saline 0.9% IV 1,000 mls .[id number] JOSE Administration Ceftriaxone Sodium 1 gm/ 100 mls @ 200 mls/hr 10/17/18 09:00 10/17/18 10:22 Sodium Chloride IVPB 100 mls 0900 JOSE Administration Iron/Minerals/Multivitamins 1 tab 10/17/18 09:00 10/17/18 10:25 Theragran M PO 1 tab DAILY JOSE Administration Levetiracetam 750 mg 10/16/18 21:00 10/17/18 10:24 Keppra PO 750 mg BID JOSE Administration Metoprolol Tartrate 12.5 mg 10/17/18 09:00 10/17/18 10:26 Lopressor PO 12.5 mg DAILY JOSE Administration Pantoprazole Sodium 40 mg 10/17/18 09:00 10/17/18 10:25 Protonix PO 40 mg DAILY JOSE Administration Potassium Chloride 20 meq 10/16/18 21:00 10/17/18 10:26 Klor-Con PO 20 meq BID JOSE Administration - Exam General Appearance: NAD, awake alert Neck: no JVD Heart: RRR, no murmur Respiratory: CTAB Gastrointestinal: soft, non-tender, normal bowel sounds Extremities: no edema Hosp A/P (1) UTI (urinary tract infection) Status: Acute Qualifiers: Urinary tract infection type: acute cystitis Hematuria presence: without hematuria Qualified Code(s): N30.00 - Acute cystitis without hematuria (2) Rheumatoid arthritis Code(s): M06.9 - RHEUMATOID ARTHRITIS, UNSPECIFIED Status: Chronic Qualifiers: Rheumatoid arthritis location: unspecified site (3) SLE (systemic lupus erythematosus) Code(s): M32.9 - SYSTEMIC LUPUS ERYTHEMATOSUS, UNSPECIFIED Status: Chronic Qualifiers: Systemic lupus erythematosus type: unspecified Systemic lupus erythematosus organ involvement: unspecified Qualified Code(s): M32.9 - Systemic lupus erythematosus, unspecified (4) Seizure disorder Code(s): G40.909 - EPILEPSY, UNSP, NOT INTRACTABLE, WITHOUT STATUS EPILEPTICUS Status: Chronic (5) CKD (chronic kidney disease) stage 4, GFR 15-29 ml/min Code(s): N18.4 - CHRONIC KIDNEY DISEASE, STAGE 4 (SEVERE) Status: Acute (6) Anemia in CKD (chronic kidney disease) Code(s): N18.9 - CHRONIC KIDNEY DISEASE, UNSPECIFIED; D63.1 - ANEMIA IN CHRONIC KIDNEY DISEASE Status: Acute - Plan cont rocephin for UTI pending sensitivities selected home meds
[2018-10-17] MEDS: cycloSPORINE 0.05% Ophthalmic Droperette EA EYE SCH ×2 (15:40→20:56)
[2018-10-17] MEDS: HYDROcodone/Acetaminophen 5/325 mg Tablet PO PRN (17:14)
[2018-10-17] MEDS: Fluticasone Propionate Nasal Spray 16 gm Bottle NASAL SCH (20:30)
[2018-10-18] MEDS: HYDROcodone/Acetaminophen 5/325 mg Tablet PO PRN ×2 (00:05→13:13)
[2018-10-18] MEDS: Sodium Chloride 0.9% 1,000 ML IV SCH (07:03)
[2018-10-18] MEDS ORDERED: Polyethylene Glycol 3350 17 GM Packet PO SCH (08:30)
[2018-10-18] MEDS ORDERED: Cefdinir 300 MG CAP PO SCH (09:00)
[2018-10-18] MEDS ORDERED: Famotidine 20 MG TAB PO SCH (09:00)
[2018-10-18] MEDS: busPIRone HCl 10 MG TAB PO SCH (09:13)
[2018-10-18] MEDS: Multivitamin W/ Minerals 1 TAB PO SCH (09:14)
[2018-10-18] MEDS: Escitalopram Oxalate 10 mg Tablet PO SCH (09:14)
[2018-10-18] MEDS: Ferrous Sulfate 325 MG TAB PO SCH (09:14)
[2018-10-18] MEDS: Gabapentin 300 MG CAP PO SCH ×2 (09:15→14:54)
[2018-10-18] MEDS: Metoprolol Tartrate 25 MG TAB PO SCH (09:16)
[2018-10-18] MEDS: cycloSPORINE 0.05% Ophthalmic Droperette EA EYE SCH (09:17)
[2018-10-18] MEDS: levETIRAcetam 500 MG TAB PO SCH (09:27)
[2018-10-18] MEDS: Cyanocobalamin (Vitamin B-12) 1,000 MCG TAB PO SCH (09:28)
[2018-10-18] MEDS ORDERED: Prevnar 13-Val Conj/PF 0.5 ML SYRINGE IM ONE (11:00)
[2018-10-18 11:19] VITALS: BP 135/78; TEMP 98
--- NOTE | 2018-10-18 14:35 | DIS ---
DATE OF ADMISSION: 10/16/2018 DATE OF DISCHARGE: 10/18/2018 PRIMARY CARE PROVIDER: Dariel Carlson MD DISPOSITION: Discharged home. FINAL DIAGNOSES: Urinary tract infection, altered mental status, acute on chronic renal failure, rheumatoid arthritis, and chronic pain syndrome. DISCHARGE MEDICATIONS: Omnicef 300 mg p.o. b.i.d. Extensive home medicines, which include: 1. Diltiazem 240 mg a day. 2. Metoprolol 12.5 mg a day. 3. Dilaudid 2 mg q.i.d. p.r.n. 4. Tizanidine 2 mg t.i.d. p.r.n. 5. Lexapro 10 mg b.i.d. 6. Trazodone 50 mg at bedtime. 7. BuSpar 30 mg b.i.d. 8. Valacyclovir one tablet in the morning. 9. Furosemide 20 mg a day. 10. KCl 20 mEq twice a day. 11. Levetiracetam 750 mg twice a day. 12. Protonix 40 mg a day. 13. Pepcid 20 mg t.i.d. p.r.n. 14. Meclizine 25 mg p.o. q.i.d. p.r.n. 15. Flonase nasal spray. 16. Gabapentin 300 mg p.o. b.i.d. and 600 mg at bedtime, OTC medicines. ALLERGIES: LYRICA AND [place]. DIET: Heart healthy. CODE STATUS: Full resuscitation. PENDING AT TIME OF DISCHARGE: Nothing. CONSULTATIONS: None. PROCEDURES: None. HOSPITAL COURSE: The patient presented to the hospital with some memory problems, altered mental status. She is found to have a pyuria. Culture was positive. She was given IV Rocephin eventually transitioned to Cefdinir 300 mg p.o. b.i.d. Current time, her symptomatology has resolved. Prescription had been written. She is being discharged home. Her culture grew Klebsiella pneumoniae, pansensitive except for nitrofurantoin. PERTINENT LABORATORY DATA: Comprehensive metabolic profile, she had initial creatinine of 2.25, which came down to 1.93. Her creatinine in the past and baseline is 1.64. Borderline chronic kidney disease, stage 4. White count is 5.8 with no left shift, hemoglobin 9.5, consistent with chronic kidney disease. Platelet count is 174,000. The patient is doing well. She and her daughter are agreeable with discharge. She is being discharged to be followed up by Dariel Carlson within a week. They state they have appointment to see him tomorrow and then been encouraged to keep it. Job ID: [id number]
--- NOTE | 2018-10-21 15:35 | EKG ---
Test Reason : Blood Pressure : / mmHG Vent. Rate : 072 BPM Atrial Rate : 072 BPM P-R Int : 160 ms QRS Dur : 086 ms QT Int : 362 ms P-R-T Axes : 039 -20 027 degrees QTc Int : 396 ms Normal sinus rhythm T wave abnormality, consider anterior ischemia Abnormal ECG Confirmed by JUDY BROWN ([id number]), staff editor SHAKIRA SANCHEZ ([id number]) on 10/21/2018 3:35:30 PM Referred By: KEVIN Confirmed By:JUDY BROWN
[2018-10-23] MEDS ORDERED: Ergocalciferol 1.25 MG(50,000 UNITS) CAP PO SCH (09:00)
== END 2018-10-18 16:01 | disposition home or self-care (01) ==
LOC: ERS 06:51 → T4-A 12:49
PROVIDERS: ADMIT Internal Medicine; ATTEND Internal Medicine
DX: N30.00 Acute cystitis without hematuria (principal); B96.1 Klebsiella pneumoniae [K. pneumoniae] as the cause of diseases classified elsewhere; R41.82 Altered mental status, unspecified; M32.9 Systemic lupus erythematosus, unspecified; M06.9 Rheumatoid arthritis, unspecified; I48.91 Unspecified atrial fibrillation; D89.9 Disorder involving the immune mechanism, unspecified; I12.9 Hypertensive chronic kidney disease with stage 1 through stage 4 chronic kidney disease, or unspecified chronic kidney disease; N18.4 Chronic kidney disease, stage 4 (severe); D63.1 Anemia in chronic kidney disease; M79.7 Fibromyalgia; M19.90 Unspecified osteoarthritis, unspecified site; M81.0 Age-related osteoporosis without current pathological fracture; I48.92 Unspecified atrial flutter; F41.9 Anxiety disorder, unspecified; F32.9 Major depressive disorder, single episode, unspecified; N17.9 Acute kidney failure, unspecified; E86.0 Dehydration; G40.309 Generalized idiopathic epilepsy and epileptic syndromes, not intractable, without status epilepticus; G89.29 Other chronic pain; Z79.899 Other long term (current) drug therapy; Z88.8 Allergy status to other drugs, medicaments and biological substances
CPT/HCPCS: 51701; 80048; 80053; 83605; 84484; 85025 ×2; 86850; 86900; 86901; 87077; 87086; 87186; 90670; 93005; 94760; 96361 ×3; 96365; 96366; 97110; 97139 ×5; 97530; 99285; G0009; G0378 ×4; 36415; 81003; 81015; 90471; A4353; J0696; J3490

== ENCOUNTER 2018-10-31 17:21 | Observation (INO) | payer MEDICARE, BC ==
[2018-10-31] MEDS ORDERED: Atropine Sulfate 1 mg/10 ml Syringe ONE (17:46)
--- NOTE | 2018-10-31 17:59 | RAD ---
Exam: Chest one view HISTORY:Bradycardia. Dizziness. Comparison: 06/21/2018 FINDINGS: Cardiac silhouette:Cardiomegaly. Aorta: Unremarkable Pulmonary vessels: Normal Costophrenic angles: Clear LUNGS: No masses or consolidation. Pneumothorax: None Osseous abnormalities: Chronic changes to the right glenohumeral joint space. Moderate degenerative c hange in the left glenohumeral joint space. IMPRESSION: 1. Cardiomegaly without evidence of congestive heart failure.
[2018-10-31 18:16] LABS: #Basophils 0.1 thou/uL (0.0-0.2); #Eosinphils 0.3 thou/uL (0.0-0.7); #Monocytes 0.6 thou/uL (0.11-0.59); #Neutrophils 5.4 thou/uL (1.40-6.50); %Basophils 0.8 % (0.0-1.0); %Eosinophils 3.9 % (0.0-10.0); %Lymphocytes 13.9 % (21.0-51.0); %Monocytes 8.1 % (0.0-10.0); %Neutrophils 73.3 % (42.0-75.0); Hemoglobin 8.9 g/dL (12.0-16.0); Mean Corpuscular HGB CONC 34.8 g/dL (32.0-36.0); Mean Corpuscular Hemoglobin 36.2 pg (27.0-31.0); Mean Platelet Volume 7.6 fL (7.4-10.4); Platelet Count 181 thou/uL (130-400); RBC Distribution Width 12.4 % (11.5-14.5); Red Blood Cell (RBC) Count 2.46 mill/uL (4.20-5.40); White Blood Cell (WBC) Count 7.4 thou/uL (4.8-10.8)
[2018-10-31 18:47] LABS: ALT (SGPT) 14 U/L (8-55); AST (SGOT) 19 U/L (5-34); Albumin 4.1 g/dL (3.4-4.8); Alkaline Phosphatase 45 U/L (40-110); Anion Gap 15 mmol/L (10-20); BUN (Urea Nitrogen) 46 mg/dL (9.8-20.1); Bilirubin, Total 0.2 mg/dL (0.2-1.2); Calc. Creatinine Clearance 0 mL/min (70-130); Calcium 9.6 mg/dL (7.8-10.44); Carbon Dioxide 22 mmol/L (23-31); Chloride 103 mmol/L (98-107); Estimated GFR-MDRD 20; Glucose 86 mg/dL (83-110); Magnesium 1.8 mg/dL (1.6-2.6); Protein, Total 7.1 g/dL (6.0-8.3); Sodium 134 mmol/L (136-145)
[2018-10-31 19:51] LABS: Bilirubin Negative (Negative); Blood, Urine Negative (Negative); Clarity Clear (Clear); Glucose, Urine (Dipstick) Normal (Negative); Leukocyte 75 Leu/uL (Negative); Nitrite Negative (Negative); Protein, Urine (Dipstick) 10 mg/dL (Neg-Trace); RBC/HPF 0-3 HPF (0-3); Squamous Epithelial 0-3 HPF (0-3); Transitional Epithelial 0-3 HPF (None Seen); Urobilinogen Normal mg/dL (Less than 2)
[2018-10-31 20:06] LABS: Bacteria/HPF None Seen HPF (None Seen)
[2018-10-31] MEDS ORDERED: Ondansetron PF 4 MG/2 ML Vial IVP PRN (20:53)
[2018-10-31] MEDS ORDERED: Acetaminophen 650 MG Suppository PR PRN (20:53)
[2018-10-31 21:21] VITALS: BMI 20.1
[2018-10-31 21:52] LABS: Troponin I 0.011 ng/mL (< 0.028)
--- NOTE | 2018-10-31 22:44 | HP ---
PRIMARY CARE PHYSICIAN: Dariel Carlson MD CODE STATUS: Full code. TIME OF EVALUATION: 8:40 p.m. CHIEF COMPLAINT: Dizziness. HISTORY OF PRESENT ILLNESS: This is a 73-year-old female patient with past medical history of atrial fibrillation with RVR, has been seen by Dr. Hester in the past and had been placed on the Lopressor and diltiazem; however, occasionally, the patient has significant bradycardias with heart rate in the 30s and 40s associated with dizziness. At some point, she has reported that Dr. Leos has cut down her antiarrhythmic medications because the heart rate was low and occasionally when this has happened, then heart rate goes uncontrolled again. There is a possibility for sick sinus syndrome. We will consult Dr. Hester for these findings for consideration of antiarrhythmic drug adjustments, or in the case the patient has a diagnosis of sick sinus syndrome, then consideration for a pacemaker. Symptoms were mild to moderate. The patient checked in with her doctor, Dr. Carlson, who recommended her to come here to the hospital given the finding of symptomatic bradycardia. No other significant associated symptoms. REVIEW OF SYSTEMS: NEUROLOGICAL: The patient has some dizziness. CARDIOVASCULAR: The patient has bradycardia. RESPIRATORY: Occasionally associated cough and shortness of breath. All other systems were reviewed and negative except for the findings mentioned above. PAST MEDICAL HISTORY: Positive for anemia, fracture of the left tibia, lupus, bursitis, fibromyalgia, osteoarthritis, RA, GERD, Raynaud syndrome, multiple ankle fractures in both legs, left leg custom brace for fractures, spastic colon, hernias, diverticulitis, frequent UTIs, electrolyte imbalance, mouth ulcers, atrial fibrillation, GI bleed, aspiration pneumonia, psoriasis, and generalized seizures. PAST SURGICAL HISTORY: History of sinus surgery, appendectomy, hernia repair, hysterectomy. PSYCHIATRIC HISTORY: Includes anxiety and depression. SOCIAL HISTORY: No alcohol use. No drug use. No smoking history. KNOWN ALLERGIES: Plaquenil, pregabalin. REPORTED MEDICATIONS: 1. Cardizem. 2. Metoprolol. 3. Trazodone. 4. Keppra. 5. Lexapro. 6. Gabapentin. 7. Buspirone. 8. Pantoprazole. 9. Meclizine. 10. Valtrex. 11. Restasis. 12. Flonase. 13. Ibuprofen. 14. Pepcid. 15. Dilaudid. 16. Potassium chloride. 17. Calcitriol. 18. Vitamin D2. 19. Lasix. 20. Tizanidine. 21. Sumatriptan. 22. Ferrous sulfate. PHYSICAL EXAMINATION: VITAL SIGNS: On presentation, blood pressure 103/46 with heart rate 42, respiratory rate was 16, temperature 98.1, pain 0/10, oxygen saturation was 96% on room air. GENERAL APPEARANCE: The patient is alert, oriented, not in acute distress. HEENT: Eyes normal conjunctivae. Moist oral mucosa. Anicteric. No JVD. RESPIRATORY: Bilateral air entry. No rales. No wheezes. Symmetric expansion. CARDIOVASCULAR: The patient is bradycardic. Regular rhythm. No murmurs. No gallop. No edema. ABDOMEN: Soft, normal bowel sounds. MUSCULOSKELETAL: Baseline range of motion and strength. SKIN: Warm, intact. No pallor. No rash. No redness. Capillary refill seems to be intact. NEURO: No evidence of any new focal weakness. Cranial nerves seems to be intact. DIAGNOSTIC DATA: EKG was done. The patient has marked sinus bradycardia at the rate of 42 with CO 148, QRS 86, QT corrected 362. Chest x-ray showed cardiomegaly without evidence of congestive heart failure. LABORATORY DATA: White count 7.4, hemoglobin 8.9, MCV 104, platelet count 181. Chemistry; sodium 134, potassium 6.0, chloride 103, carbon dioxide 22, anion gap 15, BUN 46, creatinine 2.36, the previous creatinine was 2.14, GFR 20, glucose 86, calcium 9.6, magnesium 1.8, total bilirubin 0.2, AST 19, ALT 14, alkaline phosphatase 45. Troponin 0.013. Serum total protein 7.1, albumin 4.1, globulin 3.0. Urine was done. The patient has a positive urine with white count 11 to 20. ASSESSMENT AND PLAN: The patient will be placed in the hospital with following medical problems: 1. Symptomatic bradycardia. This could be related to medications. However, in the past, her medication dose has been decreased. The patient has gone into tachyarrhythmias, question remains for sick sinus syndrome. We will consult Dr. Hester for opinion and assistance with the patient. We will follow recommendations. Worse case scenario, the patient may need a pacemaker. 2. Urinary tract infection. The patient had a positive urine. This could be another etiology for her generalized weakness. We will cover with antibiotics. We will send cultures. 3. Diastolic congestive heart failure. This is chronic, stable, reconcile home medications, adjust treatment as needed. 4. Chronic kidney disease. The patient has seen Dr. Leos in the past. Creatinine is a little bit elevated. We will monitor kidney function. If not improving, might need Dr. Leos to help us. 5. Hyperkalemia with potassium 6.0. This is mild with no significant EKG changes. We will monitor potassium level and we will treat accordingly. 6. Chronic normocytic anemia. This could be secondary to erythropoietin deficit from chronic kidney disease. 7. History of gastroesophageal reflux disease. Reconcile home medications. 8. History of rheumatoid arthritis, reconcile home medications. This is chronic, seems to be stable. 9. Deep venous thrombosis prophylaxis. 10. History of atrial fibrillation/flutter. The patient has been on rate control medications; however, has been presented with symptomatic bradycardia at this point. Treatment as above. 11. Reportedly history of seizures, reconcile home medications, chronic, seems to be stable. Job ID: [id number]
[2018-10-31] MEDS: Heparin 5,000 UNITS/ML VIAL SC SCH (22:49)
[2018-10-31] MEDS: Acetaminophen 325 MG TAB PO PRN (22:50)
[2018-10-31] MEDS: cefTRIAXone\\ROCEPHIN 1 GM in Sodium Chloride 0.9% 100 ML IVPB SCH (22:54)
[2018-11-01 00:28] LABS: Troponin I 0.015 ng/mL (< 0.028)
[2018-11-01] MEDS ORDERED: Calcitriol 0.25 MCG CAP PO SCH ×4 (00:30→21:45)
[2018-11-01] MEDS: Melatonin 3 MG TAB PO PRN ×2 (00:52→21:43)
[2018-11-01] MEDS: hydrALAZINE 20 MG/ML VIAL SLOW IVP PRN ×2 (00:54→11:25)
[2018-11-01] MEDS: Acetaminophen 325 MG TAB PO PRN ×2 (03:15→19:32)
[2018-11-01 05:58] LABS: #Eosinphils 0.2 thou/uL (0.0-0.7); #Lymphocytes 0.6 thou/uL (1.20-3.40); #Monocytes 0.4 thou/uL (0.11-0.59); #Neutrophils 6.5 thou/uL (1.40-6.50); %Basophils 0.2 % (0.0-1.0); %Eosinophils 2.6 % (0.0-10.0); %Lymphocytes 7.5 % (21.0-51.0); %Monocytes 5.2 % (0.0-10.0); %Neutrophils 84.5 % (42.0-75.0); Mean Corpuscular Hemoglobin 36.4 pg (27.0-31.0); Mean Platelet Volume 7.5 fL (7.4-10.4); Platelet Count 135 thou/uL (130-400); RBC Distribution Width 12.3 % (11.5-14.5); Red Blood Cell (RBC) Count 2.21 mill/uL (4.20-5.40); White Blood Cell (WBC) Count 7.7 thou/uL (4.8-10.8)
[2018-11-01 06:54] LABS: Anion Gap 15 mmol/L (10-20); BUN (Urea Nitrogen) 45 mg/dL (9.8-20.1); Calc. Creatinine Clearance 19 mL/min (70-130); Calcium 9.1 mg/dL (7.8-10.44); Carbon Dioxide 20 mmol/L (23-31); Chloride 104 mmol/L (98-107); Estimated GFR-MDRD 22; Glucose 97 mg/dL (83-110); Potassium 4.7 mmol/L (3.5-5.1); Sodium 134 mmol/L (136-145)
[2018-11-01] MEDS: Heparin 5,000 UNITS/ML VIAL SC SCH ×3 (08:28→21:43)
[2018-11-01] MEDS ORDERED: traZODone HCl 50 MG TAB PO PRN (14:10)
[2018-11-01] MEDS ORDERED: Meclizine HCl 25 MG TAB PO PRN (14:10)
[2018-11-01] MEDS ORDERED: levETIRAcetam 500 MG TAB PO SCH (14:15)
[2018-11-01] MEDS ORDERED: Escitalopram Oxalate 10 mg Tablet PO SCH (14:15)
[2018-11-01] MEDS ORDERED: busPIRone HCl 10 MG TAB PO SCH (14:15)
[2018-11-01] MEDS: Gabapentin 300 MG CAP PO SCH (14:19)
--- NOTE | 2018-11-01 15:46 | CON ---
DATE OF CONSULTATION: PRIMARY CARE DOCTOR: Dr. Carlson. PRIMARY LOCOMOTIVE CRANE OPERATOR: Dr. Hester. PRIMARY SHIP KEEPER: Dr. Dafne Ortiz. PRIMARY GROCERY BUYER: [facility]. REASON FOR CARDIOLOGY CONSULT: Symptomatic bradycardia. HISTORY OF PRESENT ILLNESS: Ms. Pastrana is a 73-year-old pleasant female with significant history of atrial fibrillation, systemic lupus, chronic anemia, and chronic UTI. The patient was doing relatively well until last weekend when she started feeling of sinus like pressure to her head with general weakness. She had to stay in the bed through the weekend. Tuesday, she started having dizziness, but it was not that significant, but yesterday when she was doing the exercises with the physical therapist, heart physical therapy found out her heart rate was 48 with blood pressure 100/50. The patient's heart physical therapist asked her to lay on the bed and wait for 20 minutes and rechecked her pulses. At that time, her pulses continued showing 48. At that time, she did not have any dizziness when she was lying down; however, whenever she gets up, she started having dizziness. She feels her room is spinning like dizziness, but she denies any. She did not have any feeling of blacking out or passing out whenever she feels the dizziness. When her daughter came back from work yesterday afternoon, the patient's heart rate was showing at 37. The patient's daughter called the patient's primary care doctor. The patient was recommend to go to present the emergency department to check her heart with the EKG. The patient was found to have the heart rate of 40. After the patient received 1 dose of atropine, the patient's heart rates gradually coming up, and at this moment, the patient's heart rate is 70s to 80s. The patient denies any dizziness, lightheadedness, chest pain, shortness of breath, or any other cardiac complaints. She has chronic fatigue and anemia. However, she denied any worsening of fatigue during the episode. The patient had an echocardiogram done in February 2018 with EF 55% to 60%, mild dilated LA, mild mitral valve regurgitation, mild aortic valve regurgitation, and trace tricuspid regurgitation. The patient's stress test in February 2018 showed no ischemia. PAST MEDICAL HISTORY: 1. Atrial tachycardia in February 2018, secondary to urosepsis. 2. Chronic UTI. 3. Chronic anemia. 4. Lupus. 5. Rheumatoid arthritis. 6. Osteoarthritis. 7. Fibromyalgia. 8. Bursitis, Raynaud syndrome, multiple ankle fractures in both legs, spastic colon, hernias, diverticulitis, electrolyte imbalance, mouth ulcer, GI bleed, aspiration pneumonia, psoriasis, generalized seizure. PAST SURGICAL HISTORY: Sinus surgery, appendectomy, hernia repair, and hysterectomy. FAMILY HISTORY: Positive for diabetes. SOCIAL HISTORY: She lives with her daughter and her . The patient denies EtOH, tobacco use, or illicit drug abuse. She lives alone. She exercises with physical therapist at home. REVIEW OF SYSTEMS: A 12-point review of systems negative unless otherwise mentioned in HPI. ALLERGIES: SHE IS ALLERGIC TO LYRICA AND PLAQUENIL. HOME MEDICATIONS: Please refer to the patient's medical record and [employer], especially she is on, 1. Diltiazem 240 mg once a day. 2. Metoprolol 25 mg 1/2 tablet once a day. 3. Lasix 20 mg once a day as needed. PHYSICAL EXAMINATION: VITAL SIGNS: Blood pressure 160/74, temperature 99.8, heart rate 80 and sinus rhythm, O2 saturation 94% on room air, and respiratory rate 16. GENERAL: The patient is alert and oriented x4. Nonfocal. The patient is not in acute distress. HEENT: Head, normocephalic and atraumatic. Eyes, extraocular muscle movement intact. ENT and mouth, oral and nasal mucosa moist without lesion. NECK: Supple. Normal range of motion. No bruit or thrill noted. RESPIRATORY: Clear to auscultate bilaterally, but diminished at the bases. No wheezing, rales, or rhonchi noted. CARDIOVASCULAR: Regular rate and rhythm. Normal S1 and S2. No S3 or S4. No significant murmur, hives, or thrills noted. 2+ pulses in bilateral upper extremities, 1+ in the bilateral lower extremities, but no edema. ABDOMEN: Soft, nontender. No mass to palpitate. Bowel sounds are present. MUSCULOSKELETAL: The patient is able to move bilateral upper extremities, but difficulty to mobilize bilateral lower extremities. SKIN: Warm and dry. No lesion, rash, or erythema noted. NEUROLOGIC: The patient is alert and oriented x4. Nonfocal. PSYCHIATRIC: The patient's mood is appropriate at this moment. LABORATORY DATA: WBC 7.7, hemoglobin 8.0, hematocrit 23.0, platelets 135. Sodium 134, potassium 4.7, BUN 45, creatinine 2.15. AST 19 and ALT 14. Troponin level is negative. Chest x-ray shows cardiomegaly without evidence of congestive heart failure. 12-lead EKG at the ER shows sinus nereida with no ST-segment change or T-wave inversion. ASSESSMENT AND PLAN: 1. Symptomatic bradycardia. After the patient received atropine and holding the diltiazem 240 mg once a day and metoprolol 25 mg half tablet once a day, the patient's heart rate has been in the 70s to 80s at this moment on the telemetry record. There were no arrhythmia or pulses during this admission. We would like to adjust the medicine to diltiazem 90 mg twice a day, total 180 mg once a day. At this moment, we would like to hold metoprolol. We request EP consult for further recommendation. At this moment, the patient does not have any dizziness or lightheadedness. 2. Recurrent urinary tract infection, which is managed by the primary care doctor. She is on Cipro. Last time, the patient was in the hospital on October 16, 2018. She was recommend to follow up with a urologist, which has not had done. Her daughter tried to find a urologist that she can follow. 3. History of paroxysmal atrial tachycardia. The patient's heart rate is stable at this moment without diltiazem and metoprolol. Diltiazem 90 mg twice a day will be resumed from today, and EP consult requested for further recommendation. 4. Hypertension. The patient's blood pressure has been elevated. Diltiazem 90 mg twice a day is resumed from today. We would like to adjust the patient's blood pressure medication as needed, and I would like to go ahead to prescribe hydralazine 25 mg twice a day for her blood pressure management. 5. Chronic kidney disease. The patient has been followed up with Dr. Leos in the past. 6. Chronic anemia, which is managed by commutator undercutter. 7. Sleep apnea. The patient was diagnosed as a sleep apnea. She is using CPAP at night, which is managed by Dr. Isaacs. Thank you very much for Cardiology Service to participate in care of this patient. We will follow along the care team, make further recommendations as appropriate. Job ID: [id number]
--- NOTE | 2018-11-01 17:46 | PDOC.HOSPP ---
- Subjective Encounter Date: 11/01/18 Encounter Time: 13:00 Subjective: Patient seen and examined for dizziness. No CP or SOB. No new complaints. No overnight events - Objective Vital Signs & Weight: Vital Signs (12 hours) Temp Pulse Resp BP Pulse Ox 11/01/18 15:50 98.4 F 81 14 173/74 H 98 11/01/18 11:25 80 11/01/18 11:20 98.4 F 73 14 189/84 H 97 11/01/18 07:35 99.8 F H 80 16 160/74 H 94 L Weight Weight 115 lb 3.2 oz I&O: 10/31/18 11/01/18 11/02/18 06:59 06:59 06:59 Intake Total 240 Output Total 900 1600 Balance -660 -1600 Result Diagrams: 11/01/18 04:53 11/01/18 04:53 EKG Reviewed by me: Yes (Tele SR) Hospitalist ROS - Review of Systems Respiratory: denies: cough, dry, shortness of breath, hemoptysis, SOB with excertion, pleuritic pain, sputum, wheezing, other Cardiovascular: denies: chest pain, palpitations, orthopnea, paroxysmal noc. dyspnea, edema, light headedness, other - Medication Medications: Active Medications Generic Name Dose Route Start Last Admin Trade Name Freq PRN Reason Stop Dose Admin Acetaminophen 650 mg 10/31/18 20:53 11/01/18 03:15 Tylenol PO 650 mg Q4H PRN Administration Headache/Fever/Mild Pain (1-3) Gabapentin 300 mg 11/01/18 15:00 11/01/18 14:19 Neurontin PO 300 mg 0900,1500 JOSE Administration Heparin Sodium (Porcine) 5,000 units 10/31/18 21:00 11/01/18 14:18 Heparin SC 5,000 units TID JOSE Administration Hydralazine HCl 10 mg 11/01/18 00:37 11/01/18 11:25 Apresoline SLOW IVP 10 mg Q4H PRN Administration SBP > 180 Ceftriaxone Sodium 1 gm/ 100 mls @ 200 mls/hr 10/31/18 22:00 10/31/18 22:54 Sodium Chloride IVPB 100 mls Q24HR JOSE Administration Melatonin 3 mg 11/01/18 00:34 11/01/18 00:52 Melatonin PO 3 mg HS PRN Administration Insomnia Sodium Chloride 10 ml 11/01/18 09:00 11/01/18 08:28 Flush - Normal Saline IVF Not Given Q12HR JOSE Sodium Chloride 10 ml 10/31/18 22:00 11/01/18 00:54 Flush - Normal Saline IVF 10 ml PRN PRN Administration Saline Flush - Exam General Appearance: NAD Neck: supple, no JVD Heart: RRR, no gallops Respiratory: CTAB, no rales Gastrointestinal: soft, non-tender, normal bowel sounds Extremities: no edema Hosp A/P (1) Symptomatic bradycardia Code(s): R00.1 - BRADYCARDIA, UNSPECIFIED Status: Acute (2) Hyperkalemia Code(s): E87.5 - HYPERKALEMIA Status: Acute (3) UTI (urinary tract infection) Status: Acute (4) PENELOPE (acute kidney injury) Code(s): N17.9 - ACUTE KIDNEY FAILURE, UNSPECIFIED Status: Acute (5) Hyponatremia Code(s): E87.1 - HYPO-OSMOLALITY AND HYPONATREMIA Status: Acute (6) CKD (chronic kidney disease) stage 4, GFR 15-29 ml/min Code(s): N18.4 - CHRONIC KIDNEY DISEASE, STAGE 4 (SEVERE) Status: Chronic (7) Chronic pain disorder Code(s): G89.4 - CHRONIC PAIN SYNDROME Status: Chronic (8) Seizure disorder Code(s): G40.909 - EPILEPSY, UNSP, NOT INTRACTABLE, WITHOUT STATUS EPILEPTICUS Status: Chronic (9) Macrocytic anemia Code(s): D53.9 - NUTRITIONAL ANEMIA, UNSPECIFIED Status: Chronic (10) Other issues per H&P - Plan plan discussed w/ family Metoprolol on hold Started on Cardizem at lower dose Cont IV Ceftriaxone No urine cultures sent on admission Hold Lasix/Potassium due to PENELOPE BMP in AM Resume other home meds Cardio/EP following
[2018-11-01] MEDS: HYDROmorphone 2 MG TAB PO PRN (18:13)
[2018-11-01] MEDS: Ondansetron ODT 4 MG TAB PO PRN (18:14)
[2018-11-01] MEDS: Diltiazem HCl SR 90 mg Capsule PO SCH (19:32)
[2018-11-01] MEDS: tiZANidine HCl 4 MG TAB PO PRN (19:32)
[2018-11-01] MEDS ORDERED: valACYclovir 500 MG TAB PO SCH (21:00)
[2018-11-01] MEDS ORDERED: Gabapentin 300 MG CAP PO SCH (21:00)
[2018-11-01] MEDS ORDERED: Cyanocobalamin (Vitamin B-12) 1,000 MCG TAB PO SCH (21:00)
--- NOTE | 2018-11-01 21:13 | CT ---
EXAM: ABDOMEN CT WITHOUT CONTRAST PELVIC CT WITHOUT CONTRAST 11/01/18 COMPARISON: 08/29/15. HISTORY: Recurrent urinary tract infection. Generalized abdominal pain. FINDINGS: ABDOMEN CT: Dependent atelectatic changes. Heart size is within normal limits. No pericardial effusion. Minimal coronary artery calcifications. Atherosclerosis of a nonaneurysmal aorta. Unremarkable gallbladder. Small amount of sludge or stones are noted in the gallbladder fundus. Limited evaluation of the solid organs by the lack of IV contras t. Grossly, no solid organ abnormality. No gastrohepatic, retrocrural, or periportal lymphadenopathy. There are postsurgical changes at the l evel of the GE junction and gastric cardia. Limited evaluation of the alimentary canal by the lack of the oral contrast. There appear to be fluid filled prominent small bowel loops in the midline of the inferior abdomen. Limited evaluation of the ileocecal junction. Copious amount of fecal material throughout the colon. Correlate for possible co nstipation. Bilaterally, no hydronephrosis, nephrolithiasis or perinephric fat stranding. The visualized ureters are grossly unremarkable. No hydroureter, periureteral fat stranding or ureterolithiasis. No mesenter ic mass, lymphadenopathy, free air or free fluid. PELVIC CT: Surgically absent uterus. Decompressed urinary bladder, limited evaluation. No pelvic mass, lymphaden opathy, free air or free fluid. There is edema involving the soft tissues suggesting anasarca. Osseous structures demonstrate multilevel degenerative disc disease with loss of disc space height, v acuum disc phenomenon and osteophyte formation. There is evidence of spondylolisthesis, without spond ylolysis involving the L2-L3, and L4-L5 level. IMPRESSION: 1. No evidence of obstructive uropathy. 2. Suboptimal evaluation of the alimentary canal. Fluid filled loop of small bowel is suggested. The possibility of small bowel obstruction cannot be excluded. 3. Copious amount of fecal material in the colon. Correlate clinically for constipation. 4. Small amount of sludge and stones in the gallbladder fundus, similar to the previous exam. POS: NOELLE
[2018-11-01] MEDS: busPIRone HCl 10 MG TAB PO SCH (21:41)
[2018-11-01] MEDS: Escitalopram Oxalate 10 mg Tablet PO SCH (21:41)
[2018-11-01] MEDS: levETIRAcetam 500 MG TAB PO SCH (21:42)
[2018-11-01] MEDS: cefTRIAXone\\ROCEPHIN 1 GM in Sodium Chloride 0.9% 100 ML IVPB SCH (21:43)
--- NOTE | 2018-11-01 22:15 | CON ---
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 She was recently in the hospital in the past with atrial fibrillation. She is now in sinus rhythm, but the time she does this early, she was admitted after being complaining of dizziness and home health nurse has seen here and heart rate was in the 40s. She presented to the emergency room. Actually, heart rate at that time was 42 beats per minute, but still remains sinus bradycardia. She had been placed on beta blockers as well as calcium channel blockers and followed by diltiazem prior to being discharged before. At this time, we will stop her beta-maurizio to see how she responds, but most likely may need a pacemaker. The concern is due to her frequent urinary tract infections and episodes of sepsis in the past that she might be a poor candidate for any kind of implantation of a foreign device. We will ask Dr. Robles for his opinion in this lady who has been on frequent antibiotics. Since she is again on antibiotics, she is comfortable at this time with heart rates in the 80s. We will continue to follow the patient with you. If we deem that she needs pacemaker, this will be performed in the next 1-2 days and I have explained this to the patient. PAST MEDICAL HISTORY: Please refer the notes dictated by the nurse practitionerChelsie. SOCIAL HISTORY: Please refer the notes dictated by the nurse practitionerChelsie. FAMILY HISTORY: Please refer the notes dictated by the nurse practitionerChelsie. REVIEW OF SYSTEMS: Please refer the notes dictated by the nurse practitionerChelsie. FAMILY HISTORY: Please refer the notes dictated by the nurse practitionerChelsie. MEDICATIONS: Please refer the notes dictated by the nurse practitionerChelsie. ALLERGIES: PLEASE REFER THE NOTES DICTATED BY THE NURSE PRACTITIONERCHELSIE. PHYSICAL EXAMINATION: GENERAL: Reveals an ill-appearing elderly lady who has a left leg brace after a fall. She chronically has this brace in place. She is unable to walk due to this and she is somewhat emaciated. Otherwise, she has no complaints. HEENT: Unremarkable. CHEST: Clear to auscultation without rales, rhonchi, or wheezing. CARDIOVASCULAR: Reveals a regular rate and regular rhythm with no gross murmurs, heaves, thrills, bruits or rubs. ABDOMEN: Soft, flat, nontender. EXTREMITIES: Show no clubbing or cyanosis. She has a left leg brace on from the feet all the way up to the above the knee. NEUROLOGIC: She is mentally intact. IMPRESSION: Probably sick sinus syndrome. We have asked the spreader operator to visit with the patient and give the opinion. We will at this time hold the beta blockers and see whether or not the heart rate will improve. If she is a candidate for pacemaker insertion, we will need to evaluate this. We will ask Infectious Disease, Dr. Robles to see her since she has these frequent episodes of urinary tract infections and has had sepsis on more than 1 occasion. At this time. She continues to have a urinary tract infection and is on antibiotics once again. She also has anemia of uncertain etiology. We will continue to follow this with you. Should she need a pacemaker, after we were all in agreement, then this may be the way to go and pacemaker could be inserted either tomorrow or the next day. Job ID: [id number]
[2018-11-01] MEDS: Senokot S 8.6-50 MG TAB PO SCH ×2 (23:44→23:52)
[2018-11-01] MEDS: Polyethylene Glycol 3350 17 GM Packet PO SCH ×2 (23:44→23:53)
[2018-11-02] MEDS: HYDROmorphone 2 MG TAB PO PRN ×3 (00:38→13:15)
--- NOTE | 2018-11-02 01:00 | CON ---
DATE OF CONSULTATION: 11/01/2018 REASON FOR CONSULTATION: Evaluate risk of infection following pacemaker implantation. HISTORY OF PRESENT ILLNESS: 73-year-old who is well-known to me from prior visits with a history of SLE, rheumatoid arthritis on TNF inhibitor as well as nonunion fracture of the left tibia, who has had recurrent urinary tract colonizations which have been managed with periodic antimicrobial therapy. In the hospital database , she has Klebsiella pneumoniae, E coli, and then she has had Klebsiella pneumoniae again with the exact same susceptibility profile and the E coli, so I suspect that she has upper tract colonization by this Klebsiella with the same susceptibility profile and then at least until February 21 which she has ESBL colonization, so it seems like it is a different pathogen. She had an E coli with ESBL profile. It is possible that the Klebsiella just developed more resistant phenotype due to frequent antimicrobial therapy administration. The latest one was Klebsiella again just a few days ago with a very broad susceptibility profile. In our previous assessments, we felt that it was more likely that she had changes in mental state unrelated to urinary tract findings although it would be hard to rule out a truly invasive infectious process. At least once before I did recommend discontinuation of antimicrobial therapy because I felt that the symptom presentation was not consistent with an invasive urinary tract infection. She does take opioid medication with chronic constipation, which is probably contributing to the urinary tract colonization as well. This time, she comes in with dizziness and symptomatic bradycardia and Dr. Hester is considering placement of pacemaker. There is a concern with frequent UTIs possibility of involvement of pacemaker by infection. Currently, she is awake. She denies any headaches. No shortness of breath or chest pain. No abdominal pain. She does not have urinary symptoms at this point in time. PAST MEDICAL HISTORY: Rheumatoid arthritis, SLE, left tibia fracture, nonunion, managed with splint, hypertension, peptic ulcer disease with prior GI bleed, recurrent UTIs with chronic Klebsiella pneumoniae colonization, probably from upper tract colonization. Has not had urology workup in the past. SOCIAL HISTORY: Lives with daughter. Never smoker. FAMILY HISTORY: Diabetes mellitus type 2. ALLERGIES: PLAQUENIL, LYRICA. MAY HAVE HAD PULMONARY COMPLICATIONS FOLLOWING CHRONIC NITROFURANTOIN FOR SUPPRESSIVE THERAPY. CURRENT MEDICATIONS: 1. Tylenol. 2. BuSpar. 3. Ceftriaxone. 4. Cardizem. 5. Lexapro. 6. Neurontin. 7. Heparin. 8. Apresoline. 9. Dilaudid. 10. Keppra. 11. Antivert. 12. Melatonin. 13. Zofran. 14. Protonix. 15. Zanaflex. 16. Desyrel. 17. Valtrex. PHYSICAL EXAMINATION: VITAL SIGNS: T-max 99.8, BP 170/74, pulse 81, respirations 14, O2 saturation 98. SKIN: Small area of stage II ulceration, right presacral region, gluteal area interface with very little erythema, mostly just a pink change in the color of the epithelium. She has a peripheral IV access and she is voiding in the urinal. No lymphadenopathy. HEENT: Ocular movements conjugate. Oral cavity with still quite a few teeth in place with the expected decay. NECK: Supple. No jugular vein distention or carotid bruits. LUNGS: Symmetric air entry with faint basilar crackles. HEART: S1-S2 with without significant murmurs. No S3. Regular rate. ABDOMEN: Soft, not distended or tender. No ascites. No bladder distention. She has chronic joint inflammatory changes and deformity related to chronic rheumatoid arthritis. Cognitive function appears to be intact. LABORATORY DATA: White cell count 7.4 and 7.7, hemoglobin 8, MCV 104, platelets 135 with 84% neutrophils. Sodium 134, creatinine 2.15 and this is higher than her baseline from May, which was 0.76. Liver profile normal. Albumin 4.1. Microbiology, we have the last cultures from urine from October 16. Reports include chest x-ray with cardiomegaly, but no CHF. There is abdomen and pelvis CT from April 20, 2018, with moderate gallbladder distention. There is moderate amount of stool within the colon that is from April. ASSESSMENT: 1. Rheumatoid arthritis with chronic joint deformities on TNF inhibitor therapy. 2. Recurrent urinary tract colonization by Escherichia coli and Klebsiella probably with upper tract colonization. The patient never had a urology workup and not clear if she has evidence of urinary retention or not. There is no evidence of stone disease or obstruction based on the CT done in April. 3. Bradycardia with recommendation for placement of a pacemaker. DISCUSSION: The rates of infection of pacemaker from urinary tract colonization are quite low, although case reports of pacemaker infection from invasive UTIs have been made in the literature. Those are rare though. In that regard, I would not contraindicate pacemaker placement in this situation. In terms of management of her recurrent UTIs, she probably would need Urology evaluation to see if she has urinary retention or other structural abnormality. For the moment, I will order a CT stone protocol and check postvoid residual measurement at the bedside by the nurse and repeat urinary assays. Job ID: [id number] MTDD
[2018-11-02] MEDS: tiZANidine HCl 4 MG TAB PO PRN (03:53)
[2018-11-02] MEDS: Acetaminophen 325 MG TAB PO PRN (03:54)
[2018-11-02 05:43] LABS: Hemoglobin 7.9 g/dL (12.0-16.0); Platelet Count 131 thou/uL (130-400)
[2018-11-02 06:02] LABS: Anion Gap 12 mmol/L (10-20); BUN (Urea Nitrogen) 41 mg/dL (9.8-20.1); Calc. Creatinine Clearance 20 mL/min (70-130); Calcium 8.8 mg/dL (7.8-10.44); Carbon Dioxide 23 mmol/L (23-31); Chloride 101 mmol/L (98-107); Estimated GFR-MDRD 25; Glucose 97 mg/dL (83-110); Potassium 4.3 mmol/L (3.5-5.1); Sodium 132 mmol/L (136-145)
[2018-11-02] MEDS: levETIRAcetam 500 MG TAB PO SCH (07:31)
[2018-11-02] MEDS: Diltiazem HCl SR 90 mg Capsule PO SCH (07:31)
[2018-11-02] MEDS: Gabapentin 300 MG CAP PO SCH (07:32)
[2018-11-02] MEDS: Escitalopram Oxalate 10 mg Tablet PO SCH (07:32)
[2018-11-02] MEDS: Ondansetron ODT 4 MG TAB PO PRN ×2 (07:32→13:16)
[2018-11-02] MEDS: busPIRone HCl 10 MG TAB PO SCH (07:33)
[2018-11-02] MEDS: Heparin 5,000 UNITS/ML VIAL SC SCH (07:34)
--- NOTE | 2018-11-02 08:37 | CON ---
DATE OF CONSULTATION: 11/02/2018 REASON FOR CONSULTATION: I am seeing Ms. 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 Her problems are: 1. Tachy-nereida syndrome. a. Current admission with bradycardia in the setting of metoprolol and diltiazem use. b. Prior hospitalization in February with episodes of atrial tachycardia with rates up to 110 to 120 beats per minute noted. 2. History of preserved LVEF 55% to 60%, mild left atrial enlargement, mild MR and AI. 3. Nuclear stress test from 02/14/2018 shows no ischemia, LVEF 54%. 4. History of rheumatoid arthritis and systemic lupus erythematosus. 5. History of severe joint ankylosis. 6. History of GI bleed, peptic ulcers, and chronic anemia. ALLERGIES: 1. LYRICA/PREGABALIN. 2. PLAQUENIL. MEDICATIONS: At home included: 1. Levetiracetam. 2. Lexapro. 3. Buspirone. 4. Restasis. 5. Gabapentin. 6. Valacyclovir. 7. Cardizem CD 240 mg a day. 8. Pantoprazole. 9. Trazodone. 10. Vitamin E. 11. Cyanocobalamin. 12. Ascorbic acid. 13. Ferrous sulfate. 14. Fluticasone. 15. Meclizine. 16. Famotidine. 17. Calcitriol. 18. Ergocalciferol. 19. Potassium. 20. Furosemide. 21. Tizanidine. 22. Ibuprofen. 23. Hydromorphone. 24. Metoprolol tartrate 12.5 mg daily. 25. Multivitamin. 26. Calcium carbonate. SUBJECTIVE: Ms. Pastrana is here with some chronic fatigue, which is gradually worsening and her nurse noting bradycardia on admission. This was in the setting of above-mentioned diltiazem and metoprolol use. She denies palpitations or chest pains recently. No fever or chills noted, but she had evidence of a recent UTI and IV antibiotics were administered hence on the . She was then discharged, but again she is back on antibiotics this admission. She has no burning urination or hematuria at this time. She has no stroke-like symptoms. No bleeding or other bleeding issues. No neurological deficits. No fever. No PND, orthopnea, or lower extremity edema. She has fluid overload. Denies palpitations. Rest of 12- point review of system otherwise unremarkable. PAST MEDICAL HISTORY: Past history as above. I have seen this lady back in February 2018 in the setting of pneumonia and fevers, paroxysmal atrial tachycardia was noted in 110 to 120 range. She was started on metoprolol and diltiazem at this admission. Ever since, it has been adjusted down, hence her borderline blood pressures. She was noted to have a worsening renal function extending to her. Rest of history as per H and P. She has a history of psoriasis as well. SOCIAL HISTORY: She denies smoking, EtOH, or drug abuse. FAMILY HISTORY: Not contributory. PAST SURGICAL HISTORY: Significant for sinus surgery, appendectomy, hernia repair, and hysterectomy. OBJECTIVE DATA: VITAL SIGNS: Blood pressure is 189/84, heart rate 73, respirations 14, and temperature 98.4 degrees Fahrenheit. GENERAL: Alert and oriented woman, in no apparent distress. NECK: Supple. Jugular vein is not distended. CHEST: Coarse without crackles. HEART: Sounds are regular to rate and rhythm. No murmur or gallop. ABDOMEN: Benign. Bowel sounds positive. EXTREMITIES: Lower extremity without edema, clubbing, or cyanosis. NEUROLOGIC: The patient is nonfocal. MUSCULOSKELETAL: Some hand arthritic changes are noted. NEUROLOGIC: The patient is nonfocal. SKIN: Without rash. DATABASE: EKG is reviewed initially revealing sinus bradycardia in the 40s with [place] AV conduction, narrow QRS. Telemetry strips reveal normalizing heart rate, continuous sinus rhythm. No atrial fibrillation is noted. LABORATORY DATA: White cell count 7.7, hemoglobin 8, platelet count is 135. Sodium 134, potassium 4.7, BUN is 45, creatinine is 2.15. The troponin levels are 0.013 to 0.015 x3. ASSESSMENT AND PLAN: Ms. Pastrana is a pleasant 73-year-old woman with history of atrial tachyarrhythmias. She was placed on dual AV lidia blocking regimen with beta blockers and calcium channel blockers in February, but now developed bradycardia. She has been feeling good on these medication without symptomatic recurrence of atrial tachycardia. She is not on anticoagulation, hence felt to be more regular atrial rhythm back in February, not atrial fibrillation was seen. Now, she is readmitted bradycardia which is likely related to her combined diltiazem and metoprolol use. We discussed the improvement of the heart rates after holding these medications overnight. On the other hand, we also discussed potential recurrence of atrial tachyarrhythmias in which case further beta maurizio/calcium channel maurizio regimen might be necessary. Essentially, she has a degree of tachy-nereida syndrome. She is fairly frail with severe anemia and her atrial arrhythmias, possibly left atrial. At this point, I would refrain from ablation procedures. On the other hand, pacemaker could be a consideration to support her heart rate. We will discuss with Dr. Hester. At this point, I agree with the current regimen and we will follow with you. Job ID: [id number] [facility]
[2018-11-02] MEDS ORDERED: Polyethylene Glycol 3350 17 GM Packet PO SCH (09:00)
[2018-11-02] MEDS ORDERED: Senokot S 8.6-50 MG TAB PO SCH (09:00)
--- NOTE | 2018-11-02 10:53 | PRG ---
DATE OF SERVICE: 11/02/2018 SUBJECTIVE: Ms. Pastrana seems to be doing fair today. Denies dizziness or loss of consciousness. The heart rates are stable. She has been seen by Dr. Robles, ID specialist, overnight. OBJECTIVE: VITAL SIGNS: Blood pressure is 155/70, heart rate 77, respirations 18, temperature 98.1 degrees Fahrenheit. GENERAL: Alert and oriented woman, in no apparent distress. NECK: Supple. Jugular veins not distended. CHEST: Coarse. No crackles. HEART: Heart sounds are regular to rate and rhythm. No murmur or gallop. ABDOMEN: Benign. Bowel sounds positive. EXTREMITIES: Lower extremities without edema, clubbing, or cyanosis. DATABASE: Telemetry strips were reviewed, reveal sinus rhythm, no significant ST-T changes. No SVT or atrial arrhythmias are noted. LABORATORY DATA: White blood cell count 7, hemoglobin 7.9. Electrolytes, normal range. BUN 41, creatinine 1.98. ASSESSMENT AND PLAN: Ms. Pastrana is a pleasant 73-year-old woman with history of rheumatoid arthritis, who was noted to have frequent atrial tachyarrhythmia symptoms in the setting of pulmonary issues back in February. At which point, she was placed on dual AV lidia blocking regimen with diltiazem, beta blockers. Now, she returned with marked bradycardia, requiring holding these medications, although the Cardizem has been since restarted. She is maintaining normal rhythm. No further atrial tachyarrhythmias are seen, but concern is there for future recurrences. We discussed the treatment options. Again, she is a poor ablation candidate. On the other hand, she has tachy-nereida syndrome, pacemaker implantation is a consideration. According to Dr. Robles' note, there was no absolute contraindication to pacemaker implant. On the other hand, currently her tachyarrhythmias are at [place], although likely to recur in the future. It is reasonable to consider pacemaker implant now or in the future, especially if recurrent tachyarrhythmias are seen. For now, I agree with diltiazem therapy. Discussed with NGOZI Beck. Job ID: [id number]
[2018-11-02 11:47] VITALS: BP 139/63; TEMP 98
--- NOTE | 2018-11-02 12:22 | PRG ---
DATE OF SERVICE: 11/02/2018 SUBJECTIVE: The patient is seen and examined at the bedside. She is feeling somewhat better. She is not bradycardic anymore. She is concerned about getting pacer placed and having UTI at the same time. Apparently, the patient visited with Dr. Robles, who thinks that this risk is low of some infectious complications. OBJECTIVE: VITAL SIGNS: Blood pressure is 155/70, pulse is 77, respiratory rate is 18, temperature is 98.1, O2 saturation is 98% on room air. HEENT: Head is atraumatic and normocephalic. Eyes are PERRLA. Sclerae are nonicteric. Oral mucosa is moist. NECK: Supple. LUNGS: Breath sounds diminished at the left base. HEART: S1 and S2 normal. No S3. No S4. ABDOMEN: Soft, nontender, nondistended. EXTREMITIES: She has hypertrophied joints in her second, third, and fourth metaphalangeal joints. NEUROLOGIC: She follows my commands. She moves her all 4 extremities. There are no any motor or sensory deficits. LABORATORY DATA: Hemoglobin of 7.9, hematocrit 22.2, platelet count 131,000. Sodium of 132, potassium 4.3, chloride 101, CO2 of 23, BUN 12, creatinine 1.98. The rest of chemistry is within normal limits. Folate is 31. CT of the abdomen and pelvis done yesterday showed no evidence of obstructive uropathy, copious amount of fecal material in the colon, and small amount of sludge and stones in the gallbladder fundus. IMPRESSION: 1. Symptomatic bradycardia. 2. Questionable urinary tract infection without urine cultures. 3. Acute kidney injury. 4. Hyponatremia, hypo-osmolar. 5. Chronic pain syndrome. 6. Rheumatoid arthritis. 7. History of seizures. 8. Anemia. PLAN: We are awaiting for bass viol repairer to make decision about the pacer. I recommended to continue her Rocephin since most likely she is going to have pacer and most bass viol repairer continue with antibiotic postprocedure. We will follow up on her kidney function and she should be able to go home after the pacer is placed in the next 24 hours. Job ID: [id number]
--- NOTE | 2018-11-02 12:32 | PDOC.CPN ---
- Subjective Date: 11/02/18 Time: 12:40 Interval history: The pt seen and examined. No overnight events. No cardiac complaints. - Objective Allergies/Adverse Reactions: Allergies Allergy/AdvReac Type Severity Reaction Status Date / Time pregabalin [From Lyrica] Allergy Intermediate Verified 10/31/18 21:24 hydroxychloroquine Allergy Verified 10/31/18 21:24 [Hydroxychloroquine] hydroxychloroquine sulfate Allergy Verified 10/31/18 21:24 [From Plaquenil] Visit Medications: Current Medications Acetaminophen (Tylenol) 650 mg PO Q4H PRN PRN Reason: Headache/Fever/Mild Pain (1-3) Last Admin: 11/02/18 03:54 Dose: 650 mg Acetaminophen (Tylenol) 650 mg [place] Q4H PRN PRN Reason: Headache/Fever/Mild Pain (1-3) Buspirone HCl (Buspar) 30 mg PO BID [facility] Last Admin: 11/02/18 07:33 Dose: 30 mg Calcitriol (Rocaltrol) 0.25 mcg PO [facility] Cyanocobalamin (Vitamin B-12) 1,000 mcg PO [facility] Last Admin: 11/01/18 21:41 Dose: 1,000 mcg Diltiazem HCl (Cardizem Sr) 90 mg PO BID [facility] Last Admin: 11/02/18 07:31 Dose: 90 mg Escitalopram Oxalate (Lexapro) 10 mg PO BID [facility] Last Admin: 11/02/18 07:32 Dose: 10 mg Gabapentin (Neurontin) 300 mg PO 0900,1500 [facility] Last Admin: 11/02/18 07:32 Dose: 300 mg Gabapentin (Neurontin) 600 mg PO [facility] Last Admin: 11/01/18 21:42 Dose: 600 mg Heparin Sodium (Porcine) (Heparin) 5,000 units SC TID [facility] Last Admin: 11/02/18 07:34 Dose: Not Given Hydralazine HCl (Apresoline) 10 mg SLOW IVP Q4H PRN PRN Reason: SBP > 180 Last Admin: 11/01/18 11:25 Dose: 10 mg Hydromorphone HCl (Dilaudid) 2 mg PO QID PRN PRN Reason: Pain 4-6 Last Admin: 11/02/18 07:33 Dose: 2 mg Ceftriaxone Sodium 1 gm/ (Sodium Chloride) 100 mls @ 200 mls/hr IVPB Q24HR [facility] Last Admin: 11/01/18 21:43 Dose: 100 mls Levetiracetam (Keppra) 750 mg PO BID [facility] Last Admin: 11/02/18 07:31 Dose: 750 mg Meclizine HCl (Antivert) 25 mg PO QID PRN PRN Reason: Dizziness Melatonin (Melatonin) 3 mg PO HS PRN PRN Reason: Insomnia Last Admin: 11/01/18 21:43 Dose: 3 mg Ondansetron HCl (Zofran Odt) 4 mg PO Q6H PRN PRN Reason: Nausea/Vomiting Last Admin: 11/02/18 07:32 Dose: 4 mg Ondansetron HCl (Zofran) 4 mg IVP Q6H PRN PRN Reason: Nausea/Vomiting Pantoprazole Sodium (Protonix) 40 mg PO DAILY [facility] Last Admin: 11/02/18 07:33 Dose: 40 mg Polyethylene Glycol (Miralax) 17 gm PO DAILY [facility] Last Admin: 11/02/18 07:35 Dose: Not Given Senna/Docusate Sodium (Senokot S) 2 tab PO BID [facility] Last Admin: 11/02/18 07:35 Dose: Not Given Sodium Chloride (Flush - Normal Saline) 10 ml IVF Q12HR [facility] Last Admin: 11/02/18 07:35 Dose: 10 ml Sodium Chloride (Flush - Normal Saline) 10 ml IVF PRN PRN PRN Reason: Saline Flush Last Admin: 11/01/18 00:54 Dose: 10 ml Tizanidine HCl (Zanaflex) 2 mg PO TID PRN PRN Reason: Muscle Spasm Last Admin: 11/02/18 03:53 Dose: 2 mg Trazodone HCl (Desyrel) 50 mg PO QPM PRN PRN Reason: Insomnia Last Admin: 11/02/18 00:37 Dose: 50 mg Valacyclovir HCl (Valtrex) 500 mg PO HS [facility] Last Admin: 11/01/18 21:41 Dose: 500 mg Vital Signs & Weight: Vital Signs Temp Pulse Resp BP Pulse Ox 11/02/18 11:46 98.0 F 65 18 139/63 98 11/02/18 08:00 98.1 F 77 18 155/70 H 98 11/02/18 04:28 76 176/78 H 11/02/18 04:00 97.9 F 63 16 98 Weight 109 lb 11.2 oz - Physical Exam General: alert & oriented x3 Neck: supple neck Cardiac: regular rate and rhythm, S1/S2 Lungs: decreased breath sounds Neuro: cranial nerve 2-12 intact Abdomen: unremarkable Skin: clear Musculoskeletal: decreased range of motion - Labs Result Diagrams: 11/02/18 05:12 11/02/18 05:12 Troponin/CKMB Troponin I 0.015 ng/mL (< 0.028) 10/31/18 23:57 - Telemetry Sinus rhythms and dysrhythmias: sinus rhythm (HR 60-80s) - Assessment/Plan Assessment/Plan: 1. Symptomatic bradycardia - stable since Metoprolol was d/haider and decreased Diltiazem from 240mg to 90mg BID; Cont. to monitor and possible PM placement if cont. Bradycardia 2. Hx of Atrial Tachycardia/Afib - Well controlled HR with Diltiazem 90mg BID; Not on OAC or ASA for now for chronic Anemia with unknown etiology 3. HTN - stable 4. Recurrent UTI - managed by PCP; the pt's family will calll urologist office 5. PENELOPE on CKD - unchanged 6. SLE 7. Chronic anemia 8. Hyponatremia MAR reviewed * From Cardiac standpoint, the pt is stable to d/c home. The pt already has an appt with Dr Hester on 11/15/2018
[2018-11-02] MEDS ORDERED: Calcitriol 0.25 MCG CAP PO SCH (21:00)
--- NOTE | 2018-11-03 04:14 | DIS ---
DATE OF ADMISSION: 10/31/2018 DATE OF DISCHARGE: 11/02/2018 DISCHARGE DIAGNOSES: 1. Symptomatic bradycardia, stable since metoprolol was discontinued and the dose of diltiazem was decreased to 90 mg twice a day from 240 mg once a day. 2. History of atrial tachycardia/atrial fibrillation. 3. Hypertension. 4. Recurrent urinary tract infection, but most likely not a case during this hospitalization. 5. Acute kidney injury on chronic kidney injury. 6. Systemic lupus erythematosus. 7. Chronic anemia. 8. Rheumatoid arthritis. 9. Hyponatremia. 10. History of seizures. 11. Anemia. CONSULTANTS: 1. Dr. Hester, Cardiology Service. 2. Dr. Chris Hampton, Electrophysiology Service. HOSPITAL COURSE: The patient is a 73-year-old female, who was admitted to the hospital with dizziness. She was found to have significant bradycardias with heart rate in the 30s and 40s. Apparently, Dr. Leos cut down on her antiarrhythmic medications since her heart rate was low and there was consideration that she might have sick sinus syndrome. Primary Care Physician, Dr. Carlson recommended her to go to the hospital for further evaluation of her symptomatic bradycardia and she came to the emergency room and got admitted to monitored bed. At the time of admission, her electrocardiogram showed marked sinus bradycardia at a rate of 42 with PA 148, QRS is 86, QT corrected 362. The chest x-ray showed cardiomegaly without evidence of congestive heart failure. Labs at the time of admission showed white count of 7.4, hemoglobin 8.9, platelet count 181,000. Sodium of 134, potassium of 6.0, chloride of 103, CO2 of 22, creatinine 2.36, magnesium 1.8. Troponin 0.013. Her urine showed WBCs 11 to 20s. The patient got admitted to the hospital. Consultation with Dr. Hester was requested. She was treated as possible urinary tract infection, but urine culture was not done at the time of emergency room visit. Potassium elevated at 6.0 without any significant EKG changes and she was treated accordingly. Subsequently, she was seen by Cardiology Service, Dr. Hester and Dr. Chris Hampton, [place], and the final recommendation was to stop her beta maurizio and decrease the dose of Cardizem from 240 mg once a day to 90 mg twice a day. Also, Infectious Disease Specialist, Dr. Robles was consulted. He felt that a probability that this was urinary tract infection was low and the CT of the pelvis and abdomen was done, which did not show any obstructive uropathy, only copious amount of fecal material in the colon and small amount of sludge and stones in the gallbladder fundus, which was similar on the previous examination. The patient is doing well. Her blood pressure is 139/63, pulse is 65, temperature 98.0, respiratory rate 18, and O2 saturation is 98% on room air. I had a long discussion with her and her daughter. Apparently, the patient was not dysuric. She did not have any mental status changes, which are typical for the time when she gets urinary tract infection, so we are not going to continue her antibiotics since we feel that this was not really infection. It was not confirmed by any urine culture because it was not done during emergency room visit. The patient is seen and examined before she is discharged. She is discharged with recommendation to stay on heart healthy diet. ACTIVITIES: As tolerated. MEDICATIONS: At the time of discharge; 1. Diltiazem 90 mg twice a day. 2. Valacyclovir one tablet at bedtime. 3. Trazodone 50 mg q.p.m. p.r.n. 4. Buspirone 30 mg twice a day. 5. Tizanidine 2 mg t.i.d. p.r.n. 6. Pantoprazole 40 mg once a day. 7. Potassium chloride 20 mEq once a day. 8. Vitamin E 400 mg at bedtime. 9. Hydromorphone 2 mg q.i.d. p.r.n. as needed. 10. She is advised not to use ibuprofen that much. 11. Furosemide 20 mg q.a.m. p.r.n. She takes this sporadically maybe twice a month. 12. Gabapentin 300 mg twice a day and 600 mg at bedtime. 13. Ferrous sulfate 325 mg at bedtime. 14. Fluticasone two sprays to each nostril at bedtime. 15. Vitamin D2 43929 units every 7 days. 16. Lexapro 10 mg twice a day. 17. Ascorbic acid 1000 mg at bedtime. 18. Calcitriol 0.25 mcg at bedtime. 19. Vitamin B12 1000 mcg at bedtime. 20. Keppra 750 mg twice a day. 21. Calcium carbonate 1200 mg at bedtime. FOLLOWUP: The patient is supposed to follow up with her Primary Care Physician, Dr. Carlson in a week and make an appointment with Dr. Robles, Dr. Chris Hampton and Dr. Hester as followups. TIME SPENT: Discharge time spent is less than 30 minutes. Job ID: [id number]
== END 2018-11-02 14:34 | disposition home or self-care (01) ==
LOC: ERS 17:21 → 2SW 21:09
PROVIDERS: ADMIT Hospitalist; ATTEND Hospitalist
DX: I49.5 Sick sinus syndrome (principal); R42 Dizziness and giddiness; I48.91 Unspecified atrial fibrillation; M32.9 Systemic lupus erythematosus, unspecified; M79.7 Fibromyalgia; M19.90 Unspecified osteoarthritis, unspecified site; K21.9 Gastro-esophageal reflux disease without esophagitis; F41.9 Anxiety disorder, unspecified; F32.9 Major depressive disorder, single episode, unspecified; N39.0 Urinary tract infection, site not specified; B96.20 Unspecified Escherichia coli [E. coli] as the cause of diseases classified elsewhere; B96.1 Klebsiella pneumoniae [K. pneumoniae] as the cause of diseases classified elsewhere; I13.0 Hypertensive heart and chronic kidney disease with heart failure and stage 1 through stage 4 chronic kidney disease, or unspecified chronic kidney disease; N18.4 Chronic kidney disease, stage 4 (severe); I50.30 Unspecified diastolic (congestive) heart failure; N17.9 Acute kidney failure, unspecified; E87.5 Hyperkalemia; D63.1 Anemia in chronic kidney disease; M06.9 Rheumatoid arthritis, unspecified; I48.92 Unspecified atrial flutter; G47.30 Sleep apnea, unspecified; E87.1 Hypo-osmolality and hyponatremia; G89.4 Chronic pain syndrome; G40.909 Epilepsy, unspecified, not intractable, without status epilepticus; Z79.899 Other long term (current) drug therapy; Z88.8 Allergy status to other drugs, medicaments and biological substances
CPT/HCPCS: 36415; 71045; 74176; 80048; 80053; 81003; 81015; 82746; 83735; 84484; 85014; 85018; 85025; 85049; 93005; 96365; 96366; 96374; 96375; 96376; G0378; J0360; J0461; J0696; J1644; J3490; Q0162

== ENCOUNTER 2018-12-22 19:59 | Inpatient (IN) | payer MEDICARE, BC ==
[2018-12-22 21:02] LABS: #Basophils 0.1 thou/uL (0.0-0.2); #Eosinphils 0.1 thou/uL (0.0-0.7); #Lymphocytes 0.8 thou/uL (1.20-3.40); #Monocytes 0.5 thou/uL (0.11-0.59); %Basophils 1.2 % (0.0-1.0); %Eosinophils 1.8 % (0.0-10.0); %Lymphocytes 15.4 % (21.0-51.0); %Monocytes 8.8 % (0.0-10.0); %Neutrophils 72.9 % (42.0-75.0); Hemoglobin 13.7 g/dL (12.0-16.0); Mean Corpuscular HGB CONC 34.2 g/dL (32.0-36.0); Mean Corpuscular Hemoglobin 34.2 pg (27.0-31.0); Mean Corpuscular Volume 99.9 fL (78.0-98.0); Mean Platelet Volume 7.8 fL (7.4-10.4); Platelet Count 156 thou/uL (130-400); RBC Distribution Width 12.8 % (11.5-14.5); Red Blood Cell (RBC) Count 4.01 mill/uL (4.20-5.40); White Blood Cell (WBC) Count 5.4 thou/uL (4.8-10.8)
--- NOTE | 2018-12-22 21:10 | RAD ---
PORTABLE CHEST ONE VIEW: 12/22/18 at 8:49 p.m. HISTORY: Weakness. FINDINGS: Comparison made with exam of 10/31/18. The heart size is normal and the aorta is tortuous. No lobar consolidation, pneumothoraces or pleural effusions are seen. Chronic changes in the glenohumeral joints are again noted. IMPRESSION: No acute process. POS: [facility]
[2018-12-22 21:21] LABS: ALT (SGPT) 9 U/L (8-55); AST (SGOT) 15 U/L (5-34); Alkaline Phosphatase 62 U/L (40-110); Anion Gap 19 mmol/L (10-20); BUN (Urea Nitrogen) 76 mg/dL (9.8-20.1); Bilirubin, Total 0.5 mg/dL (0.2-1.2); Calc. Creatinine Clearance 0 mL/min (70-130); Calcium 8.5 mg/dL (7.8-10.44); Carbon Dioxide 17 mmol/L (23-31); Chloride 106 mmol/L (98-107); Estimated GFR-MDRD 10; Globulin 2.5 g/dL (2.4-3.5); Glucose 95 mg/dL (83-110); Protein, Total 6.5 g/dL (6.0-8.3); Sodium 137 mmol/L (136-145)
[2018-12-22 22:39] LABS: Bilirubin Negative (Negative); Blood, Urine Negative (Negative); Clarity Clear (Clear); Glucose, Urine (Dipstick) Normal (Negative); Leukocyte 500 Leu/uL (Negative); Nitrite Negative (Negative); Protein, Urine (Dipstick) 30 mg/dL (Neg-Trace); Renal Epithelial 0-3 HPF (None Seen); Squamous Epithelial 0-3 HPF (0-3); Urobilinogen Normal mg/dL (Less than 2); WBC/HPF Greater than 50 HPF (0-3)
[2018-12-22 22:47] LABS: Bacteria/HPF 2+ HPF (None Seen)
[2018-12-22] MEDS ORDERED: cefTRIAXone\\ROCEPHIN 1 GM VIAL ONE (23:00)
[2018-12-23] MEDS ORDERED: Ondansetron ODT 4 MG TAB SL PRN (01:15)
[2018-12-23] MEDS ORDERED: Acetaminophen 325 MG TAB PO PRN (01:15)
[2018-12-23] MEDS ORDERED: Ondansetron PF 4 MG/2 ML Vial IVP PRN (01:15)
[2018-12-23] MEDS ORDERED: HYDROcodone/Acetaminophen 5/325 mg Tablet PO PRN ×2 (01:15)
[2018-12-23 01:58] VITALS: BMI 19.6
[2018-12-23 06:06] LABS: #Basophils 0.1 thou/uL (0.0-0.2); #Eosinphils 0.1 thou/uL (0.0-0.7); #Lymphocytes 0.8 thou/uL (1.20-3.40); #Monocytes 0.7 thou/uL (0.11-0.59); #Neutrophils 4.7 thou/uL (1.40-6.50); %Basophils 0.9 % (0.0-1.0); %Eosinophils 2.2 % (0.0-10.0); %Lymphocytes 13.1 % (21.0-51.0); %Monocytes 10.2 % (0.0-10.0); %Neutrophils 73.5 % (42.0-75.0); Hemoglobin 12.4 g/dL (12.0-16.0); Mean Corpuscular Hemoglobin 34.9 pg (27.0-31.0); Mean Corpuscular Volume 99.9 fL (78.0-98.0); Mean Platelet Volume 7.8 fL (7.4-10.4); Platelet Count 138 thou/uL (130-400); RBC Distribution Width 12.7 % (11.5-14.5); Red Blood Cell (RBC) Count 3.55 mill/uL (4.20-5.40); White Blood Cell (WBC) Count 6.4 thou/uL (4.8-10.8)
[2018-12-23 06:28] LABS: Anion Gap 17 mmol/L (10-20); BUN (Urea Nitrogen) 72 mg/dL (9.8-20.1); Calc. Creatinine Clearance 10 mL/min (70-130); Calcium 8.4 mg/dL (7.8-10.44); Carbon Dioxide 13 mmol/L (23-31); Chloride 109 mmol/L (98-107); Estimated GFR-MDRD 12; Glucose 96 mg/dL (83-110); Potassium 4.3 mmol/L (3.5-5.1); Sodium 135 mmol/L (136-145)
[2018-12-23] MEDS ORDERED: Meclizine HCl 25 MG TAB PO PRN (11:23)
[2018-12-23] MEDS ORDERED: Sodium Chloride 0.9% 1,000 ML IV SCH (12:15)
--- NOTE | 2018-12-23 13:08 | ULT ---
BILATERAL RENAL ULTRASOUND: HISTORY: Acute kidney insufficiency. COMPARISON: 02/21/2017. FINDINGS: Examination is markedly limited by bowel gas Right kidney: Evaluation the cortex is limited by bowel gas. No obvious cortical masses or obvious hydronephrosis. Right kidney measurements: 9.7 x 4.8 x 5.1 cm. Left kidney: Evaluation of the cortex is limited by bowel gas. No obvious cortical masses or obvious hydronephrosis. Left kidney measurements 9.3 x 4.9 x 4.3 cm. Urinary bladder: Normal mucosa. 162 mL prevoid volume. IMPRESSION: Markedly limited evaluation due to bowel gas. No obvious hydronephrosis Transcribed Date/Time: 12/23/2018 1:09 PM
--- NOTE | 2018-12-23 16:53 | CON ---
DATE OF CONSULTATION: CONSULTING PHYSICIAN: Dafne Ortiz MD REQUESTING PHYSICIAN: Dr. Mary. REASON FOR CONSULTATION: Acute on chronic kidney disease. IMPRESSION: 1. Acute on chronic kidney disease. This is likely cytokine mediated in the context of urinary tract infection. 2. Worsening metabolic acidosis in the context of re-expansion acidosis with normal saline. PLAN: 1. Discontinue normal saline and instead of this, rehydrate this patient with a bicarb-based infusion. 2. Renally dose all medications and avoid all potentially nephrotoxic agents. 3. We will likely hold Valtrex for now to avoid any potential to nephropathy. 4. Further management will be dependent on the clinical course. No indication at this point for renal replacement therapy. HISTORY OF PRESENT ILLNESS: History is that of 73-year-old female patient with recurrent urinary tract infection, who presented here with generalized weakness, chills, and rigors, and noted with evidence of urinary tract infection. On presentation, the patient was noted with a creatinine of 4.17 above her baseline creatinine of 2. The patient does carry chronic kidney disease stage 3/4 history and showed up also with a bicarb of 17, which is drop down to 13, status post IV fluid normal saline rehydration. As a result of these findings, decision has been taken to involve Renal in the management of this case. PAST MEDICAL HISTORY: Significant for chronic kidney disease stage 3/4, anemia, left tibia fractures, lupus, bursitis, fibromyalgia, osteoarthritis, reflux disease, Raynaud syndrome, multiple ankle fractures, electrolyte imbalance, aspiration pneumonitis, psoriasis, and generalized seizure. MEDICATIONS: Reviewed as documented on [facility]. ALLERGIES: PLAQUENIL AND PREGABALIN. REVIEW OF SYSTEMS: As documented in the body of the history. All the other systems were reviewed and found not to be significantly related to presenting illness. PHYSICAL EXAMINATION: GENERAL: The patient was found to be ill looking, noted with the following vital signs. VITAL SIGNS: Afebrile, temperature 97.8, pulse 76, respiratory rate of 16, O2 saturation 96% with blood pressure 138/71. HEENT: Unremarkable. CARDIOVASCULAR SYSTEM: First and second heart sounds were heard. RESPIRATORY: Clear to auscultation. DIGESTIVE SYSTEM: Revealed a benign abdomen with positive bowel sounds. EXTREMITIES: No peripheral edema. SKIN: No new gross rash. LYMPHATICS: No peripheral lymphadenopathy. SUMMARY: A 73-year-old female patient with advanced chronic kidney disease, who presented here with worsening renal failure in the context of urinary tract infection. Thank you for this consultation. We will follow with you. Job ID: [id number]
[2018-12-23] MEDS: Nystatin 500,000 UNITS/5 ML UDCUP SSW SCH ×2 (16:54→21:43)
[2018-12-23] MEDS: Sodium Bicarbonate 150 MEQ in Dextrose 5% in Water 1,000 ML IV SCH (16:54)
[2018-12-23] MEDS ORDERED: valACYclovir 500 MG TAB PO SCH (21:00)
[2018-12-23] MEDS ORDERED: Gabapentin 300 MG CAP PO SCH (21:00)
[2018-12-23] MEDS: Diltiazem HCl SR 60 mg Capsule PO SCH (21:33)
[2018-12-23] MEDS: traZODone HCl 50 MG TAB PO SCH (21:33)
[2018-12-23] MEDS: Gabapentin 300 MG CAP PO SCH (21:34)
[2018-12-23] MEDS: levETIRAcetam 500 mg/5 ml Oral Solution PO SCH (21:34)
[2018-12-23] MEDS: Cyanocobalamin (Vitamin B-12) 1,000 MCG TAB PO SCH (21:34)
[2018-12-23] MEDS: Ferrous Sulfate 325 MG TAB PO SCH (21:34)
[2018-12-23] MEDS: Escitalopram Oxalate 10 mg Tablet PO SCH (21:34)
[2018-12-23] MEDS: Famotidine 20 MG TAB PO PRN (21:43)
[2018-12-23] MEDS: cycloSPORINE 0.05% Ophthalmic Droperette EA EYE SCH (21:47)
--- NOTE | 2018-12-23 22:45 | HP ---
CHIEF COMPLAINT: Change in mental status, slurred speech, and decreased appetite. HISTORY OF PRESENT ILLNESS: The patient is a 73-year-old female who presents to the hospital with complaints of generalized weakness, more drowsiness, and not been able to eat very much. The patient's family, who is at the bedside, very involved in the patient's care, states that the patient for the past week has been sleeping quite a bit. She has been nauseated. She threw up x1 and also just started having some tremors which concerned the patient's family. They feel that when she has symptoms like this, she most likely has a urinary tract infection. The patient has had multiple UTIs in the past and she is supposed to see a urologist, however, has not made the appointment to do so. She denies any fevers or chills, however, feels cold due to the weather change. The patient has a history of rheumatoid arthritis and also lupus which is in remission. 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 The patient denies starting any new medications. PAST MEDICAL HISTORY: History of anemia, most likely secondary to chronic disease, history of lupus, which is in remission. She has rheumatoid arthritis, for which she is on Neurontin according to the family. She has fibromyalgia. She also has GERD and atrial fibrillation and flutter and history of GI bleed. She also has Raynaud syndrome. PAST SURGICAL HISTORY: She has had left tibia fracture. She has had appendectomy and hernia repair. ALLERGIES: SHE IS ALLERGIC TO PLAQUENIL AND PREGABALIN. MEDICATIONS: As of the following, she is on: 1. Diltiazem 60 mg b.i.d. 2. Citalopram 10 mg b.i.d. 3. Pepcid 20 mg daily as needed. 4. Iron 325 daily. 5. Gabapentin 300 mg twice a day and 600 at night. 6. Bishop 5 mg/325 two q.6 hours p.r.n. 7. Keppra 750 mg twice a day. She is also on: 1. Meclizine 25 mg as needed. 2. Restasis. 3. Multivitamin. SOCIAL HISTORY: She does not have any history of alcohol use, drug use, or smoking history. She is a full code. Lives with her family. She is up to date on her immunization. Her POA is her daughter. FAMILY HISTORY: No history of heart disease or cancer. REVIEW OF SYSTEMS: All negative except for the ones mentioned above in the HPI. PHYSICAL EXAMINATION: VITAL SIGNS: Temperature of 98.3, pulse 105, respiratory rate 18, oxygen saturation 97% on room air, and blood pressure 156/95. GENERAL: She is awake, alert, and oriented x3. Does not appear in any distress. HEENT: Normocephalic, atraumatic. No lymphadenopathy noted. Pupils equal and reactive to light. CV: S1 and S2 present. Irregularly irregular. LUNGS: Clear to auscultation. No rhonchi or wheezes noted. ABDOMEN: Soft and nontender. Bowel sounds are present x2. EXTREMITIES: She is contracted. She does wear a brace. She is immobile. NEUROVASCULAR: She is able to move all 4 extremities. However, she does not ambulate. SKIN: No cuts, lesions, or bruises noted. LABORATORY RESULTS: WBCs of 6.4, hemoglobin of 12.4, hematocrit of 35.5, and platelets of 138. Chemistry: Sodium of 135, potassium of 4.2, BUN of 72, initially her creatinine was 4.17. Her troponin x1 was negative. She did have a chest x-ray which did not show any acute abnormalities. ASSESSMENT AND PLAN: The patient is a very pleasant 73-year-old female who presents to the hospital with multiple complaints: 1. Acute metabolic encephalopathy. This could be infectious in etiology. Her urine appeared to have significant leukocyte esterase. We will start her on antibiotics. Her previous cultures have indicated Klebsiella pneumoniae, which has been pansensitive. We will start her on antibiotics, start her on some gentle hydration. Also, worsening renal function is also a possibility. We will check a renal Doppler. Also consult Nephrology. Start her on some gentle hydration as I mentioned. I will also go ahead and get a CT head, brain just to make sure that there is no other etiology that is going on. However, to me, she appeared to be at her baseline. She does have a history of atrial fibrillation and she is currently not on any anticoagulation, most likely secondary to significant upper gastrointestinal bleed. 2. Acute kidney injury on chronic kidney disease. We will start patient on some gentle hydration. We will get a renal ultrasound. Nephrology has been consulted. 3. Atrial fibrillation. We will start her on home medication. She is not on any aspirin nor is she on any blood thinners given her previous bleed. 4. History of seizure. We will continue her home medication. 5. History of rheumatoid and lupus. Currently, she is off treatment. We will continue to monitor. 6. Deep vein thrombosis prophylaxis. We will put the patient on some SCDs. Job ID: [id number]
[2018-12-24] MEDS: oxyCODONE/Acetaminophen 5 mg/325 mg Tablet PO PRN ×3 (00:10→23:55)
[2018-12-24 05:51] LABS: Anion Gap 14 mmol/L (10-20); BUN (Urea Nitrogen) 71 mg/dL (9.8-20.1); Calc. Creatinine Clearance 11 mL/min (70-130); Calcium 7.6 mg/dL (7.8-10.44); Carbon Dioxide 21 mmol/L (23-31); Chloride 104 mmol/L (98-107); Estimated GFR-MDRD 12; Glucose 106 mg/dL (83-110); Potassium 3.4 mmol/L (3.5-5.1); Sodium 136 mmol/L (136-145)
[2018-12-24 06:24] LABS: Band 2 % (5-11); Elliptocytes SLIGHT = 2-5 cells (100X) (0-1/hpf); Eosinophils 4 % (0-10); Hemoglobin 10.9 g/dL (12.0-16.0); Lymphocytes 13 % (21-51); MDiff Complete? YES; Mean Corpuscular HGB CONC 34.1 g/dL (32.0-36.0); Mean Corpuscular Hemoglobin 33.8 pg (27.0-31.0); Mean Corpuscular Volume 99.2 fL (78.0-98.0); Mean Platelet Volume 7.9 fL (7.4-10.4); Monocytes 13 % (0-10); Neutrophil 64 % (42-75); Platelet Count 125 thou/uL (130-400); Platelet Morphology Comment Appears Decreased; RBC Distribution Width 12.6 % (11.5-14.5); Reactive Lymphocytes 4 % (0-10); Red Blood Cell (RBC) Count 3.24 mill/uL (4.20-5.40)
[2018-12-24] MEDS: Sodium Bicarbonate 150 MEQ in Dextrose 5% in Water 1,000 ML IV SCH ×2 (09:05→21:53)
[2018-12-24] MEDS: Potassium Chloride 20 MEQ TAB PO SCH ×2 (09:06→12:05)
[2018-12-24] MEDS: levETIRAcetam 500 mg/5 ml Oral Solution PO SCH (09:06)
[2018-12-24] MEDS: Diltiazem HCl SR 60 mg Capsule PO SCH ×2 (09:06→20:23)
[2018-12-24] MEDS: Escitalopram Oxalate 10 mg Tablet PO SCH ×2 (09:07→20:23)
[2018-12-24] MEDS: Multivitamin W/ Minerals 1 TAB PO SCH (09:07)
[2018-12-24] MEDS: Nystatin 500,000 UNITS/5 ML UDCUP SSW SCH ×3 (09:07→16:12)
[2018-12-24] MEDS: Gabapentin 300 MG CAP PO SCH ×2 (09:07→20:23)
[2018-12-24] MEDS ORDERED: Meropenem 1 GM in Sodium Chloride 0.9% 100 ML IVPB SCH (12:00)
[2018-12-24] MEDS: MEROPENEM 1 GM/50 ML 1 GM in Premix Bag 1 BAG IVPB SCH (12:06)
[2018-12-24] MEDS: cycloSPORINE 0.05% Ophthalmic Droperette EA EYE SCH ×2 (12:06→20:23)
--- NOTE | 2018-12-24 17:33 | PDOC.HOSPP ---
- Subjective Encounter Date: 12/24/18 Encounter Time: 11:00 Subjective: pt up in bed no complains. she still does not feel like herself - Objective Vital Signs & Weight: Vital Signs (12 hours) Temp Pulse Resp BP Pulse Ox 12/24/18 15:58 98.6 F 77 18 133/77 94 L 12/24/18 11:37 97.9 F 74 18 122/71 96 12/24/18 09:00 95 12/24/18 07:45 97.2 F L 64 18 144/72 H 95 Weight Admit Weight 110 lb 14.24 oz Weight 110 lb 14.24 oz I&O: 12/23/18 12/24/18 12/25/18 06:59 06:59 06:59 Intake Total 200 1400 Balance 200 1400 Result Diagrams: 12/24/18 05:14 12/24/18 05:14 Hospitalist ROS - Review of Systems Respiratory: denies: cough, dry, shortness of breath, hemoptysis, SOB with excertion, pleuritic pain, sputum, wheezing, other Cardiovascular: denies: chest pain, palpitations, orthopnea, paroxysmal noc. dyspnea, edema, light headedness, other Gastrointestinal: denies: nausea, vomiting, abdominal pain, diarrhea, constipation, melena, hematochezia, other - Medication Medications: Active Medications Generic Name Dose Route Start Last Admin Trade Name Freq PRN Reason Stop Dose Admin Cyanocobalamin 1,000 mcg 12/23/18 21:00 12/23/18 21:34 Vitamin B-12 PO 1,000 mcg HS JOSE Administration Cyclosporine 0 ml 12/23/18 21:00 12/24/18 12:06 Restasis EA EYE 0.4 ml BID JOSE Administration Diltiazem HCl 60 mg 12/23/18 21:00 12/24/18 09:06 Cardizem Sr PO 60 mg BID JOSE Administration Escitalopram Oxalate 10 mg 12/23/18 21:00 12/24/18 09:07 Lexapro PO 10 mg BID JOSE Administration Famotidine 20 mg 12/23/18 11:23 12/23/18 21:43 Pepcid PO 20 mg DAILYPRN PRN Administration Heartburn or Indigestion Ferrous Sulfate 325 mg 12/23/18 21:00 12/23/18 21:34 Feosol PO 325 mg HS JOSE Administration Gabapentin 300 mg 12/23/18 21:00 12/24/18 09:07 Neurontin PO 300 mg BID JOSE Administration Sodium Bicarbonate 150 meq/ 1,150 mls @ 75 mls/hr 12/23/18 15:15 12/24/18 09: 05 Dextrose/Water IV 1,150 mls .[id number] JOSE Administration Meropenem 1 gm/ Device 50 mls @ 100 mls/hr 12/24/18 12:00 12/24/18 12:06 IVPB 50 mls 1200 JOSE Administration Iron/Minerals/Multivitamins 1 tab 12/24/18 09:00 12/24/18 09:07 Theragran M PO 1 tab DAILY JOSE Administration Nystatin 500,000 units 12/23/18 17:00 12/24/18 16:12 Mycostatin SSW Not Given QID JOSE Oxycodone/Acetaminophen 1 tab 12/24/18 00:04 12/24/18 15:57 Percocet 5/325 PO 1 tab Q8H PRN Administration Pain Pantoprazole Sodium 40 mg 12/24/18 09:00 12/24/18 09:06 Protonix PO 40 mg DAILY JOSE Administration Sodium Chloride 10 ml 12/23/18 09:00 12/24/18 09:07 Flush - Normal Saline IVF Not Given Q12HR JOSE Trazodone HCl 50 mg 12/23/18 21:00 12/23/18 21:33 Desyrel PO 50 mg HS JOSE Administration - Exam Neck: negative: supple, symmetric, no JVD, no thyromegaly, no lymphadenopathy, no carotid bruit, JVD Heart: negative: RRR, no murmur, no gallops, no rubs, normal peripheral pulses, irregular, diminshed peripheral pulses, murmur present, II/IV, III/IV Respiratory: negative: CTAB, no wheezes, no rales, no ronchi, normal chest expansion, no tachypnea, normal percussion, rales, rhonchi, tachypneic, wheezes Hosp A/P (1) Acute metabolic encephalopathy Code(s): G93.41 - METABOLIC ENCEPHALOPATHY Status: Resolved (2) PENELOPE (acute kidney injury) Code(s): N17.9 - ACUTE KIDNEY FAILURE, UNSPECIFIED Status: Acute (3) Anemia in CKD (chronic kidney disease) Code(s): N18.9 - CHRONIC KIDNEY DISEASE, UNSPECIFIED; D63.1 - ANEMIA IN CHRONIC KIDNEY DISEASE Status: Acute (4) UTI (urinary tract infection) Status: Acute - Plan her cx indicates enterococcus will change abx. creatinine improving. Appreciate nephro's consult.
[2018-12-24] MEDS: Ferrous Sulfate 325 MG TAB PO SCH (20:23)
[2018-12-24] MEDS: Famotidine 20 MG TAB PO PRN (20:23)
[2018-12-24] MEDS: Cyanocobalamin (Vitamin B-12) 1,000 MCG TAB PO SCH (20:23)
[2018-12-24] MEDS: traZODone HCl 50 MG TAB PO SCH (20:23)
[2018-12-24] MEDS: levETIRAcetam 500 MG TAB PO SCH (20:23)
[2018-12-24] MEDS: Aluminum & Magnesium Hydroxide 60 ML, diphenhydrAMINE 150 MG, Lidocaine 2% Viscous Solu... SSP PRN (21:54)
[2018-12-25 05:30] LABS: #Basophils 0.1 thou/uL (0.0-0.2); #Eosinphils 0.2 thou/uL (0.0-0.7); #Lymphocytes 1.2 thou/uL (1.20-3.40); #Monocytes 0.8 thou/uL (0.11-0.59); %Eosinophils 4.4 % (0.0-10.0); %Lymphocytes 22.8 % (21.0-51.0); %Monocytes 14.9 % (0.0-10.0); %Neutrophils 56.8 % (42.0-75.0); Hemoglobin 10.4 g/dL (12.0-16.0); Mean Corpuscular HGB CONC 34.2 g/dL (32.0-36.0); Mean Corpuscular Hemoglobin 34.1 pg (27.0-31.0); Mean Corpuscular Volume 99.8 fL (78.0-98.0); Platelet Count 130 thou/uL (130-400); RBC Distribution Width 12.4 % (11.5-14.5); Red Blood Cell (RBC) Count 3.04 mill/uL (4.20-5.40); White Blood Cell (WBC) Count 5.3 thou/uL (4.8-10.8)
[2018-12-25 05:54] LABS: Anion Gap 14 mmol/L (10-20); BUN (Urea Nitrogen) 68 mg/dL (9.8-20.1); Calc. Creatinine Clearance 13 mL/min (70-130); Calcium 7.3 mg/dL (7.8-10.44); Carbon Dioxide 27 mmol/L (23-31); Chloride 100 mmol/L (98-107); Estimated GFR-MDRD 15; Glucose 93 mg/dL (83-110); Potassium 3.6 mmol/L (3.5-5.1); Sodium 137 mmol/L (136-145)
[2018-12-25] MEDS: Diltiazem HCl SR 60 mg Capsule PO SCH ×2 (08:04→20:16)
[2018-12-25] MEDS: Escitalopram Oxalate 10 mg Tablet PO SCH ×2 (08:05→20:16)
[2018-12-25] MEDS: Gabapentin 300 MG CAP PO SCH ×2 (08:05→20:16)
[2018-12-25] MEDS: Multivitamin W/ Minerals 1 TAB PO SCH (08:05)
[2018-12-25] MEDS: cycloSPORINE 0.05% Ophthalmic Droperette EA EYE SCH ×2 (08:06→20:16)
[2018-12-25] MEDS: levETIRAcetam 500 MG TAB PO SCH ×2 (08:10→20:16)
--- NOTE | 2018-12-25 10:35 | PDOC.HOSPP ---
- Subjective Encounter Date: 12/25/18 Encounter Time: 10:32 Subjective: alert, oriented - Objective Vital Signs & Weight: Vital Signs (12 hours) Temp Pulse Resp BP Pulse Ox 12/25/18 07:13 97.4 F L 84 16 158/84 H 97 Weight Admit Weight 110 lb 14.24 oz Weight 110 lb 14.24 oz I&O: 12/24/18 12/25/18 12/26/18 06:59 06:59 06:59 Intake Total 1400 2780 Balance 1400 2780 Result Diagrams: 12/25/18 04:40 12/25/18 04:40 Hospitalist ROS - Medication Medications: Active Medications Generic Name Dose Route Start Last Admin Trade Name Freq PRN Reason Stop Dose Admin Al Hydroxide/Mg Hydroxide 60 0 ml 12/24/18 19:28 12/24/18 21:54 ml/ Diphenhydramine HCl 150 mg SSP 10 ml / Lidocaine HCl 60 ml/ PRN PRN Administration Nystatin 6,000,000 units Mouth Irritation Cyanocobalamin 1,000 mcg 12/23/18 21:00 12/24/18 20:23 Vitamin B-12 PO 1,000 mcg HS JOSE Administration Cyclosporine 0 ml 12/23/18 21:00 12/25/18 08:06 Restasis EA EYE 0.4 ml BID JOSE Administration Diltiazem HCl 60 mg 12/23/18 21:00 12/25/18 08:04 Cardizem Sr PO 60 mg BID JOSE Administration Escitalopram Oxalate 10 mg 12/23/18 21:00 12/25/18 08:05 Lexapro PO 10 mg BID JOSE Administration Famotidine 20 mg 12/23/18 11:23 12/24/18 20:23 Pepcid PO 20 mg DAILYPRN PRN Administration Heartburn or Indigestion Ferrous Sulfate 325 mg 12/23/18 21:00 12/24/18 20:23 Feosol PO 325 mg HS JOSE Administration Gabapentin 300 mg 12/23/18 21:00 12/25/18 08:05 Neurontin PO 300 mg BID JOSE Administration Meropenem 1 gm/ Device 50 mls @ 100 mls/hr 12/24/18 12:00 12/24/18 12:06 IVPB 50 mls 1200 JOSE Administration Iron/Minerals/Multivitamins 1 tab 12/24/18 09:00 12/25/18 08:05 Theragran M PO 1 tab DAILY JOSE Administration Levetiracetam 750 mg 12/24/18 21:00 12/25/18 08:10 Keppra PO 750 mg BID JOSE Administration Oxycodone/Acetaminophen 1 tab 12/24/18 00:04 12/24/18 23:55 Percocet 5/325 PO 1 tab Q8H PRN Administration Pain Pantoprazole Sodium 40 mg 12/24/18 09:00 12/25/18 08:05 Protonix PO 40 mg DAILY JOSE Administration Sodium Chloride 10 ml 12/23/18 09:00 12/25/18 08:15 Flush - Normal Saline IVF Not Given Q12HR JOSE Trazodone HCl 50 mg 12/23/18 21:00 12/24/18 20:23 Desyrel PO 50 mg HS JOSE Administration - Exam General Appearance: awake alert Neck: no JVD Heart: RRR, no murmur Respiratory: CTAB Gastrointestinal: soft, normal bowel sounds Extremities: no edema Hosp A/P (1) Stage 4 chronic kidney disease Code(s): N18.4 - CHRONIC KIDNEY DISEASE, STAGE 4 (SEVERE) Status: Chronic (2) UTI (urinary tract infection) Status: Acute Qualifiers: Urinary tract infection type: acute cystitis Hematuria presence: without hematuria Qualified Code(s): N30.00 - Acute cystitis without hematuria (3) SLE (systemic lupus erythematosus) Code(s): M32.9 - SYSTEMIC LUPUS ERYTHEMATOSUS, UNSPECIFIED Status: Chronic Qualifiers: Systemic lupus erythematosus type: unspecified Systemic lupus erythematosus organ involvement: unspecified Qualified Code(s): M32.9 - Systemic lupus erythematosus, unspecified (4) Acute metabolic encephalopathy Code(s): G93.41 - METABOLIC ENCEPHALOPATHY Status: Resolved - Plan cont iv antibx, transition to po soon
[2018-12-25] MEDS: oxyCODONE/Acetaminophen 5 mg/325 mg Tablet PO PRN ×2 (10:57→18:58)
[2018-12-25] MEDS: MEROPENEM 1 GM/50 ML 1 GM in Premix Bag 1 BAG IVPB SCH (12:23)
--- NOTE | 2018-12-25 17:40 | PRG ---
DATE OF SERVICE: 12/25/2018 SUBJECTIVE: The patient was seen and examined, noted with the following vital signs. OBJECTIVE: VITAL SIGNS: Afebrile, temperature 97.7, pulse 70, respiratory rate of 15, O2 saturation 100% with blood pressure 136/80. HEENT: Unremarkable. CARDIOVASCULAR SYSTEM: First and second heart sounds were heard. RESPIRATORY SYSTEM: Clear to auscultation. DIGESTIVE SYSTEM: Revealed a benign abdomen. Positive bowel sounds. EXTREMITIES: No peripheral edema. SKIN: No new gross rash. LYMPHATICS: No peripheral lymphadenopathy. IMPRESSION: 1. Recurrent urinary tract infection. 2. Acute on chronic kidney disease, slowly improving. 3. Metabolic acidosis, resolved. PLAN: 1. Given the recurrent nature of this urinary tract infection and becoming more frequent and affecting the kidney function adversely, we strongly recommend getting the patient's urologist to evaluate this patient. The patient does have outpatient appointment, where some studies need to be carried out. She has an appointment with Dr. Ferreira. We will suggest consulting Dr. Ferreira to see this patient as an inpatient while she is here undergoing treatment for severe urinary tract infection. 2. Renally dose all medications. 3. Discontinue bicarb drip at this point. 4. Further management to be dependent on the clinical course. Job ID: [id number]
--- NOTE | 2018-12-25 19:04 | PRG ---
DATE OF SERVICE: 12/24/2018 SUBJECTIVE: The patient noted with the following vital signs. OBJECTIVE: VITAL SIGNS: Afebrile, temperature 99, pulse 72, respiratory rate of 18, O2 saturations are 96%, blood pressure 132/72. HEENT: Unremarkable. CARDIOVASCULAR SYSTEM: First and second heart sounds were hard. RESPIRATORY SYSTEM: Clear to auscultation. DIGESTIVE SYSTEM: Revealed a benign abdomen with positive bowel sounds. EXTREMITIES: No peripheral edema. SKIN: No new gross rash. LYMPHATICS: No peripheral lymphadenopathy. IMPRESSION: 1. Acute on chronic kidney disease. 2. Metabolic acidosis, which seems to be improving. 3. Chronic kidney disease, stage 3/4. PLAN: 1. We will continue with current bicarb infusion. 2. Broad spectrum antibiotics. 3. Likely to discontinue bicarb infusion within the next 24 hours. Job ID: [id number]
[2018-12-25] MEDS: traZODone HCl 50 MG TAB PO SCH (20:16)
[2018-12-25] MEDS: Cyanocobalamin (Vitamin B-12) 1,000 MCG TAB PO SCH (20:16)
[2018-12-25] MEDS: Ferrous Sulfate 325 MG TAB PO SCH (20:16)
[2018-12-25] MEDS: Aluminum & Magnesium Hydroxide 60 ML, diphenhydrAMINE 150 MG, Lidocaine 2% Viscous Solu... SSP PRN (22:35)
[2018-12-26 06:07] LABS: #Eosinphils 0.2 thou/uL (0.0-0.7); #Lymphocytes 0.5 thou/uL (1.20-3.40); #Monocytes 0.4 thou/uL (0.11-0.59); #Neutrophils 3.1 thou/uL (1.40-6.50); %Basophils 0.8 % (0.0-1.0); %Eosinophils 4.7 % (0.0-10.0); %Lymphocytes 10.7 % (21.0-51.0); %Monocytes 9.2 % (0.0-10.0); %Neutrophils 74.6 % (42.0-75.0); Hemoglobin 12.1 g/dL (12.0-16.0); Mean Corpuscular HGB CONC 32.9 g/dL (32.0-36.0); Mean Platelet Volume 7.7 fL (7.4-10.4); Platelet Count 121 thou/uL (130-400); RBC Distribution Width 12.5 % (11.5-14.5); Red Blood Cell (RBC) Count 3.66 mill/uL (4.20-5.40); White Blood Cell (WBC) Count 4.2 thou/uL (4.8-10.8)
[2018-12-26 06:24] LABS: Anion Gap 16 mmol/L (10-20); BUN (Urea Nitrogen) 66 mg/dL (9.8-20.1); Calc. Creatinine Clearance 14 mL/min (70-130); Calcium 7.5 mg/dL (7.8-10.44); Carbon Dioxide 25 mmol/L (23-31); Chloride 100 mmol/L (98-107); Estimated GFR-MDRD 17; Glucose 80 mg/dL (83-110); Potassium 3.8 mmol/L (3.5-5.1); Sodium 137 mmol/L (136-145)
[2018-12-26] MEDS: levETIRAcetam 500 MG TAB PO SCH ×2 (08:14→20:40)
[2018-12-26] MEDS: Multivitamin W/ Minerals 1 TAB PO SCH (08:14)
[2018-12-26] MEDS: Gabapentin 300 MG CAP PO SCH ×2 (08:15→20:40)
[2018-12-26] MEDS: Diltiazem HCl SR 60 mg Capsule PO SCH ×2 (08:15→20:43)
[2018-12-26] MEDS: Escitalopram Oxalate 10 mg Tablet PO SCH ×2 (08:15→20:41)
[2018-12-26] MEDS: cycloSPORINE 0.05% Ophthalmic Droperette EA EYE SCH ×2 (08:16→20:41)
--- NOTE | 2018-12-26 08:46 | PDOC.HOSPP ---
- Subjective Encounter Date: 12/26/18 Encounter Time: 08:44 Subjective: no fever, etc - Objective Vital Signs & Weight: Vital Signs (12 hours) Temp Pulse Resp BP BP Pulse Ox 12/26/18 08:00 97.3 F L 68 18 169/91 H 97 12/26/18 06:12 64 165/73 H Weight Admit Weight 110 lb 14.24 oz Weight 110 lb 14.24 oz I&O: 12/25/18 12/26/18 12/27/18 06:59 06:59 06:59 Intake Total 2780 1620 Balance 2780 1620 Result Diagrams: 12/26/18 05:32 12/26/18 05:32 Hospitalist ROS - Medication Medications: Active Medications Generic Name Dose Route Start Last Admin Trade Name Freq PRN Reason Stop Dose Admin Al Hydroxide/Mg Hydroxide 60 0 ml 12/24/18 19:28 12/25/18 22:35 ml/ Diphenhydramine HCl 150 mg SSP 10 ml / Lidocaine HCl 60 ml/ PRN PRN Administration Nystatin 6,000,000 units Mouth Irritation Cyanocobalamin 1,000 mcg 12/23/18 21:00 12/25/18 20:16 Vitamin B-12 PO 1,000 mcg HS JOSE Administration Cyclosporine 0 ml 12/23/18 21:00 12/26/18 08:16 Restasis EA EYE 0.4 ml BID JOSE Administration Diltiazem HCl 60 mg 12/23/18 21:00 12/26/18 08:15 Cardizem Sr PO 60 mg BID JOSE Administration Escitalopram Oxalate 10 mg 12/23/18 21:00 12/26/18 08:15 Lexapro PO 10 mg BID JOSE Administration Famotidine 20 mg 12/23/18 11:23 12/24/18 20:23 Pepcid PO 20 mg DAILYPRN PRN Administration Heartburn or Indigestion Ferrous Sulfate 325 mg 12/23/18 21:00 12/25/18 20:16 Feosol PO 325 mg HS JOSE Administration Gabapentin 300 mg 12/23/18 21:00 12/26/18 08:15 Neurontin PO 300 mg BID JOSE Administration Meropenem 1 gm/ Device 50 mls @ 100 mls/hr 12/24/18 12:00 12/25/18 12:23 IVPB 50 mls 1200 JOSE Administration Iron/Minerals/Multivitamins 1 tab 12/24/18 09:00 12/26/18 08:14 Theragran M PO 1 tab DAILY JOSE Administration Levetiracetam 750 mg 12/24/18 21:00 12/26/18 08:14 Keppra PO 750 mg BID JOSE Administration Oxycodone/Acetaminophen 1 tab 12/24/18 00:04 12/25/18 18:58 Percocet 5/325 PO 1 tab Q8H PRN Administration Pain Pantoprazole Sodium 40 mg 12/24/18 09:00 12/26/18 08:15 Protonix PO 40 mg DAILY JOSE Administration Sodium Chloride 10 ml 12/23/18 09:00 12/26/18 08:18 Flush - Normal Saline IVF 10 ml Q12HR JOSE Administration Trazodone HCl 50 mg 12/23/18 21:00 12/25/18 20:16 Desyrel PO 50 mg HS JOSE Administration - Exam Neck: no JVD Heart: RRR, no murmur Respiratory: CTAB Gastrointestinal: soft, normal bowel sounds Extremities: no edema Hosp A/P (1) Stage 4 chronic kidney disease Code(s): N18.4 - CHRONIC KIDNEY DISEASE, STAGE 4 (SEVERE) Status: Chronic (2) UTI (urinary tract infection) Status: Acute Qualifiers: Urinary tract infection type: acute cystitis Hematuria presence: without hematuria Qualified Code(s): N30.00 - Acute cystitis without hematuria (3) SLE (systemic lupus erythematosus) Code(s): M32.9 - SYSTEMIC LUPUS ERYTHEMATOSUS, UNSPECIFIED Status: Chronic Qualifiers: Systemic lupus erythematosus type: unspecified Systemic lupus erythematosus organ involvement: unspecified Qualified Code(s): M32.9 - Systemic lupus erythematosus, unspecified - Plan cont iv meropenem for total 72 hrs, the DC on oral antibx
[2018-12-26] MEDS: oxyCODONE/Acetaminophen 5 mg/325 mg Tablet PO PRN ×2 (10:13→20:41)
--- NOTE | 2018-12-26 11:34 | PRG ---
DATE OF SERVICE: 12/26/2018 SUBJECTIVE: The patient was seen and examined and feeling better, noted with the following vital signs. OBJECTIVE: VITAL SIGNS: Afebrile, temperature 97.3, pulse 68, respiratory rate of 18, O2 saturation 97% with blood pressure 169/91. HEENT: Unremarkable. CARDIOVASCULAR: First and second heart sounds were heard. RESPIRATORY: Clear to auscultation. DIGESTIVE: Benign abdomen. EXTREMITIES: No peripheral edema. SKIN: No new gross rash. LYMPHATICS: No peripheral lymphadenopathy. LABORATORY INVESTIGATION: Significant for BUN of 66 with a creatinine of 2.78, calcium 7.5. IMPRESSION: 1. [id number] kidney disease in the context of cytokine mediated injury. 2. Urinary tract infection, on treatment. 3. Metabolic acidosis, resolved. 4. Recurrent urinary tract infections. PLAN: 1. I did discuss with the urologist who felt the patient can follow up with them as an outpatient. No indication at this point for inpatient consultation. Therefore, we will defer to the outpatient appointment as this patient already has. 2. Continue current renal supportive measures. 3. The patient seems to be on a trajectory of improvement, therefore from the renal standpoint, the patient can be discharged to follow up with me as an outpatient. 4. Further management to be dependent on the clinical course. Job ID: [id number]
[2018-12-26] MEDS: MEROPENEM 1 GM/50 ML 1 GM in Premix Bag 1 BAG IVPB SCH (12:05)
[2018-12-26] MEDS: traZODone HCl 50 MG TAB PO SCH (20:40)
[2018-12-26] MEDS: Cyanocobalamin (Vitamin B-12) 1,000 MCG TAB PO SCH (20:41)
[2018-12-26] MEDS: Ferrous Sulfate 325 MG TAB PO SCH (20:41)
[2018-12-26] MEDS: Aluminum & Magnesium Hydroxide 60 ML, diphenhydrAMINE 150 MG, Lidocaine 2% Viscous Solu... SSP PRN (22:54)
[2018-12-27 06:22] LABS: Anion Gap 14 mmol/L (10-20); BUN (Urea Nitrogen) 59 mg/dL (9.8-20.1); Calc. Creatinine Clearance 15 mL/min (70-130); Calcium 7.3 mg/dL (7.8-10.44); Carbon Dioxide 26 mmol/L (23-31); Chloride 102 mmol/L (98-107); Estimated GFR-MDRD 18; Glucose 92 mg/dL (83-110); Potassium 3.8 mmol/L (3.5-5.1); Sodium 138 mmol/L (136-145)
[2018-12-27 07:03] LABS: Hemoglobin 10.9 g/dL (12.0-16.0); Mean Corpuscular HGB CONC 33.6 g/dL (32.0-36.0); Mean Corpuscular Hemoglobin 33.9 pg (27.0-31.0); Platelet Count 126 thou/uL (130-400); RBC Distribution Width 12.3 % (11.5-14.5); Red Blood Cell (RBC) Count 3.22 mill/uL (4.20-5.40); White Blood Cell (WBC) Count 3.9 thou/uL (4.8-10.8)
[2018-12-27 07:56] VITALS: BP 167/80; TEMP 96.7
[2018-12-27 08:15] LABS: Band 2 % (5-11); Eosinophils 8 % (0-10); Lymphocytes 29 % (21-51); MDiff Complete? YES; Monocytes 15 % (0-10); Neutrophil 45 % (42-75); Platelet Morphology Comment Appears Decreased; Polychromasia SLIGHT = 2-3 cells (100X) (0-2/hpf)
[2018-12-27] MEDS: Multivitamin W/ Minerals 1 TAB PO SCH (09:36)
[2018-12-27] MEDS: Diltiazem HCl SR 60 mg Capsule PO SCH (09:37)
[2018-12-27] MEDS: Escitalopram Oxalate 10 mg Tablet PO SCH (09:38)
[2018-12-27] MEDS: Gabapentin 300 MG CAP PO SCH (09:38)
[2018-12-27] MEDS: oxyCODONE/Acetaminophen 5 mg/325 mg Tablet PO PRN (09:39)
[2018-12-27] MEDS: levETIRAcetam 500 MG TAB PO SCH (09:40)
[2018-12-27] MEDS: cycloSPORINE 0.05% Ophthalmic Droperette EA EYE SCH (09:51)
[2018-12-27] MEDS ORDERED: Fluticasone Propionate Nasal Spray 16 gm Bottle NASAL PRN (10:27)
[2018-12-27] MEDS: MEROPENEM 1 GM/50 ML 1 GM in Premix Bag 1 BAG IVPB SCH (11:50)
--- NOTE | 2018-12-27 13:19 | DIS ---
DATE OF ADMISSION: 12/23/2018 DATE OF DISCHARGE: 12/27/2018 PCP: Dr. Aldo Vieira. FINAL DIAGNOSES: Metabolic encephalopathy; urinary tract infection with Enterococcal faecalis, chronic kidney disease, stage 4; systemic lupus erythematosus. DISCHARGE MEDICATIONS: New, Levaquin 250 mg p.o. daily x7 days. ALLERGIES: LYRICA, HYDROCHLOROQUINE. CODE STATUS: Full. PENDING AT TIME OF DISCHARGE: Nothing. CONSULTATIONS IN THE HOSPITAL: Dr. Angel Leos, Nephrology. PROCEDURES: None. HOSPITAL COURSE: The patient admitted to the Hospitalist Service through [facility] with some change in mental status, slurred speech. In the emergency room, she was found to have a white count of 6.4, hemoglobin 12.4, hematocrit 35.5, platelets 138,000, BUN 72, creatinine 4.17. Chest x-ray was clear. Urinalysis showed greater than 50 white blood cells, esterase was high. The patient was started on meropenem. Her mentation cleared rapidly. Her creatinine was monitored. It came down from 4.17 to 2.59. Her urine culture grew greater than 100,000 Enterococcal faecalis, sensitive to everything, but tetracyclines, also had 10,000-25,000 count of Klebsiella oxytoca. After four days on the meropenem, the patient is being discharged on Levaquin. Both bacteria were sensitive to quinolones. She is being given a reduced dose of Levaquin 250 mg a day based on her chronic renal failure. During hospital stay, vital signs were stable with no fever. She is doing well at the time of discharge. Follow up with Dr. Carlson in one week has been recommended. Followup with Dr. Anant Eller has been arranged apparently. Dr. Anant Eller wanted renal ultrasound, which shows no hydronephrosis or mass. Job ID: [id number] [facility]
--- NOTE | 2018-12-27 18:40 | PRG ---
DATE OF SERVICE: 12/27/2018 OBJECTIVE: The patient noted with the following vital signs. VITAL SIGNS: Afebrile, temperature 96.7, pulse 58, respiratory rate of 18, O2 saturation 94%, blood pressure 167/80. HEENT: Unremarkable. CARDIOVASCULAR: First and second heard sounds were heard. DIGESTIVE: Benign abdomen. Positive bowel sounds. EXTREMITIES: No peripheral edema. SKIN: No new gross rash. LYMPHATICS: No peripheral lymphadenopathy. LABORATORY INVESTIGATION: Creatinine down to 2.59, BUN of 59. IMPRESSION: 1. Irmui-cp-[id number] kidney disease, which seems to have improved close to baseline. 2. Recurrent urinary tract infection. I did discuss with Urology who felt the patient can follow up with them as an outpatient. No need for inpatient consultation. 3. Follow up with me status post discharge within the next 2 to 4 weeks. 4. Further management to be dependent on the clinical course. Job ID: [id number]
--- NOTE | 2018-12-28 03:49 | PQF ---
KEVIN TEAGUE, LIBERTY Kelly DALTON [id number] CLINICAL DOCUMENTATION CLARIFICATION FORM: POST DISCHARGE Addendum to original discharge summary date: ____ Late entry note date: __ DATE:12/28/18 ATTN: Dr Galvan, [place] Please exercise your independent, professional judgment in responding to the clarification form. Clinical indicators are provided on the bottom of this form for your review Please check appropriate box(es): [ ] Sepsis due to UTI [ ] Severe sepsis with acute organ dysfunction of: (Examples: respiratory failure, encephalopathy, acute kidney failure, other) [ ] Septic Shock [ x ] Localized infection without sepsis [ ] Other diagnosis [ ] Unable to determine In addition, please specify: Present on Admission (POA): [ x ] Yes [ ] No [ ] Unable to determine For continuity of documentation, please document condition throughout progress notes and discharge summary. Thank You. CLINICAL INDICATORS - SIGNS / SYMPTOMS / LABS H&P p1 12/23 Dr Mary Complaints of generalized weakness, more drowsiness and not been able to eat very much H&P p1 12/23 Dr Mary they feel that when she had symptoms like this, she most likely has a urinary tract infection H&P p2 12/23 Dr Mary Vital Sign: temp 98.3, Pulse 102. Resp rate 18 H&P p2 12/23 - Acute Metabolic Encephalopathy this could be infectious in etiology PN p5 12/24 UTI her cx indicates enterococcus will change abx PN p1 12/25 Metabolic Acidosis- resolved RISK FACTORS H&P p1 12/23 - 73-year-old Female H&P p2 12/23 - Acute Metabolic Encephalopathy H&P p2 12/23 - Acute Kidney Injury on chronic Kidner Disease PN p5 12/24 Urinary tract infection TREATMENTS: MAR IV Rocephin H&P p2 12/23 - Check renal Doppler H&P p2 12/23 - Gentle Hydration Nephro Consult 12/23 Dafne Asif (This form is maintained as a part of the permanent medical record) 2014 [employer]. All Rights Reserved Mago [email or web address] [not provided] MTDD
== END 2018-12-27 14:45 | disposition home health service (06) | DRG 682 ==
LOC: ERS 19:59 → T4-A 12-23 01:08
PROVIDERS: ADMIT Family Medicine; ATTEND Family Medicine
DX: N17.9 Acute kidney failure, unspecified (principal); G93.41 Metabolic encephalopathy; N39.0 Urinary tract infection, site not specified; E87.2 Acidosis; N18.4 Chronic kidney disease, stage 4 (severe); B95.2 Enterococcus as the cause of diseases classified elsewhere; M32.9 Systemic lupus erythematosus, unspecified; M06.9 Rheumatoid arthritis, unspecified; I48.91 Unspecified atrial fibrillation; G40.909 Epilepsy, unspecified, not intractable, without status epilepticus; D63.1 Anemia in chronic kidney disease; Z88.1 Allergy status to other antibiotic agents; Z88.8 Allergy status to other drugs, medicaments and biological substances; Z79.899 Other long term (current) drug therapy; Z87.440 Personal history of urinary (tract) infections
CPT/HCPCS: 36415; 71045; 76770; 80048; 80053; 81003; 81015; 84484; 85025; 87077; 87086; 87186; 93005; J0696; J1956; J2185; J7070; Q0163

== ENCOUNTER 2019-08-26 18:38 | Inpatient (IN) | payer MEDICARE, BC ==
--- NOTE | 2019-08-26 19:25 | RAD ---
SINGLE VIEW OF THE CHEST: Comparison: 12-22-18 History: Facial drooping, vomiting. FINDINGS: Single view of the chest shows a normal sized cardiomediastinal silhouette. There is no evidence of c onsolidation, mass, or pleural effusion. The bones are unremarkable. IMPRESSION: No evidence of acute cardiopulmonary disease. POS: EAA
[2019-08-26 19:31] LABS: #Eosinphils 0.1 thou/uL (0.0-0.7); #Monocytes 0.5 thou/uL (0.11-0.59); #Neutrophils 5.5 thou/uL (1.40-6.50); %Basophils 0.6 % (0.0-1.0); %Eosinophils 0.9 % (0.0-10.0); %Lymphocytes 13.7 % (21.0-51.0); %Monocytes 7.1 % (0.0-10.0); %Neutrophils 77.8 % (42.0-75.0); Hemoglobin 12.4 g/dL (12.0-16.0); Mean Corpuscular HGB CONC 32.5 g/dL (32.0-36.0); Mean Corpuscular Hemoglobin 32.2 pg (27.0-31.0); Mean Corpuscular Volume 98.9 fL (78.0-98.0); Mean Platelet Volume 7.8 fL (7.4-10.4); Platelet Count 167 thou/uL (130-400); RBC Distribution Width 11.9 % (11.5-14.5); Red Blood Cell (RBC) Count 3.85 mill/uL (4.20-5.40)
[2019-08-26 19:35] LABS: Prothrombin Time 13.1 sec (12.0-14.7)
[2019-08-26 19:54] LABS: ALT (SGPT) 10 U/L (8-55); AST (SGOT) 14 U/L (5-34); Albumin 4.2 g/dL (3.4-4.8); Alkaline Phosphatase 69 U/L (40-110); Anion Gap 16 mmol/L (10-20); BUN (Urea Nitrogen) 55 mg/dL (9.8-20.1); Bilirubin, Total 0.3 mg/dL (0.2-1.2); CK (CPK) 46 U/L (29-168); Calc. Creatinine Clearance 0 mL/min (70-130); Calcium 9.2 mg/dL (7.8-10.44); Carbon Dioxide 23 mmol/L (23-31); Chloride 103 mmol/L (98-107); Estimated GFR-MDRD 18; Globulin 2.4 g/dL (2.4-3.5); Glucose 107 mg/dL (83-110); Potassium 5.4 mmol/L (3.5-5.1); Protein, Total 6.6 g/dL (6.0-8.3); Sodium 137 mmol/L (136-145)
--- NOTE | 2019-08-26 19:55 | CT ---
CT head noncontrast HISTORY: Altered mental status. COMPARISON: 04/20/2018. FINDINGS: There is no evidence of acute intracranial hemorrhage or infarct. Diffuse cortical atrophy and chronic ischemic small vessel disease are again demonstrated. There is no mass effect or shift of midline structures. Visualized paranasal sinuses remain well aera stanton. IMPRESSION : Chronic-type findings are stable. No acute intracranial abnormalities are demonstrated.
[2019-08-26] MEDS ORDERED: Aspirin 325 MG TAB ONE (20:25)
[2019-08-26] MEDS ORDERED: Senokot S 8.6-50 MG TAB PO PRN (20:50)
[2019-08-26] MEDS ORDERED: Acetaminophen 325 MG TAB PO PRN (20:50)
[2019-08-26] MEDS: Heparin 5,000 UNITS/ML VIAL SC SCH (23:12)
--- NOTE | 2019-08-26 23:40 | HP ---
PRIMARY CARE PHYSICIAN: Dariel Carlson MD HEADEND TECHNICIAN: Dafne Ortiz MD CHIEF COMPLAINT: Difficulty speaking, right-sided weakness, and left-sided facial droop. HISTORY OF PRESENT ILLNESS: Ms. Pastrana is a 73-year-old female, who was brought to the emergency room today via EMS after her family came to visit her today and noticed that she had a left-sided droop, right arm weakness, and had some expressive dysphagia. The patient states she has been feeling that way for a couple of weeks, but did not really want to tell anybody. She did report that it was a little worse today. She normally uses a motorized wheelchair at home after she sustained an injury to the left foot and she has had a broken leg and is unable to be surgically fixed, so she is nonweightbearing on that left side. CT of the head was obtained, did not show any acute abnormalities. Lab work showed a potassium of 5.4, BUN 55, and creatinine 2.54. She does have chronic kidney disease, last time her creatinine was checked, it was in June and it was 2.05. Her troponin was also bumped at 0.036. She is going to be admitted to the stroke unit for further evaluation. REVIEW OF SYSTEMS: The patient reports speech changes, some expressive dysphagia, left-sided facial droop, and right-sided weakness. She denies any fever, chills, or upper respiratory symptoms. Denies any abdominal pain, nausea, vomiting, or diarrhea. Denies any dysuria. All systems are reviewed and are negative unless mentioned in the HPI. PAST MEDICAL HISTORY: Pertinent for anemia, fracture of the left tibia and fibula, lupus, bursitis, fibromyalgia, osteoarthritis, rheumatoid arthritis, GERD, and Raynaud syndrome. She has had multiple ankle fractures in both legs, spastic colon, hernias, diverticulitis, frequent UTIs, electrolyte imbalances, atrial fibrillation, atrial flutter, GI bleed, history of aspiration pneumonia, psoriasis, generalized seizures, history of bowel obstruction, and history of sleep apnea. PAST SURGICAL HISTORY: Sinus surgery, appendectomy, hernia repair, and hysterectomy. PSYCHIATRIC HISTORY: Anxiety and depressions. SOCIAL HISTORY: Lives at home. Denies any alcohol or drug use. No smoking history. KNOWN ALLERGIES: Hydrochloroquine and pregabalin. CURRENT MEDICATIONS: Per the ER system, this still need to be verified; 1. Oxycodone-Tylenol 5-325 one tablet p.o. p.r.n. 2. Cardizem 30 mg p.o. b.i.d. 3. Trazodone 50 mg p.o. once a day. 4. Keppra 750 mg p.o. b.i.d. 5. Lexapro 10 mg p.o. b.i.d. 6. Gabapentin 300 mg p.o. three times a day. 7. BuSpar 15 mg p.o. q.i.d. 8. Protonix 40 mg p.o. once a day. 9. Meclizine 25 mg q.6 p.r.n. 10. Valtrex 500 mg once a day. 11. Restasis one drop both eyes two times a day. 12. Flonase 2 sprays intranasal once a day. 13. Pepcid 20 mg p.o. three times a day with ibuprofen. 14. Zanaflex 2 mg three times a day. 15. Vitamin D 5000 units every week. 16. Calcitriol 0.25 mcg three times a week. 17. Hydromorphone oral 2 mg q.4 hours as needed. PHYSICAL EXAMINATION: VITAL SIGNS: Blood pressure 149/75, pulse is 99, respiratory rate is 16, and pO2 saturations are 95% on room air. CONSTITUTION: The patient is awake and alert. Slurred speech mild, little bit of expressive dysphagia. HEENT: Head is atraumatic and normocephalic. Eyes, pupils are equally round and reactive to light. NECK: Normal range of motion. Trachea is midline. RESPIRATORY: Chest breath sounds are clear. Chest expansion is equal. CARDIOVASCULAR: Regular rate and rhythm. ABDOMEN: Female. Abdomen is nontender. Bowel sounds are heard. BACK: Normal range of motion. No tenderness. EXTREMITIES: Lower extremity, she has chronic weakness and deformity of the lower extremities. She is wearing a brace on the left lower leg. She has good cap refill and pedal pulses are normal. NEURO: Speech is slurred with expressive aphasia, weakness to the left side of her face, weakness to the right arm. LABORATORY DATA: EKG in the emergency room shows beats per minute 67, normal sinus rhythm, and nonspecific T-wave changes. PLAN AND ASSESSMENT: 1. Possible cerebrovascular accident. We will obtain an MRI of the brain, echocardiogram, and carotid Dopplers. Ask PT, OT, and Speech to evaluate. She did pass her dysphagia screen at the bedside. We will ask Neurology to consult. We have asked Dr. Leos to also consult. Aspirin daily. 2. Acute on chronic kidney disease. We will recheck values and ask Dr. Leos to see patient. 3. Hypercalcemia. We will monitor that for now. We will recheck in the morning. 4. History of hypertension. We will restart her home medications. 5. History of a seizure disorder. We will restart her Keppra. 6. History of multiple fractures, has a leg brace and p.r.n. pain medication as needed. We will restart her Zanaflex. 7. History of depression and anxiety. We will restart her home medications. 8. Deep venous thrombosis and gastrointestinal prophylaxis started. 9. Case discussed with Dr. Singh, who agrees with plan. Job ID: [id number]
[2019-08-27 02:01] LABS: Troponin I 0.027 ng/mL (< 0.028)
[2019-08-27 02:29] VITALS: BMI 19.9
[2019-08-27 03:49] LABS: Troponin I 0.022 ng/mL (< 0.028)
[2019-08-27] MEDS ORDERED: Ibuprofen 800 MG TAB PO SCH (05:00)
[2019-08-27 05:33] LABS: #Basophils 0.1 thou/uL (0.0-0.2); #Eosinphils 0.1 thou/uL (0.0-0.7); #Lymphocytes 1.7 thou/uL (1.20-3.40); #Monocytes 0.5 thou/uL (0.11-0.59); #Neutrophils 4.2 thou/uL (1.40-6.50); %Eosinophils 1.4 % (0.0-10.0); %Lymphocytes 26.1 % (21.0-51.0); %Monocytes 7.7 % (0.0-10.0); %Neutrophils 63.9 % (42.0-75.0); Mean Corpuscular HGB CONC 32.1 g/dL (32.0-36.0); Mean Corpuscular Hemoglobin 31.5 pg (27.0-31.0); Mean Platelet Volume 8.3 fL (7.4-10.4); Platelet Count 168 thou/uL (130-400); White Blood Cell (WBC) Count 6.6 thou/uL (4.8-10.8)
[2019-08-27 06:01] LABS: Albumin 3.7 g/dL (3.4-4.8); Anion Gap 14 mmol/L (10-20); BUN (Urea Nitrogen) 51 mg/dL (9.8-20.1); Bilirubin, Total 0.3 mg/dL (0.2-1.2); Calc. Creatinine Clearance 18 mL/min (70-130); Calcium 8.6 mg/dL (7.8-10.44); Carbon Dioxide 21 mmol/L (23-31); Chloride 106 mmol/L (98-107); Estimated GFR-MDRD 22; Globulin 2.4 g/dL (2.4-3.5); Glucose 105 mg/dL (83-110); Potassium 4.6 mmol/L (3.5-5.1); Protein, Total 6.1 g/dL (6.0-8.3); Sodium 136 mmol/L (136-145)
[2019-08-27 06:02] LABS: ALT (SGPT) 9 U/L (8-55); AST (SGOT) 12 U/L (5-34); Alkaline Phosphatase 61 U/L (40-110); Cardiac Risk 2.7 (Less than 4.5); Cholesterol 138 mg/dl (< 200 Desired); HDL Cholesterol 52 mg/dL (>60 Neg Risk); LDL Cholesterol, Calculated 78 mg/dL; Triglycerides 41 mg/dL (Less than 150)
--- NOTE | 2019-08-27 07:45 | ULT ---
BILATERAL CAROTID DUPLEX ULTRASOUND: HISTORY: Facial droop, result TECHNIQUE: Grayscale, color-flow and spectral Doppler ultrasound imaging of the extracranial carotid artery syst ems was performed bilaterally. FINDINGS: No significant plaque formation is seen. The peak systolic velocity in the right ICA measures 2 cm/s with an end-diastolic velocity of 23 cm/s and a systolic ratio of 0.99. The peak systolic velocity in the left ICA measures 69 cm/s with an end-diastolic velocity of 22 cm/s and a systolic ratio of 0.93. Flow in both vertebral arteries remains antegrade. IMPRESSION: No evidence of hemodynamically significant stenosis
[2019-08-27] MEDS: Heparin 5,000 UNITS/ML VIAL SC SCH (07:58)
[2019-08-27] MEDS: Aspirin 325 mg Enteric Coated Tablet PO SCH (07:58)
[2019-08-27] MEDS ORDERED: Lorazepam 1 MG TAB PO SCH (09:00)
[2019-08-27] MEDS ORDERED: Calcitriol 0.25 MCG CAP PO SCH (09:45)
[2019-08-27] MEDS ORDERED: Amlodipine 10 MG TAB PO SCH (09:45)
[2019-08-27] MEDS: Famotidine 20 MG TAB PO SCH (11:44)
--- NOTE | 2019-08-27 13:05 | MRI ---
MRI BRAIN WITHOUT CONTRAST: Date: 08/27/2019 INDICATION: Altered mental status. FINDINGS: Moderate cortical atrophy. Moderate chronic ischemic white matter change is noted. There is no evidence of restricted diffusion. No evidence of acute infarct. No evidence of mass or ed dimitrios. The intracranial internal carotid arteries, proximal cerebral arteries, and basilar arteries show antoinette w-voids. Dural venous sinuses are patent. Paranasal sinuses appear clear. There is evidence of mucosal edema in the right mastoid air cells on T2. IMPRESSION: 1. Moderate cortical atrophy. 2. Moderate chronic ischemic white matter change. 3. No evidence of acute process. POS: AH
[2019-08-27] MEDS ORDERED: tiZANidine HCl 4 MG TAB PO PRN (13:15)
--- NOTE | 2019-08-27 14:06 | CON ---
NEUROLOGY CONSULTATION DATE OF CONSULTATION: 08/27/2019 REASON FOR CONSULTATION: Altered mental status/dysarthria/receptive aphasia/right-sided weakness. HISTORY OF PRESENT ILLNESS: Ms. Pastrana is a 73-year-old female with medical history significant for rheumatoid arthritis, gastroesophageal reflux disease, seizure disorder, sleep apnea, GI bleed, atrial fibrillation, and frequent UTI, presented to the emergency room by EMS after her family found her lying on the floor and she was unable to speak. The patient has no recollection of the event. According to her, she fell down on the floor and has vomited all over. Per the patient, she has been feeling weak for several days, but does not want to share this information with the family. She did have a broken leg and currently she is nonweightbearing and using a motorized scooter. According to documentation, the patient was also feeling weak on the right side and has difficulty speaking and swallowing. Head CT was obtained which did not reveal any acute intracranial pathology. She does have end-stage renal disease, and she was admitted to the stroke unit. The patient admits to nausea, vomiting, and altered mental status , but does not recall any seizure-like activity. She denies focal paresthesias, but admits to problems with speech and swallowing. She denies fever, chills, upper respiratory tract infection, chest pain, or abdominal pain. REVIEW OF SYSTEMS: All 10 systems were reviewed and were negative except the pertinent positives and negatives mentioned in the HPI. PAST MEDICAL HISTORY: Atrial fibrillation, atrial flutter, end-stage renal disease, chronic kidney disease, fracture of the left tibia and fibula, lupus, anemia, seizure disorder, GI bleed, history of sleep apnea. She also has anxiety and depression. PAST SURGICAL HISTORY: Appendectomy, hernia repair, sinus surgery, hysterectomy. SOCIAL HISTORY: The patient lives at home. Denies smoking, alcohol, or illegal drug use. KNOWN ALLERGIES: Hydroxychloroquine and pregabalin. CURRENT MEDICATIONS: 1. Oxycodone-Tylenol 5/325 one tablet p.o. p.r.n. 2. Cardizem 30 mg p.o. t.i.d. 3. Trazodone 50 mg p.o. once daily. 4. Keppra 750 mg twice daily. 5. Lexapro 10 mg twice daily. 6. Gabapentin 300 mg three times daily. 7. BuSpar 15 mg q.i.d. 8. Protonix 40 mg once daily. 9. Meclizine 25 mg q.6 hours p.r.n. 10. Valtrex 500 mg once daily. 11. Restasis one drop both eyes 2 times a day. 12. Flonase 2 sprays intranasal once a day. 13. Pepcid 20 mg 3 times daily with ibuprofen. 14. Zanaflex 2 mg 3 times daily. 15. Vitamin D 5000 units every week. 16. Calcitriol 0.25 mcg 3 times a week. 17. Hydromorphone 2 mg q.4 hours as needed. PHYSICAL EXAMINATION: VITAL SIGNS: Blood pressure 140/70, pulse 80, respiratory rate 18. CONSTITUTIONAL: Alert and awake female, in no acute distress. HEENT: Normocephalic and atraumatic. CVS: Regular rate and rhythm. CHEST: Clear. ABDOMEN: Soft. NECK: Supple. EXTREMITIES: She has chronic weakness and deformity of the lower extremities. She is wearing a brace on the left lower leg. NEUROLOGIC: Mental status; the patient is alert and oriented to person, place, and time. Speech is clear. Fund of knowledge is appropriate. Cranial nerves II through XII intact. Motor; muscle tone is normal. Bulk is decreased. Moving all 4 extremities, upper extremities more than lower extremities. There is deformity of the lower extremities with a cast on the left lower extremity so exam is extremely limited. Cerebellar; finger-nose testing intact. Gait deferred due to the patient's safety reasons. DATA REVIEWED: I reviewed the CT scan which was negative for acute intracranial pathology. ASSESSMENT AND PLAN: Ms. Francie Pastrana is consulted for an episode of weakness and altered mental status. Differential diagnosis includes transient ischemic attack versus breakthrough seizure. Recommend MRI of the brain to rule out acute intracranial pathology. Recommend 2D echo to evaluate for left ventricular ejection fraction. Carotid Doppler results reviewed and were negative. Neuro checks every 4 hours. Observe seizure precautions. Ativan 2 mg IV for seizure greater than 2 minutes. Continue Keppra 750 mg twice daily. Recommend EEG to see the extent of interictal epileptiform discharges. Continue home medications and telemetry. PT/OT/speech. We will continue aspirin and high-intensity statin for secondary stroke prevention. Check hemoglobin A1c, fasting lipid profile, TSH, vitamin B12, and folic acid. Continue medical management per primary team. We will continue to follow. Thank you for the consult. Job ID: [id number] MTDD
[2019-08-27] MEDS: Gabapentin 300 MG CAP PO SCH ×2 (16:36→21:51)
--- NOTE | 2019-08-27 18:09 | EEG ---
DATE OF SERVICE: 08/27/2019 This EEG was performed using 24-channel [employer] video digital EEG machine with 24-disk electrodes. This was an extended 2 hours 15 minutes of inpatient video EEG recording. Digital analysis of the EEG was done for spike and seizure detection which revealed no abnormalities. BACKGROUND: The posterior background rhythm is 8-8.5 Hz. Minimal reactivity is seen with eye opening and closure. HYPERVENTILATION: No significant response seen with hyperventilation. PHOTIC STIMULATION: No significant response seen with photic stimulation. SLEEP: Drowsiness was observed. EEG DIAGNOSES: 1. Occasional irregular theta activity seen during the recording. 2. Nonsustained posterior background rhythm. CLINICAL INTERPRETATION: This EEG is consistent with mild generalized nonspecific cerebral dysfunction. No ictal or interictal epileptiform abnormalities seen during the recording. Job ID: [id number]
--- NOTE | 2019-08-27 20:23 | PDOC.HOSPP ---
- Subjective Encounter Date: 08/27/19 Encounter Time: 10:00 Subjective: no overnight events. This morning, several episodes of multifocal atrial tachycardia during exertion, asymptomatic. Has no complaints. - Objective Vital Signs & Weight: Vital Signs (12 hours) Temp Pulse Pulse Pulse Resp BP BP 08/27/19 15:45 97.6 F 73 13 08/27/19 11:47 98.3 F 72 16 08/27/19 10:29 80 82 133/90 135/75 08/27/19 10:13 BP BP BP Pulse Ox 08/27/19 15:45 176/85 H 98 08/27/19 11:47 152/77 H 99 08/27/19 10:29 08/27/19 10:13 164/85 H 133/90 167/79 H Weight Weight 112 lb 9.6 oz I&O: 08/26/19 08/27/19 08/28/19 06:59 06:59 06:59 Intake Total 610 Balance 610 Result Diagrams: 08/27/19 05:16 08/27/19 05:16 Hospitalist ROS - Review of Systems Constitutional: denies: fever, chills, sweats Respiratory: denies: cough, dry, shortness of breath Cardiovascular: denies: chest pain, palpitations Gastrointestinal: denies: nausea, vomiting, abdominal pain Genitourinary: denies: dysuria, frequency, hematuria Neurological: denies: weakness, numbness, change in speech, confusion, seizures - Medication Medications: Active Medications Generic Name Dose Route Start Last Admin Trade Name Freq PRN Reason Stop Dose Admin Acetaminophen 650 mg 08/26/19 20:50 08/26/19 23:12 Tylenol PO 650 mg Q4H PRN Administration Headache/Fever/Mild Pain (1-3) Aspirin 325 mg 08/27/19 09:00 08/27/19 07:58 Ecotrin PO 325 mg DAILY JOSE Administration Diltiazem HCl 30 mg 08/27/19 11:30 08/27/19 16:36 Cardizem PO 30 mg ACHS JOSE Administration Famotidine 20 mg 08/27/19 09:00 08/27/19 11:44 Pepcid PO 20 mg DAILY JOSE Administration Gabapentin 300 mg 08/27/19 15:00 08/27/19 16:36 Neurontin PO 300 mg TID JOSE Administration Sodium Chloride 10 ml 08/26/19 20:50 08/27/19 07:58 Flush - Normal Saline IVF 10 ml PRN PRN Administration Saline Flush - Exam General Appearance: NAD, awake alert Neck: no JVD Heart: RRR, no murmur, no gallops, no rubs Respiratory: CTAB, no wheezes, no rales, no ronchi Gastrointestinal: soft, non-tender, non-distended, normal bowel sounds Extremities: no edema Extremities - other findings: lower extremities deformed, cast on LLE, unable to bear weight Neurological: cranial nerve grossly intact. negative: no focal deficits, facial droop, speech deficit Musculoskeletal - other findings: UE: normal strength and sensation; LE exam limited by deformities Psychiatric: normal affect, normal behavior, A&O x 3 Hosp A/P - Plan #TIA -imaging showing no acute ischemic; no carotid atherosclerosis -EEG shows no eplileptic activity -neurology recs appreciated -continue aspirin, statin #HTN #MAP -increased cardizem from 30 bid to 30 qid #orthostatic hypotension -educate patient regarding lifestyle modifications and balanced fluid intake #ESRD nephrology onboard [facility]: 1 night
[2019-08-27] MEDS ORDERED: Calcium Carbonate 500 MG ChewTAB PO PRN (20:50)
[2019-08-27] MEDS ORDERED: Non-Formulary Item 1 EACH (Buspirone Hcl [Buspirone Hcl] 30 MG) PO SCH (21:00)
[2019-08-27] MEDS ORDERED: Fluticasone Propionate Nasal Spray 16 gm Bottle NASAL SCH (21:00)
[2019-08-27] MEDS: Enoxaparin Sodium 60 MG/0.6 ML SYRINGE SC SCH (21:45)
[2019-08-27] MEDS: traZODone HCl 50 MG TAB PO SCH (21:46)
[2019-08-27] MEDS: HYDROcodone/Acetaminophen 5/325 mg Tablet PO PRN (21:48)
[2019-08-27] MEDS: busPIRone HCl 10 MG TAB PO SCH (21:49)
[2019-08-27] MEDS: levETIRAcetam 500 MG TAB PO SCH (21:49)
[2019-08-27] MEDS: Escitalopram Oxalate 10 mg Tablet PO SCH (21:51)
[2019-08-27] MEDS: Fluticasone Propionate Nasal Spray 16 gm Bottle NASAL SCH (21:52)
--- NOTE | 2019-08-28 06:56 | CON ---
DATE OF CONSULTATION: CONSULTING PHYSICIAN: Dafne Ortiz MD REQUESTING PHYSICIAN: [facility] Hospitalist [facility]ster. REASON FOR CONSULTATION: Moderately advanced chronic kidney disease. IMPRESSION: 1. Moderately advanced chronic kidney disease. The patient is more or less at baseline. 2. Difficulty with speaking with right-sided weakness and left facial droop, will be worked up for CVA. HISTORY OF PRESENT ILLNESS: This is a 73-year-old female patient, known to my chronic kidney disease clinic, presented here with the above-mentioned symptoms. The patient on evaluation of chemistry revealed the patient to be at baseline chronic kidney disease. Therefore, no emergent indication at this point for any alteration in the renal treatment of this patient. PAST MEDICAL HISTORY: Significant for; 1. Anemia of chronic kidney disease, stage 3/4. 2. Frequent urinary tract infection. 3. Osteoarthritis. 4. Rheumatoid arthritis. 5. Reflux. 6. Raynaud syndrome. 7. GI bleed. 8. Aspiration pneumonitis. 9. Psoriasis. 10. Generalized weakness. 11. History of bowel obstruction with sleep apnea. MEDICATIONS: Reviewed, as documented on [employer]. SOCIAL HISTORY: No alcohol. No tobacco. No illicit drug use. ALLERGIES: HYDROXYCHLOROQUINE AND PREGABALIN. CURRENT MEDICATIONS: Reviewed and as documented on [employer]. PHYSICAL EXAMINATION: GENERAL: The patient was found not to be in any obvious distress, hemodynamically stable, noted with the following vital signs. VITAL SIGNS: Blood pressure 149/75, pulse 99, respiratory rate 16, O2 sat 95%. HEENT: Unremarkable. CARDIOVASCULAR: First and second heart sounds were heard. RESPIRATORY: Clear to auscultation bilaterally. DIGESTIVE: Revealed a benign abdomen with positive bowel sounds. EXTREMITIES: No peripheral edema. SKIN: No new gross rash. LYMPHATICS: No peripheral lymphadenopathy. SUMMARY: A 73-year-old female patient with a known chronic kidney disease, moderately advanced, who presented here with symptoms suggestive of cerebrovascular accident. Thank you for this consultation. We will follow with you. Job ID: [id number]
[2019-08-28] MEDS: levETIRAcetam 500 MG TAB PO SCH ×2 (08:26→20:57)
[2019-08-28] MEDS: Escitalopram Oxalate 10 mg Tablet PO SCH ×2 (08:27→20:58)
[2019-08-28] MEDS: busPIRone HCl 10 MG TAB PO SCH ×2 (08:27→20:57)
[2019-08-28] MEDS: Aspirin 325 mg Enteric Coated Tablet PO SCH (08:27)
[2019-08-28] MEDS: Gabapentin 300 MG CAP PO SCH ×3 (08:27→20:58)
[2019-08-28] MEDS: Famotidine 20 MG TAB PO SCH (08:27)
[2019-08-28] MEDS ORDERED: Amlodipine 10 MG TAB PO SCH (09:00)
[2019-08-28] MEDS: HYDROcodone/Acetaminophen 5/325 mg Tablet PO PRN (09:43)
[2019-08-28] MEDS ORDERED: HYDROmorphone 2 MG TAB PO PRN (12:05)
[2019-08-28] MEDS ORDERED: tiZANidine HCl 4 MG TAB PO PRN (12:30)
[2019-08-28] MEDS ORDERED: Senokot S 8.6-50 MG TAB PO PRN (12:30)
--- NOTE | 2019-08-28 13:27 | PDOC.HOSPP ---
- Subjective Encounter Date: 08/28/19 Subjective: NEUROLOGY PROGRESS NOTE Patient alert and awake with no acute complaints. - Objective Vital Signs & Weight: Vital Signs (12 hours) Temp Pulse Pulse Resp BP BP BP 08/28/19 11:31 98.2 F 74 16 183/97 H 08/28/19 10:48 116 H 178/86 H 183/97 H 08/28/19 07:55 97.2 F L 88 13 156/103 H 08/28/19 03:50 97.5 F L 96 20 BP Pulse Ox 08/28/19 11:31 97 08/28/19 10:48 08/28/19 07:55 96 08/28/19 03:50 176/108 H 97 Weight Weight 104 lb 8 oz I&O: 08/27/19 08/28/19 08/29/19 06:59 06:59 06:59 Intake Total 810 Balance 810 Result Diagrams: 08/27/19 05:16 08/27/19 05:16 Radiology Reviewed by me: Yes EKG Reviewed by me: Yes Hospitalist ROS - Review of Systems Constitutional: denies: fever, chills, sweats, weakness, malaise, other Eyes: denies: pain, vision change, conjunctivae inflammation, eyelid inflammation, redness, other ENT: denies: ear pain, ear discharge, nose pain, nose discharge, nose congestion , mouth pain, mouth swelling, throat pain, throat swelling, other Respiratory: denies: cough, dry, shortness of breath, hemoptysis, SOB with excertion, pleuritic pain, sputum, wheezing, other Cardiovascular: denies: chest pain, palpitations, orthopnea, paroxysmal noc. dyspnea, edema, light headedness, other Gastrointestinal: denies: nausea, vomiting, abdominal pain, diarrhea, constipation, melena, hematochezia, other Genitourinary: denies: dysuria, frequency, incontinence, hematuria, retention, other Musculoskeletal: reports: leg pain. denies: neck pain, shoulder pain, arm pain , back pain, hand pain, foot pain, other Neurological: reports: confusion, seizures. denies: weakness, numbness, incoordination, change in speech, other - Medication Medications: Active Medications Generic Name Dose Route Start Last Admin Trade Name Freq PRN Reason Stop Dose Admin Acetaminophen 650 mg 08/26/19 20:50 08/26/19 23:12 Tylenol PO 650 mg Q4H PRN Administration Headache/Fever/Mild Pain (1-3) Aspirin 325 mg 08/27/19 09:00 08/28/19 08:27 Ecotrin PO 325 mg DAILY JOSE Administration Buspirone HCl 30 mg 08/27/19 21:00 08/28/19 08:27 Buspar PO 30 mg BID JOSE Administration Calcium Carbonate 1,000 mg 08/27/19 20:50 08/27/19 21:45 Tums PO 1,000 mg Q4H PRN Administration Heartburn or Indigestion Enoxaparin Sodium 50 mg 08/27/19 21:00 08/27/19 21:45 Lovenox SC 50 mg 2100 JOSE Administration Escitalopram Oxalate 10 mg 08/27/19 21:00 08/28/19 08:27 Lexapro PO 10 mg BID JOSE Administration Famotidine 20 mg 08/27/19 09:00 08/28/19 08:27 Pepcid PO 20 mg DAILY JOSE Administration Fluticasone Propionate 0 gm 08/27/19 21:00 08/27/19 21:52 Flonase Nasal [place] NASAL 2 spr HS JOSE Administration Gabapentin 300 mg 08/27/19 15:00 08/28/19 08:27 Neurontin PO 300 mg TID JOSE Administration Hydromorphone HCl 2 mg 08/28/19 12:05 08/28/19 12:33 Dilaudid PO 2 mg Q4H PRN Administration Pain>3 Levetiracetam 750 mg 08/27/19 21:00 08/28/19 08:26 Keppra PO 750 mg BID JOSE Administration Pantoprazole Sodium 40 mg 08/28/19 09:00 08/28/19 08:28 Protonix PO 40 mg DAILY JOSE Administration Sodium Chloride 10 ml 08/26/19 20:50 08/27/19 07:58 Flush - Normal Saline IVF 10 ml PRN PRN Administration Saline Flush Trazodone HCl 50 mg 08/27/19 21:00 08/27/19 21:46 Desyrel PO 50 mg HS JOSE Administration - Exam General Appearance: awake alert Eye: PERRL ENT: normocephalic atraumatic Neck: supple Heart: RRR Respiratory: CTAB Gastrointestinal: soft Extremities: no cyanosis Skin: normal turgor Neurological: no new deficit Psychiatric: A&O x 3, oriented to person, oriented to place, oriented to time Hosp A/P (1) AMS (altered mental status) Code(s): R41.82 - ALTERED MENTAL STATUS, UNSPECIFIED Status: Acute (2) Seizure disorder Code(s): G40.909 - EPILEPSY, UNSP, NOT INTRACTABLE, WITHOUT STATUS EPILEPTICUS Status: Chronic (3) Chronic pain disorder Code(s): G89.4 - CHRONIC PAIN SYNDROME Status: Chronic (4) Fibromyalgia Status: Chronic (5) Immunocompromised Code(s): D84.9 - IMMUNODEFICIENCY, UNSPECIFIED Status: Chronic (6) Macrocytic anemia Code(s): D53.9 - NUTRITIONAL ANEMIA, UNSPECIFIED Status: Chronic - Plan PT/OT, speech therapy, DVT proph w/SCDs 73 year old consulted for Altered mental status with neurological deficits . Differential diagnosis included TIA versus breakthrough seizure. EEG reviewed and was negative for seizure activity. MRI Brain reviewed and was negative for acute pathology. Continue home dose of Keppra. Observe seizure precautions. Continue aspirin and statin for secondary stroke prevention. Carotid dopplers negative Neurochecks every 4 hours. Continue home medications. PT/OT/Speech. Continue medical management per primary team. Plan discussed wth the patient and the floor team during MDR rounds.
[2019-08-28] MEDS ORDERED: HYDROmorphone 2 MG TAB PO SCH (14:00)
[2019-08-28] MEDS ORDERED: hydrALAZINE 20 MG/ML VIAL SLOW IVP PRN (14:23)
[2019-08-28] MEDS ORDERED: Labetalol HCl 100 MG/20 ML VIAL SLOW IVP PRN (16:06)
[2019-08-28] MEDS ORDERED: Lisinopril 10 MG TAB PO SCH (16:15)
--- NOTE | 2019-08-28 17:02 | PDOC.HOSPP ---
- Subjective Encounter Date: 08/28/19 Encounter Time: 08:00 Subjective: overnight, complaining of increased diffuse pain that is typical of her chronic pain and of worsening nausea. Additional episodes of MAT, telemetry also showing a few episodes of short [place] intervals with delta waves. Based on converation with patient's daughter, there was a pacemaker placement planned though didn't know indication. - Objective Vital Signs & Weight: Vital Signs (12 hours) Temp Pulse Pulse Resp BP BP BP 08/28/19 16:24 193/95 H 08/28/19 16:14 113 H 193/95 H 08/28/19 15:23 98.3 F 90 17 08/28/19 13:25 195/114 H 08/28/19 11:31 98.2 F 74 16 08/28/19 10:48 116 H 178/86 H 183/97 H 08/28/19 07:55 97.2 F L 88 13 BP Pulse Ox 08/28/19 16:24 08/28/19 16:14 08/28/19 15:23 195/95 H 97 08/28/19 13:25 08/28/19 11:31 183/97 H 97 08/28/19 10:48 08/28/19 07:55 156/103 H 96 Weight Weight 104 lb 8 oz I&O: 08/27/19 08/28/19 08/29/19 06:59 06:59 06:59 Intake Total 810 Balance 810 Result Diagrams: 08/27/19 05:16 08/27/19 05:16 Hospitalist ROS - Review of Systems Constitutional: denies: fever, chills, sweats Respiratory: denies: cough, dry, shortness of breath, SOB with excertion Cardiovascular: denies: chest pain, palpitations, orthopnea Gastrointestinal: reports: nausea. denies: vomiting, abdominal pain - Medication Medications: Active Medications Generic Name Dose Route Start Last Admin Trade Name Freq PRN Reason Stop Dose Admin Aspirin 325 mg 08/27/19 09:00 08/28/19 08:27 Ecotrin PO 325 mg DAILY JOSE Administration Buspirone HCl 30 mg 08/27/19 21:00 08/28/19 08:27 Buspar PO 30 mg BID JOSE Administration Calcium Carbonate 1,000 mg 08/27/19 20:50 08/27/19 21:45 Tums PO 1,000 mg Q4H PRN Administration Heartburn or Indigestion Enoxaparin Sodium 50 mg 08/27/19 21:00 08/27/19 21:45 Lovenox SC 50 mg 2100 JOSE Administration Escitalopram Oxalate 10 mg 08/27/19 21:00 08/28/19 08:27 Lexapro PO 10 mg BID JOSE Administration Famotidine 20 mg 08/27/19 09:00 08/28/19 08:27 Pepcid PO 20 mg DAILY JOSE Administration Fluticasone Propionate 0 gm 08/27/19 21:00 08/27/19 21:52 Flonase Nasal [place] NASAL 2 spr HS JOSE Administration Gabapentin 300 mg 08/27/19 15:00 08/28/19 14:09 Neurontin PO 300 mg TID JOSE Administration Labetalol HCl 10 mg 08/28/19 16:06 08/28/19 16:14 Normodyne SLOW IVP 10 mg Q4H PRN Administration SBP Greater Than 180 Levetiracetam 750 mg 08/27/19 21:00 08/28/19 08:26 Keppra PO 750 mg BID JOSE Administration Lisinopril 10 mg 08/28/19 16:15 08/28/19 16:24 Zestril PO 08/28/19 18:00 10 mg NOW JOSE Administration Pantoprazole Sodium 40 mg 08/28/19 09:00 08/28/19 08:28 Protonix PO 40 mg DAILY JOSE Administration Sodium Chloride 10 ml 08/26/19 20:50 08/27/19 07:58 Flush - Normal Saline IVF 10 ml PRN PRN Administration Saline Flush Trazodone HCl 50 mg 08/27/19 21:00 08/27/19 21:46 Desyrel PO 50 mg HS JOSE Administration - Exam General Appearance: NAD, awake alert Neck: no JVD Heart: RRR, no murmur, no gallops, no rubs Respiratory: CTAB, no wheezes, no rales, no ronchi Gastrointestinal: soft, non-tender, non-distended, normal bowel sounds Extremities: no edema Musculoskeletal - other findings: cast on LLE Psychiatric: normal affect, normal behavior, A&O x 3 Hosp A/P - Plan #HTN urgency -started losartan #MAT #?Jr Parkinson White -after increasing cardizem frequency from bid to qid (08/26) for MAT though patient was asymptomatic, more frequent and prolonged episodes of tahcycardia even at rest, some of which had short [place] and delta waves -reduce back to cardizem bid -avoid additional AV maurizio pending cardiology evaluation -cardiology consulted #orthostatic hypotension -discuseed with daughter regarding lifestyle modifications and fluid intake considering multiple likely contributing etiologies that may be difficult to address #TIA -imaging showing no acute ischemia; no carotid atherosclerosis -EEG shows no eplileptic activity -neurology recs appreciated -continue aspirin, statin #ESRD nephrology onboard [facility]: 1 night
[2019-08-28] MEDS: Enoxaparin Sodium 60 MG/0.6 ML SYRINGE SC SCH (20:56)
[2019-08-28] MEDS: HYDROmorphone 2 MG TAB PO SCH (20:57)
[2019-08-28] MEDS: traZODone HCl 50 MG TAB PO SCH (20:57)
[2019-08-28] MEDS: Fluticasone Propionate Nasal Spray 16 gm Bottle NASAL SCH (20:58)
[2019-08-29 05:15] LABS: Albumin 3.9 g/dL (3.4-4.8); Anion Gap 12 mmol/L (10-20); BUN (Urea Nitrogen) 48 mg/dL (9.8-20.1); BUN/Creatinine Ratio 22.12; Calc. Creatinine Clearance 17 mL/min (70-130); Calcium 9.5 mg/dL (7.8-10.44); Carbon Dioxide 25 mmol/L (23-31); Chloride 101 mmol/L (98-107); Estimated GFR-MDRD 22; Glucose 91 mg/dL (83-110); Magnesium 1.6 mg/dL (1.6-2.6); Phosphorus 3.6 mg/dL (2.3-4.7); Potassium 4.1 mmol/L (3.5-5.1); Sodium 134 mmol/L (136-145)
[2019-08-29] MEDS ORDERED: Labetalol HCl 100 MG/20 ML VIAL SLOW IVP SCH (08:15)
[2019-08-29] MEDS ORDERED: Lisinopril 10 MG TAB PO SCH (09:00)
[2019-08-29] MEDS ORDERED: Losartan 25 MG TAB PO SCH ×4 (09:00→09:15)
[2019-08-29] MEDS: Chlorthalidone 25 MG TAB PO SCH ×2 (09:02→13:01)
[2019-08-29] MEDS: busPIRone HCl 10 MG TAB PO SCH ×2 (09:36→21:38)
[2019-08-29] MEDS: levETIRAcetam 500 MG TAB PO SCH ×2 (09:37→21:37)
[2019-08-29] MEDS: Aspirin 325 mg Enteric Coated Tablet PO SCH (09:37)
[2019-08-29] MEDS: Escitalopram Oxalate 10 mg Tablet PO SCH ×2 (09:37→21:37)
[2019-08-29] MEDS: Gabapentin 300 MG CAP PO SCH ×3 (09:37→21:37)
[2019-08-29] MEDS: HYDROmorphone 2 MG TAB PO SCH (09:38)
[2019-08-29] MEDS: Famotidine 20 MG TAB PO SCH (09:38)
[2019-08-29] MEDS: Calcitriol 0.25 MCG CAP PO SCH (09:38)
--- NOTE | 2019-08-29 12:31 | PRG ---
DATE OF SERVICE: 08/28/2019 SUBJECTIVE: The patient is seen and examined, noted with the following vital signs. OBJECTIVE: VITAL SIGNS: Afebrile, temperature 98.3, pulse 90 to 113, respiratory rate of 17, blood pressure 193/95 to 177/84. HEENT: Unremarkable. CARDIOVASCULAR: First and second heart sounds were heard. RESPIRATORY: Clear to auscultation. DIGESTIVE: Revealed a benign abdomen. Positive bowel sounds. EXTREMITIES: No peripheral edema. SKIN: No new gross rash. LYMPHATICS: No peripheral lymphadenopathy. IMPRESSION: 1. Chronic kidney disease, stage 3/4. 2. Labile hypertension. PLAN: 1. The patient's blood pressure medication needs to be adjusted to optimize hemodynamics. The patient to benefit from some degree of beta-blockade given the tachyarrhythmia in this patient. 2. Monitor the renal function especially with starting this patient on losartan. If the creatinine increases, we will recommend discontinuation of this medication and stick with beta-maurizio to improve this patient's hemodynamics. We will recommend carvedilol or labetalol for this patient. 3. Renally dose all medications for low GFR. We will get a renal function panel tomorrow. We will reassess the effect of losartan prior to making further recommendation. Job ID: [id number]
[2019-08-29] MEDS ORDERED: pyridOXINE 50 MG (B6) TAB PO PRN (12:35)
--- NOTE | 2019-08-29 14:29 | PDOC.HOSPP ---
- Subjective Encounter Date: 08/29/19 Subjective: NEUROLOGY PROGRESS NOTE Patient alert and awake. No documented seizures. Still in hospital due to cardiac issues - Objective Vital Signs & Weight: Vital Signs (12 hours) Temp Pulse Resp BP BP BP Pulse Ox 08/29/19 11:45 98.6 F 82 16 181/118 H 92 L 08/29/19 08:50 132/81 112/77 171/92 H 08/29/19 07:30 200/110 H 92 L 08/29/19 07:27 98.3 F 87 16 225/110 H 93 L 08/29/19 04:00 98.1 F 114 H 18 188/118 H 97 Weight Weight 104 lb 8 oz I&O: 08/28/19 08/29/19 08/30/19 06:59 06:59 06:59 Intake Total 810 Balance 810 Result Diagrams: 08/27/19 05:16 08/29/19 04:24 Radiology Reviewed by me: Yes EKG Reviewed by me: Yes Hospitalist ROS - Review of Systems Constitutional: denies: fever, chills, sweats, weakness, malaise, other Eyes: reports: pain. denies: vision change, conjunctivae inflammation, eyelid inflammation, redness, other ENT: denies: ear pain, ear discharge, nose pain, nose discharge, nose congestion , mouth pain, mouth swelling, throat pain, throat swelling, other Respiratory: denies: cough, dry, shortness of breath, hemoptysis, SOB with excertion, pleuritic pain, sputum, wheezing, other Cardiovascular: denies: chest pain, palpitations, orthopnea, paroxysmal noc. dyspnea, edema, light headedness, other Gastrointestinal: denies: nausea, vomiting, abdominal pain, diarrhea, constipation, melena, hematochezia, other Musculoskeletal: reports: neck pain, arm pain, back pain. denies: shoulder pain , hand pain, leg pain, foot pain, other Skin: denies: rash, lesions, verónica, bruising, other Neurological: denies: weakness, numbness, incoordination, change in speech, confusion, seizures, other - Medication Medications: Active Medications Generic Name Dose Route Start Last Admin Trade Name Freq PRN Reason Stop Dose Admin Aspirin 325 mg 08/27/19 09:00 08/29/19 09:37 Ecotrin PO 325 mg DAILY JOSE Administration Buspirone HCl 30 mg 08/27/19 21:00 08/29/19 09:36 Buspar PO 30 mg BID JOSE Administration Calcitriol 0.25 mcg 08/29/19 09:00 08/29/19 09:38 Rocaltrol PO 0.25 mcg [id number] JOSE Administration Calcium Carbonate 1,000 mg 08/27/19 20:50 08/27/19 21:45 Tums PO 1,000 mg Q4H PRN Administration Heartburn or Indigestion Chlorthalidone 25 mg 08/29/19 09:00 08/29/19 13:01 Hy[place] PO 25 mg DAILY JOSE Administration Diltiazem HCl 30 mg 08/28/19 21:00 08/29/19 09:36 Cardizem PO 30 mg BID JOSE Administration Enoxaparin Sodium 50 mg 08/27/19 21:00 08/28/19 20:56 Lovenox SC 50 mg 2100 JOSE Administration Escitalopram Oxalate 10 mg 08/27/19 21:00 08/29/19 09:37 Lexapro PO 10 mg BID JOSE Administration Famotidine 20 mg 08/27/19 09:00 08/29/19 09:38 Pepcid PO 20 mg DAILY JOSE Administration Fluticasone Propionate 0 gm 08/27/19 21:00 08/28/19 20:58 Flonase Nasal [place] NASAL 2 spr HS JOSE Administration Gabapentin 300 mg 08/27/19 15:00 08/29/19 09:37 Neurontin PO 300 mg TID JOSE Administration Hydromorphone HCl 4 mg 08/28/19 21:00 08/29/19 09:38 Dilaudid PO 4 mg BID JOSE Administration Levetiracetam 750 mg 08/27/19 21:00 08/29/19 09:37 Keppra PO 750 mg BID JOSE Administration Pantoprazole Sodium 40 mg 08/28/19 09:00 08/29/19 09:38 Protonix PO 40 mg DAILY JOSE Administration Pyridoxine HCl 25 mg 08/29/19 12:35 08/29/19 13:01 Vitamin B 6 PO 25 mg TID PRN Administration Nausea/Vomiting Sodium Chloride 10 ml 08/26/19 20:50 08/27/19 07:58 Flush - Normal Saline IVF 10 ml PRN PRN Administration Saline Flush Trazodone HCl 50 mg 08/27/19 21:00 08/28/19 20:57 Desyrel PO 50 mg HS JOSE Administration - Exam General Appearance: awake alert Eye: PERRL ENT: normocephalic atraumatic Neck: supple Heart: RRR Respiratory: CTAB Gastrointestinal: soft Extremities: no cyanosis Skin: normal turgor Neurological: no new deficit Psychiatric: normal affect, normal behavior, A&O x 3, oriented to person, oriented to place, oriented to time Hosp A/P (1) AMS (altered mental status) Code(s): R41.82 - ALTERED MENTAL STATUS, UNSPECIFIED Status: Acute (2) Seizure disorder Code(s): G40.909 - EPILEPSY, UNSP, NOT INTRACTABLE, WITHOUT STATUS EPILEPTICUS Status: Chronic (3) Chronic pain disorder Code(s): G89.4 - CHRONIC PAIN SYNDROME Status: Chronic (4) Fibromyalgia Status: Chronic (5) Immunocompromised Code(s): D84.9 - IMMUNODEFICIENCY, UNSPECIFIED Status: Chronic (6) Macrocytic anemia Code(s): D53.9 - NUTRITIONAL ANEMIA, UNSPECIFIED Status: Chronic - Plan PT/OT 73 year old consulted for Altered mental status with neurological deficits . Differential diagnosis included TIA versus breakthrough seizure. Altered mental status is now resolved and patient back to baseline. Arrythmias reported overnight. EEG reviewed and was negative for seizure activity. MRI Brain reviewed and was negative for acute pathology. Continue home dose of Keppra. Observe seizure precautions. Continue aspirin and statin for secondary stroke prevention. Carotid dopplers negative Neurochecks every 4 hours. Continue home medications. PT/OT/Speech. Continue medical management per primary team. Plan discussed wth the patient and the floor team during MDR rounds. No further recommendations from neurology perspective.
--- NOTE | 2019-08-29 15:37 | PDOC.HOSPP ---
- Subjective Encounter Date: 08/29/19 Encounter Time: 08:00 Subjective: no overnight events. this morning, complains of persistent pain that is her baseline. - Objective Vital Signs & Weight: Vital Signs (12 hours) Temp Pulse Pulse Pulse Resp BP BP 08/29/19 14:00 71 78 199/140 H 167/114 H 08/29/19 11:45 98.6 F 82 16 08/29/19 08:50 08/29/19 07:30 08/29/19 07:27 98.3 F 87 16 08/29/19 04:00 98.1 F 114 H 18 BP BP BP Pulse Ox 08/29/19 14:00 08/29/19 11:45 181/118 H 92 L 08/29/19 08:50 132/81 112/77 171/92 H 08/29/19 07:30 200/110 H 92 L 08/29/19 07:27 225/110 H 93 L 08/29/19 04:00 188/118 H 97 Weight Weight 104 lb 8 oz I&O: 08/28/19 08/29/19 08/30/19 06:59 06:59 06:59 Intake Total 810 Balance 810 Result Diagrams: 08/27/19 05:16 08/29/19 04:24 Hospitalist ROS - Review of Systems Constitutional: denies: fever, chills, sweats, weakness, malaise, other Respiratory: denies: cough, dry, shortness of breath, hemoptysis, SOB with excertion, pleuritic pain, sputum, wheezing, other Cardiovascular: denies: chest pain, palpitations, orthopnea, paroxysmal noc. dyspnea, edema, light headedness, other Gastrointestinal: denies: nausea, vomiting, abdominal pain, diarrhea, constipation, melena, hematochezia, other - Medication Medications: Active Medications Generic Name Dose Route Start Last Admin Trade Name Freq PRN Reason Stop Dose Admin Aspirin 325 mg 08/27/19 09:00 08/29/19 09:37 Ecotrin PO 325 mg DAILY JOSE Administration Buspirone HCl 30 mg 08/27/19 21:00 08/29/19 09:36 Buspar PO 30 mg BID JOSE Administration Calcitriol 0.25 mcg 08/29/19 09:00 08/29/19 09:38 Rocaltrol PO 0.25 mcg [id number] JOSE Administration Calcium Carbonate 1,000 mg 08/27/19 20:50 08/27/19 21:45 Tums PO 1,000 mg Q4H PRN Administration Heartburn or Indigestion Chlorthalidone 25 mg 08/29/19 09:00 08/29/19 13:01 [place] PO 25 mg DAILY JOSE Administration Diltiazem HCl 30 mg 08/28/19 21:00 08/29/19 09:36 Cardizem PO 30 mg BID JOSE Administration Enoxaparin Sodium 50 mg 08/27/19 21:00 08/28/19 20:56 Lovenox SC 50 mg 2100 JOSE Administration Escitalopram Oxalate 10 mg 08/27/19 21:00 08/29/19 09:37 Lexapro PO 10 mg BID JOSE Administration Famotidine 20 mg 08/27/19 09:00 08/29/19 09:38 Pepcid PO 20 mg DAILY JOSE Administration Fluticasone Propionate 0 gm 08/27/19 21:00 08/28/19 20:58 Flonase Nasal [place] NASAL 2 spr HS JOSE Administration Gabapentin 300 mg 08/27/19 15:00 08/29/19 09:37 Neurontin PO 300 mg TID JOSE Administration Hydromorphone HCl 4 mg 08/28/19 21:00 08/29/19 09:38 Dilaudid PO 4 mg BID JOSE Administration Levetiracetam 750 mg 08/27/19 21:00 08/29/19 09:37 Keppra PO 750 mg BID JOSE Administration Pantoprazole Sodium 40 mg 08/28/19 09:00 08/29/19 09:38 Protonix PO 40 mg DAILY JOSE Administration Pyridoxine HCl 25 mg 08/29/19 12:35 08/29/19 13:01 Vitamin B 6 PO 25 mg TID PRN Administration Nausea/Vomiting Sodium Chloride 10 ml 08/26/19 20:50 08/27/19 07:58 Flush - Normal Saline IVF 10 ml PRN PRN Administration Saline Flush Trazodone HCl 50 mg 08/27/19 21:00 08/28/19 20:57 Desyrel PO 50 mg HS JOSE Administration - Exam General Appearance: NAD, awake alert General - other findings: sitting and eating breakfast Neck: no JVD Heart: no murmur, no gallops, no rubs Heart - other findings: irregular rhythm, tachycardic Respiratory: CTAB, no wheezes, no rales, no ronchi Gastrointestinal: soft, non-tender, non-distended, normal bowel sounds Extremities - other findings: left extremity in cast Hosp A/P - Plan #HTN urgency -continue losartan 50mg PO daily, started chlorthalidone; increased dilaudid to home dose, which may help with blood pressure directly and indirectly by better control of pain -if tolerating losartan and blood pressure remains not well controlled, will increase to 50 bid #MAT #?Jr M[place]le[place] White -after increasing cardizem frequency from bid to qid (08/26) for MAT though patient was asymptomatic, more frequent and prolonged episodes of tahcycardia even at rest, some of which had short [place] and delta waves -continue cardizem bid -avoid additional AV maurizio pending cardiology evaluation -cardiology consulted #orthostatic hypotension -discuseed with daughter regarding lifestyle modifications and fluid intake considering multiple likely contributing etiologies that may be difficult to address -cardiology consulted #CKD3b -at baseline -nephrology onboard #TIA -imaging showing no acute ischemia; no carotid atherosclerosis -EEG shows no eplileptic activity -neurology recs appreciated -continue aspirin, statin [facility]: 2 nights
[2019-08-29] MEDS ORDERED: Sodium Chloride 0.9% 500 ML IV SCH (16:00)
[2019-08-29] MEDS: HYDROmorphone 2 MG TAB PO PRN (16:26)
--- NOTE | 2019-08-29 18:48 | PRG ---
DATE OF SERVICE: 08/29/2019 SUBJECTIVE: The patient was seen and examined, noted with the following vital signs, very labile hemodynamics. OBJECTIVE: VITAL SIGNS: Standing blood pressure of about 112, with lying down blood pressure of about 171 to 184. HEENT: Unremarkable. CARDIOVASCULAR SYSTEM: First and second heart sounds were heard. RESPIRATORY SYSTEM: Clear to auscultation. DIGESTIVE SYSTEM: Revealed a benign abdomen with positive bowel sounds. EXTREMITIES: No peripheral edema. SKIN: No new gross rash. LYMPHATICS: No peripheral lymphadenopathy. IMPRESSION: 1. Chronic kidney disease, stage 3/4. 2. Labile hemodynamics with tachyarrhythmia. PLAN: 1. The patient's blood pressure medication needs to be adjusted. We would like to add beta maurizio to this patient. However, we will defer to Cardiology as this patient is already on calcium channel maurizio. In any case, we will avoid medications with potential vasodilator effect as this patient seems to be very orthostatic. 2. Further management to be dependent on the clinical course. Job ID: [id number]
[2019-08-29] MEDS ORDERED: Metoprolol Tartrate 25 MG TAB PO SCH (21:00)
[2019-08-29] MEDS: Enoxaparin Sodium 60 MG/0.6 ML SYRINGE SC SCH (21:36)
[2019-08-29] MEDS: Fluticasone Propionate Nasal Spray 16 gm Bottle NASAL SCH (21:36)
[2019-08-29] MEDS: traZODone HCl 50 MG TAB PO SCH (21:38)
[2019-08-30] MEDS: HYDROmorphone 2 MG TAB PO PRN ×2 (04:46→14:42)
[2019-08-30 05:22] LABS: Albumin 4.2 g/dL (3.4-4.8); Anion Gap 15 mmol/L (10-20); BUN (Urea Nitrogen) 53 mg/dL (9.8-20.1); Calc. Creatinine Clearance 18 mL/min (70-130); Calcium 9.9 mg/dL (7.8-10.44); Carbon Dioxide 22 mmol/L (23-31); Chloride 99 mmol/L (98-107); Estimated GFR-MDRD 23; Glucose 108 mg/dL (83-110); Phosphorus 3.6 mg/dL (2.3-4.7); Potassium 4.2 mmol/L (3.5-5.1); Sodium 132 mmol/L (136-145)
[2019-08-30] MEDS: busPIRone HCl 10 MG TAB PO SCH ×2 (08:36→21:48)
[2019-08-30] MEDS: Aspirin 325 mg Enteric Coated Tablet PO SCH (08:36)
[2019-08-30] MEDS: Chlorthalidone 25 MG TAB PO SCH (08:37)
[2019-08-30] MEDS: Gabapentin 300 MG CAP PO SCH ×2 (08:37→14:41)
[2019-08-30] MEDS: levETIRAcetam 500 MG TAB PO SCH ×2 (08:37→21:47)
[2019-08-30] MEDS: Famotidine 20 MG TAB PO SCH (08:38)
[2019-08-30] MEDS: Escitalopram Oxalate 10 mg Tablet PO SCH ×2 (08:39→21:47)
[2019-08-30] MEDS ORDERED: Losartan 25 MG TAB PO SCH ×2 (09:00→16:15)
--- NOTE | 2019-08-30 10:26 | CON ---
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 Her beta blockers were held at that time in hopes that the bradycardia would resolve, but now she has again been admitted after the family found her slumped over apparently in a wheelchair, and she was brought to the emergency room. Her potassium was slightly elevated at 5.4 and her creatinine was 2.54. She does have history of chronic kidney disease, and it appears to be slightly worse than what it was before, it was checked a couple of months ago, was 2.05. Also, was noted that she had a slight increase in her troponin I at 0.036. However, due to the unresponsiveness, it was felt that perhaps she had had a stroke. She was also having some episodes of some changes to her speech and some right-sided weakness. She does have severe rheumatoid arthritis. She denies any chest pain or significant shortness of breath due to the event and since being on telemetry, she has not had any severe bradycardia, but she has been noted to have orthostatic hypotension. The blood pressure has been significantly fluctuating in between almost 200s, but then on standing or sitting, the blood pressure is significantly lower. We can review these vital signs in the chart. I believe the last one was performed with lying was 171/92 and sitting was 132/81 and standing was 112/77. She has had some episodes of what appears to be supraventricular tachycardia or accelerated junctional rhythm with heart rates in the 120s and these are just spontaneous while she is lying down. The heart rate increases. She was seen by toy stuffer on her last visit, and we will ask him to revisit the patient. We had some discussion about possibly the patient may need to have a pacemaker insertion which would alleviate some of the bradycardia. We may be able to control the tachycardia more with medications. However, this could make her orthostatic hypotension even worse, it could be treated with beta blockers and may stabilize somewhat. I will ask the toy stuffer to visit with the patient again to determine whether or not she needs a pacemaker and then beta-blockers to help with the orthostatic hypotension which is a neurologic problem with autonomic nervous system or whether or not we may try midodrine for example to see whether or not this will stabilize or help with the hypotension. REVIEW OF SYSTEMS: A 12-point review of systems is relatively unremarkable except what was noted in the History of Present Illness. PAST MEDICAL HISTORY: Significant for arrhythmias, end-stage renal disease, or chronic kidney disease. She has significant rheumatoid arthritis. She has anxiety and depression. She has had a history of GI bleed in the past. She has history of sleep apnea. She has lupus. She has had anemia, but this appears to be more stable now. She has had fractures of the left fibula and tibia. She has had a hernia repair, sinus surgery, hysterectomy, and appendectomy. SOCIAL HISTORY: No history of alcohol or tobacco abuse. She lives at home. ALLERGIES: SHE IS ALLERGIC TO PREGABALIN AND ALSO HYDROXYCHLOROQUINE. MEDICATIONS: She was takin. Cardizem 30 mg b.i.d. 2. Trazodone 50 mg once a day. 3. Oxycodone/Tylenol. 4. Keppra 750 mg b.i.d. 5. Lexapro 10 mg b.i.d. 6. BuSpar 15 mg q.i.d. 7. Gabapentin 300 mg t.i.d. 8. Protonix 40 mg a day. 9. Meclizine 25 mg q.6 hours p.r.n. as needed. 10. Valtrex 500 mg daily. 11. Restasis ophthalmic drops. 12. Flonase nasal spray. 13. Pepcid. 14. Zanaflex. 15. Vitamin D 5000 units every week. 16. Calcitriol. 17. Hydromorphone orally 2 mg q.4 hours as needed. PHYSICAL EXAMINATION: GENERAL: Reveals a certainly ill-appearing female with obvious deformities due to her rheumatoid arthritis. The right lower extremity is in a brace due to the deformities. The blood pressure at this time was 167/114. Her heart rate is anywhere between 80s to 120s, respiratory rate 16, she is afebrile. O2 saturation is 96%. HEENT: Shows the head to be normocephalic and atraumatic. Carotid pulses are present. I do not hear any significant bruits, her chest was actually clear to auscultation. There were no rales, rhonchi, or wheezes that I could elicit. CARDIOVASCULAR: At this time, reveals slight tachycardia but appeared to be regular. There were no gross murmurs, heaves, thrills, bruits, or rubs noted. ABDOMEN: Soft and nontender. Positive bowel sounds are present. EXTREMITIES: Extremities showed no clubbing or cyanosis. However, she does have multiple deformities especially involving the lower extremities due to the rheumatoid arthritis. SKIN: Warm and dry. NEUROLOGICALLY: She is relatively intact. She is unable to walk, however, she pretty much resides in a wheelchair. LABORATORY DATA: Shows a WBC of 6.6, hemoglobin is 11, hematocrit is 34.3, and platelet count is 168,000. Her sodium was 134, potassium was 4.1, chloride was 101, BUN was 48 with a creatinine of 2.17 and blood sugar was 91. Her LDL is 78. Her TSH was 2.57. Troponin I is negative for myocardial infarction at 0.022. The first set was 0.036, which is indeterminate, the following two sets of troponin I's are negative. Her creatinine earlier on admission was 2.57, has now decreased down to 2.16 and potassium is 5.4, is now down to 4.6. IMPRESSION: 1. 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 We will discuss this again with the toy stuffer. She may be a candidate for pacemaker insertion. Certainly, her hemoglobin is much improved now, then she can certainly undergo beta blockers initiation in order to help with the tachycardia, and we will decide whether or not she is even a candidate for any type of ablation, but most likely would just be medical management and whether or not pacemaker insertion may be indicated. 2. Significant rheumatoid arthritis causing deformity of the lower extremities. We will continue to monitor this. 3. What appears to be orthostatic hypotension. Again, this may be helped by starting beta blockers, but she would most likely necessitate a pacemaker insertion prior to beginning of this medication. We will be more than happy to continue to follow the patient with you. We will discuss the case with toy stuffer, and we will decide whether or not she gets a pacemaker on this admission or whether she can be possibly a candidate for an ablation. Job ID: [id number]
[2019-08-30] MEDS ORDERED: Metoprolol Tartrate 25 MG TAB PO SCH ×3 (12:45→21:00)
--- NOTE | 2019-08-30 13:44 | CON ---
DATE OF CONSULTATION: 08/30/2019 HISTORY OF PRESENT ILLNESS: I am seeing Ms. 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 1. Current admission with possible TIA with left-sided facial droop. Brain MRI so far negative. 2. Paroxysmal atrial tachycardia episodes with prior documentation of tachybrady syndrome. a. No definite documentation of atrial fibrillation only atrial tachycardia noted in the past. She had developed bradycardia in the past with calcium channel maurizio, beta blockers, but declined pacemakers. 3. Chronic anemia, history of GI bleed. a. Hemoglobin at 11 currently, not on chronic anticoagulation. 4. History of preserved LVEF with echo 08/28/2019 showing LVEF 55% to 60%. Normal left atrial size. Normal right atrial size. 5. History of negative Lexiscan in February 2019. 6. History of rheumatoid arthritis and SLE as well as joint ankylosis with severe deformities, wheelchair bound. 7. Cachexia. 8. History of hypertension with labile blood pressures. 9. Chronic kidney disease with elevated calcium levels. ALLERGIES: PREGABALIN, HYDROXYCHLOROQUINE SULFATE. MEDICATIONS: At home included: 1. Levetiracetam. 2. Escitalopram. 3. Buspirone. 4. Gabapentin. 5. Valacyclovir. 6. Pantoprazole. 7. Trazodone. 8. Fluticasone. 9. Meclizine. 10. Famotidine. 11. Furosemide. 12. Tizanidine. 13. Ibuprofen. 14. Ergocalciferol. 15. Diltiazem 30 mg p.o. b.i.d. 16. Calcitriol. 17. Hydromorphone. SUBJECTIVE: Ms. Pastrana is returning with symptoms of a TIA. She has left- sided facial drop, right arm weakness, some associated dysphagia, although she thinks that has been going on for a couple of weeks. It was also noted by family just before admission. She felt somewhat worse on the day of admission. She normally uses motorized wheelchair since left lower extremity injury and cannot bear weight on the left side. She does feel palpitations on occasion. In the hospital, she remained stable. In telemetry, she has recurrent atrial tachycardia with rate of 110 beats per minute. The episodes are on and off. She denies fever, chills, or cough. The stroke-like symptoms have resolved and the rest of 12-point system otherwise unremarkable. PAST MEDICAL HISTORY: As above. She also has history of Raynaud syndrome, aspiration pneumonitis, psoriasis, generalized weakness, history of bowel obstruction, sleep apnea. SOCIAL HISTORY: The patient lives at home, motorized wheelchair use, and joint deformities. No history of smoking, EtOH, or drug abuse. FAMILY HISTORY: Not contributory. OBJECTIVE DATA: VITAL SIGNS: Blood pressure is currently 191/124, heart rate 170, respiratory rate 18, temperature 97.7 degrees Fahrenheit. GENERAL: Alert, oriented, cachectic-appearing woman, appears older than stated age, in no apparent distress. NECK: Supple. Jugular veins not distended. CHEST: Coarse without crackles. HEART: Sounds are regular to rate and rhythm. No gallop is appreciated. PMI is nonpalpable. ABDOMEN: Benign. Bowel sounds positive. EXTREMITIES: Lower extremities without edema, but left-sided significant deformity noted due to prior trauma. Joint changes noted throughout the body concerning with rheumatoid arthritis. SKIN: Without rash. NEUROLOGIC: The patient is nonfocal. DATABASE: EKG from 08/28/[address] reveals sinus rhythm. No ST changes. Telemetry strips reveal atrial tachycardia with rates of 118 beats per minute, Frequent nonsustained atrial tachycardia episodes are seen. LABORATORY DATA: White cell count 6.6, hemoglobin 11, platelet count is 168. Sodium 132, potassium 4.2, BUN is 53, creatinine 2.07, which is her baseline. MRI again without significant acute changes and chest x-ray without evident cardiopulmonary disease and carotid Doppler is without significant stenosis. ASSESSMENT AND PLAN: Ms. Pastrana is an unfortunate 73-year-old woman with multiple severe comorbidities, who has episodes of symptomatic paroxysmal atrial tachycardia with difficult rate control at times with episodes of bradyarrhythmia as well as still has some palpitations. She has not had true atrial fibrillation documented yet. I have seen her in the past at which point, we were considering pacing for her which she declined at that time. She could be considered for ablation for atrial tachycardia although a limited candidate with a high risk. She also not be anticoagulated , hence has history of GI bleed, hence left atrial ablation procedure may be of limited option. She has labile BP. Svere supine hypertnesion with >30mmHg drop in the systolic BP. Vasodilator antihypertenisve medications may be not tolerated. We will discuss these options with Dr. Hester. Consideration of pacing and rate control are viable option. Alternatively could attempt a high risk ablation possibly at a later time after recovery from her transient ischemic attack. Job ID: [id number] MTDD
--- NOTE | 2019-08-30 15:16 | PDOC.HOSPP ---
- Subjective Encounter Date: 08/30/19 Encounter Time: 09:00 Subjective: no overnight events. this morning, feeling well and has no complaints. Continues to have grossly elevated blood pressure longer episodes of tachycardia. Pending evaluation by cardiology and EP - Objective Vital Signs & Weight: Vital Signs (12 hours) Temp Pulse Resp BP BP BP BP 08/30/19 13:00 126 H 121/93 H 08/30/19 11:44 98.2 F 119 H 14 180/111 H 08/30/19 08:00 97.7 F 117 H 18 191/124 H 08/30/19 04:49 114 H 165/125 H 08/30/19 04:00 98.4 F 121 H 18 193/134 H Pulse Ox 08/30/19 13:00 08/30/19 11:44 97 08/30/19 08:00 97 08/30/19 04:49 08/30/19 04:00 98 Weight Weight 104 lb 8 oz I&O: 08/29/19 08/30/19 08/31/19 06:59 06:59 06:59 Intake Total 480 Balance 480 Result Diagrams: 08/27/19 05:16 08/30/19 04:41 Hospitalist ROS - Review of Systems Respiratory: denies: cough, dry, shortness of breath Cardiovascular: denies: chest pain, palpitations Gastrointestinal: denies: nausea, vomiting, abdominal pain Genitourinary: denies: dysuria, frequency, hematuria - Medication Medications: Active Medications Generic Name Dose Route Start Last Admin Trade Name Freq PRN Reason Stop Dose Admin Aspirin 325 mg 08/27/19 09:00 08/30/19 08:36 Ecotrin PO 325 mg DAILY JOSE Administration Buspirone HCl 30 mg 08/27/19 21:00 08/30/19 08:36 Buspar PO 30 mg BID JOSE Administration Calcitriol 0.25 mcg 08/29/19 09:00 08/29/19 09:38 Rocaltrol PO 0.25 mcg [id number] JOSE Administration Calcium Carbonate 1,000 mg 08/27/19 20:50 08/27/19 21:45 Tums PO 1,000 mg Q4H PRN Administration Heartburn or Indigestion Diltiazem HCl 30 mg 08/28/19 21:00 08/30/19 08:36 Cardizem PO 30 mg BID JOSE Administration Enoxaparin Sodium 50 mg 08/27/19 21:00 08/29/19 21:36 Lovenox SC 50 mg 2100 JOSE Administration Escitalopram Oxalate 10 mg 08/27/19 21:00 08/30/19 08:39 Lexapro PO 10 mg BID JOSE Administration Famotidine 20 mg 08/27/19 09:00 08/30/19 08:38 Pepcid PO 20 mg DAILY JOSE Administration Fluticasone Propionate 0 gm 08/27/19 21:00 08/29/19 21:36 Flonase Nasal [place] NASAL 2 spr HS JOSE Administration Gabapentin 300 mg 08/27/19 15:00 08/30/19 14:41 Neurontin PO 300 mg TID JOSE Administration Hydromorphone HCl 2 mg 08/29/19 16:06 08/30/19 14:42 Dilaudid PO 2 mg QIDPRN PRN Administration Pain Levetiracetam 750 mg 08/27/19 21:00 08/30/19 08:37 Keppra PO 750 mg BID JOSE Administration Losartan Potassium 50 mg 08/30/19 09:00 08/30/19 08:38 Cozaar PO 50 mg DAILY JOSE Administration Pantoprazole Sodium 40 mg 08/28/19 09:00 08/30/19 08:37 Protonix PO 40 mg DAILY JOSE Administration Pyridoxine HCl 25 mg 08/29/19 12:35 08/29/19 13:01 Vitamin B 6 PO 25 mg TID PRN Administration Nausea/Vomiting Sodium Chloride 10 ml 08/26/19 20:50 08/27/19 07:58 Flush - Normal Saline IVF 10 ml PRN PRN Administration Saline Flush Tizanidine HCl 2 mg 08/28/19 12:30 08/30/19 08:50 Zanaflex PO 2 mg TIDPRN PRN Administration Muscle Spasm Trazodone HCl 50 mg 08/27/19 21:00 08/29/19 21:38 Desyrel PO 50 mg HS JOSE Administration - Exam General Appearance: NAD, awake alert Neck: no JVD Heart: no murmur, no gallops, no rubs Heart - other findings: tachycardic in the 120s Respiratory: CTAB, no wheezes, no rales, no ronchi Gastrointestinal: soft, non-tender, non-distended, normal bowel sounds Extremities: no edema Extremities - other findings: cast on left leg Psychiatric: normal affect, normal behavior, A&O x 3 Hosp A/P - Plan #HTN urgency -increase losartan to 100mg daily, hyponatremic so stopped chlorhalidone, changed metoprolol to coreg for better antiHTN effect -stopped hydralazine IV due to tachycardia and orthostatic hypotension -can increase cardizem as well but at this point considering bradycardic episode , will continue to monitor #PAT w/ bradycardic episodes -caridology onboard; started beta maurizio per cardiology; pending further management and possibly pacemaker placement -continue cardizem bid; started coreg #orthostatic hypotension -discuseed with daughter regarding lifestyle modifications and fluid intake considering multiple likely contributing etiologies that may be difficult to address -cardiology consulted #CKD4 -at baseline -decreased gabapentin to renal dosage -nephrology onboard #TIA -imaging showing no acute ischemia; no carotid atherosclerosis -EEG shows no eplileptic activity -neurology recs appreciated -continue aspirin, statin ELOS: 2 nights
[2019-08-30] MEDS: Carvedilol 6.25 MG TAB PO SCH (16:23)
--- NOTE | 2019-08-30 16:45 | PDOC.CPN ---
- Subjective Date: 08/30/19 Time: 17:05 Interval history: The pt seen and examined. No overnight events. No cardiac complaints. - Objective Allergies/Adverse Reactions: Allergies Allergy/AdvReac Type Severity Reaction Status Date / Time pregabalin [From Lyrica] Allergy Intermediate Verified 10/31/18 21:24 hydroxychloroquine Allergy Verified 10/31/18 21:24 [Hydroxychloroquine] hydroxychloroquine sulfate Allergy Verified 10/31/18 21:24 [From Plaquenil] Visit Medications: Current Medications Aspirin (Ecotrin) 325 mg PO DAILY [facility] Last Admin: 08/30/19 08:36 Dose: 325 mg Buspirone HCl (Buspar) 30 mg PO BID [facility] Last Admin: 08/30/19 08:36 Dose: 30 mg Calcitriol (Rocaltrol) 0.25 mcg PO [id number] [facility] Last Admin: 08/29/19 09:38 Dose: 0.25 mcg Calcium Carbonate (Tums) 1,000 mg PO Q4H PRN PRN Reason: Heartburn or Indigestion Last Admin: 08/27/19 21:45 Dose: 1,000 mg Carvedilol (Coreg) 12.5 mg PO BID-WM [facility] Last Admin: 08/30/19 16:23 Dose: 12.5 mg Diltiazem HCl (Cardizem) 30 mg PO BID [facility] Last Admin: 08/30/19 08:36 Dose: 30 mg Enoxaparin Sodium (Lovenox) 50 mg SC 2100 [facility] Last Admin: 08/29/19 21:36 Dose: 50 mg Escitalopram Oxalate (Lexapro) 10 mg PO BID [facility] Last Admin: 08/30/19 08:39 Dose: 10 mg Famotidine (Pepcid) 20 mg PO DAILY [facility] Last Admin: 08/30/19 08:38 Dose: 20 mg Fluticasone Propionate (Flonase Nasal [place]) 0 gm NASAL HS [facility] Last Admin: 08/29/19 21:36 Dose: 2 spr Gabapentin (Neurontin) 300 mg PO DAILY [facility] Hydromorphone HCl (Dilaudid) 2 mg PO QIDPRN PRN PRN Reason: Pain Last Admin: 08/30/19 14:42 Dose: 2 mg Levetiracetam (Keppra) 750 mg PO BID [facility] Last Admin: 08/30/19 08:37 Dose: 750 mg Losartan Potassium (Cozaar) 100 mg PO DAILY [facility] Losartan Potassium (Cozaar) 50 mg PO NOW [facility] Stop: 08/30/19 18:15 Last Admin: 08/30/19 16:26 Dose: 50 mg Pantoprazole Sodium (Protonix) 40 mg PO DAILY [facility] Last Admin: 08/30/19 08:37 Dose: 40 mg Pyridoxine HCl (Vitamin B 6) 25 mg PO TID PRN PRN Reason: Nausea/Vomiting Last Admin: 08/29/19 13:01 Dose: 25 mg Senna/Docusate Sodium (Senokot S) 2 tab PO BIDPRN PRN PRN Reason: Constipation Sodium Chloride (Flush - Normal Saline) 10 ml IVF PRN PRN PRN Reason: Saline Flush Last Admin: 08/27/19 07:58 Dose: 10 ml Tizanidine HCl (Zanaflex) 2 mg PO TIDPRN PRN PRN Reason: Muscle Spasm Last Admin: 08/30/19 08:50 Dose: 2 mg Trazodone HCl (Desyrel) 50 mg PO [facility] Last Admin: 08/29/19 21:38 Dose: 50 mg Vital Signs & Weight: Vital Signs Temp Pulse Resp BP BP BP BP 08/30/19 16:23 156/105 H 08/30/19 15:39 97.7 F 92 16 189/142 H 08/30/19 13:00 126 H 121/93 H 08/30/19 11:44 98.2 F 119 H 14 180/111 H 08/30/19 08:00 97.7 F 117 H 18 191/124 H 08/30/19 04:49 114 H 165/125 H Pulse Ox 08/30/19 16:23 08/30/19 15:39 98 08/30/19 13:00 08/30/19 11:44 97 08/30/19 08:00 97 08/30/19 04:49 Weight 104 lb 8 oz - Physical Exam General: alert & oriented x3 HEENT: mucus membranes moist Neck: supple neck Cardiac: regular rate and rhythm Lungs: decreased breath sounds - Labs Result Diagrams: 08/27/19 05:16 08/30/19 04:41 Troponin/CKMB CK-MB (CK-2) 2.0 ng/mL (0-6.6) 08/26/19 19:16 Troponin I 0.027 ng/mL (< 0.028) 08/27/19 01:30 - Telemetry Sinus rhythms and dysrhythmias: sinus rhythm - Assessment/Plan Assessment/Plan: 1. Tachy-nereida syndrome with s/p parox A tach - will increase Diltiazem 30mg from BID to QID; Possible PM placement 2. Orthostatic hypotension - 3. hx of TIA - on ASA 4. HTN urgency - will increaes Diltiazem 30mg QID 5. CKD stage 4 - 6. SLE - 7. Chronic anemia - stable 8. Hyponatremia 9. Sleep Apnea MAR reviewed Pt. seen and eval. by me. I agree with the A/P by the CATEGORY PLANNER. Betablockers will be started this PM or tomorrow. If she becomes significantly bradycadic then she will need a pacemaker. The orthostatic hypotension may be a significant problem to control. pj
[2019-08-30] MEDS: traZODone HCl 50 MG TAB PO SCH (21:48)
[2019-08-30] MEDS: Fluticasone Propionate Nasal Spray 16 gm Bottle NASAL SCH (21:57)
[2019-08-30] MEDS: Enoxaparin Sodium 60 MG/0.6 ML SYRINGE SC SCH (21:57)
[2019-08-31 05:21] LABS: Anion Gap 14 mmol/L (10-20); BUN (Urea Nitrogen) 59 mg/dL (9.8-20.1); Calc. Creatinine Clearance 20 mL/min (70-130); Calcium 9.3 mg/dL (7.8-10.44); Carbon Dioxide 22 mmol/L (23-31); Chloride 98 mmol/L (98-107); Estimated GFR-MDRD 27; Glucose 93 mg/dL (83-110); Magnesium 1.7 mg/dL (1.6-2.6); Potassium 4.2 mmol/L (3.5-5.1); Sodium 130 mmol/L (136-145)
[2019-08-31] MEDS ORDERED: Losartan 25 MG TAB PO SCH ×2 (09:00→20:06)
[2019-08-31] MEDS: Aspirin 325 mg Enteric Coated Tablet PO SCH (09:23)
[2019-08-31] MEDS: levETIRAcetam 500 MG TAB PO SCH ×2 (09:23→23:17)
[2019-08-31] MEDS: busPIRone HCl 10 MG TAB PO SCH ×2 (09:24→23:15)
[2019-08-31] MEDS: Calcitriol 0.25 MCG CAP PO SCH (09:24)
[2019-08-31] MEDS: Gabapentin 300 MG CAP PO SCH (09:24)
[2019-08-31] MEDS: Famotidine 20 MG TAB PO SCH (09:24)
[2019-08-31] MEDS: Carvedilol 6.25 MG TAB PO SCH ×2 (09:25→16:14)
[2019-08-31] MEDS: Escitalopram Oxalate 10 mg Tablet PO SCH ×2 (09:25→23:16)
--- NOTE | 2019-08-31 10:20 | PRG ---
DATE OF SERVICE: 08/30/2019 SUBJECTIVE: The patient is seen and examined, noted with the following vital signs. OBJECTIVE: VITAL SIGNS: Afebrile, temperature 97.6, pulse 119 to 126, respiratory rate of 16, O2 saturations are 98% with blood pressure hovering between . HEENT: Unremarkable. CARDIOVASCULAR: First and second heart sounds were hard. RESPIRATORY: Clear to auscultation. DIGESTIVE SYSTEM: Benign abdomen. Positive bowel sounds. EXTREMITIES: No peripheral edema. SKIN: No new gross rash. LYMPHATICS: No peripheral lymphadenopathy. IMPRESSION: 1. Moderately advanced chronic kidney disease, stage 3/4. 2. Labile hemodynamics/blood pressure with significant orthostatic hypotension. 3. Tachy-nereida arrhythmic syndrome. PLAN: 1. The patient to benefit from beta blockade. 2. Avoid serial vasodilators, given the orthostatic hypotensive state of this patient. 3. Renally dose all medications and monitor renal function. 4. Further management to be dependent on the clinical course. Job ID: [id number]
--- NOTE | 2019-08-31 10:26 | PRG ---
DATE OF SERVICE: 08/31/2019 SUBJECTIVE: The patient is seen and examined, seems to be doing much better, noted with the following vital signs. OBJECTIVE: VITAL SIGNS: Afebrile, temperature 98.4, pulse 61, blood pressure 167/113. HEENT: Unremarkable. CARDIOVASCULAR: First and second heart sounds were heard. RESPIRATORY: Clear to auscultation. DIGESTIVE: Revealed a benign abdomen. Positive bowel sounds. EXTREMITIES: No peripheral edema. SKIN: No new gross rash. LYMPHATICS: No peripheral lymphadenopathy. IMPRESSION: 1. Advanced chronic kidney disease, which seems to be much improved, noted with a creatinine down to 1.81. 2. Hyponatremia with a sodium of 130. PLAN: 1. Continue to renally dose all medications. 2. Discontinue chlorthalidone hyponatremia. 3. Continue to adjust antihypertensive medications to optimize hemodynamics. 4. Further management to be dependent on the clinical course. Job ID: [id number]
--- NOTE | 2019-08-31 10:29 | PDOC.CPN ---
- Subjective Date: 08/31/19 Time: 10:33 Interval history: The pt seen and examined. No overnight events. No cardiac complaints. - Objective Allergies/Adverse Reactions: Allergies Allergy/AdvReac Type Severity Reaction Status Date / Time pregabalin [From Lyrica] Allergy Intermediate Verified 10/31/18 21:24 hydroxychloroquine Allergy Verified 10/31/18 21:24 [Hydroxychloroquine] hydroxychloroquine sulfate Allergy Verified 10/31/18 21:24 [From Plaquenil] Visit Medications: Current Medications Aspirin (Ecotrin) 325 mg PO DAILY [facility] Last Admin: 08/31/19 09:23 Dose: 325 mg Buspirone HCl (Buspar) 30 mg PO BID [facility] Last Admin: 08/31/19 09:24 Dose: 30 mg Calcitriol (Rocaltrol) 0.25 mcg PO MoWeFr@0900 [facility] Last Admin: 08/31/19 09:24 Dose: 0.25 mcg Calcium Carbonate (Tums) 1,000 mg PO Q4H PRN PRN Reason: Heartburn or Indigestion Last Admin: 08/27/19 21:45 Dose: 1,000 mg Carvedilol (Coreg) 12.5 mg PO BID-WM [facility] Last Admin: 08/31/19 09:25 Dose: 12.5 mg Diltiazem HCl (Cardizem) 30 mg PO ACHS [facility] Last Admin: 08/31/19 09:25 Dose: 30 mg Enoxaparin Sodium (Lovenox) 50 mg SC 2100 [facility] Last Admin: 08/30/19 21:57 Dose: 50 mg Escitalopram Oxalate (Lexapro) 10 mg PO BID [facility] Last Admin: 08/31/19 09:25 Dose: 10 mg Famotidine (Pepcid) 20 mg PO DAILY [facility] Last Admin: 08/31/19 09:24 Dose: 20 mg Fluticasone Propionate (Flonase Nasal [place]) 0 gm NASAL HS [facility] Last Admin: 08/30/19 21:57 Dose: 2 spr Gabapentin (Neurontin) 300 mg PO DAILY [facility] Last Admin: 08/31/19 09:24 Dose: 300 mg Hydromorphone HCl (Dilaudid) 2 mg PO QIDPRN PRN PRN Reason: Pain Last Admin: 08/30/19 14:42 Dose: 2 mg Levetiracetam (Keppra) 750 mg PO BID [facility] Last Admin: 08/31/19 09:23 Dose: 750 mg Losartan Potassium (Cozaar) 100 mg PO DAILY [facility] Last Admin: 08/31/19 09:25 Dose: 100 mg Pantoprazole Sodium (Protonix) 40 mg PO DAILY [facility] Last Admin: 08/31/19 09:24 Dose: 40 mg Pyridoxine HCl (Vitamin B 6) 25 mg PO TID PRN PRN Reason: Nausea/Vomiting Last Admin: 08/29/19 13:01 Dose: 25 mg Senna/Docusate Sodium (Senokot S) 2 tab PO BIDPRN PRN PRN Reason: Constipation Sodium Chloride (Flush - Normal Saline) 10 ml IVF PRN PRN PRN Reason: Saline Flush Last Admin: 08/27/19 07:58 Dose: 10 ml Tizanidine HCl (Zanaflex) 2 mg PO TIDPRN PRN PRN Reason: Muscle Spasm Last Admin: 08/30/19 08:50 Dose: 2 mg Trazodone HCl (Desyrel) 50 mg PO [facility] Last Admin: 08/30/19 21:48 Dose: 50 mg Vital Signs & Weight: Vital Signs Temp Pulse Resp BP BP BP BP 08/31/19 09:25 182/102 H 08/31/19 08:00 98.4 F 61 18 182/102 H 08/31/19 04:26 97.9 F 60 20 167/113 H 08/31/19 00:00 98.2 F 59 L 20 173/93 H Pulse Ox 08/31/19 09:25 08/31/19 08:00 98 08/31/19 04:26 97 08/31/19 00:00 97 Weight 104 lb 8 oz - Physical Exam General: alert & oriented x3 HEENT: mucus membranes moist Neck: supple neck Cardiac: regular rate and rhythm, irregularly regular Lungs: decreased breath sounds - Labs Result Diagrams: 08/27/19 05:16 08/31/19 04:16 Troponin/CKMB CK-MB (CK-2) 2.0 ng/mL (0-6.6) 08/26/19 19:16 Troponin I 0.027 ng/mL (< 0.028) 08/27/19 01:30 - Telemetry Sinus rhythms and dysrhythmias: other (SR,ST, Atach) - Assessment/Plan Assessment/Plan: 1. Tachy-nereida syndrome with s/p parox A tach - HR has been stable with Diltiazem 30mg QID and Coreg 12.5mg BID; Possible PM placement? 2. Orthostatic hypotension - 3. hx of TIA - on ASA 4. HTN urgency - Losartan was increased to 100mg qd from this AM 5. CKD stage 4 - 6. SLE - 7. Chronic anemia - stable 8. Hyponatremia 9. Sleep Apnea MAR reviewed Pt. seen and eval. by me. I agree with the A/P by the [employer]. [employer] started last PM She is in NSR. If she becomes significantly bradycadic then she will need a pacemaker. She feels better today and is not as orthostatic. The orthostatic hypotension may be a significant problem to control but seems to be better. pj
--- NOTE | 2019-08-31 15:55 | PDOC.EP ---
- Subjective Date: 08/31/19 Time: 13:00 - Review of Systems Constitutional: reports: malaise, weakness. denies: chills, fever, sweats Respiratory: denies: cough, dry, hemoptysis, pleuritic pain, shortness of breath Cardiology: reports: palpitations. denies: chest pain, edema, paroxysmal noc. dyspnea, passing out, pleuritic pain Gastrointestinal: reports: abdominal pain, nausea. denies: vomitting Musculoskeletal: reports: unstable gait, falls - Objective Allergies/Adverse Reactions: Allergies Allergy/AdvReac Type Severity Reaction Status Date / Time pregabalin [From Lyrica] Allergy Intermediate Verified 10/31/18 21:24 hydroxychloroquine Allergy Verified 10/31/18 21:24 [Hydroxychloroquine] hydroxychloroquine sulfate Allergy Verified 10/31/18 21:24 [From Plaquenil] Current Medications Aspirin (Ecotrin) 325 mg PO DAILY [facility] Last Admin: 08/31/19 09:23 Dose: 325 mg Buspirone HCl (Buspar) 30 mg PO BID [facility] Last Admin: 08/31/19 09:24 Dose: 30 mg Calcitriol (Rocaltrol) 0.25 mcg PO MoWeFr@0900 [facility] Last Admin: 08/31/19 09:24 Dose: 0.25 mcg Calcium Carbonate (Tums) 1,000 mg PO Q4H PRN PRN Reason: Heartburn or Indigestion Last Admin: 08/27/19 21:45 Dose: 1,000 mg Carvedilol (Coreg) 12.5 mg PO BID-WM [facility] Last Admin: 08/31/19 09:25 Dose: 12.5 mg Diltiazem HCl (Cardizem) 30 mg PO ACHS [facility] Last Admin: 08/31/19 12:45 Dose: 30 mg Enoxaparin Sodium (Lovenox) 50 mg SC 2100 [facility] Last Admin: 08/30/19 21:57 Dose: 50 mg Escitalopram Oxalate (Lexapro) 10 mg PO BID [facility] Last Admin: 08/31/19 09:25 Dose: 10 mg Famotidine (Pepcid) 20 mg PO DAILY [facility] Last Admin: 08/31/19 09:24 Dose: 20 mg Fluticasone Propionate (Flonase Nasal [place]) 0 gm NASAL HS [facility] Last Admin: 08/30/19 21:57 Dose: 2 spr Gabapentin (Neurontin) 300 mg PO DAILY [facility] Last Admin: 08/31/19 09:24 Dose: 300 mg Hydromorphone HCl (Dilaudid) 2 mg PO QIDPRN PRN PRN Reason: Pain Last Admin: 08/30/19 14:42 Dose: 2 mg Levetiracetam (Keppra) 750 mg PO BID [facility] Last Admin: 08/31/19 09:23 Dose: 750 mg Losartan Potassium (Cozaar) 100 mg PO DAILY [facility] Last Admin: 08/31/19 09:25 Dose: 100 mg Pantoprazole Sodium (Protonix) 40 mg PO DAILY [facility] Last Admin: 08/31/19 09:24 Dose: 40 mg Pyridoxine HCl (Vitamin B 6) 25 mg PO TID PRN PRN Reason: Nausea/Vomiting Last Admin: 08/29/19 13:01 Dose: 25 mg Senna/Docusate Sodium (Senokot S) 2 tab PO BIDPRN PRN PRN Reason: Constipation Sodium Chloride (Flush - Normal Saline) 10 ml IVF PRN PRN PRN Reason: Saline Flush Last Admin: 08/27/19 07:58 Dose: 10 ml Tizanidine HCl (Zanaflex) 2 mg PO TIDPRN PRN PRN Reason: Muscle Spasm Last Admin: 08/30/19 08:50 Dose: 2 mg Trazodone HCl (Desyrel) 50 mg PO [facility] Last Admin: 08/30/19 21:48 Dose: 50 mg Vital Signs & Weight: Vital Signs Temp Pulse Pulse Pulse Resp BP BP 08/31/19 11:45 98.1 F 64 16 08/31/19 10:26 68 68 140/85 08/31/19 09:25 182/102 H 08/31/19 08:00 98.4 F 61 18 08/31/19 04:26 97.9 F 60 20 BP BP BP Pulse Ox 08/31/19 11:45 120/87 98 08/31/19 10:26 106/60 08/31/19 09:25 08/31/19 08:00 182/102 H 98 08/31/19 04:26 167/113 H 97 Weight 104 lb 8 oz I/O: I/O 08/30/19 08/31/19 09/01/19 06:59 06:59 06:59 Intake Total 480 Balance 480 - Quality Measures CV meds: Eliquis: Yes - Physical Exam General: alert & oriented x3, appears well, cachectic HEENT: normocephaly Neck: no JVD/HJR Cardiology: regular rate and rhythm, no murmur, regular rate, regular rhythm Lungs: clear to auscultation, normal breath sounds Neurology: grossly intact Abdomen: active bowel sounds Extremities: warm Musculoskeletal: decreased range of motion, pain in joint - Chadsvasc Risk factors Hypertension: 1 Age 65-74: 1 Female: 1 Risk Score: 3 - Labs Result Diagrams: 08/27/19 05:16 08/31/19 04:16 - EKG Interpretation EKG Method: Telemetry EKG shows: Sinus rhythm, other (decresed frequency of atrial tachycardia episodes) - Assessment/Plan Assessment/Plan: . Current admission with possible TIA with left-sided facial droop. Brain MRI so far negative. 2. Paroxysmal atrial tachycardia episodes with prior documentation of tachybrady syndrome. a. No definite documentation of atrial fibrillation only atrial tachycardia noted in the past. She had developed bradycardia in the past with calcium channel maurizio, beta blockers, but declined pacemakers. 3. Chronic anemia, history of GI bleed. a. Hemoglobin at 11 currently, not on chronic anticoagulation. 4. History of preserved LVEF with echo 08/28/2019 showing LVEF 55% to 60%. Normal left atrial size. Normal right atrial size. 5. History of negative Lexiscan in February 2019. 6. History of rheumatoid arthritis and SLE as well as joint ankylosis with severe deformities, wheelchair bound. 7. Cachexia. 8. History of hypertension with labile blood pressures. 9. Chronic kidney disease with elevated calcium levels. In the hospital, she remained stable. In telemetry, she has recurrent atrial tachycardia with rate of 110 beats per minute. The episodes are on and off. She denies fever, chills, or cough. The stroke-like symptoms have resolved and the rest of 12-point system otherwise unremarkable. ASSESSMENT AND PLAN: Ms. Pastrana is an unfortunate 73-year-old woman with multiple severe comorbidities, who has episodes of symptomatic paroxysmal atrial tachycardia with difficult rate control at times with episodes of bradyarrhythmia as well as still has some palpitations. She has not had true atrial fibrillation documented yet. I have seen her in the past at which point, we were considering pacing for her which she declined at that time. She could be considered for ablation for atrial tachycardia although a limited candidate with a high risk. She also not be anticoagulated , hence has history of GI bleed, hence left atrial ablation procedure may be of limited option. She has labile BP. Severe supine hypertension with >30mmHg drop in the systolic BP. Vasodilator antihypertenisve medications may be not tolerated. We will discuss these options with Dr. Hester. Consideration of pacing and rate control are viable option. Alternatively could attempt a high risk ablation possibly at a later time after recovery from her transient ischemic attack. 08/31/19; Improived symptoms on reinitiated AV lidia blocking agnets. So far no significant bradycardia. Continue monitirng over weekend and adjust AV lidia maurizio agents.
--- NOTE | 2019-08-31 16:56 | PDOC.HOSPP ---
- Subjective Encounter Date: 08/31/19 Encounter Time: 10:00 Subjective: No overnight events. This morning, endorses feeling overall better and being less dizzy on moving from supine to sitting position and from sitting position to standing position. After starting beta-blockers, less tachycardic episodes and bradycardic episodes less severe. Discharge pending cardiology clearance. - Objective Vital Signs & Weight: Vital Signs (12 hours) Temp Pulse Pulse Pulse Resp BP BP 08/31/19 16:14 128/86 08/31/19 15:45 97.6 F 62 18 08/31/19 11:45 98.1 F 64 16 08/31/19 10:26 68 68 140/85 08/31/19 09:25 182/102 H 08/31/19 08:00 98.4 F 61 18 BP BP BP Pulse Ox 08/31/19 16:14 08/31/19 15:45 128/86 98 08/31/19 11:45 120/87 98 08/31/19 10:26 106/60 08/31/19 09:25 08/31/19 08:00 182/102 H 98 Weight Weight 104 lb 8 oz I&O: 08/30/19 08/31/19 09/01/19 06:59 06:59 06:59 Intake Total 480 Balance 480 Result Diagrams: 08/27/19 05:16 08/31/19 04:16 Hospitalist ROS - Review of Systems Constitutional: denies: chills, sweats Respiratory: denies: cough, dry, shortness of breath Gastrointestinal: denies: nausea, vomiting, abdominal pain Genitourinary: denies: dysuria, frequency, hematuria - Medication Medications: Active Medications Generic Name Dose Route Start Last Admin Trade Name Freq PRN Reason Stop Dose Admin Aspirin 325 mg 08/27/19 09:00 08/31/19 09:23 Ecotrin PO 325 mg DAILY JOSE Administration Buspirone HCl 30 mg 08/27/19 21:00 08/31/19 09:24 Buspar PO 30 mg BID JOSE Administration Calcitriol 0.25 mcg 08/29/19 09:00 08/31/19 09:24 Rocaltrol PO 0.25 mcg MoWeFr@0900 JOSE Administration Calcium Carbonate 1,000 mg 08/27/19 20:50 08/27/19 21:45 Tums PO 1,000 mg Q4H PRN Administration Heartburn or Indigestion Carvedilol 12.5 mg 08/30/19 17:00 08/31/19 16:14 Coreg PO 12.5 mg BID-WM JOSE Administration Diltiazem HCl 30 mg 08/30/19 17:00 08/31/19 16:14 Cardizem PO 30 mg ACHS [facility]SE Administration Enoxaparin Sodium 50 mg 08/27/19 21:00 08/30/19 21:57 Lovenox SC 50 mg 2100 JO[facility] Administration Escitalopram Oxalate 10 mg 08/27/19 21:00 08/31/19 09:25 Lexapro PO 10 mg BID [facility]SE Administration Famotidine 20 mg 08/27/19 09:00 08/31/19 09:24 Pepcid PO 20 mg DAILY [facility] Administration Fluticasone Propionate 0 gm 08/27/19 21:00 08/30/19 21:57 Flonase Nasal [place] NASAL 2 spr HS JOSE Administration Gabapentin 300 mg 08/31/19 09:00 08/31/19 09:24 Neurontin PO 300 mg DAILY [facility] Administration Hydromorphone HCl 2 mg 08/29/19 16:06 08/30/19 14:42 Dilaudid PO 2 mg QIDPRN PRN Administration Pain Levetiracetam 750 mg 08/27/19 21:00 08/31/19 09:23 Keppra PO 750 mg BID [facility] Administration Losartan Potassium 100 mg 08/31/19 09:00 08/31/19 09:25 Cozaar PO 100 mg DAILY [facility] Administration Pantoprazole Sodium 40 mg 08/28/19 09:00 08/31/19 09:24 Protonix PO 40 mg DAILY [facility] Administration Pyridoxine HCl 25 mg 08/29/19 12:35 08/29/19 13:01 Vitamin B 6 PO 25 mg TID PRN Administration Nausea/Vomiting Sodium Chloride 10 ml 08/26/19 20:50 08/27/19 07:58 Flush - Normal Saline IVF 10 ml PRN PRN Administration Saline Flush Tizanidine HCl 2 mg 08/28/19 12:30 08/30/19 08:50 Zanaflex PO 2 mg TIDPRN PRN Administration Muscle Spasm Trazodone HCl 50 mg 08/27/19 21:00 08/30/19 21:48 Desyrel PO 50 mg HS JOSE Administration - Exam General Appearance: NAD, awake alert Neck: no JVD Heart: RRR, no murmur, no gallops, no rubs Heart - other findings: sinus rhythm on telemetry; rate ~ 60s Respiratory: CTAB, no wheezes, no rales, no ronchi Gastrointestinal: soft, non-tender, non-distended, normal bowel sounds Extremities - other findings: cast over left lower extremity Psychiatric: normal affect, normal behavior, A&O x 3 Hosp A/P - Plan #HTN urgency -continue losartan 100mg daily, hyponatremic so stopped chlorhalidone, changed metoprolol to coreg for better antiHTN effect. continue diltiazem as per cardiology. -stopped hydralazine IV due to tachycardia and orthostatic hypotension #PAT w/ bradycardic episodes #orthostatic hypotension -Cardiology on board. Heart rate is less labile after starting Coreg and increasing diltiazem. -Patient endorses being less dizzy when moving from supine to sitting or standing position. Will repeat orthostatic blood pressure -continue Cardizem, Coreg, and losartan. Follow-up on cardiology recommendations and clearance for discharge. #CKD4 -at baseline -decreased gabapentin to renal dosage -nephrology onboard #TIA -imaging showing no acute ischemia; no carotid atherosclerosis -EEG shows no eplileptic activity -neurology recs appreciated -continue aspirin, statin ELOS: Cardiology clearance
[2019-08-31] MEDS ORDERED: Carvedilol 6.25 MG TAB PO SCH (20:05)
[2019-08-31] MEDS: Enoxaparin Sodium 60 MG/0.6 ML SYRINGE SC SCH (23:15)
[2019-08-31] MEDS: Fluticasone Propionate Nasal Spray 16 gm Bottle NASAL SCH (23:16)
[2019-08-31] MEDS: traZODone HCl 50 MG TAB PO SCH (23:17)
[2019-09-01 05:59] LABS: Anion Gap 13 mmol/L (10-20); BUN (Urea Nitrogen) 66 mg/dL (9.8-20.1); Calc. Creatinine Clearance 19 mL/min (70-130); Calcium 8.9 mg/dL (7.8-10.44); Carbon Dioxide 21 mmol/L (23-31); Chloride 99 mmol/L (98-107); Estimated GFR-MDRD 26; Glucose 94 mg/dL (83-110); Magnesium 1.8 mg/dL (1.6-2.6); Potassium 4.3 mmol/L (3.5-5.1); Sodium 129 mmol/L (136-145)
[2019-09-01] MEDS: Famotidine 20 MG TAB PO SCH (08:23)
[2019-09-01] MEDS: levETIRAcetam 500 MG TAB PO SCH ×2 (08:24→21:28)
[2019-09-01] MEDS: Aspirin 81 mg Enteric Coated Tablet PO SCH (08:25)
[2019-09-01] MEDS: busPIRone HCl 10 MG TAB PO SCH ×2 (08:25→21:27)
[2019-09-01] MEDS: Escitalopram Oxalate 10 mg Tablet PO SCH (08:25)
[2019-09-01] MEDS: Gabapentin 300 MG CAP PO SCH (08:30)
[2019-09-01] MEDS: Carvedilol 6.25 MG TAB PO SCH ×2 (08:52→16:25)
--- NOTE | 2019-09-01 09:20 | PRG ---
DATE OF SERVICE: 09/01/2019 SUBJECTIVE: Ms. Pastrana states that her blood pressure seems low. She said it seems to drop when she gets up. Does have much energy today. OBJECTIVE: VITAL SIGNS: Blood pressure 109/70, pulse in the 60s and sinus. LUNGS: Clear. CARDIAC: Normal S1, normal S2. ABDOMEN: Soft, nontender. EXTREMITIES: There is no edema. PERTINENT LABORATORY DATA: Her creatinine is 1.9. ASSESSMENT: 1. Tachycardia, currently stable. 2. History of orthostatic hypotension. PLAN: 1. The patient is being evaluated for possible bradycardia. If so, she said she would agree to pacemaker insertion. 2. If hypotension begins more of her problem, I need to change from carvedilol to metoprolol. No changes presently. Her losartan dose was reduced. May actually be appropriate to go ahead and stop the losartan for now until we see what the blood pressure is going to do on the higher dose of the carvedilol. Job ID: [id number]
--- NOTE | 2019-09-01 15:04 | PDOC.HOSPP ---
- Subjective Encounter Date: 09/01/19 Encounter Time: 07:30 Subjective: Pt seen for followup re: arrhythmia. Feels better today. - Objective Vital Signs & Weight: Vital Signs (12 hours) Temp Pulse Resp BP BP BP BP 09/01/19 11:47 97.4 F L 65 20 111/74 09/01/19 11:19 97.6 F 63 14 111/74 09/01/19 08:52 109/70 09/01/19 08:00 97.6 F 62 14 119/68 09/01/19 04:24 97.5 F L 67 16 117/78 Pulse Ox 09/01/19 11:47 94 L 09/01/19 11:19 97 09/01/19 08:52 09/01/19 08:00 98 09/01/19 04:24 97 Weight Weight 104 lb 8 oz I&O: 08/31/19 09/01/19 09/02/19 06:59 06:59 06:59 Intake Total 720 120 Output Total 500 Balance 220 120 Result Diagrams: 08/27/19 05:16 09/01/19 05:01 Additional Labs: labs and MARs reviewed by me EKG Reviewed by me: Yes (Tele: NSR) Hospitalist ROS - Review of Systems Cardiovascular: denies: chest pain, palpitations, orthopnea, paroxysmal noc. dyspnea, edema, light headedness Gastrointestinal: denies: nausea, vomiting, abdominal pain, diarrhea, constipation, melena, hematochezia - Medication Medications: Active Medications Generic Name Dose Route Start Last Admin Trade Name Freq PRN Reason Stop Dose Admin Aspirin 81 mg 09/01/19 09:00 09/01/19 08:25 Ecotrin PO 81 mg DAILY [facility] Administration Buspirone HCl 30 mg 08/27/19 21:00 09/01/19 08:25 Buspar PO 30 mg BID [facility]SE Administration Calcitriol 0.25 mcg 08/29/19 09:00 08/31/19 09:24 Rocaltrol PO 0.25 mcg MoWeFr@0900 [facility] Administration Calcium Carbonate 1,000 mg 08/27/19 20:50 08/27/19 21:45 Tums PO 1,000 mg Q4H PRN Administration Heartburn or Indigestion Carvedilol 12.5 mg 09/01/19 08:00 09/01/19 08:52 Coreg PO 12.5 mg BID-WM [facility] Administration Diltiazem HCl 30 mg 08/30/19 17:00 09/01/19 12:59 Cardizem PO 30 mg ACHS [facility] Administration Enoxaparin Sodium 50 mg 08/27/19 21:00 08/31/19 23:15 Lovenox SC 50 mg 2100 [facility] Administration Escitalopram Oxalate 10 mg 08/27/19 21:00 09/01/19 08:25 Lexapro PO 10 mg BID [facility] Administration Famotidine 20 mg 08/27/19 09:00 09/01/19 08:23 Pepcid PO 20 mg DAILY [facility] Administration Fluticasone Propionate 0 gm 08/27/19 21:00 08/31/19 23:16 Flonase Nasal [place] NASAL 2 spr HS [facility]SE Administration Gabapentin 300 mg 08/31/19 09:00 09/01/19 08:30 Neurontin PO 300 mg DAILY [facility] Administration Hydromorphone HCl 2 mg 08/29/19 16:06 08/30/19 14:42 Dilaudid PO 2 mg QIDPRN PRN Administration Pain Levetiracetam 750 mg 08/27/19 21:00 09/01/19 08:24 Keppra PO 750 mg BID [facility] Administration Pantoprazole Sodium 40 mg 08/28/19 09:00 09/01/19 08:25 Protonix PO 40 mg DAILY [facility] Administration Pyridoxine HCl 25 mg 08/29/19 12:35 08/29/19 13:01 Vitamin B 6 PO 25 mg TID PRN Administration Nausea/Vomiting Sodium Chloride 10 ml 08/26/19 20:50 08/27/19 07:58 Flush - Normal Saline IVF 10 ml PRN PRN Administration Saline Flush Tizanidine HCl 2 mg 08/28/19 12:30 08/30/19 08:50 Zanaflex PO 2 mg TIDPRN PRN Administration Muscle Spasm Trazodone HCl 50 mg 08/27/19 21:00 08/31/19 23:17 Desyrel PO 50 mg HS [facility]SE Administration - Exam General Appearance: awake alert Eye: anicteric sclera ENT: moist mucosa Neck: supple Heart: RRR Respiratory: CTAB Gastrointestinal: soft, non-tender Skin: normal turgor Psychiatric: normal affect, normal behavior Hosp A/P - Plan - Assessment/Plan #arrhythmia #PAT w/ bradycardic episodes #orthostatic hypotension -Continue Coreg, losartan and diltiazem -may need PPM #CKD4 -stable #TIA -continue aspirin and statin #HTN urgency -resolved -continue losartan 100mg daily, and coreg and diltiazem (dc metoprolol, HCTZ and hydralazine)
[2019-09-01] MEDS: HYDROmorphone 2 MG TAB PO PRN (16:29)
[2019-09-01] MEDS ORDERED: Promethazine 25 MG TAB PO PRN (20:13)
[2019-09-01] MEDS ORDERED: Sodium Chloride 0.9% 500 ML IV SCH (20:45)
[2019-09-01] MEDS ORDERED: Sodium Chloride 0.9% 500 ML IVPB SCH (21:15)
[2019-09-01] MEDS: Enoxaparin Sodium 60 MG/0.6 ML SYRINGE SC SCH (21:27)
[2019-09-01] MEDS: Fluticasone Propionate Nasal Spray 16 gm Bottle NASAL SCH (21:28)
[2019-09-01 21:54] LABS: Chloride 96 mmol/L (98-107); Sodium 128 mmol/L (136-145)
[2019-09-01 21:55] LABS: Glucose 95 mg/dL (83-110)
[2019-09-01 21:57] LABS: Carbon Dioxide 19 mmol/L (23-31)
[2019-09-01 21:58] LABS: Calc. Creatinine Clearance 17 mL/min (70-130); Estimated GFR-MDRD 22
[2019-09-01 21:59] LABS: BUN (Urea Nitrogen) 99 mg/dL (9.8-20.1)
[2019-09-01 22:00] LABS: Magnesium 1.8 mg/dL (1.6-2.6)
[2019-09-01 22:08] LABS: #Basophils 0.1 thou/uL (0.0-0.2); #Eosinphils 0.1 thou/uL (0.0-0.7); #Lymphocytes 1.2 thou/uL (1.20-3.40); #Monocytes 0.7 thou/uL (0.11-0.59); #Neutrophils 3.6 thou/uL (1.40-6.50); %Basophils 1.3 % (0.0-1.0); %Eosinophils 1.1 % (0.0-10.0); %Lymphocytes 21.8 % (21.0-51.0); %Monocytes 12.7 % (0.0-10.0); %Neutrophils 63.2 % (42.0-75.0); Mean Corpuscular HGB CONC 33.2 g/dL (32.0-36.0); Mean Corpuscular Hemoglobin 31.9 pg (27.0-31.0); Mean Platelet Volume 8.3 fL (7.4-10.4); Platelet Count 205 thou/uL (130-400); RBC Distribution Width 12.1 % (11.5-14.5); Red Blood Cell (RBC) Count 3.45 mill/uL (4.20-5.40); White Blood Cell (WBC) Count 5.7 thou/uL (4.8-10.8)
[2019-09-01 22:26] LABS: Anion Gap 18 mmol/L (10-20)
[2019-09-02] MEDS: traZODone HCl 50 MG TAB PO SCH (00:50)
[2019-09-02] MEDS: Escitalopram Oxalate 10 mg Tablet PO SCH ×2 (01:00→08:47)
[2019-09-02] MEDS: traMADol HCl 50 MG TAB PO PRN ×3 (04:26→16:55)
[2019-09-02] MEDS: Famotidine 20 MG TAB PO SCH (08:46)
[2019-09-02] MEDS: Aspirin 81 mg Enteric Coated Tablet PO SCH (08:46)
[2019-09-02] MEDS: Carvedilol 6.25 MG TAB PO SCH ×2 (08:46→17:29)
[2019-09-02] MEDS: levETIRAcetam 500 MG TAB PO SCH ×2 (08:47→20:45)
[2019-09-02] MEDS: Gabapentin 300 MG CAP PO SCH (08:47)
[2019-09-02] MEDS: busPIRone HCl 10 MG TAB PO SCH ×2 (08:47→20:44)
--- NOTE | 2019-09-02 11:51 | PDOC.CPN ---
- Subjective Date: 09/02/19 Time: 11:30 Interval history: Patient seen and examined by me. Chart reviewed-Code Green call last evening, patient was up on BSC having a BM, became briefly unresponsive, no LOC, Telemetry showed sinus bradycardia, rate as low as 40 BPM briefly, then back to 60s-70s. No pauses noted. Systolics noted to be 70s-80s during the episode. Very similar to the event that brought her to the hospital. Today she is feeling okay, systolics 120s throughout the day, but also reports "I haven't moved today". Denies chest pain, SOB, on RA. - Review of Systems General: denies: fever/chills, weight/appetite/sleep changes, night sweats, fatigue Respiratory: denies: cough, congestion, shortness of breath, exercise intolerance Cardiovascular: denies: chest pain, palpitation, edema, paroxysmal nocturnal dyspnea, orthopnea Gastrointestinal: denies: nausea, vomiting, diarrhea, constipation, abd pain, GI bleeding - Objective Allergies/Adverse Reactions: Allergies Allergy/AdvReac Type Severity Reaction Status Date / Time pregabalin [From Lyrica] Allergy Intermediate Verified 10/31/18 21:24 hydroxychloroquine Allergy Verified 10/31/18 21:24 [Hydroxychloroquine] hydroxychloroquine sulfate Allergy Verified 10/31/18 21:24 [From Plaquenil] Visit Medications: Current Medications Aspirin (Ecotrin) 81 mg PO DAILY [facility] Last Admin: 09/02/19 08:46 Dose: 81 mg Buspirone HCl (Buspar) 30 mg PO BID [facility] Last Admin: 09/02/19 08:47 Dose: 30 mg Calcitriol (Rocaltrol) 0.25 mcg PO MoWeFr@0900 [facility] Last Admin: 08/31/19 09:24 Dose: 0.25 mcg Calcium Carbonate (Tums) 1,000 mg PO Q4H PRN PRN Reason: Heartburn or Indigestion Last Admin: 08/27/19 21:45 Dose: 1,000 mg Carvedilol (Coreg) 12.5 mg PO BID-WM [facility] Last Admin: 09/02/19 08:46 Dose: 12.5 mg Diltiazem HCl (Cardizem) 30 mg PO ACHS [facility] Last Admin: 09/02/19 08:46 Dose: 30 mg Enoxaparin Sodium (Lovenox) 50 mg SC 2100 [facility] Last Admin: 09/01/19 21:27 Dose: 50 mg Escitalopram Oxalate (Lexapro) 10 mg PO BID [facility] Last Admin: 09/02/19 08:47 Dose: 10 mg Famotidine (Pepcid) 20 mg PO DAILY [facility] Last Admin: 09/02/19 08:46 Dose: 20 mg Fluticasone Propionate (Flonase Nasal [place]) 0 gm NASAL HS [facility] Last Admin: 09/01/19 21:28 Dose: 2 spr Gabapentin (Neurontin) 300 mg PO DAILY [facility] Last Admin: 09/02/19 08:47 Dose: 300 mg Hydromorphone HCl (Dilaudid) 2 mg PO QIDPRN PRN PRN Reason: Pain Last Admin: 09/01/19 16:29 Dose: 2 mg Levetiracetam (Keppra) 750 mg PO BID [facility] Last Admin: 09/02/19 08:47 Dose: 750 mg Pantoprazole Sodium (Protonix) 40 mg PO DAILY [facility] Last Admin: 09/02/19 08:48 Dose: 40 mg Pantoprazole Sodium (Protonix) 40 mg PO Q12H PRN PRN Reason: .HEARTBURN Last Admin: 09/01/19 21:29 Dose: 40 mg Promethazine HCl (Phenergan) 12.5 mg PO Q6H PRN PRN Reason: Nausea Last Admin: 09/01/19 21:28 Dose: 12.5 mg Pyridoxine HCl (Vitamin B 6) 25 mg PO TID PRN PRN Reason: Nausea/Vomiting Last Admin: 08/29/19 13:01 Dose: 25 mg Senna/Docusate Sodium (Senokot S) 2 tab PO BIDPRN PRN PRN Reason: Constipation Sodium Chloride (Flush - Normal Saline) 10 ml IVF PRN PRN PRN Reason: Saline Flush Last Admin: 08/27/19 07:58 Dose: 10 ml Tizanidine HCl (Zanaflex) 2 mg PO TIDPRN PRN PRN Reason: Muscle Spasm Last Admin: 08/30/19 08:50 Dose: 2 mg Tramadol HCl (Ultram) 50 mg PO Q4H PRN PRN Reason: Pain Last Admin: 09/02/19 08:48 Dose: 50 mg Trazodone HCl (Desyrel) 50 mg PO HS JOSE Last Admin: 09/02/19 00:50 Dose: 50 mg Vital Signs & Weight: Vital Signs Temp Pulse Resp BP BP BP Pulse Ox 09/02/19 08:46 124/69 09/02/19 07:55 98.1 F 68 18 124/69 99 09/02/19 04:18 97.3 F L 86 20 101/62 99 09/02/19 01:38 99 09/01/19 23:54 97.2 F L 58 L 20 116/71 99 Weight 104 lb 8 oz - Physical Exam General: alert & oriented x3, no apparent distress, other (left sided facial droop) HEENT: mucus membranes moist Neck: supple neck, no JVD/HJR Cardiac: regular rate and rhythm, no murmur, S1/S2 Lungs: clear to auscultation, normal breath sounds, no wheeze, rales, rhonchi Neuro: grossly intact Abdomen: active bowel sounds, soft Extremities: no cyanosis, no clubbing, no edema - Labs Result Diagrams: 09/01/19 22:00 09/01/19 21:22 Troponin/CKMB CK-MB (CK-2) 2.0 ng/mL (0-6.6) 08/26/19 19:16 Troponin I 0.027 ng/mL (< 0.028) 08/27/19 01:30 - Telemetry Sinus rhythms and dysrhythmias: sinus rhythm (60s-70s) - Assessment/Plan Assessment/Plan: Assessment: 1. Tachy-nereida syndrome with s/p parox A tach 2. Orthostatic hypotension 3. hx of TIA - on ASA 4. HTN 5. CKD stage 4 6. SLE 7. Chronic anemia 8. Hyponatremia 9. Sleep Apnea Plan: Maintaining SR, HR 60s. Code Green last pm for hypotensive episode, systolic 78 -86, [place] [facility] [place]. Brief SB, HR as low as 40 BPM. BP has stabilized, systolics 120s, but she has not moved from the bed today. Losartan stopped. Will hold diltiazem for now, continue carvedilol only. Consideration for PM insertion Tuesday. Discussed with patient and her daughter. POC reviewed with Dr. Gore.
--- NOTE | 2019-09-02 15:18 | PDOC.HOSPP ---
- Subjective Encounter Date: 09/02/19 Encounter Time: 08:00 Subjective: Patient was seen for follow-up for bradycardia. Overnight, she had an episode of hypotension while on bedside commode. She feels better now. - Objective Vital Signs & Weight: Vital Signs (12 hours) Temp Pulse Resp BP BP BP Pulse Ox 09/02/19 12:07 98.9 F 63 15 97/57 L 97 09/02/19 08:46 124/69 09/02/19 07:55 98.1 F 68 18 124/69 99 09/02/19 04:18 97.3 F L 86 20 101/62 99 Weight Weight 104 lb 8 oz I&O: 09/01/19 09/02/19 09/03/19 06:59 06:59 06:59 Intake Total 720 620 Output Total 500 Balance 220 620 Result Diagrams: 09/01/19 22:00 09/01/19 21:22 Additional Labs: Labs and MAR were reviewed by me. EKG Reviewed by me: Yes (Tele: NSR) Hospitalist ROS - Review of Systems Constitutional: denies: fever, chills, sweats, weakness, malaise Cardiovascular: denies: chest pain, palpitations, orthopnea, paroxysmal noc. dyspnea, edema, light headedness Genitourinary: denies: dysuria, frequency, incontinence, hematuria, retention - Medication Medications: Active Medications Generic Name Dose Route Start Last Admin Trade Name Freq PRN Reason Stop Dose Admin Aspirin 81 mg 09/01/19 09:00 09/02/19 08:46 Ecotrin PO 81 mg DAILY JOSE Administration Buspirone HCl 30 mg 08/27/19 21:00 09/02/19 08:47 Buspar PO 30 mg BID JOSE Administration Calcitriol 0.25 mcg 08/29/19 09:00 08/31/19 09:24 Rocaltrol PO 0.25 mcg MoWeFr@0900 JOSE Administration Calcium Carbonate 1,000 mg 08/27/19 20:50 08/27/19 21:45 Tums PO 1,000 mg Q4H PRN Administration Heartburn or Indigestion Carvedilol 12.5 mg 09/01/19 08:00 09/02/19 08:46 Coreg PO 12.5 mg BID- JOSE Administration Enoxaparin Sodium 50 mg 08/27/19 21:00 09/01/19 21:27 Lovenox SC 50 mg 2100 JOSE Administration Escitalopram Oxalate 10 mg 08/27/19 21:00 09/02/19 08:47 Lexapro PO 10 mg BID JOSE Administration Famotidine 20 mg 08/27/19 09:00 09/02/19 08:46 Pepcid PO 20 mg DAILY JOSE Administration Fluticasone Propionate 0 gm 08/27/19 21:00 09/01/19 21:28 Flonase Nasal [place] NASAL 2 spr HS JOSE Administration Gabapentin 300 mg 08/31/19 09:00 09/02/19 08:47 Neurontin PO 300 mg DAILY JOSE Administration Hydromorphone HCl 2 mg 08/29/19 16:06 09/01/19 16:29 Dilaudid PO 2 mg QIDPRN PRN Administration Pain Levetiracetam 750 mg 08/27/19 21:00 09/02/19 08:47 Keppra PO 750 mg BID JOSE Administration Pantoprazole Sodium 40 mg 08/28/19 09:00 09/02/19 08:48 Protonix PO 40 mg DAILY JOSE Administration Pantoprazole Sodium 40 mg 09/01/19 20:13 09/01/19 21:29 Protonix PO 40 mg Q12H PRN Administration .HEARTBURN Promethazine HCl 12.5 mg 09/01/19 20:13 09/01/19 21:28 Phenergan PO 12.5 mg Q6H PRN Administration Nausea Pyridoxine HCl 25 mg 08/29/19 12:35 08/29/19 13:01 Vitamin B 6 PO 25 mg TID PRN Administration Nausea/Vomiting Sodium Chloride 10 ml 08/26/19 20:50 08/27/19 07:58 Flush - Normal Saline IVF 10 ml PRN PRN Administration Saline Flush Tizanidine HCl 2 mg 08/28/19 12:30 08/30/19 08:50 Zanaflex PO 2 mg TIDPRN PRN Administration Muscle Spasm Tramadol HCl 50 mg 09/02/19 02:20 09/02/19 08:48 Ultram PO 50 mg Q4H PRN Administration Pain Trazodone HCl 50 mg 08/27/19 21:00 09/02/19 00:50 Desyrel PO 50 mg HS JOSE Administration - Exam General Appearance: awake alert Eye: anicteric sclera ENT: moist mucosa Neck: supple Heart: RRR Respiratory: CTAB, no rales Gastrointestinal: soft, non-tender Extremities: no clubbing Psychiatric: normal affect, normal behavior Hosp A/P - Plan - Assessment/Plan #bradycardia #PAT #orthostatic hypotension -Continue Coreg -may need PPM -check cortisol level #CKD4 -stable #TIA -continue aspirin and statin #HTN urgency -resolved
[2019-09-02] MEDS: Enoxaparin Sodium 60 MG/0.6 ML SYRINGE SC SCH (20:44)
[2019-09-02] MEDS: Fluticasone Propionate Nasal Spray 16 gm Bottle NASAL SCH (20:45)
[2019-09-03] MEDS: traMADol HCl 50 MG TAB PO PRN ×5 (00:01→20:38)
[2019-09-03] MEDS ORDERED: Carvedilol 6.25 MG TAB PO SCH (08:00)
[2019-09-03] MEDS ORDERED: Ergocalciferol 1.25 MG(50,000 UNITS) CAP PO SCH ×2 (09:00)
[2019-09-03] MEDS: Gabapentin 300 MG CAP PO SCH (09:28)
[2019-09-03] MEDS: Calcitriol 0.25 MCG CAP PO SCH (09:28)
[2019-09-03] MEDS: levETIRAcetam 500 MG TAB PO SCH ×2 (09:28→21:23)
[2019-09-03] MEDS: busPIRone HCl 10 MG TAB PO SCH ×2 (09:28→21:20)
[2019-09-03] MEDS: Escitalopram Oxalate 10 mg Tablet PO SCH ×3 (09:29→23:06)
[2019-09-03] MEDS: Famotidine 20 MG TAB PO SCH (09:29)
[2019-09-03] MEDS: Aspirin 81 mg Enteric Coated Tablet PO SCH (09:31)
--- NOTE | 2019-09-03 09:59 | PDOC.CPN ---
- Subjective Date: 09/03/19 Time: 09:30 Interval history: Pt. awake and alert. daughter at bedside. Events of the weekend noted. she had another episode of hypotension and bradycardia and unresponsiveness. No complaints at this time. - Review of Systems General: reports: night sweats. denies: fever/chills, fatigue Respiratory: reports: cough, congestion, shortness of breath. denies: exercise intolerance Cardiovascular: denies: chest pain, palpitation, edema, paroxysmal nocturnal dyspnea, orthopnea Gastrointestinal: reports: vomiting, diarrhea, constipation, abd pain, GI bleeding. denies: nausea Musculoskeletal: reports: arthritis/arthralgias Neurological: reports: weakness - Objective Allergies/Adverse Reactions: Allergies Allergy/AdvReac Type Severity Reaction Status Date / Time pregabalin [From Lyrica] Allergy Intermediate Verified 10/31/18 21:24 hydroxychloroquine Allergy Verified 10/31/18 21:24 [Hydroxychloroquine] hydroxychloroquine sulfate Allergy Verified 10/31/18 21:24 [From Plaquenil] Visit Medications: Current Medications Aspirin (Ecotrin) 81 mg PO DAILY [facility] Last Admin: 09/03/19 09:31 Dose: Not Given Buspirone HCl (Buspar) 30 mg PO BID [facility] Last Admin: 09/03/19 09:28 Dose: 30 mg Calcitriol (Rocaltrol) 0.25 mcg PO MoWeFr@0900 [facility] Last Admin: 09/03/19 09:28 Dose: 0.25 mcg Calcium Carbonate (Tums) 1,000 mg PO Q4H PRN PRN Reason: Heartburn or Indigestion Last Admin: 08/27/19 21:45 Dose: 1,000 mg Carvedilol (Coreg) 6.25 mg PO BID-[facility] Last Admin: 09/03/19 08:27 Dose: Not Given Enoxaparin Sodium (Lovenox) 50 mg SC 2100 [facility] Last Admin: 09/02/19 20:44 Dose: 50 mg Escitalopram Oxalate (Lexapro) 10 mg PO BID [facility] Last Admin: 09/03/19 09:29 Dose: 10 mg Famotidine (Pepcid) 20 mg PO DAILY [facility] Last Admin: 09/03/19 09:29 Dose: 20 mg Fluticasone Propionate (Flonase Nasal [place]) 0 gm NASAL HS [facility] Last Admin: 09/02/19 20:45 Dose: 2 spr Gabapentin (Neurontin) 300 mg PO DAILY [facility] Last Admin: 09/03/19 09:28 Dose: 300 mg Hydromorphone HCl (Dilaudid) 2 mg PO QIDPRN PRN PRN Reason: Pain Last Admin: 09/01/19 16:29 Dose: 2 mg Levetiracetam (Keppra) 750 mg PO BID [facility] Last Admin: 09/03/19 09:28 Dose: 750 mg Pantoprazole Sodium (Protonix) 40 mg PO DAILY [facility] Last Admin: 09/03/19 09:31 Dose: 40 mg Pantoprazole Sodium (Protonix) 40 mg PO Q12H PRN PRN Reason: .HEARTBURN Last Admin: 09/01/19 21:29 Dose: 40 mg Promethazine HCl (Phenergan) 12.5 mg PO Q6H PRN PRN Reason: Nausea Last Admin: 09/01/19 21:28 Dose: 12.5 mg Pyridoxine HCl (Vitamin B 6) 25 mg PO TID PRN PRN Reason: Nausea/Vomiting Last Admin: 08/29/19 13:01 Dose: 25 mg Senna/Docusate Sodium (Senokot S) 2 tab PO BIDPRN PRN PRN Reason: Constipation Sodium Chloride (Flush - Normal Saline) 10 ml IVF PRN PRN PRN Reason: Saline Flush Last Admin: 08/27/19 07:58 Dose: 10 ml Sodium Chloride (Flush - Normal Saline) 10 ml IVF Q12HR [facility] Sodium Chloride (Flush - Normal Saline) 10 ml IVF PRN PRN PRN Reason: Saline Flush Tizanidine HCl (Zanaflex) 2 mg PO TIDPRN PRN PRN Reason: Muscle Spasm Last Admin: 08/30/19 08:50 Dose: 2 mg Tramadol HCl (Ultram) 50 mg PO Q4H PRN PRN Reason: Pain Last Admin: 09/03/19 09:33 Dose: 50 mg Trazodone HCl (Desyrel) 50 mg PO HS [facility] Last Admin: 09/03/19 00:00 Dose: 50 mg Vital Signs & Weight: Vital Signs Temp Pulse Resp BP BP BP Pulse Ox 09/03/19 08:27 102/68 09/03/19 07:47 97.5 F L 62 18 102/68 98 07/27/20 04:25 97.6 F 72 16 123/77 98 09/03/19 00:32 97 09/03/19 00:15 98.3 F 66 18 95/59 L 97 Weight 104 lb 8 oz - Physical Exam General: alert & oriented x3 HEENT: normocephaly Neck: supple neck, no JVD/HJR Cardiac: regular rate and rhythm Lungs: clear to auscultation Neuro: grossly intact Abdomen: unremarkable Extremities: other: (skeletal changes due to severe rheumatoid arthritis.) Musculoskeletal: decreased range of motion - Labs Result Diagrams: 09/01/19 22:00 09/01/19 21:22 Troponin/CKMB CK-MB (CK-2) 2.0 ng/mL (0-6.6) 08/26/19 19:16 Troponin I 0.027 ng/mL (< 0.028) 08/27/19 01:30 - Assessment/Plan Assessment/Plan: 1. Tachy-nereida syndrome with s/p parox A tach - repeat episode of hypotension and bradycardia on Tuesday.On Diltiazem 30mg QID and Coreg 12.5mg BID, the coreg was stopped but was reordered for today at a lower dose. Pacemaker insertion is indicated for tachy-nereida syndrome,and I will proceed today. I have expplained the risks and procedure to include bleding,infection, pneumo/ hemothorax. She agrees to proceed. 2. Orthostatic hypotension - Will resume betablockers after the pacemaker is inserted. May need to consider Midodrine. 3. hx of TIA - on ASA 4. HTN urgency - Losartan was increased to 100mg qd from this AM 5. CKD stage 4 - 6. SLE - 7. Chronic anemia - stable 8. Hyponatremia 9. Sleep Apnea MAR reviewed
[2019-09-03] MEDS ORDERED: Gentamicin 80 MG/2 ML VIAL ONE (10:48)
[2019-09-03] MEDS ORDERED: Midazolam HCl 2 mg/2 ml Vial ONE (10:48)
[2019-09-03] MEDS ORDERED: CEFAZOLIN 1 GM VIAL ONE (10:48)
[2019-09-03] MEDS ORDERED: Sodium Chloride 0.9% 1,000 ML IV SCH (12:02)
--- NOTE | 2019-09-03 12:23 | RAD ---
EXAM: CHEST ONE VIEW HISTORY: Post cardiac device placement. COMPARISON: 08/26/2019 FINDINGS: There is been interval placement of a dual-lead left subclavian cardiac pacemaking device. Cardiac si lhouette and pulmonary vasculature are within normal limits. The lungs are clear. No pneumothorax is visualized. Bilateral glenohumeral osteoarthropathy is present. Remote posterior right-sided rib f ractures are again seen. There is osteopenia. IMPRESSION: Interval placement of a dual-lead left subclavian cardiac pacemaking device without evidence of a pne umothorax or pleural effusion.
--- NOTE | 2019-09-03 15:30 | CCLSPC ---
INDICATION FOR PROCEDURE: A 73-year-old female with tachy-nereida syndrome with orthostatic hypotension. She was advised to undergo pacemaker insertion, so that we can better manage her medications to prevent further bradycardia. PROCEDURE IN DETAIL: She was taken to cardiac mini lab operator, where she underwent dual-chamber pacemaker insertion today without difficulties or complications. She was implanted with a dual-chamber pacemaker from [employer], an Dionne XT dual chamber MRI compatible device with two screw-in leads, one in the atrium, one in the ventricle. The pacemaker set with the upper rate of 120, the lower rate was set at 60. There were no difficulties or complications encountered. Job ID: [id number]
--- NOTE | 2019-09-03 17:37 | PDOC.HOSPP ---
- Subjective Encounter Date: 09/03/19 Encounter Time: 10:00 Subjective: Patient was seen for follow-up for symptomatic bradycardia. She denies any chest pain or shortness of breath. - Objective Vital Signs & Weight: Vital Signs (12 hours) Temp Pulse Resp BP BP BP Pulse Ox 09/03/19 15:16 97.9 F 64 20 166/75 H 98 09/03/19 12:00 97.6 F 59 L 18 147/83 H 100 09/03/19 08:27 102/68 09/03/19 07:47 97.5 F L 62 18 102/68 98 Weight Weight 104 lb 8 oz I&O: 09/02/19 09/03/19 09/04/19 06:59 06:59 06:59 Intake Total 870 400 Output Total 1300 Balance 870 -900 Result Diagrams: 09/01/19 22:00 09/01/19 21:22 Additional Labs: Labs and MAR were reviewed by me. EKG Reviewed by me: Yes (tele:nsr) Hospitalist ROS - Review of Systems Constitutional: denies: fever, chills, sweats, weakness, malaise Cardiovascular: denies: chest pain, palpitations, orthopnea, paroxysmal noc. dyspnea, edema, light headedness - Medication Medications: Active Medications Generic Name Dose Route Start Last Admin Trade Name Freq PRN Reason Stop Dose Admin Aspirin 81 mg 09/01/19 09:00 09/03/19 09:31 Ecotrin PO Not Given DAILY JOSE Buspirone HCl 30 mg 08/27/19 21:00 09/03/19 09:28 Buspar PO 30 mg BID JOSE Administration Calcitriol 0.25 mcg 08/29/19 09:00 09/03/19 09:28 Rocaltrol PO 0.25 mcg MoWeFr@0900 JOSE Administration Calcium Carbonate 1,000 mg 08/27/19 20:50 08/27/19 21:45 Tums PO 1,000 mg Q4H PRN Administration Heartburn or Indigestion Enoxaparin Sodium 50 mg 08/27/19 21:00 09/02/19 20:44 Lovenox SC 50 mg 2100 JOSE Administration Escitalopram Oxalate 10 mg 08/27/19 21:00 09/03/19 09:29 Lexapro PO 10 mg BID JOSE Administration Famotidine 20 mg 08/27/19 09:00 09/03/19 09:29 Pepcid PO 20 mg DAILY JOSE Administration Fluticasone Propionate 0 gm 08/27/19 21:00 09/02/19 20:45 Flonase Nasal [place] NASAL 2 spr HS JOSE Administration Gabapentin 300 mg 08/31/19 09:00 09/03/19 09:28 Neurontin PO 300 mg DAILY JOSE Administration Hydromorphone HCl 2 mg 08/29/19 16:06 09/01/19 16:29 Dilaudid PO 2 mg QIDPRN PRN Administration Pain Sodium Chloride 1,000 mls @ 100 mls/hr 09/03/19 12:02 09/03/19 15:30 Normal Saline 0.9% IV 09/03/19 22:01 1,000 mls .Q10H JOSE Administration Levetiracetam 750 mg 08/27/19 21:00 09/03/19 09:28 Keppra PO 750 mg BID JOSE Administration Pantoprazole Sodium 40 mg 08/28/19 09:00 09/03/19 09:31 Protonix PO 40 mg DAILY JOSE Administration Pantoprazole Sodium 40 mg 09/01/19 20:13 09/01/19 21:29 Protonix PO 40 mg Q12H PRN Administration .HEARTBURN Promethazine HCl 12.5 mg 09/01/19 20:13 09/01/19 21:28 Phenergan PO 12.5 mg Q6H PRN Administration Nausea Pyridoxine HCl 25 mg 08/29/19 12:35 08/29/19 13:01 Vitamin B 6 PO 25 mg TID PRN Administration Nausea/Vomiting Tizanidine HCl 2 mg 08/28/19 12:30 08/30/19 08:50 Zanaflex PO 2 mg TIDPRN PRN Administration Muscle Spasm Tramadol HCl 50 mg 09/02/19 02:20 09/03/19 15:10 Ultram PO 50 mg Q4H PRN Administration Pain Trazodone HCl 50 mg 08/27/19 21:00 09/03/19 00:00 Desyrel PO 50 mg HS JOSE Administration - Exam General Appearance: NAD Eye: anicteric sclera ENT: moist mucosa Neck: supple Heart: RRR, no rubs Respiratory: CTAB Gastrointestinal: soft Extremities: no cyanosis Psychiatric: normal affect Hosp A/P - Plan - Assessment/Plan #bradycardia #PAT #orthostatic hypotension -Patient to have permanent pacemaker today. - cortisol level normal #CKD4 -stable #TIA -Patient is on aspirin and statin #HTN urgency -resolved
[2019-09-03] MEDS: Enoxaparin Sodium 60 MG/0.6 ML SYRINGE SC SCH (21:21)
[2019-09-03] MEDS: Fluticasone Propionate Nasal Spray 16 gm Bottle NASAL SCH (21:22)
[2019-09-03] MEDS: Metoprolol Tartrate 25 MG TAB PO SCH (21:23)
[2019-09-03] MEDS: traZODone HCl 50 MG TAB PO SCH ×2 (23:06)
[2019-09-04] MEDS: levETIRAcetam 500 MG TAB PO SCH ×2 (08:44→21:57)
[2019-09-04] MEDS: Famotidine 20 MG TAB PO SCH (08:44)
[2019-09-04] MEDS: Escitalopram Oxalate 10 mg Tablet PO SCH ×2 (08:44→22:04)
[2019-09-04] MEDS: busPIRone HCl 10 MG TAB PO SCH ×2 (08:44→21:57)
[2019-09-04] MEDS: Aspirin 81 mg Enteric Coated Tablet PO SCH (08:44)
[2019-09-04] MEDS: Gabapentin 300 MG CAP PO SCH (08:44)
[2019-09-04] MEDS: Metoprolol Tartrate 25 MG TAB PO SCH (08:45)
[2019-09-04] MEDS: traMADol HCl 50 MG TAB PO PRN ×3 (08:45→17:40)
--- NOTE | 2019-09-04 08:52 | PRG ---
DATE OF SERVICE: 09/04/2019 SUBJECTIVE: Ms. Pastrana is doing well. She underwent successful pacemaker placement yesterday. She continues to be orthostatic. Blood pressure drops from 150 supine to 102 standing. Current CV medications include aspirin 81 daily, metoprolol 25 b.i.d. OBJECTIVE: LUNGS: Clear to auscultation. HEART: Regular rate and rhythm. ABDOMEN: Soft, nontender, nondistended. EXTREMITIES: No edema. PERTINENT LABORATORY DATA: Hemoglobin 11.0, hematocrit 33.1. IMPRESSION: 1. Orthostatic hypotension. 2. Tachy-nereida syndrome, status post pacemaker. 3. Chronic kidney disease. RECOMMENDATIONS: Certainly difficult to treat orthostatic hypotension. Her blood pressure when lying is 150 and standing is 102. She has a 50-point drop noted with standing. At this point, I did discuss with the family that this is certainly difficult to treat. If we start to treat her elevated blood pressure while supine, her standing blood pressure may decrease less than 90 and becomes symptomatic. At this point, would feel comfortable with a high blood pressure 150 supine and 102 standing. Otherwise, I have no further recommendations. Job ID: [id number]
[2019-09-04] MEDS ORDERED: Fludrocortisone Acetate 0.1 MG TAB PO SCH (10:00)
[2019-09-04] MEDS ORDERED: Midodrine HCl 5 MG TAB PO SCH (10:00)
[2019-09-04] MEDS: Midodrine HCl 5 MG TAB PO SCH ×2 (15:23→22:06)
--- NOTE | 2019-09-04 18:15 | PDOC.HOSPP ---
- Subjective Encounter Date: 09/04/19 Encounter Time: 08:00 Subjective: Patient was seen for follow-up regarding orthostatic hypotension. Patient had an episode today where her orthostatics dropped from 150 mmHg to 102 mmHg for systolic blood pressure. - Objective Vital Signs & Weight: Vital Signs (12 hours) Temp Pulse Pulse Pulse Pulse Pulse Resp 09/04/19 16:17 98.1 F 60 16 09/04/19 14:50 62 59 L 60 62 09/04/19 11:49 98.0 F 61 16 09/04/19 08:07 97.7 F 70 12 BP BP BP BP BP BP BP 09/04/19 16:17 148/86 H 09/04/19 14:50 114/77 141/80 H 124/95 H 129/85 09/04/19 11:49 147/84 H 09/04/19 08:07 123/74 102/73 BP Pulse Ox 09/04/19 16:17 97 09/04/19 14:50 09/04/19 11:49 99 09/04/19 08:07 150/79 H 99 Weight Weight 104 lb 8 oz I&O: 09/03/19 09/04/19 09/05/19 06:59 06:59 06:59 Intake Total 400 480 900 Output Total 1300 Balance -900 480 900 Result Diagrams: 09/01/19 22:00 09/01/19 21:22 Additional Labs: Labs and MAR was reviewed by me. EKG Reviewed by me: Yes (tele:A-paced) Hospitalist ROS - Review of Systems Cardiovascular: denies: chest pain, palpitations, orthopnea, paroxysmal noc. dyspnea, edema, light headedness Gastrointestinal: denies: nausea, vomiting, abdominal pain, diarrhea, constipation, melena, hematochezia - Medication Medications: Active Medications Generic Name Dose Route Start Last Admin Trade Name Freq PRN Reason Stop Dose Admin Aspirin 81 mg 09/01/19 09:00 09/04/19 08:44 Ecotrin PO 81 mg DAILY JOSE Administration Buspirone HCl 30 mg 08/27/19 21:00 09/04/19 08:44 Buspar PO 30 mg BID JOSE Administration Calcitriol 0.25 mcg 08/29/19 09:00 09/03/19 09:28 Rocaltrol PO 0.25 mcg MoWeFr@0900 JOSE Administration Calcium Carbonate 1,000 mg 08/27/19 20:50 08/27/19 21:45 Tums PO 1,000 mg Q4H PRN Administration Heartburn or Indigestion Enoxaparin Sodium 50 mg 08/27/19 21:00 09/03/19 21:21 Lovenox SC Not Given 2100 JOSE Escitalopram Oxalate 10 mg 08/27/19 21:00 09/04/19 08:44 Lexapro PO 10 mg BID JOSE Administration Famotidine 20 mg 08/27/19 09:00 09/04/19 08:44 Pepcid PO 20 mg DAILY JOSE Administration Fluticasone Propionate 0 gm 08/27/19 21:00 09/03/19 21:22 Flonase Nasal [place] NASAL 2 spr HS JOSE Administration Gabapentin 300 mg 08/31/19 09:00 09/04/19 08:44 Neurontin PO 300 mg DAILY JOSE Administration Hydromorphone HCl 2 mg 08/29/19 16:06 09/01/19 16:29 Dilaudid PO 2 mg QIDPRN PRN Administration Pain Levetiracetam 750 mg 08/27/19 21:00 09/04/19 08:44 Keppra PO 750 mg BID [facility] Administration Metoprolol Tartrate 25 mg 09/03/19 21:00 09/04/19 08:45 Lopressor PO 25 mg BID [facility] Administration Midodrine 2.5 mg 09/04/19 15:00 09/04/19 15:23 Proamatine PO 2.5 mg TID JOSE Administration Pantoprazole Sodium 40 mg 08/28/19 09:00 09/04/19 08:45 Protonix PO 40 mg DAILY JOSE Administration Pantoprazole Sodium 40 mg 09/01/19 20:13 09/01/19 21:29 Protonix PO 40 mg Q12H PRN Administration .HEARTBURN Promethazine HCl 12.5 mg 09/01/19 20:13 09/01/19 21:28 Phenergan PO 12.5 mg Q6H PRN Administration Nausea Pyridoxine HCl 25 mg 08/29/19 12:35 08/29/19 13:01 Vitamin B 6 PO 25 mg TID PRN Administration Nausea/Vomiting Sodium Chloride 10 ml 09/03/19 21:00 09/04/19 08:45 Flush - Normal Saline IVF 10 ml Q12HR JOSE Administration Tizanidine HCl 2 mg 08/28/19 12:30 08/30/19 08:50 Zanaflex PO 2 mg TIDPRN PRN Administration Muscle Spasm Tramadol HCl 50 mg 09/02/19 02:20 09/04/19 17:40 Ultram PO 50 mg Q4H PRN Administration Pain Trazodone HCl 50 mg 08/27/19 21:00 09/03/19 23:06 Desyrel PO 50 mg HS JOSE Administration - Exam General Appearance: awake alert Eye: anicteric sclera ENT: moist mucosa Neck: supple Heart: RRR Respiratory: CTAB Gastrointestinal: soft, non-tender Skin: normal turgor Psychiatric: normal affect, normal behavior Hosp A/P - Plan - Assessment/Plan #orthostatic hypotension -trial Florinef, trial midodrine, continue to monitor orthostatic vitals and titrate medications as needed. #bradycardia #PAT -Status post permanent pacemaker placement, patient is stable. #CKD4 -stable #TIA -Continue on aspirin and statin #HTN urgency -resolved
--- NOTE | 2019-09-04 18:41 | PRG ---
DATE OF SERVICE: 09/04/2019 SUBJECTIVE: The patient is seen and examined today, seems to be doing much better, noted with the following vital signs. OBJECTIVE: VITAL SIGNS: Afebrile, temperature 98, pulse 61, respiratory rate of 16, O2 saturations of 99%, blood pressure of 141/80. HEENT: Unremarkable. CARDIOVASCULAR: First and second heart sounds were heard. RESPIRATORY: Clear to auscultation. DIGESTIVE: Revealed a benign abdomen. EXTREMITIES: No peripheral edema. SKIN: No new gross rash. LYMPHATICS: No peripheral lymphadenopathy. IMPRESSION: 1. Orthostatic hypotension. 2. Chronic kidney disease stage 3/4. 3. Hyponatremia. PLAN: 1. We will continue with current medication adjustments, optimize the hemodynamics. The patient started on midodrine, monitor the blood pressure closely avoid precipitating severe hypertension. 2. Continue to renally dose all medications. 3. Further management to be dependent on the clinical course. Job ID: [id number]
--- NOTE | 2019-09-04 18:47 | PRG ---
DATE OF SERVICE: 09/03/2019 SUBJECTIVE: The patient is noted with the following vital signs, status post pacemaker placement. OBJECTIVE: VITAL SIGNS: Afebrile, temperature 97.6, pulse 63, respiratory rate of 18, O2 saturations of 97%, blood pressure HEENT: Unremarkable. CARDIOVASCULAR: First and second heart sounds were heard. RESPIRATORY: Clear to auscultation. DIGESTIVE: Revealed a benign abdomen. Positive bowel sounds. EXTREMITIES: No peripheral edema. SKIN: No new gross rash. LYMPHATICS: No peripheral lymphadenopathy. IMPRESSION: 1. Labile hemodynamics. 2. Tachy-nereida syndrome, status post pacemaker placement. 3. Chronic kidney disease stage 3/4, more or less stable. PLAN: Continue current renal supportive measures. Avoid potentially nephrotoxic agents and renally dose all medications. Job ID: [id number]
[2019-09-04] MEDS: Fluticasone Propionate Nasal Spray 16 gm Bottle NASAL SCH (21:54)
[2019-09-04] MEDS: Enoxaparin Sodium 60 MG/0.6 ML SYRINGE SC SCH (21:55)
[2019-09-05] MEDS: Metoprolol Tartrate 25 MG TAB PO SCH ×2 (00:11→09:30)
[2019-09-05] MEDS: traZODone HCl 50 MG TAB PO SCH (00:11)
[2019-09-05] MEDS: traMADol HCl 50 MG TAB PO PRN ×3 (00:12→13:50)
--- NOTE | 2019-09-05 08:57 | PRG ---
DATE OF SERVICE: 09/05/2019 SUBJECTIVE: Ms. Pastrana is doing better. She has less orthostasis. She was placed on Florinef in addition to midodrine. No current complaints or symptoms. OBJECTIVE: VITAL SIGNS: Blood pressure 155/92, pulse 60, temperature 97.7. LUNGS: Clear to auscultation. HEART: Regular rate and rhythm. Abdomen: Soft, nontender, and nondistended. EXTREMITIES: No edema. PERTINENT LABORATORY DATA: Hemoglobin 11.0. Creatinine 2.1. IMPRESSION: 1. Orthostatic hypotension. 2. Tachy-neerida syndrome, status post pacemaker. RECOMMENDATIONS: Literature was provided on conservative treatment for orthostatic hypotension. Also, recommended compression stockings with waistband. She is concerned about long-term steroid therapy. I did state that she could taper off as an outpatient under the direction of a physician if her blood pressure tolerates. Otherwise, from my standpoint, I have no further recommendations. Plan is to follow up with Dr. Balta Hester in the next 1 week in the office. Job ID: [id number]
[2019-09-05] MEDS ORDERED: Fludrocortisone Acetate 0.1 MG TAB PO SCH (09:00)
[2019-09-05] MEDS: Aspirin 81 mg Enteric Coated Tablet PO SCH (09:29)
[2019-09-05] MEDS: Calcitriol 0.25 MCG CAP PO SCH (09:30)
[2019-09-05] MEDS: busPIRone HCl 10 MG TAB PO SCH (09:30)
[2019-09-05] MEDS: Famotidine 20 MG TAB PO SCH (09:30)
[2019-09-05] MEDS: Escitalopram Oxalate 10 mg Tablet PO SCH (09:30)
[2019-09-05] MEDS: Gabapentin 300 MG CAP PO SCH (09:30)
[2019-09-05] MEDS: levETIRAcetam 500 MG TAB PO SCH (09:30)
[2019-09-05] MEDS: Midodrine HCl 5 MG TAB PO SCH (09:31)
[2019-09-05 11:47] VITALS: BP 137/83; TEMP 98
[2019-09-05 12:51] LABS: Anion Gap 14 mmol/L (10-20); BUN (Urea Nitrogen) 62 mg/dL (9.8-20.1); Calc. Creatinine Clearance 19 mL/min (70-130); Calcium 8.8 mg/dL (7.8-10.44); Carbon Dioxide 20 mmol/L (23-31); Chloride 98 mmol/L (98-107); Estimated GFR-MDRD 25; Glucose 99 mg/dL (83-110); Potassium 4.4 mmol/L (3.5-5.1); Sodium 128 mmol/L (136-145)
--- NOTE | 2019-09-06 09:26 | DIS ---
DATE OF ADMISSION: 08/28/2019 DATE OF DISCHARGE: 09/05/2019 PRIMARY CARE PROVIDER: Dr. Dariel Carlson. DISCHARGE DIAGNOSES: 1. Acute metabolic encephalopathy. 2. Transient ischemic attack. 3. Symptomatic bradycardia. 4. Severe orthostatic hypotension. 5. Multifocal atrial tachycardia. 6. Hyponatremia. 7. Chronic kidney disease, stage 4. CONSULTATIONS DURING THIS HOSPITALIZATION: 1. Neurology, Dr. Moon. 2. Nephrology, Dr. Ortiz. 3. Cardiology, Dr. Hester. 4. Electrophysiology, Dr. Hampton. CONDITION OF PATIENT ON THE DAY OF DISCHARGE: Stable. I assessed Ms. Pastrana on the day of discharge. She denies any chest pain or shortness of breath. Vital signs are stable. S1 and S2 are heard, regular. Lungs are clear to auscultation bilaterally. DISCHARGE MEDICATIONS: 1. Vitamin D2 of 50,000 units every week. 2. Buspirone 30 mg 2 times a day. 3. Calcitriol 0.25 mcg daily. 4. Lexapro 10 mg 2 times a day. 5. Flonase 2 sprays to each naris daily. 6. Gabapentin 300 mg 3 times a day. 7. Keppra 750 mg 2 times a day. 8. Restasis eyedrops two times a day. 9. Trazodone 50 mg at bedtime. 10. Valacyclovir 500 mg at bedtime. 11. Aspirin 81 mg daily. 12. Lipitor 20 mg at bedtime. 13. Florinef 0.1 mg daily. 14. Lopressor 25 mg 2 times a day. 15. Midodrine 2.5 mg 3 times a day. 16. Protonix 40 mg daily. 17. Pepcid 20 mg 3 times a day as needed. 18. Furosemide 20 mg daily as needed. 19. Dilaudid 2 mg 4 times a day as needed. 20. Ibuprofen 800 mg as needed. 21. Meclizine as needed. 22. Tizanidine as needed. HOSPITAL COURSE: Ms. Pastrana is a pleasant 73-year-old lady, who was admitted to [facility] on August 26, 2019, for acute metabolic encephalopathy. Differential diagnosis included TIA versus seizure. MRI of the brain did not show any evidence of acute process. EEG did not show any evidence of seizure. It was felt that her presentation was secondary to a TIA. She has been started on aspirin and statin. 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 She was seen by Cardiology and Electrophysiology Services. She underwent permanent pacemaker placement. She was started on metoprolol. Diltiazem was discontinued. 2D echocardiogram during this hospitalization showed left ventricular ejection fraction of 55% to 60%, 1/3 diastolic dysfunction. She was also found to have significant orthostatic hypotension. She has been started on midodrine and Florinef with improvement in her blood pressure. She is being discharged home in a stable condition. She was also hyponatremic during this hospitalization. She is advised to have her electrolytes and creatinine checked through her primary care provider in approximately one week. On August 31, she had white count 5700, hemoglobin 11, and platelet count 205,000. Sodium was 128, potassium 5.0, and creatinine 2.19. POST ACUTE CARE FOLLOWUP: With primary care provider in 3 days. DISCHARGE DESTINATION: Home with home health through [facility]. ACTIVITY: As tolerated. DIET: Heart healthy. TIME SPENT: Total amount of time spent coordinating this discharge: 32 minutes. Job ID: [id number]
--- NOTE | 2019-09-06 11:09 | EKG ---
Test Reason : Blood Pressure : / mmHG Vent. Rate : 058 BPM Atrial Rate : 058 BPM P-R Int : 154 ms QRS Dur : 084 ms QT Int : 418 ms P-R-T Axes : 000 028 078 degrees QTc Int : 410 ms Sinus bradycardia Otherwise normal ECG When compared with ECG of 26-AUG-2019 20:02, (Unconfirmed) T wave inversion no longer evident in Anterior leads Confirmed by MCKENNA WATSON M.D. ([id number]) on 09/06/2019 11:08:39 AM Referred By: LOLIS Confirmed By:MCKENNA WATSON M.D.
== END 2019-09-05 15:25 | disposition home or self-care (01) | DRG 41 ==
LOC: ERS 18:38 → 2SE 20:35 → OBSVTOIN 08-28 16:57
PROVIDERS: ADMIT Internal Medicine; ATTEND Internal Medicine
PROC: 02H63JZ Insertion of Pacemaker Lead into Right Atrium, Percutaneous Approach (ICD-10-PCS; principal; 2019-09-03)
PROC: 0JH606Z Insertion of Pacemaker, Dual Chamber into Chest Subcutaneous Tissue and Fascia, Open Approach (ICD-10-PCS; 2019-09-03)
PROC: 02HK3JZ Insertion of Pacemaker Lead into Right Ventricle, Percutaneous Approach (ICD-10-PCS; 2019-09-03)
PROC: 4A023N7 Measurement of Cardiac Sampling and Pressure, Left Heart, Percutaneous Approach (ICD-10-PCS; 2019-09-03)
DX: G45.9 Transient cerebral ischemic attack, unspecified (principal); G81.91 Hemiplegia, unspecified affecting right dominant side; I48.92 Unspecified atrial flutter; N17.9 Acute kidney failure, unspecified; N18.4 Chronic kidney disease, stage 4 (severe); R64 Cachexia; Z68.1 Body mass index [BMI] 19.9 or less, adult; I47.1 Supraventricular tachycardia; E87.1 Hypo-osmolality and hyponatremia; R13.10 Dysphagia, unspecified; M79.7 Fibromyalgia; M19.90 Unspecified osteoarthritis, unspecified site; M06.9 Rheumatoid arthritis, unspecified; I48.91 Unspecified atrial fibrillation; K21.9 Gastro-esophageal reflux disease without esophagitis; F41.9 Anxiety disorder, unspecified; F32.9 Major depressive disorder, single episode, unspecified; D63.1 Anemia in chronic kidney disease; M32.9 Systemic lupus erythematosus, unspecified; I95.1 Orthostatic hypotension; G40.909 Epilepsy, unspecified, not intractable, without status epilepticus; G89.4 Chronic pain syndrome; D53.9 Nutritional anemia, unspecified; E87.5 Hyperkalemia; I16.0 Hypertensive urgency; I12.9 Hypertensive chronic kidney disease with stage 1 through stage 4 chronic kidney disease, or unspecified chronic kidney disease; G47.30 Sleep apnea, unspecified; E83.52 Hypercalcemia; I49.5 Sick sinus syndrome; Z90.49 Acquired absence of other specified parts of digestive tract; Z90.710 Acquired absence of both cervix and uterus; Z88.8 Allergy status to other drugs, medicaments and biological substances; Z79.899 Other long term (current) drug therapy
CPT/HCPCS: 33208; 36415; 36600; 70450; 70551; 71045; 80048; 80053; 80061; 80069; 82533; 82550; 82553; 83605; 83735; 84100; 84443; 84484; 85025; 85610; 85730; 93005; 93010; 93306; 93880; 95712; 95819; 95957; 96360; 96361; 96372; 96374; 97139; 99152; 99153; C1785; C1898; G0378; J0690; J1580; J1644; J1650; J2250; J7030; Q0169

== ENCOUNTER 2019-10-12 16:05 | Inpatient (IN) | payer MEDICARE, BC, OTHER ==
--- NOTE | 2019-10-12 17:02 | CT ---
CT BRAIN NONCONTRAST: DATE: 10/12/2019 HISTORY: 73-year-old female status post syncope FINDINGS: There is no evidence of acute intra-axial or extra-axial hemorrhage. There is no midline shift or any other mass effect. There is no extra-axial fluid collection. There is no evidence of obstructive hydrocephalus. Calvarium is intact. There is diffuse brain parenchymal volume loss. There are low att enuation areas in the white matter. These are nonspecific, but in a patient of this age, they are probably chronic ischemic white matter changes due to microvascular atherosclerosis. IMPRESSION: 1) No acute intracranial findings. 2) involutional changes and chronic ischemic white matter changes.
[2019-10-12 17:04] LABS: ALT (SGPT) 9 U/L (8-55); AST (SGOT) 13 U/L (5-34); Albumin 3.8 g/dL (3.4-4.8); Alkaline Phosphatase 71 U/L (40-110); Anion Gap 17 mmol/L (10-20); BUN (Urea Nitrogen) 40 mg/dL (9.8-20.1); Bilirubin, Total 0.3 mg/dL (0.2-1.2); Calc. Creatinine Clearance 0 mL/min (70-130); Calcium 8.4 mg/dL (7.8-10.44); Carbon Dioxide 21 mmol/L (23-31); Chloride 104 mmol/L (98-107); Estimated GFR-MDRD 23; Globulin 2.3 g/dL (2.4-3.5); Glucose 82 mg/dL (83-110); Potassium 4.7 mmol/L (3.5-5.1); Protein, Total 6.1 g/dL (6.0-8.3); Sodium 137 mmol/L (136-145)
[2019-10-12 17:12] LABS: Hemoglobin 11.6 g/dL (12.0-16.0); Mean Corpuscular Hemoglobin 32.8 pg (27.0-31.0); Mean Corpuscular Volume 99.4 fL (78.0-98.0); Mean Platelet Volume 7.6 fL (7.4-10.4); Platelet Count 190 thou/uL (130-400); RBC Distribution Width 14.1 % (11.5-14.5); Red Blood Cell (RBC) Count 3.55 mill/uL (4.20-5.40); White Blood Cell (WBC) Count 5.9 thou/uL (4.8-10.8)
--- NOTE | 2019-10-12 17:22 | CT ---
CT CERVICAL SPINE WITH COLON AND SAGITTAL REFORMATIONS AND NO IV CONTRAST: 10/12/19 HISTORY: Syncope, fall, neck pain. FINDINGS/IMPRESSION: Multilevel degenerative changes are present. There is minimal anterolisthesis of C4 over C5 which was also noted on 04/01/11. No acute fracture, subluxation, or facet malalignment is identified. POS: [facility]
[2019-10-12 17:28] LABS: Band 1 % (5-11); Eosinophils 2 % (0-10); Lymphocytes 16 % (21-51); MDiff Complete? YES; Monocytes 3 % (0-10); Neutrophil 77 % (42-75); Platelet Morphology Comment Appears Adequate; RBC Morphology Normal
[2019-10-12 18:24] LABS: Bacteria/HPF 4+ HPF (None Seen); Bilirubin Negative (Negative); Blood, Urine Negative (Negative); Clarity Turbid (Clear); Glucose, Urine (Dipstick) Normal (Negative); Ketone, Urine Negative (Negative); Leukocyte 500 Leu/uL (Negative); Nitrite 2+ (Negative); Protein, Urine (Dipstick) Negative (Neg-Trace); RBC/HPF 0-3 HPF (0-3); Specific Gravity, Urine 1.013 (1.002-1.036); Urobilinogen Normal mg/dL (Less than 2); WBC/HPF Greater than 50 HPF (0-3); pH, Urine 6.5 (5.0-9.0)
[2019-10-12] MEDS ORDERED: cefTRIAXone\\ROCEPHIN 2 GM VIAL ONE (19:04)
[2019-10-12] MEDS ORDERED: cefTRIAXone\\ROCEPHIN 1 GM VIAL ONE (19:05)
[2019-10-12] MEDS ORDERED: Acetaminophen 325 MG TAB PO PRN (19:32)
[2019-10-12 20:16] LABS: Troponin I 0.013 ng/mL (< 0.028)
[2019-10-12] MEDS: Heparin 5,000 UNITS/ML VIAL SC SCH (21:55)
[2019-10-12 22:07] VITALS: BMI 17.9
--- NOTE | 2019-10-12 23:06 | HP ---
CHIEF COMPLAINT: Dizziness and syncope. HISTORY OF PRESENT ILLNESS: Ms. Pastrana is a 73-year-old female, who presented to the emergency room with syncopal episode that occurred today. The patient has a history of cardiac pacemaker; rheumatoid arthritis; osteoarthritis; fibromyalgia; lupus; Raynaud syndrome; fluctuating blood pressure, hypertension/hypotension; frequent UTIs; atrial fibrillation/flutter; GI bleeding; seizures; sleep apnea, among others. The workup in the emergency room including EKG showed paced rhythm, CBC is unremarkable. Urine, ? UTI. Troponin 0.01, BUN is 40, creatinine 2.1, which is above baseline. CT of the brain: No acute finding. The patient is being admitted to hospital for further management. The patient denies fevers, chills, nausea, vomiting, or abdominal pain. PAST MEDICAL HISTORY: As mentioned above in history of present illness. PAST SURGICAL HISTORY: 1. Sinus surgery. 2. Appendectomy. 3. Hernia repair. 4. Cardiac pacemaker. 5. Hysterectomy. PSYCHIATRIC HISTORY: Anxiety and depression. SOCIAL HISTORY: The patient lives at home with family. Denies alcohol drinking. Denies drug use. Has no smoking history. HOME MEDICATIONS: Please see home medication reconciliation form for updated medications. FAMILY HISTORY: Noncontributory. ALLERGIES: ALLERGIC TO HYDROXYCHLOROQUINE, PLAQUENIL, PREGABALIN. REVIEW OF SYSTEMS: Review of 14 systems negative except what is mentioned in the history of present illness. PHYSICAL EXAMINATION: GENERAL: The patient is awake, alert, does not appear to be in acute distress. VITAL SIGNS: Blood pressure 156/88, pulse is 60, respiratory rate 14, oxygen saturation 99% on room air, temperature 98.1. HEAD AND NECK: Normocephalic. Neck is supple. No JVD. CHEST: Fair bilateral air entry. HEART: S1, S2. Regular. ABDOMEN: Soft, nontender. Bowel sounds present. NEUROLOGIC: Awake, alert, oriented x3. No focal deficits. PSYCH: Unable to assess. EXTREMITIES: No clubbing or cyanosis. LABORATORY DATA: As mentioned above in the history of present illness. IMAGING STUDIES: As mentioned above in the history of present illness. ASSESSMENT: 1. Syncope, rule out cardiac etiology. 2. Dizziness. 3. Cardiac pacemaker. 4. Urinary tract infection ? 5. Hypertension. 6. History of atrial fibrillation/flutter. 7. Lupus. PLAN: 1. Admit. 2. Telemetry monitoring. 3. Orthostatic vital signs. 4. Serial troponins. 5. Continue IV antibiotic. 6. 2D echo. 7. Consult the patient's nuclear medical tech for evaluation and further recommendations. 8. Reconcile home medications. 9. DVT prophylaxis as appropriate. 10. Expected length of stay, 1 midnight if patient is stable and further workup negative. Job ID: [id number]
[2019-10-12 23:15] LABS: Troponin I 0.023 ng/mL (< 0.028)
[2019-10-13] MEDS ORDERED: Famotidine 20 MG TAB PO PRN (04:26)
[2019-10-13] MEDS ORDERED: tiZANidine HCl 4 MG TAB PO PRN (04:40)
[2019-10-13] MEDS ORDERED: Ondansetron ODT 8 MG TAB PO PRN (04:44)
[2019-10-13] MEDS ORDERED: Metoprolol Tartrate 25 MG TAB PO SCH ×3 (04:45→21:00)
[2019-10-13 05:12] LABS: #Eosinphils 0.1 thou/uL (0.0-0.7); #Lymphocytes 1.6 thou/uL (1.20-3.40); #Monocytes 0.5 thou/uL (0.11-0.59); #Neutrophils 3.9 thou/uL (1.40-6.50); %Basophils 0.7 % (0.0-1.0); %Eosinophils 2.2 % (0.0-10.0); %Lymphocytes 25.8 % (21.0-51.0); %Monocytes 8.3 % (0.0-10.0); Hemoglobin 11.4 g/dL (12.0-16.0); Mean Corpuscular HGB CONC 31.9 g/dL (32.0-36.0); Mean Corpuscular Hemoglobin 31.4 pg (27.0-31.0); Mean Corpuscular Volume 98.5 fL (78.0-98.0); Mean Platelet Volume 7.6 fL (7.4-10.4); Platelet Count 205 thou/uL (130-400); RBC Distribution Width 14.3 % (11.5-14.5); Red Blood Cell (RBC) Count 3.62 mill/uL (4.20-5.40); White Blood Cell (WBC) Count 6.2 thou/uL (4.8-10.8)
[2019-10-13 05:30] LABS: Anion Gap 15 mmol/L (10-20); BUN (Urea Nitrogen) 38 mg/dL (9.8-20.1); Calc. Creatinine Clearance 18 mL/min (70-130); Calcium 8.6 mg/dL (7.8-10.44); Carbon Dioxide 22 mmol/L (23-31); Chloride 104 mmol/L (98-107); Estimated GFR-MDRD 26; Glucose 94 mg/dL (83-110); Potassium 4.7 mmol/L (3.5-5.1); Sodium 136 mmol/L (136-145)
[2019-10-13] MEDS: busPIRone HCl 10 MG TAB PO SCH ×2 (09:30→21:19)
[2019-10-13] MEDS: Heparin 5,000 UNITS/ML VIAL SC SCH ×3 (09:30→21:20)
[2019-10-13] MEDS: Nystatin 500,000 UNITS/5 ML UDCUP PO SCH ×4 (09:31→21:19)
[2019-10-13] MEDS: cycloSPORINE 0.05% Ophthalmic Droperette EA EYE SCH ×3 (09:31→21:17)
[2019-10-13] MEDS: levETIRAcetam 500 mg/5 ml Oral Solution PO SCH ×2 (09:41→22:47)
--- NOTE | 2019-10-13 09:49 | RAD ---
CHEST 1 VIEW: HISTORY: Cardiomegaly and pericardial effusion. COMPARISON: Radiograph 09/03/2019. FINDINGS: Heart size is moderately enlarged. Dual-lead pacer electrodes project over the right atrium and righ t ventricle. No acute osseous abnormality. Likely chronic subluxation of the right shoulder joint. IMPRESSION: No acute intrathoracic abnormality. POS: HOME
[2019-10-13 12:34] LABS: SARS-CoV-2 MS2 Positive; SARS-CoV-2 N Gene Negative; SARS-CoV-2 S Gene Negative; SARS-CoV-2 by NAA Not Detected (NotDetected); SARS-CoV-2 orf1ab Negative
--- NOTE | 2019-10-13 14:53 | PDOC.HOSPP ---
- Subjective Encounter Date: 10/13/19 Encounter Time: 10:30 Subjective: pt up in bed no complains - Objective Vital Signs & Weight: Vital Signs (12 hours) Temp Pulse Resp BP BP BP BP 10/13/19 11:44 97.5 F L 60 18 118/69 113/71 149/79 H 10/13/19 07:21 98.5 F 60 18 120/77 78/61 L 140/90 10/13/19 05:58 162/84 H 10/13/19 03:59 98.9 F 60 12 181/94 H Pulse Ox 10/13/19 11:44 98 10/13/19 07:21 98 10/13/19 05:58 10/13/19 03:59 94 L Weight Admit Weight 98 lb Weight 98 lb I&O: 10/12/19 10/13/19 10/14/19 06:59 06:59 06:59 Intake Total 230 480 Output Total 800 600 Balance -570 -120 Result Diagrams: 10/13/19 04:56 10/13/19 04:56 Hospitalist ROS - Review of Systems Respiratory: denies: cough, dry, shortness of breath, hemoptysis, SOB with excertion, pleuritic pain, sputum, wheezing, other Cardiovascular: denies: chest pain, palpitations, orthopnea, paroxysmal noc. dyspnea, edema, light headedness, other Gastrointestinal: denies: nausea, vomiting, abdominal pain, diarrhea, constipation, melena, hematochezia, other - Medication Medications: Active Medications Generic Name Dose Route Start Last Admin Trade Name Freq PRN Reason Stop Dose Admin Acetaminophen 650 mg 10/12/19 19:32 10/12/19 21:55 Tylenol PO 650 mg Q4H PRN Administration Headache/Fever/Mild Pain (1-3) Buspirone HCl 30 mg 10/13/19 09:00 10/13/19 09:30 Buspar PO 30 mg BID JOSE Administration Cyclosporine 0 ml 10/13/19 09:00 10/13/19 09:31 Restasis EA EYE 0.4 ml TID JOSE Administration Heparin Sodium (Porcine) 5,000 units 10/12/19 21:00 10/13/19 09:30 Heparin SC 5,000 units TID JOSE Administration Levetiracetam 750 mg 10/13/19 09:00 10/13/19 09:41 Keppra Oral Solution PO 750 mg BID JOSE Administration Nystatin 500,000 units 10/13/19 09:00 10/13/19 13:36 Mycostatin PO 500,000 units QID JOSE Administration Pantoprazole Sodium 40 mg 10/13/19 09:00 10/13/19 09:31 Protonix PO 40 mg DAILY JOSE Administration - Exam Heart: negative: RRR, no murmur, no gallops, no rubs, normal peripheral pulses, irregular, diminshed peripheral pulses, murmur present, II/IV, III/IV Respiratory: negative: CTAB, no wheezes, no rales, no ronchi, normal chest expansion, no tachypnea, normal percussion, rales, rhonchi, tachypneic, wheezes Gastrointestinal: negative: soft, non-tender, non-distended, normal bowel sounds , no palpable masses, no hepatomegaly, no splenomegaly, no bruit, no guarding, no rigidity, tender to palpation, distended, diminished bowl sounds, voluntary guarding Extremities: negative: no cyanosis, no clubbing, no edema, 1+ LE edema, 2+ LE edema, clubbing Hosp A/P (1) Syncope Code(s): R55 - SYNCOPE AND COLLAPSE Status: Acute (2) Orthostatic hypotension Code(s): I95.1 - ORTHOSTATIC HYPOTENSION Status: Acute (3) Seizure Code(s): R56.9 - UNSPECIFIED CONVULSIONS Status: Acute (4) UTI (urinary tract infection) Status: Acute Qualifiers: (5) Anxiety and depression Code(s): F41.8 - OTHER SPECIFIED ANXIETY DISORDERS Status: Chronic (6) CKD (chronic kidney disease) stage 4, GFR 15-29 ml/min Code(s): N18.4 - CHRONIC KIDNEY DISEASE, STAGE 4 (SEVERE) Status: Chronic (7) Chronic pain disorder Code(s): G89.4 - CHRONIC PAIN SYNDROME Status: Chronic (8) Fibromyalgia Status: Chronic - Plan pt states that she got up and felt dizzy and then had a syncopal episode. pt had positive orthostatic. According to her sometimes her bp elevates and at times it is low. will continue abx for now. pt does not ambulate. was told by case management to put pt inpatient.
[2019-10-13] MEDS: Gabapentin 300 MG CAP PO SCH ×2 (15:39→21:19)
[2019-10-13] MEDS: HYDROmorphone 2 MG TAB PO PRN (16:12)
[2019-10-13] MEDS: cefTRIAXone\\ROCEPHIN 1 GM in Sodium Chloride 0.9% 100 ML IVPB SCH (16:13)
[2019-10-13] MEDS ORDERED: traZODone HCl 50 MG TAB PO SCH (21:00)
[2019-10-13] MEDS ORDERED: valACYclovir 500 MG TAB PO SCH (21:00)
[2019-10-13] MEDS ORDERED: Fluticasone Propionate Nasal Spray 16 gm Bottle NASAL SCH (21:00)
[2019-10-13] MEDS ORDERED: Atorvastatin Calcium 20 MG TAB PO SCH (21:00)
[2019-10-13] MEDS: Escitalopram Oxalate 10 mg Tablet PO SCH (21:18)
[2019-10-13] MEDS: Metoprolol Tartrate 50 MG TAB PO SCH (21:18)
[2019-10-13] MEDS ORDERED: levETIRAcetam 500 MG TAB PO SCH (22:00)
[2019-10-14] MEDS: HYDROmorphone 2 MG TAB PO PRN ×2 (01:21→08:58)
[2019-10-14 07:18] VITALS: TEMP 98.1
--- NOTE | 2019-10-14 08:36 | CON ---
DATE OF CONSULTATION: 10/13/2019 PRIMARY CARE DOCTOR: Dr. Carlson PRIMARY MOLD INJECTOR: Dr. Cami Hester PRIMARY COLLAR PADDER BLINDSTITCH: Dr. Leos PRIMARY PRINTER FLOOR COVERING ASSISTANT: [facility]. REASON FOR CARDIOLOGY CONSULT: Syncopal episode. HISTORY OF PRESENT ILLNESS: Ms. Pastrana is a very present 73-year-old female with significant history of paroxysmal atrial fibrillations, systemic lupus, chronic anemia, chronic UTI, history of pacemaker placement in August 2019 for tachycardia syndrome, and severe orthostatic hypotension and sleep apnea with CPAP at night. The patient has been in the hospital in August for tachy-bradycardia, also severe orthostatic hypotension. The patient followed up with the hedge fund trader this Tuesday, a couple of days ago. The patient was told to continue current medication and also the patient was doing relatively well until yesterday, after she had lunch around 1:30, she kind of dozed off at chair and around 3:00, she awoke and when she got up to use the bedside commode, she started having shakiness and weakness to her bilateral knees and the next thing she remembers was she was on the floor and she was told so she was out for 5 minutes, but she did not have any speech difficulty or vision change or any other neurologic symptoms at that time. The patient was transferred to emergency department and the patient was found to have UTI and also the patient was transferred to [facility] for the observation. The patient also had severe orthostatic hypotension. The patient had echocardiograms done in August with EF 55% to 60% and grade 1 diastolic dysfunction. The patient had a pacemaker placement done in August 2019. The patient had a stress test done in August of 2018 with no ischemia. At this moment, the patient denies any chest pain, heaviness, tightness, dizziness, lightheadedness, or any other cardiac complaints. The patient has a good appetite this morning. PAST MEDICAL HISTORY: 1. Severe orthostatic hypotension. 2. 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 3. Paroxysmal atrial fibrillation/atrial tachycardia. 4. Chronic UTI. 5. Chronic anemia. 6. Lupus. 7. Rheumatoid arthritis. 8. Osteoarthritis. 9. Fibromyalgia. 10. Bursitis. 11. Raynaud syndrome. 12. Multiple fractures in both ankles. 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 14. Hernias. 15. Diverticulitis. 16. Electrolyte imbalance. 17. Mouth ulcer. 18. GI bleed. 19. Aspiration pneumonia. 20. Psoriasis. 21. Generalized seizure. PAST SURGICAL HISTORY: 1. Sinus surgery. 2. Appendectomy. 3. Hernia repair. 4. Hysterectomy. FAMILY HISTORY: Positive for diabetes. SOCIAL HISTORY: She is living with her and daughter. The patient denies EtOH, tobacco, or illicit drug abuse. Also she has a caregiver at the home. ALLERGIES: THE PATIENT IS ALLERGIC TO LYRICA AND PLAQUENIL. HOME MEDICATIONS: Please defer to the [employer] Medication list. REVIEW OF SYSTEMS: A 12-point review of systems negative unless otherwise mentioned in HPI. PHYSICAL EXAMINATION: VITAL SIGNS: This morning around 7:20, blood pressure 140/90 in the supine position, 120/77 in the sitting position, and 78/61 in the standing position. Pulse is around 60s, sinus rhythm. Temperature 98.5, respiratory rate 18, O2 saturation 98% on room air. GENERAL: The patient is alert and oriented x4, not in acute distress. HEAD: Normocephalic, atraumatic. EYES: Extraocular muscle movements are intact. ENT AND MOUTH: Oral and nasal mucosa moist without lesion. NECK: Supple. Normal range of motion. No JVD. Carotid pulses are present without bruit or thrill. RESPIRATORY: Lungs are clear to auscultate bilaterally. No wheezing, rales, or rhonchi noted. CARDIOVASCULAR: Regular rate and rhythm. Normal S1, S2. There is no S3 or S4. No significant murmur, heaves, or thrill noted. 2+ pulses in the right lower extremity. No edema in the lower extremities. ABDOMEN: Soft, nontender. No mass to palpate. Bowel sounds are present. MUSCULOSKELETAL: The patient is able to move upper and lower extremities, but due to the deformity in the left lower extremity, the patient needs assist for activities. NEUROLOGIC: The patient is alert and oriented x4, nonfocal. PSYCHIATRIC: The patient's mood is appropriate. SKIN: Warm and dry. No lesion, rash, or erythema noted. LABORATORY DATA: WBC 6.2, hemoglobin 11.4, hematocrit 35.6, platelets 205. Sodium 136, potassium 4.7, BUN 38, creatinine 1.92, calcium 8.6, AST 13, ALT 9. Troponin is 0.012, 0.013, and 0.023. The patient had cervical spine CT scan, showing multilevel degenerative changes present, but no acute fracture, subluxation, or facet malalignment. Brain CT scan shows no acute intracranial findings, but chronic ischemic white matter change. ASSESSMENT AND PLAN: 1. Syncopal episode. The patient's pacemaker was interrogated, which does not show any arrhythmia or pause. However, the patient's orthostatic vital signs showed the patient has severe orthostatic hypotension. The patient was recommended to wear the thigh-high compression stocking to the right lower extremity or or Ariel wrap to the stomach. So, we would like to refer to the patient's medication recommendation by the patient's hedge fund trader. 2. Urinary tract infection, which is managed by the patient's primary care doctor. 3. Paroxysmal atrial fibrillation and atrial tachycardia. The patient's pacemaker interrogation did not show any arrhythmia or pauses at this moment. She is on diltiazem and metoprolol at this moment. 4. Hypertension. The patient's blood pressure is stable at this moment with current medication. 5. Chronic kidney disease. We would like to defer to Dr. Leos. 6. Chronic anemia, which has been stable, which is managed by [facility]. 7. Sleep apnea. She has a CPAP at home. The patient might need a CPAP machine at beside while she in the hospital. 8. History of seizure, she is on the Keppra, which is managed by primary care doctor. Thank you very much for Cardiology Service consult request to participate in the care of this patient. We will follow along the patient's care team and make further recommendations as appropriate. Job ID: [id number]
[2019-10-14] MEDS: Heparin 5,000 UNITS/ML VIAL SC SCH ×2 (09:00→16:10)
[2019-10-14] MEDS: Nystatin 500,000 UNITS/5 ML UDCUP PO SCH ×3 (09:00→17:21)
[2019-10-14] MEDS ORDERED: levETIRAcetam 500 MG TAB PO SCH (09:00)
[2019-10-14] MEDS: busPIRone HCl 10 MG TAB PO SCH (09:00)
[2019-10-14] MEDS: Escitalopram Oxalate 10 mg Tablet PO SCH (09:01)
[2019-10-14] MEDS: Gabapentin 300 MG CAP PO SCH ×2 (09:02→16:10)
[2019-10-14] MEDS: Metoprolol Tartrate 50 MG TAB PO SCH (09:02)
--- NOTE | 2019-10-14 09:02 | CON ---
DATE OF CONSULTATION: 10/13/2019 ADDENDUM TO CARDIOLOGY CONSULTATION: HISTORY: A 73-year-old female who has orthostatic hypotension, also had sick sinus syndrome, for which she underwent a pacemaker insertion. She had another syncopal episode at home and was brought in by her daughter or by EMS after she was found essentially unresponsive, but she does have significant orthostatic hypotension here. Orthostatic hypotension shows when she is standing, the blood pressure goes to the 70s systolic, and it appears that she has had some more events as far as her orthostatic hypotension is concerned. She did have evaluation of the pacemaker, and the pacemaker was found to be functioning normally. No indication that she has any arrhythmias and no bradycardia was noted as the pacemaker is functioning normally and is pacing majority of time in the atrium and only rarely in the ventricle, but the function of the pacemaker is normal. For her past medical history, social history, family history, review of systems, medications, and allergies, and physical examination, please refer the notes dictated by my nurse practitioner, Almaz Acosta. IMPRESSION AND PLAN: A 73-year-old female with significant orthostatic hypotension to the point that she has now had a syncopal episode. She will need to continue to have support hose on the lower extremities as well as waist high support if at all possible, so this afternoon she was wrapped in the hospital with Ariel wraps on the lower extremities or hose on the lower extremities when possible and also had some Ariel wraps around the pelvic area and orthostatics were not as significant. She did drop her blood pressure down this evening but only from blood pressures in the, I believe, 140s and then dropped down to the one-teens but earlier had had systolic blood pressures in the 70s. We will continue to monitor her very carefully her medications. She has been placed on midodrine in the past. She can continue this medication at this time. We will continue to follow her very carefully. Her other medical problems needs to be dealt with by the hospital service, may need to continue to adjust her medications, but from a cardiac standpoint, she overall is stable. The autonomic nervous system problem causing her syncope we will try to assist with neurological evaluation. She also has had some history of seizures in the past and is on Keppra, but this apparently did not appear to be a seizure at this time. We will be more than happy to continue to follow her with you. Job ID: [id number]
[2019-10-14] MEDS: cycloSPORINE 0.05% Ophthalmic Droperette EA EYE SCH ×2 (09:07→16:10)
[2019-10-14] MEDS ORDERED: Midodrine HCl 5 MG TAB PO SCH ×3 (10:15→15:00)
--- NOTE | 2019-10-14 10:59 | PDOC.CPN ---
- Subjective Date: 10/14/19 Time: 11:04 Interval history: The pt seen and examined. No overnight events. No cardiac complaints. - Objective Allergies/Adverse Reactions: Allergies Allergy/AdvReac Type Severity Reaction Status Date / Time pregabalin [From Lyrica] Allergy Intermediate Verified 10/31/18 21:24 hydroxychloroquine Allergy Verified 10/31/18 21:24 [Hydroxychloroquine] hydroxychloroquine sulfate Allergy Verified 10/31/18 21:24 [From Plaquenil] Visit Medications: Current Medications Acetaminophen (Tylenol) 650 mg PO Q4H PRN PRN Reason: Headache/Fever/Mild Pain (1-3) Last Admin: 10/12/19 21:55 Dose: 650 mg Atorvastatin Calcium (Lipitor) 20 mg PO HS [facility] Last Admin: 10/13/19 21:19 Dose: 20 mg Buspirone HCl (Buspar) 30 mg PO BID [facility] Last Admin: 10/14/19 09:00 Dose: 30 mg Calcitriol (Rocaltrol) 0.25 mcg PO F [facility] Cyclosporine (Restasis) 0 ml EA EYE TID [facility] Last Admin: 10/14/19 09:07 Dose: 1 ml Ergocalciferol (Drisdol) 1.25 mg PO Q7D [facility] Escitalopram Oxalate (Lexapro) 10 mg PO BID [facility] Last Admin: 10/14/19 09:01 Dose: 10 mg Famotidine (Pepcid) 20 mg PO DAILYPRN PRN PRN Reason: Heartburn or Indigestion Fluticasone Propionate (Flonase Nasal [place]) 0 gm NASAL HS [facility] Last Admin: 10/13/19 21:20 Dose: 2 spray Gabapentin (Neurontin) 300 mg PO TID [facility] Last Admin: 10/14/19 09:02 Dose: 300 mg Heparin Sodium (Porcine) (Heparin) 5,000 units SC TID [facility] Last Admin: 10/14/19 09:00 Dose: Not Given Hydromorphone HCl (Dilaudid) 2 mg PO QIDPRN PRN PRN Reason: Pain Last Admin: 10/14/19 08:58 Dose: 2 mg Ceftriaxone Sodium 1 gm/ (Sodium Chloride) 100 mls @ 200 mls/hr IVPB Q24HR [facility] Last Admin: 10/13/19 16:13 Dose: 100 mls Levetiracetam (Keppra) 750 mg PO BID [facility] Last Admin: 10/14/19 09:01 Dose: 750 mg Metoprolol Tartrate (Lopressor) 75 mg PO BID [facility] Last Admin: 10/14/19 09:02 Dose: 75 mg Midodrine (Proamatine) 2.5 mg PO NOW [facility] Stop: 10/14/19 12:15 Last Admin: 10/14/19 10:40 Dose: 2.5 mg Nystatin (Mycostatin) 500,000 units PO QID [facility] Last Admin: 10/14/19 09:00 Dose: Not Given Ondansetron HCl (Zofran Odt) 8 mg PO TIDPRN PRN PRN Reason: Nausea/Vomiting Pantoprazole Sodium (Protonix) 40 mg PO DAILY [facility] Last Admin: 10/14/19 09:02 Dose: 40 mg Tizanidine HCl (Zanaflex) 2 mg PO TID PRN PRN Reason: Muscle Spasm Last Admin: 10/14/19 01:19 Dose: 2 mg Trazodone HCl (Desyrel) 50 mg PO [facility] Last Admin: 10/14/19 01:21 Dose: 50 mg Valacyclovir HCl (Valtrex) 500 mg PO [facility] Last Admin: 10/13/19 21:17 Dose: 500 mg Vital Signs & Weight: Vital Signs Temp Pulse Resp BP BP Pulse Ox 10/14/19 07:10 98.1 F 60 16 155/77 H 97 10/14/19 03:37 97.6 F 60 14 122/73 95 10/14/19 00:33 97.7 F 60 16 136/67 98 10/14/19 00:23 100 Admit Weight 98 lb Weight 98 lb - Physical Exam General: alert & oriented x3 HEENT: mucus membranes moist Neck: supple neck Cardiac: regular rate and rhythm, S1/S2 Lungs: decreased breath sounds Neuro: cranial nerve 2-12 intact - Labs Result Diagrams: 10/13/19 04:56 10/13/19 04:56 Troponin/CKMB Troponin I 0.023 ng/mL (< 0.028) 10/12/19 22:43 - Telemetry Sinus rhythms and dysrhythmias: sinus rhythm - Assessment/Plan Assessment/Plan: 1. Syncope 2/2 Orthostatic hypotension - PM interrogation showed no arrhythmia or pauses; 2. Orthostatic hypotension - improving with ASPEN wrap to waist and compression stocking to RLE; will resume Midodorine 2.5mg qd 3. S/p PM placement 2/2 SSS and prax Atach 4. HTN - stable 5. CKD stage 4 6. Hx of severe hyponatremia - stable 7. Chronic anemia 8. Hx of TIA 9. Sleep apnea with Cpap at HS MAR reviewed * From Cardiac standpoint, she can be d/haider home possible this afternoon or tomorrow if she is doing well with resuming Midodrine Pt. seen and eval. 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 I will try once a day Midodrine and see if the BP will be better during the day. If too high then stop and continue with ASPEN wraps. If the BP is stable, okay to d/c later today. pj
[2019-10-14 15:39] VITALS: BP 152/82
[2019-10-14] MEDS: cefTRIAXone\\ROCEPHIN 1 GM in Sodium Chloride 0.9% 100 ML IVPB SCH (16:51)
[2019-10-15] MEDS ORDERED: Midodrine HCl 5 MG TAB PO SCH (09:00)
[2019-10-15] MEDS ORDERED: Calcitriol 0.25 MCG CAP PO SCH (09:00)
--- NOTE | 2019-10-16 00:27 | DIS ---
DATE OF ADMISSION: 10/13/2019 DATE OF DISCHARGE: 10/14/2019 DISCHARGE DIAGNOSES: 1. Syncope. 2. Orthostatic hypertension. 3. Rheumatoid arthritis. 4. Urinary tract infection. 5. Seizures. 6. Anxiety and depression. HOSPITAL COURSE: The patient is a 73-year-old female, who initially presented to the hospital after getting up, feeling dizzy and had a syncopal episode. Her orthostatic was positive. The patient is not very ambulatory. She only transfers from the bed to the chair. Given her positive orthostatics, she was seen by Cardiology. Cardiology wanted the patient to be on midodrine once daily. The patient also was found to have UTI, which was sensitive to the third generation cephalosporins. The patient this time felt well. She was discharged home. She will follow up with her primary. HOME MEDICATIONS: Will be as of the following. She will be on: 1. Midodrine 2.5 mg daily. 2. She will also be on Omnicef 300 mg twice a day. 3. She will be on Florastor 250 daily. 4. Dilaudid 2 mg q.i.d. p.r.n. that is her baseline home medications. 5. Furosemide 20 mg as needed. 6. Keppra 750 mg b.i.d. 7. Gabapentin 300 mg t.i.d. 8. Protonix 40 mg daily. 9. Calcitriol one cap p.o. Tuesday, Tuesday, Tuesday. 10. Pepcid 20 mg daily p.r.n. 11. Metoprolol 75 mg twice a day. 12. Atorvastatin 20 mg p.o. daily. 13. Diltiazem as needed. 14. Aspirin 81 mg daily. PHYSICAL EXAMINATION: VITAL SIGNS: On discharge, temperature of 98.1, 60, 18, 97% on room air. Her blood pressure was 126/70. GENERAL: She is awake, alert, and oriented x3. Does not appear in distress. CV: S1, S2 present. No murmurs, rubs, or gallops. Again, she will be discharged home. She will follow up with her primary and also with Cardiology. Job ID: [id number]
[2019-10-18] MEDS ORDERED: Ergocalciferol 1.25 MG(50,000 UNITS) CAP PO SCH (09:00)
== END 2019-10-14 18:24 | disposition home or self-care (01) | DRG 312 ==
LOC: ERS 16:05 → 2SW 19:29 → OBSVTOIN 10-13 17:11
PROVIDERS: ADMIT Internal Medicine; ATTEND Internal Medicine
DX: I95.1 Orthostatic hypotension (principal); N39.0 Urinary tract infection, site not specified; N18.4 Chronic kidney disease, stage 4 (severe); M06.9 Rheumatoid arthritis, unspecified; M19.90 Unspecified osteoarthritis, unspecified site; M79.7 Fibromyalgia; I73.00 Raynaud's syndrome without gangrene; F41.9 Anxiety disorder, unspecified; I48.0 Paroxysmal atrial fibrillation; F32.9 Major depressive disorder, single episode, unspecified; M32.9 Systemic lupus erythematosus, unspecified; G47.30 Sleep apnea, unspecified; G40.909 Epilepsy, unspecified, not intractable, without status epilepticus; D64.9 Anemia, unspecified; Z20.828 Contact with and (suspected) exposure to other viral communicable diseases; I12.9 Hypertensive chronic kidney disease with stage 1 through stage 4 chronic kidney disease, or unspecified chronic kidney disease; G89.4 Chronic pain syndrome; Z90.49 Acquired absence of other specified parts of digestive tract; Z90.710 Acquired absence of both cervix and uterus; Z95.0 Presence of cardiac pacemaker; Z98.890 Other specified postprocedural states; Z88.8 Allergy status to other drugs, medicaments and biological substances
CPT/HCPCS: 36415; 70450; 71045; 72125; 80048; 80053; 81003; 81015; 82306; 83970; 84484; 85025; 87077; 87086; 87186; 87635; 93005; 94760; 96365; 96366; G0378; J0696; J1644; J3490; U0003

== ENCOUNTER 2020-03-20 12:43 | Outpatient (CLI) | payer MEDICARE, BC | END 2020-03-20 12:44 | disposition home or self-care (01) | LOC: MRI 12:43 | PROVIDERS: ATTEND Pain Medicine Interventional Pain Medicine | DX: M47.22 Other spondylosis with radiculopathy, cervical region (principal) | CPT/HCPCS: 72141 ==

== ENCOUNTER 2020-07-03 13:53 | Outpatient (CLI) | payer MEDICARE, BC ==
[2020-07-04 02:42] LABS: SARS-CoV-2 NAA Rapid Test Not Detected (NotDetected)
== END 2020-07-03 13:54 | disposition home or self-care (01) ==
LOC: LABBT 13:53
PROVIDERS: ATTEND Internal Medicine
DX: Z01.812 Encounter for preprocedural laboratory examination (principal); K59.03 Drug induced constipation; K62.3 Rectal prolapse; R10.13 Epigastric pain; R12 Heartburn; D64.9 Anemia, unspecified; Z20.822 Contact with and (suspected) exposure to COVID-19
CPT/HCPCS: U0003; U0005; 87635; U0002

== ENCOUNTER 2020-07-08 07:05 | Day surgery (SDC) | payer MEDICARE, BC ==
[2020-07-04 11:28] VITALS: BMI 19.5
[2020-07-08] MEDS ORDERED: PROPOFOL 200 MG/20 ML VIAL ONE (09:36)
== END 2020-07-08 11:22 | disposition home or self-care (01) ==
LOC: SDC 07:05
PROVIDERS: ATTEND Internal Medicine
PROC: 0DB98ZX Excision of Duodenum, Via Natural or Artificial Opening Endoscopic, Diagnostic (ICD-10-PCS; principal; 2020-07-08)
PROC: 0DB78ZX Excision of Stomach, Pylorus, Via Natural or Artificial Opening Endoscopic, Diagnostic (ICD-10-PCS; 2020-07-08)
DX: K29.50 Unspecified chronic gastritis without bleeding (principal); K25.9 Gastric ulcer, unspecified as acute or chronic, without hemorrhage or perforation; K31.7 Polyp of stomach and duodenum; K21.00 Gastro-esophageal reflux disease with esophagitis, without bleeding; D50.9 Iron deficiency anemia, unspecified; N18.9 Chronic kidney disease, unspecified; D63.1 Anemia in chronic kidney disease; M19.90 Unspecified osteoarthritis, unspecified site; K59.03 Drug induced constipation; T50.905A Adverse effect of unspecified drugs, medicaments and biological substances, initial encounter; K62.3 Rectal prolapse; Z86.010 Personal history of colon polyps; Z79.82 Long term (current) use of aspirin; Z79.899 Other long term (current) drug therapy; Z88.8 Allergy status to other drugs, medicaments and biological substances; Z95.0 Presence of cardiac pacemaker
CPT/HCPCS: 88305; 88312; J2704

== ENCOUNTER 2020-10-17 03:12 | Emergency (ER) | payer MEDICARE, BC ==
[2020-10-17] MEDS ORDERED: Ondansetron PF 4 MG/2 ML Vial ONE (03:31)
[2020-10-17] MEDS ORDERED: Acetaminophen 500 MG TAB ONE (03:31)
[2020-10-17] MEDS ORDERED: Morphine 4 MG/ML VIAL ONE (03:31)
[2020-10-17 04:33] LABS: #Basophils 0.1 thou/uL (0.0-0.2); #Eosinphils 0.1 thou/uL (0.0-0.7); #Lymphocytes 1.2 thou/uL (1.20-3.40); #Monocytes 0.4 thou/uL (0.11-0.59); %Basophils 1.4 % (0.0-1.0); %Eosinophils 1.9 % (0.0-10.0); %Lymphocytes 17.3 % (21.0-51.0); %Monocytes 5.6 % (0.0-10.0); %Neutrophils 73.8 % (42.0-75.0); Hemoglobin 11.6 g/dL (12.0-16.0); Mean Corpuscular HGB CONC 31.2 g/dL (32.0-36.0); Mean Corpuscular Hemoglobin 30.7 pg (27.0-31.0); Mean Corpuscular Volume 98.4 fL (78.0-98.0); Mean Platelet Volume 7.7 fL (7.4-10.4); Platelet Count 194 thou/uL (130-400); RBC Distribution Width 17.8 % (11.5-14.5); Red Blood Cell (RBC) Count 3.78 mill/uL (4.20-5.40); White Blood Cell (WBC) Count 6.7 thou/uL (4.8-10.8)
[2020-10-17] MEDS ORDERED: Boostrix 0.5 ML (Tdap) VIAL ONE (04:38)
[2020-10-17 04:54] LABS: ALT (SGPT) 23 U/L (8-55); AST (SGOT) 45 U/L (5-34); Albumin 2.5 g/dL (3.4-4.8); Alkaline Phosphatase 110 U/L (40-110); Anion Gap 13 mmol/L (10-20); BUN (Urea Nitrogen) 33 mg/dL (9.8-20.1); Bilirubin, Total 0.6 mg/dL (0.2-1.2); Calc. Creatinine Clearance 0 mL/min (70-130); Calcium 7.7 mg/dL (7.8-10.44); Carbon Dioxide 26 mmol/L (23-31); Chloride 102 mmol/L (98-107); Glucose 87 mg/dL (83-110); Potassium 4.7 mmol/L (3.5-5.1); Protein, Total 5.5 g/dL (5.8-8.1); Sodium 136 mmol/L (136-145)
[2020-10-17 05:59] LABS: Bacteria/HPF 3+ HPF (None Seen); Bilirubin Negative (Negative); Blood, Urine Negative (Negative); Clarity Turbid (Clear); Glucose, Urine (Dipstick) Normal (Negative); Ketone, Urine Negative (Negative); Leukocyte 250 Leu/uL (Negative); Nitrite 2+ (Negative); Protein, Urine (Dipstick) 10 mg/dL (Neg-Trace); RBC/HPF 0-3 HPF (0-3); Specific Gravity, Urine 1.011 (1.002-1.036); Urobilinogen Normal mg/dL (Less than 2); WBC/HPF 21-50 HPF (0-3)
== END 2020-10-17 06:33 | disposition home or self-care (01) ==
LOC: ERS 03:12
DX: S01.81XA Laceration without foreign body of other part of head, initial encounter (principal); N39.0 Urinary tract infection, site not specified; D64.9 Anemia, unspecified; M32.9 Systemic lupus erythematosus, unspecified; M79.7 Fibromyalgia; M81.0 Age-related osteoporosis without current pathological fracture; M19.90 Unspecified osteoarthritis, unspecified site; M06.9 Rheumatoid arthritis, unspecified; K21.9 Gastro-esophageal reflux disease without esophagitis; I73.00 Raynaud's syndrome without gangrene; I48.91 Unspecified atrial fibrillation; G47.30 Sleep apnea, unspecified; N18.9 Chronic kidney disease, unspecified; Z23 Encounter for immunization; W06.XXXA Fall from bed, initial encounter; Y92.009 Unspecified place in unspecified non-institutional (private) residence as the place of occurrence of the external cause
CPT/HCPCS: 12011; 36415; 70450; 71045; 72125; 80053; 81003; 81015; 84484; 85025; 87077; 87086; 87186; 90471; 90715; 93005; 96374; 96375; J2270; J2405

== ENCOUNTER 2020-10-29 06:09 | Inpatient (IN) | payer MEDICARE, BC ==
[2020-10-29 07:23] LABS: #Basophils 0.1 thou/uL (0.0-0.2); #Eosinphils 0.2 thou/uL (0.0-0.7); #Monocytes 0.4 thou/uL (0.11-0.59); #Neutrophils 3.2 thou/uL (1.40-6.50); %Basophils 1.2 % (0.0-1.0); %Eosinophils 4.6 % (0.0-10.0); %Lymphocytes 20.5 % (21.0-51.0); %Monocytes 7.8 % (0.0-10.0); Mean Corpuscular Hemoglobin 30.7 pg (27.0-31.0); Mean Corpuscular Volume 99.1 fL (78.0-98.0); Mean Platelet Volume 7.6 fL (7.4-10.4); Platelet Count 184 thou/uL (130-400); RBC Distribution Width 18.4 % (11.5-14.5); Red Blood Cell (RBC) Count 4.24 mill/uL (4.20-5.40); White Blood Cell (WBC) Count 4.9 thou/uL (4.8-10.8)
[2020-10-29 07:46] LABS: ALT (SGPT) 17 U/L (8-55); AST (SGOT) 34 U/L (5-34); Albumin 2.9 g/dL (3.4-4.8); Alkaline Phosphatase 103 U/L (40-110); Anion Gap 15 mmol/L (10-20); BUN (Urea Nitrogen) 32 mg/dL (9.8-20.1); Bilirubin, Total 0.9 mg/dL (0.2-1.2); Calc. Creatinine Clearance 0 mL/min (70-130); Calcium 8.7 mg/dL (7.8-10.44); Carbon Dioxide 25 mmol/L (23-31); Chloride 102 mmol/L (98-107); Globulin 2.9 g/dL (2.4-3.5); Glucose 79 mg/dL (83-110); Lipase 86 U/L (8-78); Potassium 4.3 mmol/L (3.5-5.1); Protein, Total 5.8 g/dL (5.8-8.1); Sodium 138 mmol/L (136-145)
[2020-10-29] MEDS ORDERED: Vancomycin 1 GM/200 ML BAG ONE (07:50)
[2020-10-29] MEDS ORDERED: cefOXitin Sodium/Dextrose 2 GM/50 ML BAG ONE (07:50)
[2020-10-29] MEDS ORDERED: Acetaminophen 325 MG TAB ONE (07:50)
[2020-10-29] MEDS ORDERED: Cefepime 2 GM VIAL ONE (07:55)
[2020-10-29] MEDS ORDERED: Iopamidol-370 76% 500 ML 1 ML ONE (09:08)
[2020-10-29 09:54] LABS: Bilirubin Negative (Negative); Blood, Urine Negative (Negative); Clarity Clear (Clear); Glucose, Urine (Dipstick) Normal (Negative); Ketone, Urine Trace mg/dL (Negative); Leukocyte Negative Leu/uL (Negative); Nitrite Negative (Negative); Protein, Urine (Dipstick) 10 mg/dL (Neg-Trace); Specific Gravity, Urine 1.014 (1.002-1.036); Urobilinogen Normal mg/dL (Less than 2); pH, Urine 7.5 (5.0-9.0)
[2020-10-29] MEDS ORDERED: hydrALAZINE 20 MG/ML VIAL SLOW IVP PRN ×2 (11:27→13:35)
[2020-10-29] MEDS ORDERED: Ondansetron PF 4 MG/2 ML Vial IVP PRN (11:27)
[2020-10-29 11:41] LABS: Troponin I 0.016 ng/mL (< 0.028)
[2020-10-29 14:16] LABS: SARS-CoV-2 NAA Rapid Test Not Detected (NotDetected)
[2020-10-29] MEDS ORDERED: hydrALAZINE 20 MG/ML VIAL ONE (16:24)
[2020-10-29 16:25] LABS: Troponin I 0.038 ng/mL (< 0.028)
[2020-10-29 18:00] VITALS: BMI 18.9
[2020-10-29] MEDS: Acetaminophen 325 MG TAB PO PRN (23:42)
[2020-10-30] MEDS ORDERED: traZODone HCl 50 MG TAB PO SCH (01:45)
[2020-10-30 07:57] LABS: #Basophils 0.1 thou/uL (0.0-0.2); #Eosinphils 0.2 thou/uL (0.0-0.7); #Lymphocytes 1.3 thou/uL (1.20-3.40); #Monocytes 0.4 thou/uL (0.11-0.59); #Neutrophils 3.5 thou/uL (1.40-6.50); %Basophils 1.5 % (0.0-1.0); %Eosinophils 3.4 % (0.0-10.0); %Lymphocytes 23.8 % (21.0-51.0); %Monocytes 7.5 % (0.0-10.0); %Neutrophils 63.8 % (42.0-75.0); Hemoglobin 12.7 g/dL (12.0-16.0); Mean Corpuscular HGB CONC 31.6 g/dL (32.0-36.0); Mean Platelet Volume 7.6 fL (7.4-10.4); Platelet Count 179 thou/uL (130-400); RBC Distribution Width 18.2 % (11.5-14.5); Red Blood Cell (RBC) Count 4.11 mill/uL (4.20-5.40); White Blood Cell (WBC) Count 5.5 thou/uL (4.8-10.8)
[2020-10-30] MEDS ORDERED: Bisacodyl 10 MG SUPP PR PRN (08:02)
[2020-10-30] MEDS ORDERED: HYDROmorphone 2 MG TAB PO PRN ×3 (08:10→09:15)
[2020-10-30] MEDS ORDERED: Famotidine 20 MG TAB PO PRN (08:10)
[2020-10-30] MEDS ORDERED: Calcitriol 0.25 MCG CAP PO SCH (08:15)
[2020-10-30 08:17] LABS: Anion Gap 12 mmol/L (10-20); BUN (Urea Nitrogen) 36 mg/dL (9.8-20.1); Calc. Creatinine Clearance 20 mL/min (70-130); Calcium 8.1 mg/dL (7.8-10.44); Carbon Dioxide 24 mmol/L (23-31); Cardiac Risk 3.1 (Less than 4.5); Chloride 105 mmol/L (98-107); Cholesterol 153 mg/dl (< 200 Desired); Glucose 90 mg/dL (83-110); HDL Cholesterol 50 mg/dL (>60 Neg Risk); LDL Cholesterol, Calculated 93 mg/dL; Potassium 3.9 mmol/L (3.5-5.1); Sodium 137 mmol/L (136-145); Triglycerides 52 mg/dL (Less than 150)
[2020-10-30] MEDS ORDERED: Non-Formulary Item 1 EACH (Buspirone Hcl [Buspirone Hcl] 15 MG Tablet) PO SCH (09:00)
[2020-10-30] MEDS ORDERED: SACCHAROMYCES BOULARDII 250 MG PO SCH (09:00)
[2020-10-30] MEDS ORDERED: cycloSPORINE 0.05% Ophthalmic Droperette EA EYE SCH (09:00)
[2020-10-30] MEDS ORDERED: Non-Formulary Item 1 EACH (Ferrous Sulfate [Ferrous Sulfate] 325 MG Tab) PO SCH (09:00)
[2020-10-30] MEDS ORDERED: Enoxaparin Sodium 40 MG/0.4 ML SYRINGE SC SCH (09:00)
[2020-10-30] MEDS ORDERED: Nystatin 500,000 UNITS/5 ML UDCUP PO SCH ×2 (09:00→13:00)
[2020-10-30] MEDS: Polyethylene Glycol 3350 17 GM Packet PO SCH (09:29)
[2020-10-30] MEDS: Acetaminophen 325 MG TAB PO PRN ×2 (09:29→23:49)
[2020-10-30] MEDS: Labetalol 100 MG TAB PO SCH ×2 (09:30→20:43)
[2020-10-30] MEDS: Ferrous Sulfate 325 MG TAB PO SCH (09:30)
[2020-10-30] MEDS: Aspirin 81 mg Enteric Coated Tablet PO SCH (09:30)
[2020-10-30] MEDS: Senokot S 8.6-50 MG TAB PO SCH ×2 (09:30→20:42)
[2020-10-30] MEDS: Escitalopram Oxalate 10 mg Tablet PO SCH ×2 (09:30→20:44)
[2020-10-30] MEDS: Meclizine HCl 25 MG TAB PO SCH ×4 (09:30→20:43)
[2020-10-30] MEDS: Saccharomyces boulardii 250 MG CAP PO SCH (09:30)
[2020-10-30] MEDS: Gabapentin 300 MG CAP PO SCH ×2 (09:30→20:42)
[2020-10-30 10:23] LABS: Troponin I 0.072 ng/mL (< 0.028)
[2020-10-30] MEDS: cycloSPORINE 0.05% Ophthalmic Droperette EA EYE SCH ×2 (10:36→20:45)
[2020-10-30] MEDS: Sodium Bicarbonate Tab 325 MG TAB PO SCH ×2 (13:52→20:43)
[2020-10-30] MEDS: HYDROmorphone 2 MG TAB PO SCH ×2 (13:53→20:41)
[2020-10-30] MEDS ORDERED: Amlodipine 10 MG TAB PO SCH (18:00)
[2020-10-30] MEDS ORDERED: Amlodipine 5 MG TAB PO SCH (18:00)
[2020-10-30] MEDS: Fluticasone Propionate Nasal Spray 16 gm Bottle NASAL SCH (20:40)
[2020-10-30] MEDS: traZODone HCl 50 MG TAB PO SCH (20:42)
[2020-10-30] MEDS: Atorvastatin Calcium 20 MG TAB PO SCH (20:43)
[2020-10-30] MEDS: busPIRone HCl 10 MG TAB PO SCH (20:44)
[2020-10-30] MEDS: valACYclovir 500 MG TAB PO SCH (20:44)
[2020-10-30] MEDS ORDERED: Fluticasone Propionate Nasal Spray 16 gm Bottle NASAL SCH (21:00)
[2020-10-31 06:08] LABS: Anion Gap 13 mmol/L (10-20); BUN (Urea Nitrogen) 41 mg/dL (9.8-20.1); Calc. Creatinine Clearance 21 mL/min (70-130); Calcium 7.8 mg/dL (7.8-10.44); Carbon Dioxide 23 mmol/L (23-31); Chloride 105 mmol/L (98-107); Glucose 96 mg/dL (83-110); Potassium 3.9 mmol/L (3.5-5.1); Sodium 137 mmol/L (136-145)
[2020-10-31] MEDS ORDERED: Calcitriol 0.25 MCG CAP PO SCH (09:00)
[2020-10-31 09:16] LABS: Troponin I 0.041 ng/mL (< 0.028)
[2020-10-31] MEDS: Enoxaparin Sodium 30 MG/0.3 ML SYRINGE SC SCH (10:00)
[2020-10-31] MEDS: Saccharomyces boulardii 250 MG CAP PO SCH (10:00)
[2020-10-31] MEDS: Gabapentin 300 MG CAP PO SCH ×2 (10:00→21:31)
[2020-10-31] MEDS: Meclizine HCl 25 MG TAB PO SCH ×4 (10:00→21:29)
[2020-10-31] MEDS: Escitalopram Oxalate 10 mg Tablet PO SCH ×2 (10:00→21:30)
[2020-10-31] MEDS: Senokot S 8.6-50 MG TAB PO SCH ×2 (10:00→21:28)
[2020-10-31] MEDS: HYDROmorphone 2 MG TAB PO SCH ×3 (10:00→21:29)
[2020-10-31] MEDS: Sodium Bicarbonate Tab 325 MG TAB PO SCH ×3 (10:00→21:29)
[2020-10-31] MEDS: Ferrous Sulfate 325 MG TAB PO SCH (10:00)
[2020-10-31] MEDS: Polyethylene Glycol 3350 17 GM Packet PO SCH (10:00)
[2020-10-31] MEDS: Labetalol 100 MG TAB PO SCH ×2 (10:00→21:34)
[2020-10-31] MEDS: Aspirin 81 mg Enteric Coated Tablet PO SCH (10:00)
[2020-10-31] MEDS: busPIRone HCl 10 MG TAB PO SCH ×2 (10:00→21:29)
[2020-10-31] MEDS: cycloSPORINE 0.05% Ophthalmic Droperette EA EYE SCH ×2 (11:43→21:36)
[2020-10-31] MEDS ORDERED: Ergocalciferol 1.25 MG(50,000 UNITS) CAP PO SCH (14:15)
[2020-10-31] MEDS ORDERED: Amlodipine 5 MG TAB PO SCH (17:00)
[2020-10-31] MEDS ORDERED: Amlodipine 10 MG TAB PO SCH (17:00)
[2020-10-31] MEDS: Fluticasone Propionate Nasal Spray 16 gm Bottle NASAL SCH (21:26)
[2020-10-31] MEDS: Atorvastatin Calcium 20 MG TAB PO SCH (21:27)
[2020-10-31] MEDS: valACYclovir 500 MG TAB PO SCH (21:36)
[2020-10-31] MEDS: Amlodipine 5 MG TAB PO SCH (21:37)
[2020-11-01] MEDS: traZODone HCl 50 MG TAB PO SCH (01:59)
[2020-11-01 06:03] LABS: Troponin I 0.037 ng/mL (< 0.028)
[2020-11-01] MEDS: Enoxaparin Sodium 30 MG/0.3 ML SYRINGE SC SCH (09:31)
[2020-11-01] MEDS: Saccharomyces boulardii 250 MG CAP PO SCH (09:31)
[2020-11-01] MEDS: Senokot S 8.6-50 MG TAB PO SCH (09:32)
[2020-11-01] MEDS: Meclizine HCl 25 MG TAB PO SCH ×3 (09:33→17:32)
[2020-11-01] MEDS: Sodium Bicarbonate Tab 325 MG TAB PO SCH ×2 (09:33→14:09)
[2020-11-01] MEDS: Aspirin 81 mg Enteric Coated Tablet PO SCH (09:33)
[2020-11-01] MEDS: Gabapentin 300 MG CAP PO SCH (09:33)
[2020-11-01] MEDS: Amlodipine 5 MG TAB PO SCH (09:34)
[2020-11-01] MEDS: Labetalol 100 MG TAB PO SCH (09:34)
[2020-11-01] MEDS: busPIRone HCl 10 MG TAB PO SCH (09:34)
[2020-11-01] MEDS: Ferrous Sulfate 325 MG TAB PO SCH (09:35)
[2020-11-01] MEDS: Polyethylene Glycol 3350 17 GM Packet PO SCH (09:35)
[2020-11-01] MEDS: Escitalopram Oxalate 10 mg Tablet PO SCH (09:35)
[2020-11-01] MEDS: cycloSPORINE 0.05% Ophthalmic Droperette EA EYE SCH (09:36)
[2020-11-01] MEDS: HYDROmorphone 2 MG TAB PO SCH ×2 (10:22→14:43)
[2020-11-01 17:53] VITALS: BP 158/100; TEMP 97.9
[2020-11-05] MEDS ORDERED: Ergocalciferol 1.25 MG(50,000 UNITS) CAP PO SCH (09:00)
== END 2020-11-01 18:45 | disposition home health service (06) | DRG 304 ==
LOC: ERS 06:09 → ERHOLD 10:38 → 3SE 17:36 → OBSVTOIN 10-30 15:40
PROVIDERS: ADMIT Internal Medicine; ATTEND Hospitalist
DX: I16.1 Hypertensive emergency (principal); G93.41 Metabolic encephalopathy; E44.0 Moderate protein-calorie malnutrition; Z68.1 Body mass index [BMI] 19.9 or less, adult; N17.9 Acute kidney failure, unspecified; Z20.822 Contact with and (suspected) exposure to COVID-19; E78.5 Hyperlipidemia, unspecified; M06.9 Rheumatoid arthritis, unspecified; M79.7 Fibromyalgia; M32.9 Systemic lupus erythematosus, unspecified; N18.30 Chronic kidney disease, stage 3 unspecified; K21.9 Gastro-esophageal reflux disease without esophagitis; I12.9 Hypertensive chronic kidney disease with stage 1 through stage 4 chronic kidney disease, or unspecified chronic kidney disease; G40.909 Epilepsy, unspecified, not intractable, without status epilepticus; I25.10 Atherosclerotic heart disease of native coronary artery without angina pectoris; I08.0 Rheumatic disorders of both mitral and aortic valves; I95.1 Orthostatic hypotension; R78.89 Finding of other specified substances, not normally found in blood; G89.29 Other chronic pain; K59.00 Constipation, unspecified; Z88.8 Allergy status to other drugs, medicaments and biological substances; Z79.899 Other long term (current) drug therapy; Z79.82 Long term (current) use of aspirin; Z87.440 Personal history of urinary (tract) infections; Z90.49 Acquired absence of other specified parts of digestive tract; Z95.810 Presence of automatic (implantable) cardiac defibrillator
CPT/HCPCS: 36415; 51701; 70450; 70551; 71045; 72072; 72100; 74177; 76705; 80048; 80053; 80061; 81003; 83605; 83690; 84484; 85025; 87040; 87086; 93005; 93306; 95712; 95819; 95957; 96372; 96375; G0378; J0360; J0692; J0694; J1650; J3370; Q9967; U0002

== ENCOUNTER 2022-10-08 14:49 | Inpatient (IN) | payer MEDICARE, BC ==
[2022-10-08 16:29] LABS: #Monocytes 0.5 thou/uL (0.11-0.59); #Neutrophils 6.9 thou/uL (1.40-6.50); %Basophils 0.1 % (0.0-1.0); %Eosinophils 0.4 % (0.0-10.0); %Lymphocytes 8.4 % (21.0-51.0); %Monocytes 6.4 % (0.0-10.0); %Neutrophils 84.2 % (42.0-75.0); Hematocrit 13.4 % (36.0-47.0); Mean Corpuscular HGB CONC 29.9 g/dL (32.0-36.0); Mean Corpuscular Volume 93.7 fl (78.0-98.0); Mean Platelet Volume 9.6 fL (7.4-10.4); Platelet Count 251 10x3/uL (130-400); RBC Distribution Width 17.3 % (11.5-14.5); Red Blood Cell (RBC) Count 1.43 mill/uL (4.20-5.40); White Blood Cell (WBC) Count 8.2 10x3/uL (4.8-10.8)
[2022-10-08 16:42] LABS: INR-International Normal Ratio 2.2; PTT 41.5 sec (22.9-36.1); Prothrombin Time 24.9 sec (12.0-14.7)
[2022-10-08 16:51] LABS: ALT (SGPT) 7 U/L (8-55); AST (SGOT) 13 U/L (5-34); Albumin 2.6 g/dL (3.4-4.8); Alkaline Phosphatase 46 U/L (40-110); Anion Gap 21 mmol/L (10-20); BUN (Urea Nitrogen) 103 mg/dL (9.8-20.1); Bilirubin, Total 0.3 mg/dL (0.2-1.2); Calc. Creatinine Clearance 0 mL/min (70-130); Calcium 8.9 mg/dL (7.8-10.44); Carbon Dioxide 21 mmol/L (23-31); Chloride 95 mmol/L (98-107); Estimated GFR 18; Globulin 2.4 g/dL (2.4-3.5); Glucose 109 mg/dL (83-110); Lipase 9 U/L (8-78); Potassium 5.3 mmol/L (3.5-5.1); Sodium 132 mmol/L (136-145)
[2022-10-08] MEDS ORDERED: Ondansetron ODT 8 MG TAB PO PRN (17:57)
[2022-10-08] MEDS ORDERED: Morphine 2 MG/ML VIAL SLOW IVP SCH (18:00)
[2022-10-08 20:26] VITALS: BMI 18.8
[2022-10-08] MEDS ORDERED: Famotidine 20 MG TAB PO SCH (21:00)
[2022-10-08] MEDS ORDERED: Famotidine/PF 20 mg/2ml Vial SLOW IVP SCH (21:00)
[2022-10-08] MEDS: busPIRone HCl 10 MG TAB PO SCH (21:56)
[2022-10-08] MEDS: Atorvastatin Calcium 20 MG TAB PO SCH (21:56)
[2022-10-08] MEDS: Calcitriol 0.25 MCG CAP PO SCH (21:56)
[2022-10-08] MEDS: Pantoprazole 40 MG VIAL IVP SCH (21:59)
[2022-10-08] MEDS: Gabapentin 300 MG CAP PO SCH (21:59)
[2022-10-08] MEDS: Escitalopram Oxalate 10 mg Tablet PO SCH (21:59)
[2022-10-08] MEDS: Sodium Bicarbonate Tab 325 MG TAB PO SCH (22:00)
[2022-10-08] MEDS: Labetalol HCl 100 MG TAB PO SCH (22:00)
[2022-10-08] MEDS: oxyCODONE 5 MG TAB PO SCH (22:01)
[2022-10-08] MEDS: traZODone HCl 50 MG TAB PO SCH (22:01)
[2022-10-08 22:11] LABS: Troponin I 0.025 ng/mL (< 0.028)
[2022-10-08] MEDS: Fluticasone Propionate Nasal Spray 16 gm Bottle NASAL SCH (23:03)
[2022-10-09 04:31] LABS: #Monocytes 0.8 thou/uL (0.11-0.59); #Neutrophils 9.6 thou/uL (1.40-6.50); %Basophils 0.3 % (0.0-1.0); %Eosinophils 0.1 % (0.0-10.0); %Lymphocytes 6.7 % (21.0-51.0); %Monocytes 6.8 % (0.0-10.0); %Neutrophils 85.6 % (42.0-75.0); Mean Corpuscular HGB CONC 32.2 g/dL (32.0-36.0); Mean Corpuscular Hemoglobin 30.3 pg (27.0-31.0); Mean Corpuscular Volume 94.3 fl (78.0-98.0); Mean Platelet Volume 9.6 fL (7.4-10.4); Platelet Count 186 10x3/uL (130-400); RBC Distribution Width 14.8 % (11.5-14.5); Red Blood Cell (RBC) Count 2.44 mill/uL (4.20-5.40); White Blood Cell (WBC) Count 11.3 10x3/uL (4.8-10.8)
[2022-10-09 04:47] LABS: Hemoglobin 7.4 g/dL (12.0-16.0)
[2022-10-09 05:01] LABS: Troponin I 0.034 ng/mL (< 0.028)
[2022-10-09 05:02] LABS: ALT (SGPT) Less than 7 U/L (8-55); AST (SGOT) 12 U/L (5-34); Albumin 2.4 g/dL (3.4-4.8); Alkaline Phosphatase 49 U/L (40-110); Anion Gap 18 mmol/L (10-20); BUN (Urea Nitrogen) 108 mg/dL (9.8-20.1); Bilirubin, Total 0.7 mg/dL (0.2-1.2); Calc. Creatinine Clearance 14 mL/min (70-130); Calcium 8.4 mg/dL (7.8-10.44); Carbon Dioxide 20 mmol/L (23-31); Chloride 97 mmol/L (98-107); Estimated GFR 19; Globulin 2.1 g/dL (2.4-3.5); Glucose 82 mg/dL (83-110); Potassium 4.7 mmol/L (3.5-5.1); Protein, Total 4.5 g/dL (5.8-8.1); Sodium 130 mmol/L (136-145)
[2022-10-09] MEDS: oxyCODONE 5 MG TAB PO SCH ×4 (07:09→21:38)
[2022-10-09] MEDS ORDERED: Senokot S 8.6-50 MG TAB PO SCH (09:32)
[2022-10-09] MEDS ORDERED: Polyethylene Glycol 3350 17 GM Packet PO SCH (09:32)
[2022-10-09] MEDS: Sodium Bicarbonate Tab 325 MG TAB PO SCH ×3 (09:41→21:38)
[2022-10-09] MEDS: Calcitriol 0.25 MCG CAP PO SCH ×2 (09:41→21:36)
[2022-10-09] MEDS: Gabapentin 300 MG CAP PO SCH ×2 (09:42→21:37)
[2022-10-09] MEDS: busPIRone HCl 10 MG TAB PO SCH ×2 (09:42→21:35)
[2022-10-09] MEDS: Escitalopram Oxalate 10 mg Tablet PO SCH ×2 (09:42→21:36)
[2022-10-09] MEDS: Famotidine/PF 20 mg/2ml Vial SLOW IVP SCH (09:43)
[2022-10-09] MEDS: Labetalol HCl 100 MG TAB PO SCH ×2 (09:44→21:37)
[2022-10-09] MEDS: Pantoprazole 40 MG VIAL IVP SCH ×2 (09:44→21:38)
[2022-10-09] MEDS ORDERED: Bisacodyl 10 MG SUPP PR SCH (09:45)
[2022-10-09] MEDS: Saccharomyces boulardii 250 MG CAP PO SCH (16:44)
[2022-10-09] MEDS: Ferrous Sulfate 325 MG TAB PO SCH (16:44)
[2022-10-09] MEDS: Atorvastatin Calcium 20 MG TAB PO SCH (21:35)
[2022-10-09] MEDS: Fluticasone Propionate Nasal Spray 16 gm Bottle NASAL SCH (21:36)
[2022-10-09] MEDS: traZODone HCl 50 MG TAB PO SCH (21:38)
[2022-10-09] MEDS: valACYclovir 500 MG TAB PO SCH (21:38)
[2022-10-09] MEDS: Senokot S 8.6-50 MG TAB PO SCH (21:38)
[2022-10-10 04:58] LABS: #Eosinphils 0.3 thou/uL (0.0-0.7); #Monocytes 0.8 thou/uL (0.11-0.59); #Neutrophils 9.1 thou/uL (1.40-6.50); %Basophils 0.4 % (0.0-1.0); %Eosinophils 2.6 % (0.0-10.0); %Lymphocytes 8.1 % (21.0-51.0); %Monocytes 7.4 % (0.0-10.0); %Neutrophils 80.9 % (42.0-75.0); Hematocrit 23.9 % (36.0-47.0); Hemoglobin 7.5 g/dL (12.0-16.0); Mean Corpuscular HGB CONC 31.4 g/dL (32.0-36.0); Mean Corpuscular Hemoglobin 30.2 pg (27.0-31.0); Mean Corpuscular Volume 96.4 fl (78.0-98.0); Platelet Count 223 10x3/uL (130-400); RBC Distribution Width 15.8 % (11.5-14.5); Red Blood Cell (RBC) Count 2.48 mill/uL (4.20-5.40); White Blood Cell (WBC) Count 11.3 10x3/uL (4.8-10.8)
[2022-10-10 05:18] LABS: Anion Gap 19 mmol/L (10-20); BUN (Urea Nitrogen) 101 mg/dL (9.8-20.1); Calc. Creatinine Clearance 15 mL/min (70-130); Calcium 8.6 mg/dL (7.8-10.44); Carbon Dioxide 20 mmol/L (23-31); Chloride 97 mmol/L (98-107); Estimated GFR 21; Glucose 87 mg/dL (83-110); Potassium 4.5 mmol/L (3.5-5.1); Sodium 131 mmol/L (136-145)
[2022-10-10] MEDS: oxyCODONE 5 MG TAB PO SCH ×3 (06:24→21:26)
[2022-10-10] MEDS: busPIRone HCl 10 MG TAB PO SCH ×3 (09:14→21:38)
[2022-10-10] MEDS: Polyethylene Glycol 3350 17 GM Packet PO SCH (09:15)
[2022-10-10] MEDS: tiZANidine HCl 4 MG TAB PO PRN (09:15)
[2022-10-10] MEDS: Sodium Bicarbonate Tab 325 MG TAB PO SCH ×4 (09:15→21:39)
[2022-10-10] MEDS: Senokot S 8.6-50 MG TAB PO SCH ×3 (09:16→21:39)
[2022-10-10] MEDS: Gabapentin 300 MG CAP PO SCH ×3 (09:16→21:37)
[2022-10-10] MEDS: Calcitriol 0.25 MCG CAP PO SCH ×3 (09:16→21:39)
[2022-10-10] MEDS: Escitalopram Oxalate 10 mg Tablet PO SCH ×3 (09:16→21:39)
[2022-10-10] MEDS: Labetalol HCl 100 MG TAB PO SCH ×3 (09:17→21:39)
[2022-10-10] MEDS: Famotidine/PF 20 mg/2ml Vial SLOW IVP SCH (09:17)
[2022-10-10] MEDS: Pantoprazole 40 MG VIAL IVP SCH ×3 (09:17→21:39)
[2022-10-10] MEDS ORDERED: Bisacodyl 10 MG SUPP PR SCH (11:00)
[2022-10-10] MEDS: Sodium Chloride 0.9% 1,000 ML IV SCH (13:31)
[2022-10-10] MEDS: Ferrous Sulfate 325 MG TAB PO SCH (16:40)
[2022-10-10] MEDS: Saccharomyces boulardii 250 MG CAP PO SCH (16:40)
[2022-10-10] MEDS: traZODone HCl 50 MG TAB PO SCH (21:24)
[2022-10-10] MEDS: Atorvastatin Calcium 20 MG TAB PO SCH (21:24)
[2022-10-10] MEDS: valACYclovir 500 MG TAB PO SCH (21:26)
[2022-10-10] MEDS: Fluticasone Propionate Nasal Spray 16 gm Bottle NASAL SCH (21:26)
[2022-10-11] MEDS: Sodium Chloride 0.9% 1,000 ML IV SCH ×2 (00:42→14:20)
[2022-10-11 04:42] LABS: #Basophils 0.1 thou/uL (0.0-0.2); #Eosinphils 0.3 thou/uL (0.0-0.7); #Monocytes 1.1 thou/uL (0.11-0.59); #Neutrophils 9.1 thou/uL (1.40-6.50); %Basophils 0.4 % (0.0-1.0); %Eosinophils 2.7 % (0.0-10.0); %Lymphocytes 6.4 % (21.0-51.0); %Monocytes 9.8 % (0.0-10.0); %Neutrophils 80.2 % (42.0-75.0); Hematocrit 26.6 % (36.0-47.0); Hemoglobin 8.3 g/dL (12.0-16.0); Mean Corpuscular HGB CONC 31.2 g/dL (32.0-36.0); Mean Corpuscular Hemoglobin 29.6 pg (27.0-31.0); Mean Platelet Volume 8.8 fL (7.4-10.4); Platelet Count 232 10x3/uL (130-400); RBC Distribution Width 15.4 % (11.5-14.5); White Blood Cell (WBC) Count 11.3 10x3/uL (4.8-10.8)
[2022-10-11 05:10] LABS: Anion Gap 16 mmol/L (10-20); BUN (Urea Nitrogen) 86 mg/dL (9.8-20.1); Calc. Creatinine Clearance 17 mL/min (70-130); Calcium 8.9 mg/dL (7.8-10.44); Carbon Dioxide 20 mmol/L (23-31); Chloride 98 mmol/L (98-107); Estimated GFR 24; Glucose 92 mg/dL (83-110); Potassium 4.7 mmol/L (3.5-5.1); Sodium 129 mmol/L (136-145)
[2022-10-11] MEDS: oxyCODONE 5 MG TAB PO SCH ×3 (05:39→23:10)
[2022-10-11] MEDS: Sodium Bicarbonate Tab 325 MG TAB PO SCH ×3 (08:12→20:15)
[2022-10-11] MEDS: Escitalopram Oxalate 10 mg Tablet PO SCH ×2 (08:12→20:14)
[2022-10-11] MEDS: Pantoprazole 40 MG VIAL IVP SCH ×2 (08:12→20:15)
[2022-10-11] MEDS: busPIRone HCl 10 MG TAB PO SCH ×2 (08:12→20:14)
[2022-10-11] MEDS: Naloxegol 12.5 MG TAB PO SCH (08:12)
[2022-10-11] MEDS: Bisacodyl 10 MG SUPP PR SCH (08:13)
[2022-10-11] MEDS: Senokot S 8.6-50 MG TAB PO SCH ×2 (08:13→20:15)
[2022-10-11] MEDS: Polyethylene Glycol 3350 17 GM Packet PO SCH (08:13)
[2022-10-11] MEDS: Labetalol HCl 100 MG TAB PO SCH ×2 (08:13→20:14)
[2022-10-11] MEDS: Famotidine/PF 20 mg/2ml Vial SLOW IVP SCH (08:13)
[2022-10-11] MEDS: Gabapentin 300 MG CAP PO SCH ×2 (08:13→20:13)
[2022-10-11] MEDS: Calcitriol 0.25 MCG CAP PO SCH ×2 (08:13→20:15)
[2022-10-11] MEDS ORDERED: GoLYTELY 4,000 ml Bottle PO SCH (11:15)
[2022-10-11] MEDS: Saccharomyces boulardii 250 MG CAP PO SCH (16:32)
[2022-10-11] MEDS: Ferrous Sulfate 325 MG TAB PO SCH (16:32)
[2022-10-11] MEDS: QUEtiapine 25 MG TAB PO SCH (20:14)
[2022-10-11] MEDS: Fluticasone Propionate Nasal Spray 16 gm Bottle NASAL SCH (20:15)
[2022-10-11] MEDS: valACYclovir 500 MG TAB PO SCH (20:15)
[2022-10-11] MEDS: traZODone HCl 50 MG TAB PO SCH (20:15)
[2022-10-11] MEDS: Atorvastatin Calcium 20 MG TAB PO SCH (20:15)
[2022-10-11] MEDS: tiZANidine HCl 4 MG TAB PO PRN (20:15)
[2022-10-12] MEDS: Sodium Chloride 0.9% 1,000 ML IV SCH ×2 (04:33→15:21)
[2022-10-12] MEDS: oxyCODONE 5 MG TAB PO SCH ×3 (05:31→21:13)
[2022-10-12] MEDS: Naloxegol 12.5 MG TAB PO SCH (09:22)
[2022-10-12] MEDS: Sodium Bicarbonate Tab 325 MG TAB PO SCH ×3 (09:23→21:13)
[2022-10-12] MEDS: busPIRone HCl 10 MG TAB PO SCH ×2 (09:24→21:14)
[2022-10-12] MEDS: Calcitriol 0.25 MCG CAP PO SCH ×2 (09:24→21:15)
[2022-10-12] MEDS: Labetalol HCl 100 MG TAB PO SCH ×2 (09:24→21:15)
[2022-10-12] MEDS: Escitalopram Oxalate 10 mg Tablet PO SCH ×2 (09:25→21:14)
[2022-10-12] MEDS: Gabapentin 300 MG CAP PO SCH ×2 (09:25→21:14)
[2022-10-12] MEDS: Senokot S 8.6-50 MG TAB PO SCH ×2 (09:25→21:14)
[2022-10-12] MEDS: Famotidine/PF 20 mg/2ml Vial SLOW IVP SCH (09:26)
[2022-10-12] MEDS: Pantoprazole 40 MG VIAL IVP SCH ×2 (09:26→21:15)
[2022-10-12] MEDS: Polyethylene Glycol 3350 17 GM Packet PO SCH (09:26)
[2022-10-12] MEDS: Bisacodyl 10 MG SUPP PR SCH (09:26)
[2022-10-12 11:14] LABS: #Basophils 0.1 thou/uL (0.0-0.2); #Eosinphils 0.4 thou/uL (0.0-0.7); #Monocytes 0.7 thou/uL (0.11-0.59); #Neutrophils 7.5 thou/uL (1.40-6.50); %Basophils 0.6 % (0.0-1.0); %Eosinophils 4.1 % (0.0-10.0); %Lymphocytes 9.2 % (21.0-51.0); %Monocytes 7.4 % (0.0-10.0); %Neutrophils 78.3 % (42.0-75.0); Hematocrit 24.1 % (36.0-47.0); Hemoglobin 7.5 g/dL (12.0-16.0); Mean Corpuscular HGB CONC 31.1 g/dL (32.0-36.0); Mean Corpuscular Hemoglobin 30.4 pg (27.0-31.0); Mean Corpuscular Volume 97.6 fl (78.0-98.0); Mean Platelet Volume 9.1 fL (7.4-10.4); Platelet Count 249 10x3/uL (130-400); RBC Distribution Width 15.2 % (11.5-14.5); Red Blood Cell (RBC) Count 2.47 mill/uL (4.20-5.40); White Blood Cell (WBC) Count 9.5 10x3/uL (4.8-10.8)
[2022-10-12 11:42] LABS: Anion Gap 13 mmol/L (10-20); BUN (Urea Nitrogen) 72 mg/dL (9.8-20.1); Calc. Creatinine Clearance 20 mL/min (70-130); Calcium 8.5 mg/dL (7.8-10.44); Carbon Dioxide 20 mmol/L (23-31); Chloride 103 mmol/L (98-107); Estimated GFR 28; Glucose 112 mg/dL (83-110); Potassium 4.4 mmol/L (3.5-5.1); Sodium 132 mmol/L (136-145)
[2022-10-12] MEDS ORDERED: GoLYTELY 4,000 ml Bottle PO SCH (14:30)
[2022-10-12] MEDS: Ferrous Sulfate 325 MG TAB PO SCH (18:22)
[2022-10-12] MEDS: Saccharomyces boulardii 250 MG CAP PO SCH (18:22)
[2022-10-12] MEDS: valACYclovir 500 MG TAB PO SCH (21:13)
[2022-10-12] MEDS: traZODone HCl 50 MG TAB PO SCH (21:13)
[2022-10-12] MEDS: Atorvastatin Calcium 20 MG TAB PO SCH (21:13)
[2022-10-12] MEDS: QUEtiapine 25 MG TAB PO SCH (21:14)
[2022-10-12] MEDS: Fluticasone Propionate Nasal Spray 16 gm Bottle NASAL SCH (21:15)
[2022-10-13 04:35] LABS: Anion Gap 13 mmol/L (10-20); BUN (Urea Nitrogen) 62 mg/dL (9.8-20.1); Calc. Creatinine Clearance 23 mL/min (70-130); Calcium 8.2 mg/dL (7.8-10.44); Carbon Dioxide 20 mmol/L (23-31); Chloride 107 mmol/L (98-107); Estimated GFR 34; Glucose 91 mg/dL (83-110); Potassium 4.7 mmol/L (3.5-5.1); Sodium 135 mmol/L (136-145)
[2022-10-13] MEDS: oxyCODONE 5 MG TAB PO SCH ×3 (05:39→21:35)
[2022-10-13] MEDS: Sodium Chloride 0.9% 1,000 ML IV SCH ×2 (05:39→18:04)
[2022-10-13] MEDS: Pantoprazole 40 MG VIAL IVP SCH ×2 (09:28→21:37)
[2022-10-13] MEDS: Naloxegol 12.5 MG TAB PO SCH (09:28)
[2022-10-13] MEDS: Sodium Bicarbonate Tab 325 MG TAB PO SCH ×3 (09:29→21:35)
[2022-10-13] MEDS: Calcitriol 0.25 MCG CAP PO SCH ×3 (09:29→21:35)
[2022-10-13] MEDS: Labetalol HCl 100 MG TAB PO SCH ×2 (09:29→21:36)
[2022-10-13] MEDS: Escitalopram Oxalate 10 mg Tablet PO SCH ×2 (09:29→21:36)
[2022-10-13] MEDS: Senokot S 8.6-50 MG TAB PO SCH ×2 (09:30→21:38)
[2022-10-13] MEDS: busPIRone HCl 10 MG TAB PO SCH ×2 (09:30→21:36)
[2022-10-13] MEDS: Gabapentin 300 MG CAP PO SCH ×2 (09:30→21:37)
[2022-10-13] MEDS: Polyethylene Glycol 3350 17 GM Packet PO SCH (09:30)
[2022-10-13] MEDS: Bisacodyl 10 MG SUPP PR SCH (09:30)
[2022-10-13] MEDS: Famotidine/PF 20 mg/2ml Vial SLOW IVP SCH (09:30)
[2022-10-13 09:59] LABS: #Basophils 0.1 thou/uL (0.0-0.2); #Eosinphils 0.4 thou/uL (0.0-0.7); #Monocytes 0.8 thou/uL (0.11-0.59); #Neutrophils 7.8 thou/uL (1.40-6.50); %Basophils 0.6 % (0.0-1.0); %Eosinophils 3.8 % (0.0-10.0); %Monocytes 7.7 % (0.0-10.0); %Neutrophils 78.5 % (42.0-75.0); Hematocrit 23.7 % (36.0-47.0); Hemoglobin 7.1 g/dL (12.0-16.0); Mean Corpuscular Hemoglobin 30.1 pg (27.0-31.0); Mean Corpuscular Volume 100.4 fl (78.0-98.0); Mean Platelet Volume 8.7 fL (7.4-10.4); Platelet Count 229 10x3/uL (130-400); RBC Distribution Width 15.5 % (11.5-14.5); Red Blood Cell (RBC) Count 2.36 mill/uL (4.20-5.40); White Blood Cell (WBC) Count 9.9 10x3/uL (4.8-10.8)
[2022-10-13] MEDS: Ferrous Sulfate 325 MG TAB PO SCH (18:03)
[2022-10-13] MEDS: Saccharomyces boulardii 250 MG CAP PO SCH (18:03)
[2022-10-13] MEDS ORDERED: Bisacodyl 10 MG SUPP PR PRN (19:14)
[2022-10-13] MEDS: traZODone HCl 50 MG TAB PO SCH (21:36)
[2022-10-13] MEDS: valACYclovir 500 MG TAB PO SCH (21:36)
[2022-10-13] MEDS: QUEtiapine 25 MG TAB PO SCH (21:36)
[2022-10-13] MEDS: Atorvastatin Calcium 20 MG TAB PO SCH (21:37)
[2022-10-13 21:45] LABS: Iron 26 ug/dL (50-170); Iron Binding Capacity, Total 160 mcg/dL (265-497); Transferrin, Serum 128 mg/dL (173-360)
[2022-10-13] MEDS: Fluticasone Propionate Nasal Spray 16 gm Bottle NASAL SCH (22:18)
[2022-10-14] MEDS: oxyCODONE 5 MG TAB PO SCH (06:04)
[2022-10-14 06:11] LABS: #Basophils 0.1 thou/uL (0.0-0.2); #Eosinphils 0.5 thou/uL (0.0-0.7); #Monocytes 0.7 thou/uL (0.11-0.59); %Basophils 0.8 % (0.0-1.0); %Lymphocytes 10.8 % (21.0-51.0); %Monocytes 7.8 % (0.0-10.0); %Neutrophils 75.3 % (42.0-75.0); Hemoglobin 7.6 g/dL (12.0-16.0); Mean Corpuscular HGB CONC 30.4 g/dL (32.0-36.0); Mean Corpuscular Hemoglobin 29.6 pg (27.0-31.0); Mean Platelet Volume 8.8 fL (7.4-10.4); Platelet Count 250 10x3/uL (130-400); RBC Distribution Width 15.2 % (11.5-14.5); Red Blood Cell (RBC) Count 2.57 mill/uL (4.20-5.40); White Blood Cell (WBC) Count 9.3 10x3/uL (4.8-10.8)
[2022-10-14 06:15] LABS: Mean Corpuscular Volume 97.3 fl (78.0-98.0)
[2022-10-14 06:38] LABS: Anion Gap 11 mmol/L (10-20); BUN (Urea Nitrogen) 52 mg/dL (9.8-20.1); Calc. Creatinine Clearance 23 mL/min (70-130); Calcium 8.3 mg/dL (7.8-10.44); Carbon Dioxide 22 mmol/L (23-31); Chloride 104 mmol/L (98-107); Estimated GFR 34; Glucose 94 mg/dL (83-110); Potassium 4.5 mmol/L (3.5-5.1); Sodium 132 mmol/L (136-145)
[2022-10-14] MEDS: Senokot S 8.6-50 MG TAB PO SCH ×2 (08:11→20:05)
[2022-10-14] MEDS: Bisacodyl 10 MG SUPP PR SCH (08:11)
[2022-10-14] MEDS: Polyethylene Glycol 3350 17 GM Packet PO SCH (08:11)
[2022-10-14] MEDS: Pantoprazole 40 MG VIAL IVP SCH ×2 (09:43→20:09)
[2022-10-14] MEDS: Labetalol HCl 100 MG TAB PO SCH ×2 (09:43→20:06)
[2022-10-14] MEDS: Naloxegol 12.5 MG TAB PO SCH (09:43)
[2022-10-14] MEDS: Sodium Bicarbonate Tab 325 MG TAB PO SCH ×3 (09:43→20:07)
[2022-10-14] MEDS: Famotidine/PF 20 mg/2ml Vial SLOW IVP SCH (09:44)
[2022-10-14] MEDS: Gabapentin 300 MG CAP PO SCH ×2 (09:44→20:07)
[2022-10-14] MEDS: Escitalopram Oxalate 10 mg Tablet PO SCH ×2 (09:44→20:08)
[2022-10-14] MEDS: Sodium Chloride 0.9% 1,000 ML IV SCH ×2 (09:44→21:14)
[2022-10-14] MEDS: busPIRone HCl 10 MG TAB PO SCH ×2 (09:44→20:08)
[2022-10-14] MEDS: Calcitriol 0.25 MCG CAP PO SCH ×2 (09:46→20:03)
[2022-10-14] MEDS: Ferrous Sulfate 325 MG TAB PO SCH (17:21)
[2022-10-14] MEDS: Saccharomyces boulardii 250 MG CAP PO SCH (17:21)
[2022-10-14] MEDS: Atorvastatin Calcium 20 MG TAB PO SCH (20:06)
[2022-10-14] MEDS: QUEtiapine 25 MG TAB PO SCH (20:08)
[2022-10-14] MEDS: traZODone HCl 50 MG TAB PO SCH (20:08)
[2022-10-14] MEDS: Fluticasone Propionate Nasal Spray 16 gm Bottle NASAL SCH (20:12)
[2022-10-14] MEDS: valACYclovir 500 MG TAB PO SCH (20:12)
[2022-10-14] MEDS: tiZANidine HCl 4 MG TAB PO PRN (20:18)
[2022-10-14] MEDS: Acetaminophen 500 MG TAB PO PRN (20:31)
[2022-10-15] MEDS: Sodium Chloride 0.9% 1,000 ML IV SCH (04:27)
[2022-10-15] MEDS: Acetaminophen 500 MG TAB PO PRN (04:30)
[2022-10-15 06:56] LABS: #Basophils 0.1 thou/uL (0.0-0.2); #Eosinphils 0.5 thou/uL (0.0-0.7); #Monocytes 0.6 thou/uL (0.11-0.59); #Neutrophils 5.1 thou/uL (1.40-6.50); %Eosinophils 6.8 % (0.0-10.0); %Lymphocytes 12.3 % (21.0-51.0); %Monocytes 8.9 % (0.0-10.0); %Neutrophils 70.6 % (42.0-75.0); Hematocrit 21.6 % (36.0-47.0); Hemoglobin 6.7 g/dL (12.0-16.0); Mean Corpuscular Hemoglobin 29.9 pg (27.0-31.0); Mean Corpuscular Volume 96.4 fl (78.0-98.0); Mean Platelet Volume 8.7 fL (7.4-10.4); Platelet Count 223 10x3/uL (130-400); RBC Distribution Width 15.1 % (11.5-14.5); Red Blood Cell (RBC) Count 2.24 mill/uL (4.20-5.40); White Blood Cell (WBC) Count 7.2 10x3/uL (4.8-10.8)
[2022-10-15 07:30] LABS: Anion Gap 10 mmol/L (10-20); BUN (Urea Nitrogen) 42 mg/dL (9.8-20.1); Calc. Creatinine Clearance 26 mL/min (70-130); Calcium 7.6 mg/dL (7.8-10.44); Carbon Dioxide 18 mmol/L (23-31); Chloride 107 mmol/L (98-107); Estimated GFR 39; Glucose 98 mg/dL (83-110); Potassium 4.1 mmol/L (3.5-5.1); Sodium 131 mmol/L (136-145)
[2022-10-15] MEDS: Bisacodyl 10 MG SUPP PR SCH (07:52)
[2022-10-15] MEDS: Famotidine/PF 20 mg/2ml Vial SLOW IVP SCH (09:59)
[2022-10-15] MEDS: Gabapentin 300 MG CAP PO SCH ×2 (10:00→20:22)
[2022-10-15] MEDS: Sodium Bicarbonate Tab 325 MG TAB PO SCH ×3 (10:00→20:19)
[2022-10-15] MEDS: Escitalopram Oxalate 10 mg Tablet PO SCH ×2 (10:00→20:21)
[2022-10-15] MEDS: busPIRone HCl 10 MG TAB PO SCH ×2 (10:00→20:21)
[2022-10-15] MEDS: Calcitriol 0.25 MCG CAP PO SCH ×2 (10:00→20:21)
[2022-10-15] MEDS: Labetalol HCl 100 MG TAB PO SCH ×2 (10:01→20:24)
[2022-10-15] MEDS: Pantoprazole 40 MG VIAL IVP SCH ×2 (10:01→20:19)
[2022-10-15] MEDS: Naloxegol 12.5 MG TAB PO SCH (10:02)
[2022-10-15] MEDS: Polyethylene Glycol 3350 17 GM Packet PO SCH ×2 (10:03→20:19)
[2022-10-15] MEDS: Senokot S 8.6-50 MG TAB PO SCH ×2 (10:04→20:22)
[2022-10-15] MEDS ORDERED: Polyethylene Glycol 3350 17 GM Packet PO SCH (10:15)
[2022-10-15] MEDS ORDERED: Furosemide 40 MG/4 ML VIAL SLOW IVP SCH (12:15)
[2022-10-15] MEDS: oxyCODONE 5 MG TAB PO SCH ×2 (14:33→21:58)
[2022-10-15] MEDS: hydrALAZINE 20 MG/ML VIAL SLOW IVP PRN (16:18)
[2022-10-15] MEDS: Ferrous Sulfate 325 MG TAB PO SCH (18:14)
[2022-10-15] MEDS: Saccharomyces boulardii 250 MG CAP PO SCH (18:14)
[2022-10-15] MEDS: Bisacodyl 10 MG SUPP PR PRN (18:15)
[2022-10-15] MEDS: Fluticasone Propionate Nasal Spray 16 gm Bottle NASAL SCH (20:17)
[2022-10-15] MEDS: valACYclovir 500 MG TAB PO SCH (20:21)
[2022-10-15] MEDS: Atorvastatin Calcium 20 MG TAB PO SCH (20:23)
[2022-10-15] MEDS: traZODone HCl 50 MG TAB PO SCH (20:24)
[2022-10-16] MEDS: Acetaminophen 500 MG TAB PO PRN (03:22)
[2022-10-16] MEDS: hydrALAZINE 20 MG/ML VIAL SLOW IVP PRN (04:01)
[2022-10-16] MEDS: oxyCODONE 5 MG TAB PO SCH ×3 (06:19→22:19)
[2022-10-16 07:32] LABS: Anion Gap 11 mmol/L (10-20); BUN (Urea Nitrogen) 46 mg/dL (9.8-20.1); Calc. Creatinine Clearance 20 mL/min (70-130); Calcium 8.6 mg/dL (7.8-10.44); Carbon Dioxide 22 mmol/L (23-31); Chloride 102 mmol/L (98-107); Estimated GFR 29; Glucose 92 mg/dL (83-110); Potassium 4.3 mmol/L (3.5-5.1); Sodium 131 mmol/L (136-145)
[2022-10-16 08:04] LABS: #Basophils 0.1 thou/uL (0.0-0.2); #Eosinphils 0.5 thou/uL (0.0-0.7); #Monocytes 0.7 thou/uL (0.11-0.59); #Neutrophils 6.6 thou/uL (1.40-6.50); %Basophils 0.8 % (0.0-1.0); %Eosinophils 5.4 % (0.0-10.0); %Lymphocytes 10.6 % (21.0-51.0); %Monocytes 8.3 % (0.0-10.0); %Neutrophils 74.4 % (42.0-75.0); Hematocrit 30.2 % (36.0-47.0); Mean Corpuscular HGB CONC 32.1 g/dL (32.0-36.0); Mean Corpuscular Hemoglobin 29.9 pg (27.0-31.0); Mean Corpuscular Volume 93.2 fl (78.0-98.0); Mean Platelet Volume 8.6 fL (7.4-10.4); Platelet Count 272 10x3/uL (130-400); RBC Distribution Width 15.7 % (11.5-14.5); Red Blood Cell (RBC) Count 3.24 mill/uL (4.20-5.40); White Blood Cell (WBC) Count 8.9 10x3/uL (4.8-10.8)
[2022-10-16 08:19] LABS: Hemoglobin 9.7 g/dL (12.0-16.0)
[2022-10-16 08:39] LABS: Prothrombin Time 13.9 sec (12.0-14.7)
[2022-10-16] MEDS: Naloxegol 12.5 MG TAB PO SCH (08:58)
[2022-10-16] MEDS: Labetalol HCl 100 MG TAB PO SCH ×2 (08:58→20:16)
[2022-10-16] MEDS: Famotidine/PF 20 mg/2ml Vial SLOW IVP SCH (08:58)
[2022-10-16] MEDS: Sodium Bicarbonate Tab 325 MG TAB PO SCH ×3 (09:00→20:12)
[2022-10-16] MEDS: Polyethylene Glycol 3350 17 GM Packet PO SCH ×2 (09:00→20:20)
[2022-10-16] MEDS: Pantoprazole 40 MG VIAL IVP SCH ×2 (09:00→20:12)
[2022-10-16] MEDS: busPIRone HCl 10 MG TAB PO SCH ×2 (09:01→20:14)
[2022-10-16] MEDS: Gabapentin 300 MG CAP PO SCH ×2 (09:01→20:13)
[2022-10-16] MEDS: Escitalopram Oxalate 10 mg Tablet PO SCH ×2 (09:02→20:14)
[2022-10-16] MEDS: Senokot S 8.6-50 MG TAB PO SCH ×2 (09:02→20:15)
[2022-10-16] MEDS: Calcitriol 0.25 MCG CAP PO SCH ×2 (09:12→20:15)
[2022-10-16] MEDS: Bisacodyl 10 MG SUPP PR SCH (09:12)
[2022-10-16] MEDS ORDERED: Glycerin Adult Supp. (24 ct jar) PR PRN (09:45)
[2022-10-16] MEDS: Bisacodyl 10 MG SUPP PR PRN (12:49)
[2022-10-16] MEDS ORDERED: GoLYTELY 4,000 ml Bottle PO SCH (16:00)
[2022-10-16] MEDS: Saccharomyces boulardii 250 MG CAP PO SCH (16:39)
[2022-10-16] MEDS: Ferrous Sulfate 325 MG TAB PO SCH (16:39)
[2022-10-16] MEDS: Fluticasone Propionate Nasal Spray 16 gm Bottle NASAL SCH (20:11)
[2022-10-16] MEDS: traZODone HCl 50 MG TAB PO SCH (20:13)
[2022-10-16] MEDS: valACYclovir 500 MG TAB PO SCH (20:13)
[2022-10-16] MEDS: Atorvastatin Calcium 20 MG TAB PO SCH (20:15)
[2022-10-17 06:24] LABS: #Basophils 0.1 thou/uL (0.0-0.2); #Eosinphils 0.4 thou/uL (0.0-0.7); #Monocytes 0.9 thou/uL (0.11-0.59); #Neutrophils 5.8 thou/uL (1.40-6.50); %Basophils 1.1 % (0.0-1.0); %Eosinophils 4.7 % (0.0-10.0); %Lymphocytes 11.1 % (21.0-51.0); %Monocytes 11.4 % (0.0-10.0); %Neutrophils 71.2 % (42.0-75.0); Hematocrit 28.8 % (36.0-47.0); Hemoglobin 9.4 g/dL (12.0-16.0); Mean Corpuscular HGB CONC 32.6 g/dL (32.0-36.0); Mean Corpuscular Hemoglobin 30.2 pg (27.0-31.0); Mean Corpuscular Volume 92.6 fl (78.0-98.0); Mean Platelet Volume 8.7 fL (7.4-10.4); Platelet Count 260 10x3/uL (130-400); RBC Distribution Width 15.4 % (11.5-14.5); Red Blood Cell (RBC) Count 3.11 mill/uL (4.20-5.40); White Blood Cell (WBC) Count 8.1 10x3/uL (4.8-10.8)
[2022-10-17 06:53] LABS: Anion Gap 12 mmol/L (10-20); BUN (Urea Nitrogen) 43 mg/dL (9.8-20.1); Calc. Creatinine Clearance 22 mL/min (70-130); Calcium 8.5 mg/dL (7.8-10.44); Carbon Dioxide 24 mmol/L (23-31); Chloride 99 mmol/L (98-107); Estimated GFR 32; Glucose 87 mg/dL (83-110); Potassium 4.3 mmol/L (3.5-5.1); Sodium 131 mmol/L (136-145)
[2022-10-17] MEDS: oxyCODONE 5 MG TAB PO SCH ×3 (08:17→22:06)
[2022-10-17] MEDS: Naloxegol 12.5 MG TAB PO SCH (09:41)
[2022-10-17] MEDS: busPIRone HCl 10 MG TAB PO SCH ×2 (09:41→21:04)
[2022-10-17] MEDS: Bisacodyl 10 MG SUPP PR SCH (09:41)
[2022-10-17] MEDS: Famotidine/PF 20 mg/2ml Vial SLOW IVP SCH (09:42)
[2022-10-17] MEDS: Labetalol HCl 100 MG TAB PO SCH ×2 (09:42→21:07)
[2022-10-17] MEDS: Gabapentin 300 MG CAP PO SCH ×2 (09:42→21:05)
[2022-10-17] MEDS: Escitalopram Oxalate 10 mg Tablet PO SCH ×2 (09:42→21:06)
[2022-10-17] MEDS: Calcitriol 0.25 MCG CAP PO SCH ×2 (09:42→21:02)
[2022-10-17] MEDS: Pantoprazole 40 MG VIAL IVP SCH ×2 (09:43→21:08)
[2022-10-17] MEDS: Sodium Bicarbonate Tab 325 MG TAB PO SCH ×3 (09:43→21:02)
[2022-10-17] MEDS: Polyethylene Glycol 3350 17 GM Packet PO SCH ×2 (09:43→21:03)
[2022-10-17] MEDS: Senokot S 8.6-50 MG TAB PO SCH ×2 (09:43→21:02)
[2022-10-17] MEDS ORDERED: Lidocaine 1% PF 5 ML VIAL ONE (13:03)
[2022-10-17] MEDS ORDERED: PROPOFOL 200 MG/20 ML VIAL ONE (13:03)
[2022-10-17] MEDS ORDERED: Promethazine HCl 25 MG/ML VIAL IM PRN (14:03)
[2022-10-17] MEDS ORDERED: Ondansetron HCl/PF 4 MG/2 ML Vial IVP PRN (14:03)
[2022-10-17] MEDS: Ferrous Sulfate 325 MG TAB PO SCH (17:19)
[2022-10-17] MEDS: Saccharomyces boulardii 250 MG CAP PO SCH (17:19)
[2022-10-17] MEDS: Atorvastatin Calcium 20 MG TAB PO SCH (21:02)
[2022-10-17] MEDS: traZODone HCl 50 MG TAB PO SCH (21:04)
[2022-10-17] MEDS: valACYclovir 500 MG TAB PO SCH (21:05)
[2022-10-17] MEDS: Fluticasone Propionate Nasal Spray 16 gm Bottle NASAL SCH (22:06)
[2022-10-18] MEDS: oxyCODONE 5 MG TAB PO SCH ×2 (05:37→14:47)
[2022-10-18 05:55] LABS: #Basophils 0.1 thou/uL (0.0-0.2); #Eosinphils 0.3 thou/uL (0.0-0.7); #Monocytes 0.8 thou/uL (0.11-0.59); #Neutrophils 4.6 thou/uL (1.40-6.50); %Basophils 0.9 % (0.0-1.0); %Eosinophils 4.2 % (0.0-10.0); %Lymphocytes 12.9 % (21.0-51.0); %Monocytes 12.3 % (0.0-10.0); %Neutrophils 69.4 % (42.0-75.0); Hemoglobin 8.4 g/dL (12.0-16.0); Mean Corpuscular HGB CONC 32.3 g/dL (32.0-36.0); Mean Corpuscular Hemoglobin 29.5 pg (27.0-31.0); Mean Corpuscular Volume 91.2 fl (78.0-98.0); Mean Platelet Volume 9.1 fL (7.4-10.4); Platelet Count 237 10x3/uL (130-400); RBC Distribution Width 15.1 % (11.5-14.5); Red Blood Cell (RBC) Count 2.85 mill/uL (4.20-5.40); White Blood Cell (WBC) Count 6.7 10x3/uL (4.8-10.8)
[2022-10-18 06:21] LABS: Anion Gap 12 mmol/L (10-20); BUN (Urea Nitrogen) 39 mg/dL (9.8-20.1); Calc. Creatinine Clearance 22 mL/min (70-130); Carbon Dioxide 23 mmol/L (23-31); Chloride 100 mmol/L (98-107); Estimated GFR 33; Glucose 100 mg/dL (83-110); Potassium 4.3 mmol/L (3.5-5.1); Sodium 131 mmol/L (136-145)
[2022-10-18] MEDS: Naloxegol 12.5 MG TAB PO SCH (08:48)
[2022-10-18] MEDS: Calcitriol 0.25 MCG CAP PO SCH (08:48)
[2022-10-18] MEDS: Escitalopram Oxalate 10 mg Tablet PO SCH (08:48)
[2022-10-18] MEDS: Gabapentin 300 MG CAP PO SCH (08:48)
[2022-10-18] MEDS: busPIRone HCl 10 MG TAB PO SCH (08:48)
[2022-10-18] MEDS: Bisacodyl 10 MG SUPP PR SCH (08:48)
[2022-10-18] MEDS: Sodium Bicarbonate Tab 325 MG TAB PO SCH ×2 (08:49→14:47)
[2022-10-18] MEDS: Polyethylene Glycol 3350 17 GM Packet PO SCH (08:49)
[2022-10-18] MEDS: Senokot S 8.6-50 MG TAB PO SCH (08:49)
[2022-10-18] MEDS: Labetalol HCl 100 MG TAB PO SCH (08:49)
[2022-10-18] MEDS ORDERED: Pantoprazole 40 MG VIAL IVP SCH (09:00)
[2022-10-18 17:03] VITALS: BP 151/73; TEMP 98.2
== END 2022-10-18 16:40 | disposition home or self-care (01) | DRG 378 ==
LOC: ERS 14:49 → SUATTDRO 14:49 → 2NO 17:34 → T4-B 10-13 10:40
PROVIDERS: ADMIT Family Medicine; ATTEND Hospitalist
PROC: 30233N1 Transfusion of Nonautologous Red Blood Cells into Peripheral Vein, Percutaneous Approach (ICD-10-PCS; 2022-10-08)
PROC: 0DB88ZX Excision of Small Intestine, Via Natural or Artificial Opening Endoscopic, Diagnostic (ICD-10-PCS; principal; 2022-10-17)
PROC: 0DBN8ZX Excision of Sigmoid Colon, Via Natural or Artificial Opening Endoscopic, Diagnostic (ICD-10-PCS; 2022-10-17)
DX: K28.4 Chronic or unspecified gastrojejunal ulcer with hemorrhage (principal); D62 Acute posthemorrhagic anemia; K63.3 Ulcer of intestine; N17.9 Acute kidney failure, unspecified; N18.4 Chronic kidney disease, stage 4 (severe); F05 Delirium due to known physiological condition; K62.6 Ulcer of anus and rectum; R55 Syncope and collapse; M32.9 Systemic lupus erythematosus, unspecified; M06.9 Rheumatoid arthritis, unspecified; M19.90 Unspecified osteoarthritis, unspecified site; K21.9 Gastro-esophageal reflux disease without esophagitis; F41.9 Anxiety disorder, unspecified; F32.A Depression, unspecified; I48.91 Unspecified atrial fibrillation; D63.1 Anemia in chronic kidney disease; K59.03 Drug induced constipation; M81.0 Age-related osteoporosis without current pathological fracture; K62.3 Rectal prolapse; K83.8 Other specified diseases of biliary tract; Z90.49 Acquired absence of other specified parts of digestive tract; Z90.710 Acquired absence of both cervix and uterus; Z95.0 Presence of cardiac pacemaker; Z98.890 Other specified postprocedural states; Z86.73 Personal history of transient ischemic attack (TIA), and cerebral infarction without residual deficits; Z88.8 Allergy status to other drugs, medicaments and biological substances; Z79.899 Other long term (current) drug therapy; Z79.01 Long term (current) use of anticoagulants; Z82.49 Family history of ischemic heart disease and other diseases of the circulatory system; M79.7 Fibromyalgia; Z87.440 Personal history of urinary (tract) infections; L40.9 Psoriasis, unspecified; Z86.718 Personal history of other venous thrombosis and embolism; G89.29 Other chronic pain; R45.1 Restlessness and agitation; T40.2X5A Adverse effect of other opioids, initial encounter
CPT/HCPCS: 36415; 36430; 74018; 74176; 76705; 78227; 80048; 80053; 82274; 82728; 83540; 83550; 83605; 83690; 84466; 84484; 85025; 85046; 85610; 85730; 86850; 86900; 86901; 87040; 87324; 87449; 87493; 88305; 88342; 93005; 94760; 96360; A9537; C9113; J0360; J1940; J2272; J2704; J7050; P9016; S0028

== ENCOUNTER 2023-01-14 10:01 | Day surgery (SDC) | payer MEDICARE, BC ==
[2023-01-14] MEDS ORDERED: diphenhydrAMINE 25 MG CAP PO SCH (10:15)
[2023-01-14] MEDS ORDERED: Acetaminophen 500 MG TAB PO SCH (10:15)
[2023-01-14] MEDS ORDERED: Acetaminophen 500 MG TAB ONE (12:07)
[2023-01-14 12:52] VITALS: TEMP 98.1
[2023-01-14 15:55] VITALS: BP 151/67
== END 2023-01-14 15:57 | disposition home or self-care (01) ==
LOC: ONC/OP 10:01
PROVIDERS: ATTEND Internal Medicine
DX: D64.9 Anemia, unspecified (principal); D69.59 Other secondary thrombocytopenia
CPT/HCPCS: 36430; 86850; 86900; 86901; 86920; P9016

== ENCOUNTER 2023-01-24 17:06 | Emergency (ER) | payer MEDICARE, BC ==
[2023-01-24 18:48] LABS: #Basophils 0.1 thou/uL (0.0-0.2); #Eosinphils 0.1 thou/uL (0.0-0.7); #Monocytes 0.6 thou/uL (0.11-0.59); #Neutrophils 5.8 thou/uL (1.40-6.50); %Basophils 0.8 % (0.0-1.0); %Eosinophils 1.7 % (0.0-10.0); %Lymphocytes 11.9 % (21.0-51.0); %Monocytes 7.6 % (0.0-10.0); %Neutrophils 77.7 % (42.0-75.0); Hematocrit 29.6 % (36.0-47.0); Hemoglobin 8.5 g/dL (12.0-16.0); Mean Corpuscular HGB CONC 28.7 g/dL (32.0-36.0); Mean Corpuscular Hemoglobin 26.3 pg (27.0-31.0); Mean Corpuscular Volume 91.6 fl (78.0-98.0); Mean Platelet Volume 9.1 fL (7.4-10.4); Platelet Count 364 10x3/uL (130-400); RBC Distribution Width 17.6 % (11.5-14.5); Red Blood Cell (RBC) Count 3.23 mill/uL (4.20-5.40); White Blood Cell (WBC) Count 7.5 10x3/uL (4.8-10.8)
[2023-01-24 19:11] LABS: ALT (SGPT) 9 U/L (8-55); AST (SGOT) 15 U/L (5-34); Albumin 3.2 g/dL (3.4-4.8); Alkaline Phosphatase 54 U/L (40-110); Anion Gap 16 mmol/L (10-20); BUN (Urea Nitrogen) 69 mg/dL (9.8-20.1); Bilirubin, Total 0.4 mg/dL (0.2-1.2); Calc. Creatinine Clearance 0 mL/min (70-130); Calcium 9.6 mg/dL (7.8-10.44); Carbon Dioxide 25 mmol/L (23-31); Chloride 98 mmol/L (98-107); Estimated GFR 19; Globulin 3.2 g/dL (2.4-3.5); Glucose 94 mg/dL (83-110); Potassium 4.9 mmol/L (3.5-5.1); Protein, Total 6.4 g/dL (5.8-8.1); Sodium 134 mmol/L (136-145)
[2023-01-24 19:24] LABS: Anisocytosis SLIGHT = 6-15 cells HPF (0-5); CellaVision Operator ID LAB.KB; Hypochromia SLIGHT = 6-15 cells HPF (0-5); Ovalocytes SLIGHT = 2-5 cells HPF (0-1); Platelet Adequacy Comment Platelets Normal; Polychromasia SLIGHT = 2-3 cells HPF (0-2)
== END 2023-01-24 19:56 | disposition home or self-care (01) ==
LOC: ERS 17:06
DX: M85.611 Other cyst of bone, right shoulder (principal); D64.9 Anemia, unspecified; I48.91 Unspecified atrial fibrillation; K21.9 Gastro-esophageal reflux disease without esophagitis; Z79.01 Long term (current) use of anticoagulants; Z79.899 Other long term (current) drug therapy
CPT/HCPCS: 36415; 80053; 85025; 86140

== ENCOUNTER 2023-04-20 11:41 | Outpatient (CLI) | payer MEDICARE, BC | END 2023-04-20 11:42 | disposition home or self-care (01) | LOC: RAD 11:41 | PROVIDERS: ATTEND Orthopaedic Surgery | DX: M12.811 Other specific arthropathies, not elsewhere classified, right shoulder (principal); M25.411 Effusion, right shoulder; M75.101 Unspecified rotator cuff tear or rupture of right shoulder, not specified as traumatic; M62.511 Muscle wasting and atrophy, not elsewhere classified, right shoulder; R93.7 Abnormal findings on diagnostic imaging of other parts of musculoskeletal system; Z95.0 Presence of cardiac pacemaker | CPT/HCPCS: 71045 ==